=== PATIENT | female | born 1950 | race Caucasian/White ===

== ENCOUNTER 2016-05-24 00:06 | Inpatient (IN) | payer OTHER ==
[~2016-05-24] VITALS: Ht 157.5 cm; Wt 78.2 kg
[2016-05-24] VITALS (7 sets, daily range): BP systolic 99–104; BP diastolic 55–68; PULSE 100–107; TEMP 36.4–37.1; O2SAT 92–97; Ht 157.5 cm; Wt 78.2 kg
[~2016-05-24 00:06] MED LIST: ALUMSUS17 PO; ATV1 PO; ATV5 PO; CALCTAB27 PO; CARB25TA12 PO; DBT/25 PO; FLUO40CA8 PO; FURO-85 PO; HYDR1OIN TOP; IMD/2 PO; MENTOIN TOP; MOML PO; NRN/300 PO; NUTR-706 PO; PRLSR20 PO; TRIH5TAB2 PO; [UNRECOGNIZED DRUG - CODE] PO
[2016-05-24] MEDS ORDERED: ACETAMINOPHEN 500 MG TAB PO STA (00:29)
[2016-05-24] MEDS ORDERED: IBUPROFEN 600 MG TAB PO STA (00:29)
[2016-05-24] MEDS ORDERED: SODIUM CHLORIDE 0.9% 1000ML 1,000 ML IV ONE (00:30)
[2016-05-24 01:08] LABS: PARTIAL THROMBOPLASTIN RATIO 1.1; PROTHROMBIN TIME (PATIENT) 11.1 SECONDS (9.0-12.0)
[2016-05-24 01:13] LABS: BUN/CREATININE RATIO 11.3 (10-20); CALCIUM 9.4 mg/dl (8.5-10.1); CREATININE 1.2 mg/dl (0.60-1.20); POTASSIUM 4.1 mmol/L (3.5-5.1)
[2016-05-24 01:18] LABS: HEMATOCRIT 39.5 % (37-47); MEAN CELL VOLUME 92.7 fL (80-100); MEAN CORPUSCULAR HEMOGLOBIN 31.9 pg (25-34); MEAN CORPUSCULAR HGB CONC 34.4 g/dl (32-36); MEAN PLATELET VOLUME 9.7 fL (7.4-10.4); PLATELET COUNT 82 K/uL (130-400); RED BLOOD COUNT 4.26 M/uL (4.2-5.4); WHITE BLOOD COUNT 8.24 K/uL (4.8-10.8)
[2016-05-24 01:19] LABS: COMPLETE YES; EOS % 0.5 %; IG% 0.1 %; LYMPH % 8.5 %; MONO % 5.8 %; NEUT % 85.1 %; PLT ESTIMATE DECREASED
[2016-05-24] MEDS ORDERED: ATV/1 PO (01:28)
[2016-05-24] MEDS ORDERED: LORA-741 PO (01:28)
[2016-05-24] MEDS ORDERED: GUAI1TAB55 PO (01:29)
[2016-05-24] MEDS ORDERED: ASPI-435 PO (01:31)
[2016-05-24] MEDS ORDERED: [UNRECOGNIZED DRUG - CODE] PO (01:34)
[2016-05-24] MEDS ORDERED: GLIP-172 PO (01:34)
[2016-05-24] MEDS ORDERED: CGN5 PO (01:34)
[2016-05-24] MEDS ORDERED: LINICRE TOP ×2 (01:35→01:36)
[2016-05-24] MEDS ORDERED: ACET-1256 PO (01:37)
[2016-05-24] MEDS ORDERED: CALC-279 PO (01:38)
[2016-05-24] MEDS ORDERED: SELE1SHA3 TOP (01:38)
[2016-05-24 01:58] LABS: URINE APPEARANCE CLEAR (CLEAR); URINE BILIRUBIN NEG (NEG); URINE COLOR YELLOW; URINE NITRITE NEG (NEG); URINE PH 7.5 (4.5-7.5); URINE SPECIFIC GRAVITY 1.016 (1.000-1.030); UROBILINOGEN NEG (NEG); ZZURINE CULT IF INDIC CATH NO
[2016-05-24 02:01] LABS: MANUAL MICROSCOPIC REQUIRED? NO; REVIEW REQ? NO
[2016-05-24] MEDS ORDERED: POLYETHYLENE (MIRALAX) 17 GM PACK PO PRN (04:00)
[2016-05-24] MEDS ORDERED: ONDANSETRON INJ 2 MG/ML 2 ML VIAL IV PRN (04:00)
[2016-05-24] MEDS ORDERED: ALUMINUM/MAGNESIUM/SIMETH (MAALOX MAX) 30 ML UDC PO PRN (04:00)
[2016-05-24] MEDS ORDERED: NITROGLYCERIN 0.4 MG SL PER TAB CHARGE SL PRN (04:00)
[2016-05-24] MEDS ORDERED: MAGNESIUM HYDROXIDE SUSP 30 ML UDC PO PRN (04:00)
[2016-05-24] MEDS ORDERED: LEVOFLOXACIN 250 MG TAB PO STA (04:21)
[2016-05-24] MEDS ORDERED: PIPERACILLIN/TAZOBACTAM 4.5 GM/100ML D5W IV STA (04:22)
--- NOTE | 2016-05-24 05:35 | EMERGENCY ROOM VISIT NOTE ---
ED Visit Note First contact with patient: 00:22 I have personally evaluated and examined this patient. I agree with assessment and plan of Jasper Lockwood PA-C. 65 yr old female with fevers/hypoxia but otherwise labs/cxr look ok. No history of hypoxia thus would presume lung source. Does not appear septic. Will bring in to hospitalist service.
[2016-05-24] MEDS ORDERED: LOPERAMIDE HCL 2 MG CAP PO PRN (05:45)
[2016-05-24] MEDS ORDERED: LORAZEPAM 0.5 MG TAB PO PRN (05:45)
--- NOTE | 2016-05-24 05:49 | History and Physical ---
History & Physical Date & Time of Service: May 24, 2016 at 05:25 Chief Complaint: Fever, Pneumonia [facility] History of Present Illness Source: patient, caregiver, clinic records This is a 65 year old female resident of [facility] with PMH of anxiety, depression, mild intellectual disability, DM2, HLD [facility] to her spiking a fever and developing a cough late on 05/23/16 - as per the caregiver in the room with the patient, the coughing started suddenly; and due to a fever, she was brought over to the ER. I spoke to the patient, who tells me she has a cough, but otherwise feels fine and very insistent on wanting to go back to [facility]. Denies chest pain or any other symptoms. Upon presentation to the ER, work-up performed, flu is negative, CXR does not clearly show an infiltrate; UA is negative. Patient has been tachycardic and spiking fevers. Oxygen saturation is on the lower end, low 90s with oxygen, she does not use supplemental O2 at home. Past Medical/Surgical History Medical Problems: (1) Anxiety Status: Chronic (2) Depression Status: Chronic (3) GERD (gastroesophageal reflux disease) Status: Chronic (4) History of mental retardation Status: Chronic (5) Osteoporosis Status: Chronic (6) Parkinson disease Status: Chronic (7) Schizophrenia Status: Chronic Family History Patient reports no known family medical history. Social History Smoking Status: Never Smoker Drug Use: none Marital Status: single Occupational Status: disabled Immunizations History of Influenza Vaccine: No History of Tetanus Vaccine?: Unknown History of Pneumococcal: Yes History of Hepatitis B Vaccine: Yes Multi-Drug Resistant Organisms History of MDRO: No Allergies Coded Allergies: Flu Virus Vaccine (Unverified Allergy, Unknown, ., 05/24/16) Risperidone (Verified Allergy, Unknown, 05/24/16) Sulfa Drugs (Verified Allergy, Unknown, 08/22/13) Replaces SULFAMETHOXAZ Sulfamethoxazole (Verified Allergy, Unknown, 08/22/13) Replaces SULFAMETHOXAZ Sulfamethoxazole w/Trimethoprim (Verified Allergy, Unknown, unknown, ) Trimethoprim (Verified Allergy, Unknown, 08/22/13) Replaces SULFAMETHOXAZ Home Medications Scheduled Aspirin (Aspirin 81), 81 MG PO QAM Benztropine Mesylate (Benztropine Mesylate), 1 MG PO DAILY Calcium Citrate-Vitamin D (Calcium Citrate + D), 1 TAB PO DAILY Carbidopa/Levodopa (Sinemet 25MG/100MG), 1 TAB PO BID Clozapine (Clozapine), 3.5 TABS PO DAILY Fluoxetine (Prozac), 40 MG PO DAILY Furosemide (Lasix), 20 MG PO DAILY Gabapentin (Neurontin), 300 MG PO TID Glipizide (Glipizide Xl), 2.5 MG PO DAILY Lorazepam (Ativan), 1 MG PO DAILY @ 2PM Menthol-Methyl Salicylate (Dayana (Thera-Gesic), 1 APPLN TOP BID Omeprazole (Prilosec), 20 MG PO DAILY Scheduled PRN Acetaminophen (Tylenol), 500 MG PO Q6H PRN for Pain or Fever Alum & Mag Hydrox-Simethicone (Maalox Advanced), 30 ML PO Q1 HOUR PRN for INDIGESTION Enteral Nutrition Formula (Ensure), 1 CAN PO BID PRN for SUPPLEMENT Guaifenesin Ext Rel (Mucinex Ext Rel), 600 MG PO Q12 PRN for CONGESTION Loperamide Hcl (Imodium), 2 MG PO Q 3 HOURS PRN Lorazepam (Ativan), 0.5 MG PO BID PRN for Anxiety Magnesium Hydroxide (Milk Of Magnesia), 30 ML PO DAILY PRN for CONSTIPATION Menthol-Methyl Salicylate (Dayana (Thera-Gesic), 1 APPLN TOP UD PRN for Pain Selenium Sulfide (Selsun Blue), 1 APPLN TOP UD PRN for INFECTION Review of Systems Constitutional: + chills, + fever, No fatigue, No sweats, No weakness Respiratory: + cough, + shortness of breath, + sputum, + wheezing, No dyspnea at rest, No dyspnea on exertion, No hemoptysis Cardiovascular: No chest pain, No edema, No orthopnea, No palpitations Abdomen: No diarrhea, No nausea, No pain, No vomiting Genitourinary - Female: No dysuria, No hematuria, No urinary frequency, No urinary urgency Neurologic: No memory loss Psychiatric: No depression symptoms Hematologic / Lymphatic: No abnormal bleeding/bruising Physical Exam Vital Signs Date Time Temp Pulse Resp B/P Pulse Ox O2 Delivery O2 Flow Rate FiO2 05/24/16 04:28 113 05/24/16 03:27 91 Free Flow/[place] 5.0 05/24/16 03:00 119 28 123/87 88 Nasal Cannula 5.0 05/24/16 01:57 86 Room Air 05/24/16 01:55 38.0 118 25 150/78 92 Nasal Cannula 2.0 05/24/16 01:49 115 19 159/90 96 Nasal Cannula 2.0 05/24/16 00:53 92 Nasal Cannula 2.0 05/24/16 00:28 115 05/24/16 00:18 38.5 115 20 142/87 91 Room Air General Appearance: + mild distress, + pertinent finding (+mild MR) Head: normocephalic, atraumatic ENT: hearing grossly normal Respiratory/Chest: + respiratory distress (mild), + decreased breath sounds, + crackles (diffusely, bilateral) Cardiovascular: no edema, no murmur, + tachycardia Abdomen/GI: normal bowel sounds, non tender, soft Extremities/Musculoskelatal: no calf tenderness, normal capillary refill, no pedal edema Neurologic/Psych: no motor/sensory deficits, alert, normal mood/affect Skin: normal color Lymphatic: no adenopathy Diagnostics Laboratory Results Results Past 24 Hours Test 05/24/16 00:05 05/24/16 00:30 05/24/16 00:42 05/24/16 00:51 Range/Units Urine Color YELLOW Urine Appearance CLEAR CLEAR Urine pH 7.5 4.5-7.5 Urine Specific [place] 1.016 1.000-1.030 Urine Protein NEG NEG Urine Glucose (UA) NEG NEG Urine Ketones NEG NEG Urine Occult Blood NEG NEG Urine Nitrite NEG NEG Urine Bilirubin NEG NEG Urine Urobilinogen NEG NEG Urine Leukocyte Esterase NEG NEG White Blood Count 8.24 4.8-10.8 K/uL Red Blood Count 4.26 4.2-5.4 M/uL Hemoglobin 13.6 12.0-16.0 g/dL Hematocrit 39.5 37-47 % Mean Corpuscular Volume 92.7 80-100 fL Mean Corpuscular Hemoglobin 31.9 25-34 pg Mean Corpuscular Hemoglobin Concent 34.4 32-36 g/dl Platelet Count 82 130-400 K/uL Mean Platelet Volume 9.7 7.4-10.4 fL Neutrophils (%) (Auto) 85.1 % Lymphocytes (%) (Auto) 8.5 % Monocytes (%) (Auto) 5.8 % Eosinophils (%) (Auto) 0.5 % Basophils (%) (Auto) 0.0 % Neutrophils # (Auto) 7.01 1.4-6.5 K/uL Lymphocytes # (Auto) 0.70 1.2-3.4 K/uL Monocytes # (Auto) 0.48 0.11-0.59 K/uL Eosinophils # (Auto) 0.04 0-0.5 K/uL Basophils # (Auto) 0.00 0-0.2 K/uL RDW Standard Deviation 48.4 36.4-46.3 fL RDW Coefficient of Variation 14.4 11.5-14.5 % Immature Granulocyte % (Auto) 0.1 % Immature Granulocyte # (Auto) 0.01 0.00-0.02 K/uL Platelet Estimate DECREASED Red Blood Cell Morphology Unremarkable Prothrombin Time 11.1 9.0-12.0 SECONDS Prothromb Time International Ratio 1.0 0.9-1.1 Activated Partial Thromboplast Time 27.5 21.0-31.0 SECONDS Partial Thromboplastin Ratio 1.1 Sodium Level 141 136-145 mmol/L Potassium Level 4.1 3.5-5.1 mmol/L Chloride Level 103 98-107 mmol/L Carbon Dioxide Level 30 21-32 mmol/L Anion Gap 8.0 3-11 mmol/L Blood Urea Nitrogen 14 7-18 mg/dl Creatinine 1.20 0.60-1.20 mg/dl Est Creatinine Clear Calc Drug Dose 45.7 ml/min Estimated GFR () 54.5 Estimated GFR (Non- 47.1 BUN/Creatinine Ratio 11.3 10-20 Random Glucose 120 70-99 mg/dl Calcium Level 9.4 8.5-10.1 mg/dl Total Bilirubin 0.7 0.2-1 mg/dl Aspartate Amino Transf (AST/SGOT) 79 15-37 U/L Alanine Aminotransferase (ALT/SGPT) 95 12-78 U/L Alkaline Phosphatase 124 45-117 U/L Total Protein 8.2 6.4-8.2 gm/dl Albumin 4.0 3.4-5.0 gm/dl Globulin 4.2 2.5-4.0 gm/dl Albumin/Globulin Ratio 1.0 0.9-2 Bedside Lactic Acid Venous 1.49 0.90-1.70 mmol/L Influenza Type A Antigen Neg for Influ A NEG Influenza Type B Antigen Neg for Influ B NEG Test 05/24/16 00:56 05/24/16 04:30 Range/Units Bedside Troponin I 0.000 0-0.045 ng/ml Microbiology Results 05/24/16 Blood Culture, Received Pending 05/24/16 Blood Culture, Received Pending Impression Assessment and Plan This is a 65 year old female resident of [facility] with PMH of anxiety, depression, mild intellectual disability, DM2, HLD [facility] due to her spiking a fever and developing a cough SIRS criteria Possibly pneumonia -->patient presents with cough, fever, tachycardia -->onset of the cough was sudden as per caregiver -->unsure if patient aspirated, no known dietary restrictions, though she has dentures -->will obtain speech evaluation -->will likely need a repeat CXR or CT chest for further evaluation -->continue supplemental O2 to keep O2 saturation > 90% -->added Zosyn + Levaquin for possible aspiration pneumonia -->rapid flu negative, will obtain Influenza PCR -->cultures are pending Anxiety/Depression -->continue home medications DVT ppx -->subq heparin FULL CODE VTE Prophylaxis VTE Risk Assessment Done? Y/N: Yes Risk Level: Moderate
[2016-05-24] MEDS ORDERED: HEPARIN SOD 5000 UNIT/0.5 ML CARP SQ SCH (06:00)
--- NOTE | 2016-05-24 07:15 | DIAGNOSTIC IMAGING REPORT ---
CHEST ONE VIEW PORTABLE HISTORY: Short of breath. Pneumonia. COMPARISON: Chest 05/24/2016. FINDINGS: There are low lung volumes. The heart remains mildly enlarged. Mild diffuse interstitial thickening persists. Left basilar densities are again noted. No pleural effusions. No pneumothorax. IMPRESSION: Low lung volumes with left basilar densities. This may represent atelectasis or pneumonia. Electronically signed by: Parag Ha M.D. 05/24/2016 7:13 AM
--- NOTE | 2016-05-24 07:23 | DIAGNOSTIC IMAGING REPORT ---
CHEST ONE VIEW PORTABLE HISTORY: Sepsis COMPARISON: Chest 08/22/2013. FINDINGS: Low lung volumes. Left basilar linear densities. No pneumothorax. No pleural effusions. The heart remains enlarged. There is progression of the interstitial and vascular thickening. IMPRESSION: 1. Progression of the interstitial and vascular thickening suggestive of mild congestive change. 2. Linear density at the left lung base may represent atelectasis given the low lung volumes. 3. Stable cardiomegaly. Electronically signed by: Parag Ha M.D. 05/24/2016 7:21 AM
[2016-05-24 07:25] LABS: INFLUENZA B PCR Neg for Influ B (NEG)
[2016-05-24 07:28] LABS: INFLUENZA A PCR POS for Influ A (NEG)
[2016-05-24] MEDS: ALBUTEROL 0.083% NEBU SOLN 3 ML VIAL INH SCH ×3 (07:46→20:19)
[2016-05-24] MEDS ORDERED: PIPERACILL/TAZOBAC CONSULT ACTIVE PRN ×2 (08:45→09:00)
[2016-05-24] MEDS ORDERED: FUROSEMIDE 20 MG TAB PO SCH (09:00)
[2016-05-24] MEDS ORDERED: ASPIRIN 81 MG ECTAB PO SCH (09:00)
[2016-05-24] MEDS ORDERED: CLOZAPINE 25 MG TAB PO SCH (09:00)
[2016-05-24] MEDS ORDERED: GABAPENTIN 300 MG CAP PO SCH (09:00)
[2016-05-24] MEDS: FLUOXETINE HCL 20 MG CAP PO SCH (09:03)
[2016-05-24] MEDS: CARBIDOPA/LEVODOPA 25/100MG TAB PO SCH ×2 (09:03→20:58)
[2016-05-24] MEDS: BENZTROPINE MESYLATE 1 MG TAB PO SCH (09:04)
[2016-05-24] MEDS: PANTOprazole SOD 40 MG TAB PO SCH (09:04)
[2016-05-24] MEDS: PIPERACILL/TAZOBAC IV 3.375 GM in DEXTROSE 5% 100ML 100 ML IV SCH ×2 (09:13→17:52)
[2016-05-24] MEDS ORDERED: DOXYCYCLINE IV 100 MG in DEXTROSE 5% 100ML 100 ML IV ONE (10:12)
[2016-05-24] MEDS ORDERED: OSELTAMIVIR PHOSPHATE SUSP 30 MG/5 ML UDP PO ONE (10:35)
[2016-05-24] MEDS: D5W AND NSS 1,000 ML IV SCH (11:16)
[2016-05-24 11:46] LABS: ALLEN TEST POSITIVE (POS); ARTERIAL BLD GAS O2 SATURATION 93.7 % (90-95); ARTERIAL BLOOD GAS BASE EXCESS 2.1 mEq/L (-9-1.8); ARTERIAL BLOOD GAS HCO3 27 mmol/L (19-24); ARTERIAL BLOOD GAS PO2 67 mm/Hg (80-95); ARTERIAL BLOOD GAS pH 7.41 (7.35-7.45); O2 ADMINISTRATION 4 LITERS
--- NOTE | 2016-05-24 12:01 | DIAGNOSTIC IMAGING REPORT ---
HEAD CT NONCONTRAST CT DOSE: 1483.10 mGycm HISTORY: Mental status change r/o cava, bleed TECHNIQUE: Multiaxial CT images of the head were performed without the use of intravenous contrast. Comparison: 05/14/2013 Findings: The paranasal sinuses and mastoid air cells are clear. Stable hydrocephalus. Minimal chronic small vessel change unaltered. No evidence for acute intracranial hemorrhage. No midline shift. Impression: Chronic change. No acute process. No change from the prior exam. Electronically signed by: Malik Bullock M.D. 05/24/2016 11:59 AM
[2016-05-24] MEDS ORDERED: LORAZEPAM 1 MG TAB PO SCH (14:00)
[2016-05-24] MEDS: OSELTAMIVIR PHOSPHATE SUSP 30 MG/5 ML UDP PO SCH (20:58)
[2016-05-24] MEDS ORDERED: DOXYCYCLINE IV 100 MG in DEXTROSE 5% 100ML 100 ML IV SCH (21:00)
[2016-05-25] VITALS (11 sets, daily range): BP systolic 92–136; BP diastolic 63–76; PULSE 103–113; TEMP 37.3–38.6; O2SAT 91–99
[2016-05-25] MEDS: ALBUTEROL 0.083% NEBU SOLN 3 ML VIAL INH SCH ×4 (01:29→21:12)
[2016-05-25] MEDS: D5W AND NSS 1,000 ML IV SCH ×3 (01:34→20:51)
[2016-05-25] MEDS: PIPERACILL/TAZOBAC IV 3.375 GM in DEXTROSE 5% 100ML 100 ML IV SCH ×3 (01:34→17:27)
[2016-05-25] MEDS ORDERED: IBUPROFEN 600 MG TAB PO STA (05:00)
[2016-05-25 06:34] LABS: HEMATOCRIT 35.5 % (37-47); MEAN CELL VOLUME 94.2 fL (80-100); MEAN CORPUSCULAR HEMOGLOBIN 31.6 pg (25-34); MEAN CORPUSCULAR HGB CONC 33.5 g/dl (32-36); RED BLOOD COUNT 3.77 M/uL (4.2-5.4); WHITE BLOOD COUNT 6.75 K/uL (4.8-10.8)
[2016-05-25 06:37] LABS: PLATELET COUNT 75 K/uL (130-400)
[2016-05-25 07:02] LABS: BASO % 0.1 %; BASO ABS # 0.01 K/uL (0-0.2); COMPLETE YES; EOS % 0.9 %; IG% 0.3 %; LYMPH % 8.9 %; NEUT % 84.8 %
[2016-05-25 07:03] LABS: BUN/CREATININE RATIO 10.8 (10-20); CALCIUM 8.2 mg/dl (8.5-10.1); CREATININE 1.2 mg/dl (0.60-1.20); POTASSIUM 3.7 mmol/L (3.5-5.1)
[2016-05-25] MEDS: CARBIDOPA/LEVODOPA 25/100MG TAB PO SCH ×2 (08:23→20:44)
[2016-05-25] MEDS: FLUOXETINE HCL 20 MG CAP PO SCH (08:24)
[2016-05-25] MEDS: PANTOprazole SOD 40 MG TAB PO SCH (08:25)
[2016-05-25] MEDS: GUAIFENESIN 600 MG TABCR PO PRN (08:25)
[2016-05-25] MEDS: BENZTROPINE MESYLATE 1 MG TAB PO SCH (08:25)
[2016-05-25] MEDS: OSELTAMIVIR PHOSPHATE SUSP 30 MG/5 ML UDP PO SCH ×2 (08:26→20:47)
[2016-05-25] MEDS ORDERED: LEVOFLOXACIN 750 MG TAB PO SCH (09:00)
--- NOTE | 2016-05-25 11:48 | Progress Note ---
Medicine Progress Note Date & Time of Visit: May 25, 2016 at 11:39. Subjective patient seen sitting up in bed, awake, alert, pleasant, appears comfortable oriented x 2 denies shortness of breath, has occasional cough no chest pain denies fever/chills, muscle/joint pains no abdominal pain, nausea denies other symptoms Objective Last 8 Hrs Date Time Temp Pulse Resp B/P Pulse Ox O2 Delivery O2 Flow Rate FiO2 05/25/16 07:58 37.7 112 18 118/63 95 Nasal Cannula 2.0 05/25/16 07:09 109 20 98 Nasal Cannula 3.0 05/25/16 04:00 Nasal Cannula 2.0 Physical Exam: General- oriented x2, not in distress, speaks in sentences with no effort/acc muscles Eyes- anicteric ENT- dry oral mucosa Neck- supple, no JVD, no adenopathy Lungs- clear to auscultation b/l Heart-normal rate, regular rhythm; no murmurs Abdomen- normal bowel sounds, soft, nontender Extremities- no pretibial edema, no calf tenderness Neuro- alert, oriented x 2; no gross deficits (+) tardive dyskinesia movements Skin- warm & dry Laboratory Results: Last 24 Hours Test 05/24/16 16:12 05/24/16 20:17 05/25/16 06:12 05/25/16 06:13 Bedside Glucose 127 mg/dl 116 mg/dl Sodium Level 143 mmol/L Potassium Level 3.7 mmol/L Chloride Level 106 mmol/L Carbon Dioxide Level 28 mmol/L Anion Gap 9.0 mmol/L Blood Urea Nitrogen 13 mg/dl Creatinine 1.20 mg/dl Est Creatinine Clear Calc Drug Dose 45.8 ml/min Estimated GFR () 54.5 Estimated GFR (Non- 47.1 BUN/Creatinine Ratio 10.8 Random Glucose 119 mg/dl Calcium Level 8.2 mg/dl White Blood Count 6.75 K/uL Red Blood Count 3.77 M/uL Hemoglobin 11.9 g/dL Hematocrit 35.5 % Mean Corpuscular Volume 94.2 fL Mean Corpuscular Hemoglobin 31.6 pg Mean Corpuscular Hemoglobin Concent 33.5 g/dl Platelet Count 75 K/uL Mean Platelet Volume 10.0 fL Neutrophils (%) (Auto) 84.8 % Lymphocytes (%) (Auto) 8.9 % Monocytes (%) (Auto) 5.0 % Eosinophils (%) (Auto) 0.9 % Basophils (%) (Auto) 0.1 % Neutrophils # (Auto) 5.72 K/uL Lymphocytes # (Auto) 0.60 K/uL Monocytes # (Auto) 0.34 K/uL Eosinophils # (Auto) 0.06 K/uL Basophils # (Auto) 0.01 K/uL RDW Standard Deviation 50.4 fL RDW Coefficient of Variation 14.6 % Immature Granulocyte % (Auto) 0.3 % Immature Granulocyte # (Auto) 0.02 K/uL Red Blood Cell Morphology Unremarkable Test 05/25/16 06:50 05/25/16 10:52 Bedside Glucose 135 mg/dl 105 mg/dl Date/Time Source Procedure Growth Status 05/24/16 12:15 Nasal MRSA DNA Surveillance Screen - Final Specimen Negative for MRSA by DNA Probe Complete Assessment & Plan Assessment and Plan This is a 65 year old female resident of [facility] with PMH of anxiety, depression, mild intellectual disability, DM2, HLD was sent over by the [facility] due to her spiking a fever and developing a cough SEPSIS SECONDARY TO INFLUENZA, R/O PNEUMONIA- Aspiration vs. Comm Acquired -->patient presents with cough, fever, tachycardia -->onset of the cough was sudden as per caregiver -->unsure if patient aspirated, no known dietary restrictions, though she has dentures - still spiking fevers, tachycardic WBC normal - flu a positive blood cultures negative so far - repeat cxr today speech therapy eval today, advance diet per speech therapist - continue Oseltamivir Day 2 continue empiric Zosyn + Levaquin Day 2 IV fluids wean off oxygen Thrombocytopenia - from Sepsis? - Plt now 71 no signs of bleeding monitor - baseline around low 100s - hold aspirin DM hold glipizide ISS for now Anxiety/Depression/MR -->continue home medications DVT ppx hold heparin due to thrombocytopenia FULL CODE Disposition pending Current Inpatient Medications: Current Inpatient Medications Medications (Trade) Dose Ordered Sig/Yisel Route Start Time Stop Time Status Last Admin Dose Admin Levofloxacin 750 mg 750 mg DAILY PO 05/25/16 09:00 05/31/16 08:59 05/25/16 08:24 750 MG Piperacillin Sod/ Tazobactam Sod/ Dextrose (Zosyn Iv/D5 100ml) 115 ml @ 28.75 mls/ hr Q8H IV 05/24/16 09:00 05/31/16 03:59 05/25/16 08:28 28.75 MLS/HR Albuterol Sulfate (Ventolin 0.083% 2.5MG/3ML Neb) 2.5 mg Q6R INH 05/24/16 09:00 06/23/16 08:59 05/25/16 07:09 2.5 MG Acetaminophen (Tylenol Tab) 650 mg Q4H PRN PO 05/24/16 04:00 06/23/16 03:59 Al Hydrox/Mg Hydrox/Simethicone (Maalox Max Susp) 15 ml Q4H PRN PO 05/24/16 04:00 06/23/16 03:59 Magnesium Hydroxide (Milk Of Magnesia Susp) 30 ml Q12H PRN PO 05/24/16 04:00 06/23/16 03:59 Ondansetron HCl (Zofran Inj) 4 mg Q6H PRN IV 05/24/16 04:00 06/23/16 03:59 Nitroglycerin (Nitrostat Tab) 0.4 mg UD PRN SL 05/24/16 04:00 06/23/16 03:59 Polyethylene (Miralax Powder Packet) 17 gm DAILY PRN PO 05/24/16 04:00 06/23/16 03:59 Benztropine Mesylate (Cogentin Tab) 1 mg DAILY PO 05/24/16 09:00 06/23/16 08:59 05/25/16 08:25 1 MG Carbidopa/Levodopa (Sinemet 25/ 100MG Tab) 1 tab BID PO 05/24/16 09:00 06/23/16 08:59 05/25/16 08:23 1 TAB Fluoxetine HCl (Prozac Cap) 40 mg DAILY PO 05/24/16 09:00 06/23/16 08:59 05/25/16 08:24 40 MG Guaifenesin (Mucinex Contr Rel Tab) 600 mg Q12 PRN PO 05/24/16 05:45 06/23/16 05:44 05/25/16 08:25 600 MG Loperamide HCl (Imodium Cap) 2 mg DAILY PRN PO 05/24/16 05:45 06/23/16 05:44 Lorazepam (Ativan Tab) 0.5 mg BID PRN PO 05/24/16 05:45 06/23/16 05:44 Pantoprazole Sodium (Protonix Tab) 40 mg DAILY PO 05/24/16 09:00 06/23/16 08:59 05/25/16 08:25 40 MG Piperacillin Sod/ Tazobactam Sod (Consult) 1 ea UD PRN N/A 05/24/16 08:45 06/23/16 08:44 Oseltamivir Phosphate 30 mg 30 mg BID PO 05/24/16 21:00 05/29/16 08:59 05/25/16 08:26 30 MG Dextrose/Sodium Chloride (D5W And Nss) 1,000 ml @ 100 mls/hr Q10H IV 05/24/16 10:30 06/23/16 10:29 05/25/16 01:34 100 MLS/HR
[2016-05-25] MEDS ORDERED: GLUCAGON FOR INJ 1 MG VIAL SQ PRN (12:00)
[2016-05-25] MEDS ORDERED: LEVOFLOXACIN CONSULT ACTIVE PRN (12:00)
[2016-05-25] MEDS ORDERED: GLUCOSE 40% GEL 15 GM TUBE PO PRN (12:00)
[2016-05-25] MEDS: INSULIN ASPART 100 UNITS/ML 3 ML PEN SC SCH ×3 (12:00→20:47)
[2016-05-25] MEDS ORDERED: GLUCOSE 10 TABS/TUBE PO PRN (12:00)
[2016-05-25] MEDS ORDERED: DEXTROSE 50% 50 ML SYR IV PRN (12:00)
--- NOTE | 2016-05-25 12:13 | DIAGNOSTIC IMAGING REPORT ---
CHEST ONE VIEW PORTABLE HISTORY: Fever. Sepsis. r/o pneumonia COMPARISON: Chest 05/24/2016. FINDINGS: No pneumothorax. No pleural effusions. There are low lung volumes. The heart remains mildly enlarged. Diffuse interstitial and vascular thickening suggestive of mild congestive change. There are left basilar densities. IMPRESSION: 1. Left basilar linear densities. This may represent atelectasis or pneumonia. 2. Mild central pulmonary vascular congestion without overt edema. Electronically signed by: Parag Ha M.D. 05/25/2016 12:11 PM Dictated Date/Time: 05/25/2016 12:10 PM
[2016-05-25] MEDS: ACETAMINOPHEN 325 MG TAB PO PRN (17:27)
[2016-05-26] VITALS (9 sets, daily range): BP systolic 131–168; BP diastolic 76–91; PULSE 100–114; TEMP 36.6–37.1; O2SAT 90–97
[2016-05-26] MEDS: PIPERACILL/TAZOBAC IV 3.375 GM in DEXTROSE 5% 100ML 100 ML IV SCH ×3 (01:52→17:46)
[2016-05-26] MEDS: ALBUTEROL 0.083% NEBU SOLN 3 ML VIAL INH SCH ×3 (02:02→14:30)
[2016-05-26 06:30] LABS: HEMATOCRIT 35.1 % (37-47); MEAN CELL VOLUME 92.4 fL (80-100); MEAN CORPUSCULAR HEMOGLOBIN 30.8 pg (25-34); MEAN CORPUSCULAR HGB CONC 33.3 g/dl (32-36); WHITE BLOOD COUNT 4.87 K/uL (4.8-10.8)
[2016-05-26 06:42] LABS: COMPLETE YES; EOS % 0.6 %; IG% 0.6 %; LYMPH % 19.3 %; LYMPH ABS # 0.94 K/uL (1.2-3.4); MEAN PLATELET VOLUME 9.9 fL (7.4-10.4); NEUT % 72.5 %; PLATELET COUNT 76 K/uL (130-400)
[2016-05-26 07:05] LABS: BUN/CREATININE RATIO 9.8 (10-20); CALCIUM 8.5 mg/dl (8.5-10.1); CREATININE 0.87 mg/dl (0.60-1.20); POTASSIUM 3.5 mmol/L (3.5-5.1)
[2016-05-26 08:06] LABS: ESTIMATED AVERAGE GLUCOSE 114 mg/dl; HA1C FLAG Normal (Normal)
[2016-05-26] MEDS: OSELTAMIVIR PHOSPHATE SUSP 30 MG/5 ML UDP PO SCH ×2 (08:50→21:27)
[2016-05-26] MEDS: GUAIFENESIN 600 MG TABCR PO PRN (08:50)
[2016-05-26] MEDS: PANTOprazole SOD 40 MG TAB PO SCH (08:52)
[2016-05-26] MEDS: FLUOXETINE HCL 20 MG CAP PO SCH (08:52)
[2016-05-26] MEDS: CARBIDOPA/LEVODOPA 25/100MG TAB PO SCH ×2 (08:53→21:27)
[2016-05-26] MEDS: BENZTROPINE MESYLATE 1 MG TAB PO SCH (08:53)
[2016-05-26] MEDS: INSULIN ASPART 100 UNITS/ML 3 ML PEN SC SCH ×4 (09:00→21:00)
--- NOTE | 2016-05-26 12:04 | EMERGENCY ROOM VISIT NOTE ---
History First contact with patient: 00:22 Chief Complaint: FLU LIKE SX Stated Complaint: FEVER, PNEUMONIA History of Present Illness The patient is a 65 year old female who presents to the Emergency Room with complaints of cough and fever. The patient lives at a personal senior living, and was sent to the emergency department this evening for evaluation. The patient has some baseline mental retardation, and does not have any complaints herself. She states a desire that she wishes to go back to the personal senior living. The patient does say sometimes she has a cough, but no other symptoms. She has been eating and drinking as normal. She does not have known exposure to disease. History is somewhat limited secondary to the patient's chronic status. Review of Systems More than 10 systems were reviewed and otherwise negative with the exception of history of present illness. Past Medical/Surgical History Medical Problems: (1) Anxiety (2) Depression (3) GERD (gastroesophageal reflux disease) (4) History of mental retardation (5) Osteoporosis (6) Parkinson disease (7) Schizophrenia Family History Patient reports no known family medical history. Social History Smoking Status: Never Smoker Alcohol Use: none Drug Use: none Marital Status: single Housing Status: other Occupation Status: disabled Current/Historical Medications Scheduled Aspirin (Aspirin 81), 81 MG PO QAM Benztropine Mesylate (Benztropine Mesylate), 1 MG PO DAILY Calcium Citrate-Vitamin D (Calcium Citrate + D), 1 TAB PO DAILY Carbidopa/Levodopa (Sinemet 25MG/100MG), 1 TAB PO BID Clozapine (Clozapine), 3.5 TABS PO DAILY Fluoxetine (Prozac), 40 MG PO DAILY Furosemide (Lasix), 20 MG PO DAILY Gabapentin (Neurontin), 300 MG PO TID Glipizide (Glipizide Xl), 2.5 MG PO DAILY Lorazepam (Ativan), 1 MG PO DAILY @ 2PM Menthol-Methyl Salicylate (Dayana (Thera-Gesic), 1 APPLN TOP BID Omeprazole (Prilosec), 20 MG PO DAILY Scheduled PRN Acetaminophen (Tylenol), 500 MG PO Q6H PRN for Pain or Fever Alum & Mag Hydrox-Simethicone (Maalox Advanced), 30 ML PO Q1 HOUR PRN for INDIGESTION Enteral Nutrition Formula (Ensure), 1 CAN PO BID PRN for SUPPLEMENT Guaifenesin Ext Rel (Mucinex Ext Rel), 600 MG PO Q12 PRN for CONGESTION Loperamide Hcl (Imodium), 2 MG PO Q 3 HOURS PRN Lorazepam (Ativan), 0.5 MG PO BID PRN for Anxiety Magnesium Hydroxide (Milk Of Magnesia), 30 ML PO DAILY PRN for CONSTIPATION Menthol-Methyl Salicylate (Dayana (Thera-Gesic), 1 APPLN TOP UD PRN for Pain Selenium Sulfide (Selsun Blue), 1 APPLN TOP UD PRN for INFECTION Allergies Coded Allergies: Flu Virus Vaccine (Unverified Allergy, Unknown, ., 05/24/16) Risperidone (Verified Allergy, Unknown, 05/24/16) Sulfa Antibiotics (Verified Allergy, Unknown, ., 05/24/16) Sulfamethoxazole (Verified Allergy, Unknown, 08/22/13) Replaces SULFAMETHOXAZ Sulfamethoxazole w/Trimethoprim (Verified Allergy, Unknown, unknown, ) Trimethoprim (Verified Allergy, Unknown, 08/22/13) Replaces SULFAMETHOXAZ Physical Exam Vital Signs Date Time Temp Pulse Resp B/P Pulse Ox O2 Delivery O2 Flow Rate FiO2 05/24/16 04:00 37.6 113 24 112/63 93 Free Flow/Blowby 5.0 05/24/16 03:27 91 Free Flow/Blowby 5.0 05/24/16 03:00 119 28 123/87 88 Nasal Cannula 5.0 05/24/16 01:57 86 Room Air 05/24/16 01:55 38.0 118 25 150/78 92 Nasal Cannula 2.0 05/24/16 01:49 115 19 159/90 96 Nasal Cannula 2.0 05/24/16 00:53 92 Nasal Cannula 2.0 05/24/16 00:28 115 05/24/16 00:18 38.5 115 20 142/87 91 Room Air Pain Rating (0-10): 0 Physical Exam VITALS: Vitals are noted on the nurse's note and reviewed by myself. Vital signs stable. GENERAL: White female who appears in mild distress. She is tachycardic and ill- appearing. HEAD: Normocephalic atraumatic. HEART: Regular rate and rhythm without murmurs gallops or rubs. LUNGS: Diminished breath sounds throughout. No distinct crackles appreciated. No accessory muscle use. ABDOMEN: Positive normal bowel sounds x 4. Soft, nontender, without masses or organomegaly. MUSCULOSKELETAL: No muscle atrophy, erythema, or edema noted. SKIN: The skin was without rashes, erythema, edema, or bruising. Capillary reflex less than 2 seconds. Medical Decision & Procedures ER Provider Diagnostic Interpretation: CHEST ONE VIEW PORTABLE HISTORY: Sepsis COMPARISON: Chest 08/22/2013. FINDINGS: Low lung volumes. Left basilar linear densities. No pneumothorax. No pleural effusions. The heart remains enlarged. There is progression of the interstitial and vascular thickening. IMPRESSION: 1. Progression of the interstitial and vascular thickening suggestive of mild congestive change. 2. Linear density at the left lung base may represent atelectasis given the low lung volumes. 3. Stable cardiomegaly. Laboratory Results Test 05/24/16 00:05 05/24/16 00:30 05/24/16 00:42 05/24/16 00:51 Urine Color YELLOW Urine Appearance CLEAR (CLEAR) Urine pH 7.5 (4.5-7.5) Urine Specific [place] 1.016 (1.000-1.030) Urine Protein NEG (NEG) Urine Glucose (UA) NEG (NEG) Urine Ketones NEG (NEG) Urine Occult Blood NEG (NEG) Urine Nitrite NEG (NEG) Urine Bilirubin NEG (NEG) Urine Urobilinogen NEG (NEG) Urine Leukocyte Esterase NEG (NEG) Platelet Estimate DECREASED Prothrombin Time 11.1 SECONDS (9.0-12.0) Prothromb Time International Ratio 1.0 (0.9-1.1) Activated Partial Thromboplast Time 27.5 SECONDS (21.0-31.0) Partial Thromboplastin Ratio 1.1 Total Bilirubin 0.7 mg/dl (0.2-1) Aspartate Amino Transf (AST/SGOT) 79 U/L (15-37) Alanine Aminotransferase (ALT/SGPT) 95 U/L (12-78) Alkaline Phosphatase 124 U/L (45-117) Total Protein 8.2 gm/dl (6.4-8.2) Albumin 4.0 gm/dl (3.4-5.0) Globulin 4.2 gm/dl (2.5-4.0) Albumin/Globulin Ratio 1.0 (0.9-2) Hepatitis C Antibody Screen NEG (NEG) Bedside Lactic Acid Venous 1.49 mmol/L (0.90-1.70) Influenza Type A Antigen Neg for Influ A (NEG) Influenza Type B Antigen Neg for Influ B (NEG) Test 05/24/16 00:56 Bedside Troponin I 0.000 ng/ml (0-0.045) Medications Administered Medications (Trade) Dose Ordered Sig/Yisel Route Start Time Stop Time Status Last Admin Dose Admin Sodium Chloride (Nss 1000ml) 1,000 ml @ 999 mls/hr Q1H1M ONCE IV 05/24/16 00:30 05/24/16 01:30 DC 05/24/16 00:57 999 MLS/HR Acetaminophen (Tylenol Tab) 1,000 mg NOW STAT PO 05/24/16 00:29 05/24/16 00:32 DC 05/24/16 00:56 1,000 MG Ibuprofen (Motrin Tab) 600 mg NOW STAT PO 05/24/16 00:29 05/24/16 00:32 DC 05/24/16 00:57 600 MG Acetaminophen (Tylenol Tab) 650 mg Q4H PRN PO 05/24/16 04:00 06/23/16 03:59 05/25/16 17:27 650 MG ED Course Physical exam and history were performed. Nursing notes and EMR were reviewed. Patient appears to have fever and cough at home. She does have hypoxia here, and has been as low as 86% on room air. The patient was placed on a nasal cannula, and this did seem to improve her symptoms. She is ill appearing, but pleasant. IV access was established and labs were obtained. The patient was hydrated and medicated as above. Chest x-ray was performed portably. Blood work was performed and is as above. She does not have a significant elevated white blood cell count, anemia, bandemia, or gross electrolyte imbalance. Chest x-ray does not show an obvious pneumonia, however the portable study is challenging to read. The patient lactic acid is negative and blood cultures are pending. I have concern regarding the safety of the patient. She does painting flulike picture , however influenza swabs here in the department are negative. She was sent here from a personal senior living, and I discussed the case with the on-call hospitalist. The hospitalist agreed to evaluate the patient here in the department for further management. Please see the hospitalist dictation for further patient course, plan, and disposition. The chart was completed utilizing Dragon Speech Voice Recognition Software. Grammatical errors, random word insertions, pronoun errors, and incomplete sentences are an occasional consequence of this system due to software limitations, ambient noise, and hardware issues. Any formal questions or concerns about the content, text, or information contained within the body of this dictation should be directly addressed to the provider for clarification. . Medical Decision Differential diagnosis: Etiologies such as viral syndrome, otitis, pharyngitis, pneumonia, influenza, meningitis, urinary tract infection, sepsis, bacteremia, as well as others were entertained. Impression Primary Impression: Hypoxia Additional Impression: Fever Departure Information Dispostion Admitted as an inpatient Condition GOOD [facility] Forms HOME CARE DOCUMENTATION FORM, IMPORTANT VISIT INFORMATION Patient Instructions A Signature Page, [facility]
[2016-05-26] MEDS: D5W AND NSS 1,000 ML IV SCH (14:49)
[2016-05-26] MEDS ORDERED: LEVOFLOXACIN 750 MG TAB PO SCH (15:00)
[2016-05-26] MEDS: LEVOFLOXACIN 750 MG TAB PO SCH (15:59)
[2016-05-26] MEDS ORDERED: LEVALBUTEROL/IPRATROPIUM NEB INH PRN (19:30)
--- NOTE | 2016-05-26 19:43 | Progress Note ---
Medicine Progress Note Date & Time of Visit: May 26, 2016 at 19:35. Subjective patient seen awake, alert trying to converse, comfortable denies shortness of breath has occasional productive cough no other symptoms Objective Last 8 Hrs Date Time Temp Pulse Resp B/P Pulse Ox O2 Delivery O2 Flow Rate FiO2 05/26/16 16:00 Room Air 05/26/16 15:37 37.1 107 20 168/91 90 Room Air 05/26/16 14:30 113 20 95 Room Air 05/26/16 12:00 Room Air Physical Exam: General- oriented x2, not in distress, speaks in sentences with no effort/acc muscles Eyes- anicteric Neck- supple, no JVD Lungs- clear to auscultation b/l, no rales/wheeze Heart-mild tachycardia, regular rhythm; no murmurs Abdomen- normal bowel sounds, soft, nontender Extremities- no pretibial edema, no calf tenderness Neuro- alert, oriented x 2; no gross deficits (+) tardive dyskinesia movements Skin- warm & dry Laboratory Results: Last 24 Hours Test 05/26/16 06:05 05/26/16 06:23 05/26/16 12:15 05/26/16 16:23 White Blood Count 4.87 K/uL Red Blood Count 3.80 M/uL Hemoglobin 11.7 g/dL Hematocrit 35.1 % Mean Corpuscular Volume 92.4 fL Mean Corpuscular Hemoglobin 30.8 pg Mean Corpuscular Hemoglobin Concent 33.3 g/dl Platelet Count 76 K/uL Mean Platelet Volume 9.9 fL Neutrophils (%) (Auto) 72.5 % Lymphocytes (%) (Auto) 19.3 % Monocytes (%) (Auto) 7.0 % Eosinophils (%) (Auto) 0.6 % Basophils (%) (Auto) 0.0 % Neutrophils # (Auto) 3.53 K/uL Lymphocytes # (Auto) 0.94 K/uL Monocytes # (Auto) 0.34 K/uL Eosinophils # (Auto) 0.03 K/uL Basophils # (Auto) 0.00 K/uL RDW Standard Deviation 48.4 fL RDW Coefficient of Variation 14.3 % Immature Granulocyte % (Auto) 0.6 % Immature Granulocyte # (Auto) 0.03 K/uL Sodium Level 144 mmol/L Potassium Level 3.5 mmol/L Chloride Level 108 mmol/L Carbon Dioxide Level 27 mmol/L Anion Gap 9.0 mmol/L Blood Urea Nitrogen 9 mg/dl Creatinine 0.87 mg/dl Est Creatinine Clear Calc Drug Dose 63.2 ml/min Estimated GFR () 80.5 Estimated GFR (Non- 69.4 BUN/Creatinine Ratio 9.8 Random Glucose 120 mg/dl Estimated Average Glucose 114 mg/dl Hemoglobin A1c 5.6 % Calcium Level 8.5 mg/dl Bedside Glucose 144 mg/dl 102 mg/dl 133 mg/dl Assessment & Plan Assessment and Plan This is a 65 year old female resident of [facility] with PMH of anxiety, depression, mild intellectual disability, DM2, HLD was sent over by the [facility] facility due to her spiking a fever and developing a cough SEPSIS SECONDARY TO INFLUENZA, Left Lower Lobe PNEUMONIA- likely Comm Acquired -->patient presents with cough, fever, tachycardia -->onset of the cough was sudden as per caregiver -->unsure if patient aspirated, no known dietary restrictions, though she has dentures - now afebrile WBC normal - flu a positive blood cultures negative so far - repeat cxr: possible left lower lobe pneumonia speech therapy eval: no aspiration noted - improving overall - continue Oseltamivir Day 3 d/c Zosyn, continue Levaquin Day 3 d/c IV fluids wean off oxygen Thrombocytopenia - from Sepsis? - Plt now 70s no signs of bleeding monitor - baseline around low 100s - hold aspirin Sinus Tachycardia - d/c Nebs q6h check thyroid function test - monitor - echo if persistent Hypertension - Amlodipine PRN - monitor DM hold glipizide ISS for now Anxiety/Depression/MR -->continue home medications DVT ppx hold heparin due to thrombocytopenia SCDs FULL CODE Disposition pending Current Inpatient Medications: Current Inpatient Medications Medications (Trade) Dose Ordered Sig/Yisel Route Start Time Stop Time Status Last Admin Dose Admin Piperacillin Sod/ Tazobactam Sod/ Dextrose (Zosyn Iv/D5 100ml) 115 ml @ 28.75 mls/ hr Q8H IV 05/24/16 09:00 05/31/16 03:59 05/26/16 17:46 28.75 MLS/HR Acetaminophen (Tylenol Tab) 650 mg Q4H PRN PO 05/24/16 04:00 06/23/16 03:59 05/25/16 17:27 650 MG Al Hydrox/Mg Hydrox/Simethicone (Maalox Max Susp) 15 ml Q4H PRN PO 05/24/16 04:00 06/23/16 03:59 Magnesium Hydroxide (Milk Of Magnesia Susp) 30 ml Q12H PRN PO 05/24/16 04:00 06/23/16 03:59 Ondansetron HCl (Zofran Inj) 4 mg Q6H PRN IV 05/24/16 04:00 06/23/16 03:59 Nitroglycerin (Nitrostat Tab) 0.4 mg UD PRN SL 05/24/16 04:00 06/23/16 03:59 Polyethylene (Miralax Powder Packet) 17 gm DAILY PRN PO 05/24/16 04:00 06/23/16 03:59 Benztropine Mesylate (Cogentin Tab) 1 mg DAILY PO 05/24/16 09:00 06/23/16 08:59 05/26/16 08:53 1 MG Carbidopa/Levodopa (Sinemet 25/ 100MG Tab) 1 tab BID PO 05/24/16 09:00 06/23/16 08:59 05/26/16 08:53 1 TAB Fluoxetine HCl (Prozac Cap) 40 mg DAILY PO 05/24/16 09:00 06/23/16 08:59 05/26/16 08:52 40 MG Guaifenesin (Mucinex Contr Rel Tab) 600 mg Q12 PRN PO 05/24/16 05:45 06/23/16 05:44 05/26/16 08:50 600 MG Loperamide HCl (Imodium Cap) 2 mg DAILY PRN PO 05/24/16 05:45 06/23/16 05:44 Lorazepam (Ativan Tab) 0.5 mg BID PRN PO 05/24/16 05:45 06/23/16 05:44 Pantoprazole Sodium (Protonix Tab) 40 mg DAILY PO 05/24/16 09:00 06/23/16 08:59 05/26/16 08:52 40 MG Piperacillin Sod/ Tazobactam Sod (Consult) 1 ea UD PRN N/A 05/24/16 08:45 06/23/16 08:44 Oseltamivir Phosphate (Tamiflu Susp) 30 mg BID PO 05/24/16 21:00 05/29/16 08:59 05/26/16 08:50 30 MG Insulin Aspart (novoLOG ASPART) SLIDING SCALE If C... ACHS SC 05/25/16 12:00 06/24/16 16:14 05/26/16 17:30 2 UNITS Glucose (Glucose 40% Gel) 15-30 GRAMS 15 GRAMS... UD PRN PO 05/25/16 12:00 06/24/16 11:59 Glucose (Glucose Chew Tab) 4-8 Tablets 4 Tabl... UD PRN PO 05/25/16 12:00 06/24/16 11:59 Dextrose (Dextrose 50% 50ML Syringe) 25-50ML OF 50% DW IV FOR... UD PRN IV 05/25/16 12:00 06/24/16 11:59 Glucagon (Glucagon Inj) 1 mg UD PRN SQ 05/25/16 12:00 06/24/16 11:59 Levofloxacin (Consult) 1 ea UD PRN N/A 05/25/16 12:00 06/24/16 11:59 Levofloxacin (Levaquin Tab) 750 mg DAILY@1100 PO 05/26/16 15:00 05/30/16 23:59 05/26/16 15:59 750 MG Amlodipine Besylate (Norvasc Tab) 2.5 mg BID PRN PO 05/26/16 19:30 06/25/16 19:29 UNV Ipratropium [place] (Atrovent 0.02% 0.5MG/2.5ML Neb) 0.5 mg Q4H PRN INH 05/26/16 19:45 06/25/16 19:44 Levalbuterol (Xopenex 1.25MG/ 0.5ML Neb) 1.25 mg Q4H PRN INH 05/26/16 19:45 06/25/16 19:44
[2016-05-26] MEDS ORDERED: LEVALBUTEROL 1.25MG/0.5ML NEB INH PRN (19:45)
[2016-05-26] MEDS ORDERED: IPRATROPIUM BROMIDE NEB SOLN 0.02% 2.5 ML VIAL INH PRN (19:45)
[2016-05-26] MEDS: AMLODIPINE BESYLATE 5 MG TAB PO PRN (21:27)
[2016-05-26] MEDS: ACETAMINOPHEN 325 MG TAB PO PRN (21:28)
[2016-05-27] VITALS: BP 144/74; PULSE 112; TEMP 36.8; O2SAT 95
[2016-05-27 04:00] VITALS: BP 137/82; PULSE 98; TEMP 36.7; O2SAT 95
[2016-05-27 06:37] LABS: HEMATOCRIT 35.6 % (37-47); MEAN CELL VOLUME 92.2 fL (80-100); MEAN CORPUSCULAR HEMOGLOBIN 31.6 pg (25-34); MEAN CORPUSCULAR HGB CONC 34.3 g/dl (32-36); RED BLOOD COUNT 3.86 M/uL (4.2-5.4); WHITE BLOOD COUNT 6.21 K/uL (4.8-10.8)
[2016-05-27] MEDS: INSULIN ASPART 100 UNITS/ML 3 ML PEN SC SCH ×4 (07:00→20:42)
[2016-05-27 07:04] LABS: BUN/CREATININE RATIO 8.5 (10-20); CALCIUM 8.8 mg/dl (8.5-10.1); CREATININE 0.94 mg/dl (0.60-1.20); POTASSIUM 3.8 mmol/L (3.5-5.1)
[2016-05-27 07:15] LABS: THYROID STIMULATING HORMONE 1.92 uIu/ml (0.300-4.500)
[2016-05-27 07:23] LABS: BASO % 0.2 %; BASO ABS # 0.01 K/uL (0-0.2); COMPLETE YES; EOS % 0.6 %; IG% 0.6 %; LYMPH % 22.1 %; LYMPH ABS # 1.37 K/uL (1.2-3.4); MEAN PLATELET VOLUME 10.5 fL (7.4-10.4); MONO % 6.8 %; NEUT % 69.7 %; PLATELET COUNT 92 K/uL (130-400)
[2016-05-27 08:29] VITALS: BP 158/84; PULSE 103; TEMP 37.1; O2SAT 93
[2016-05-27] MEDS ORDERED: LEVOFLOXACIN 750 MG TAB PO SCH (09:00)
[2016-05-27] MEDS: ACETAMINOPHEN 325 MG TAB PO PRN (09:01)
[2016-05-27] MEDS: GUAIFENESIN 600 MG TABCR PO PRN (09:02)
[2016-05-27] MEDS: PANTOprazole SOD 40 MG TAB PO SCH (09:03)
[2016-05-27] MEDS: CARBIDOPA/LEVODOPA 25/100MG TAB PO SCH ×2 (09:03→21:17)
[2016-05-27] MEDS: AMLODIPINE BESYLATE 5 MG TAB PO PRN (09:03)
[2016-05-27] MEDS: BENZTROPINE MESYLATE 1 MG TAB PO SCH (09:04)
[2016-05-27] MEDS: FLUOXETINE HCL 20 MG CAP PO SCH (09:04)
[2016-05-27] MEDS: OSELTAMIVIR PHOSPHATE SUSP 30 MG/5 ML UDP PO SCH ×2 (09:15→21:16)
[2016-05-27] MEDS: LEVOFLOXACIN 750 MG TAB PO SCH (11:00)
--- NOTE | 2016-05-27 11:10 | Progress Note ---
Medicine Progress Note Date & Time of Visit: May 27, 2016 at 11:03. Subjective patient states she ok overall today no dyspnea, has occ cough no chest pain, palpitations,dizziness denies abdominal pain, nausea declines to eat diet order, would like ice cream no other symptoms Objective Last 8 Hrs Date Time Temp Pulse Resp B/P Pulse Ox O2 Delivery O2 Flow Rate FiO2 05/27/16 08:29 37.1 103 20 158/84 93 Room Air 05/27/16 04:00 Room Air 05/27/16 04:00 36.7 98 22 137/82 95 Room Air Physical Exam: General- oriented x2, not in distress, speaks in sentences with no effort/acc muscles Eyes- anicteric Neck- supple, no JVD Lungs- clear to auscultation b/l, no rales/wheeze Heart-mild tachycardia, regular rhythm; no murmurs Abdomen- normal bowel sounds, soft, nontender Extremities- no pretibial edema, no calf tenderness Neuro- alert, oriented x 2; no gross deficits (+) tardive dyskinesia movements Skin- warm & dry Laboratory Results: Last 24 Hours Test 05/26/16 12:15 05/26/16 16:23 05/26/16 20:21 05/27/16 05:42 Bedside Glucose 102 mg/dl 133 mg/dl 113 mg/dl White Blood Count 6.21 K/uL Red Blood Count 3.86 M/uL Hemoglobin 12.2 g/dL Hematocrit 35.6 % Mean Corpuscular Volume 92.2 fL Mean Corpuscular Hemoglobin 31.6 pg Mean Corpuscular Hemoglobin Concent 34.3 g/dl Platelet Count 92 K/uL Mean Platelet Volume 10.5 fL Neutrophils (%) (Auto) 69.7 % Lymphocytes (%) (Auto) 22.1 % Monocytes (%) (Auto) 6.8 % Eosinophils (%) (Auto) 0.6 % Basophils (%) (Auto) 0.2 % Neutrophils # (Auto) 4.33 K/uL Lymphocytes # (Auto) 1.37 K/uL Monocytes # (Auto) 0.42 K/uL Eosinophils # (Auto) 0.04 K/uL Basophils # (Auto) 0.01 K/uL RDW Standard Deviation 48.6 fL RDW Coefficient of Variation 14.3 % Immature Granulocyte % (Auto) 0.6 % Immature Granulocyte # (Auto) 0.04 K/uL Sodium Level 143 mmol/L Potassium Level 3.8 mmol/L Chloride Level 106 mmol/L Carbon Dioxide Level 29 mmol/L Anion Gap 8.0 mmol/L Blood Urea Nitrogen 8 mg/dl Creatinine 0.94 mg/dl Est Creatinine Clear Calc Drug Dose 58.6 ml/min Estimated GFR () 73.3 Estimated GFR (Non- 63.2 BUN/Creatinine Ratio 8.5 Random Glucose 102 mg/dl Calcium Level 8.8 mg/dl Thyroid Stimulating Hormone (TSH) 1.920 uIu/ml Free Thyroxine 1.25 ng/dl Test 05/27/16 07:11 Bedside Glucose 96 mg/dl Assessment & Plan Assessment and Plan This is a 65 year old female resident of [facility] with PMH of anxiety, depression, mild intellectual disability, DM2, HLD was sent over by the [facility] facility due to her spiking a fever and developing a cough SEPSIS SECONDARY TO INFLUENZA, Left Lower Lobe PNEUMONIA- likely Comm Acquired -->patient presents with cough, fever, tachycardia -->onset of the cough was sudden as per caregiver -->unsure if patient aspirated, no known dietary restrictions, though she has dentures - remains afebrile WBC normal - flu a positive blood cultures negative so far - repeat cxr: possible left lower lobe pneumonia speech therapy eval: no aspiration noted - continue to improve, tachycardia improving - continue Oseltamivir Day 4/5 d/c Zosyn, continue Levaquin Day 4 d/c IV fluids wean off oxygen Sinus Tachycardia - d/c Nebs q6h check thyroid function test: normal - improving - echo if persistent Hypertension - Amlodipine PRN - monitor may need low dose Amlodipine on discharge Thrombocytopenia - from Sepsis? - Plt improving from 70s to 90s no signs of bleeding monitor - baseline around low 100s - hold aspirin DM hold glipizide ISS for now Anxiety/Depression/MR -->continue home medications DVT ppx hold heparin due to thrombocytopenia SCDs FULL CODE Disposition pending possible d/c tomorrow Current Inpatient Medications: Current Inpatient Medications Medications (Trade) Dose Ordered Sig/Yisel Route Start Time Stop Time Status Last Admin Dose Admin Acetaminophen (Tylenol Tab) 650 mg Q4H PRN PO 05/24/16 04:00 06/23/16 03:59 05/27/16 09:01 650 MG Al Hydrox/Mg Hydrox/Simethicone (Maalox Max Susp) 15 ml Q4H PRN PO 05/24/16 04:00 06/23/16 03:59 Magnesium Hydroxide (Milk Of Magnesia Susp) 30 ml Q12H PRN PO 05/24/16 04:00 06/23/16 03:59 Ondansetron HCl (Zofran Inj) 4 mg Q6H PRN IV 05/24/16 04:00 06/23/16 03:59 Nitroglycerin (Nitrostat Tab) 0.4 mg UD PRN SL 05/24/16 04:00 06/23/16 03:59 Polyethylene (Miralax Powder Packet) 17 gm DAILY PRN PO 05/24/16 04:00 06/23/16 03:59 Benztropine Mesylate (Cogentin Tab) 1 mg DAILY PO 05/24/16 09:00 06/23/16 08:59 05/27/16 09:04 1 MG Carbidopa/Levodopa (Sinemet 25/ 100MG Tab) 1 tab BID PO 05/24/16 09:00 06/23/16 08:59 05/27/16 09:03 1 TAB Fluoxetine HCl (Prozac Cap) 40 mg DAILY PO 05/24/16 09:00 06/23/16 08:59 05/27/16 09:04 40 MG Guaifenesin (Mucinex Contr Rel Tab) 600 mg Q12 PRN PO 05/24/16 05:45 06/23/16 05:44 05/27/16 09:02 600 MG Loperamide HCl (Imodium Cap) 2 mg DAILY PRN PO 05/24/16 05:45 06/23/16 05:44 Lorazepam (Ativan Tab) 0.5 mg BID PRN PO 05/24/16 05:45 06/23/16 05:44 Pantoprazole Sodium (Protonix Tab) 40 mg DAILY PO 05/24/16 09:00 06/23/16 08:59 05/27/16 09:03 40 MG Oseltamivir Phosphate (Tamiflu Susp) 30 mg BID PO 05/24/16 21:00 05/29/16 08:59 05/27/16 09:15 30 MG Insulin Aspart (novoLOG ASPART) SLIDING SCALE If C... ACHS SC 05/25/16 12:00 06/24/16 16:14 05/26/16 17:30 2 UNITS Glucose (Glucose 40% Gel) 15-30 GRAMS 15 GRAMS... UD PRN PO 05/25/16 12:00 06/24/16 11:59 Glucose (Glucose Chew Tab) 4-8 Tablets 4 Tabl... UD PRN PO 05/25/16 12:00 06/24/16 11:59 Dextrose (Dextrose 50% 50ML Syringe) 25-50ML OF 50% DW IV FOR... UD PRN IV 05/25/16 12:00 06/24/16 11:59 Glucagon (Glucagon Inj) 1 mg UD PRN SQ 05/25/16 12:00 06/24/16 11:59 Levofloxacin (Consult) 1 ea UD PRN N/A 05/25/16 12:00 06/24/16 11:59 Levofloxacin (Levaquin Tab) 750 mg DAILY@1100 PO 05/26/16 15:00 05/30/16 23:59 05/26/16 15:59 750 MG Amlodipine Besylate (Norvasc Tab) 2.5 mg BID PRN PO 05/26/16 19:30 06/25/16 19:29 05/27/16 09:03 2.5 MG Ipratropium [place] (Atrovent 0.02% 0.5MG/2.5ML Neb) 0.5 mg Q4H PRN INH 05/26/16 19:45 06/25/16 19:44 Levalbuterol (Xopenex 1.25MG/ 0.5ML Neb) 1.25 mg Q4H PRN INH 05/26/16 19:45 06/25/16 19:44
[2016-05-27 11:52] VITALS: BP 136/80; PULSE 111; TEMP 37; O2SAT 95
[2016-05-27 15:26] VITALS: BP 113/73; PULSE 114; TEMP 37.2; O2SAT 93
[2016-05-27 19:54] VITALS: BP 152/78; PULSE 103; TEMP 37.9; O2SAT 90
[2016-05-28] VITALS: BP 123/68; PULSE 102; TEMP 37.4; O2SAT 94
[2016-05-28 04:00] VITALS: BP 128/80; PULSE 112; TEMP 37.2; O2SAT 95
[2016-05-28] MEDS: INSULIN ASPART 100 UNITS/ML 3 ML PEN SC SCH ×4 (07:00→20:38)
[2016-05-28 07:03] LABS: HEMATOCRIT 37.3 % (37-47); MEAN CELL VOLUME 92.1 fL (80-100); MEAN CORPUSCULAR HEMOGLOBIN 30.9 pg (25-34); MEAN CORPUSCULAR HGB CONC 33.5 g/dl (32-36); RED BLOOD COUNT 4.05 M/uL (4.2-5.4); WHITE BLOOD COUNT 7.18 K/uL (4.8-10.8)
[2016-05-28 07:04] LABS: BASO % 0.3 %; BASO ABS # 0.02 K/uL (0-0.2); COMPLETE YES; IG% 1.1 %; LYMPH % 21.7 %; LYMPH ABS # 1.56 K/uL (1.2-3.4); MEAN PLATELET VOLUME 9.5 fL (7.4-10.4); MONO % 7.4 %; NEUT % 68.5 %; PLATELET COUNT 87 K/uL (130-400)
[2016-05-28 07:29] LABS: BUN/CREATININE RATIO 12.2 (10-20); CALCIUM 8.8 mg/dl (8.5-10.1); CREATININE 0.96 mg/dl (0.60-1.20); POTASSIUM 3.8 mmol/L (3.5-5.1)
[2016-05-28 08:13] VITALS: BP 158/83; PULSE 104; TEMP 37; O2SAT 93
[2016-05-28] MEDS: OSELTAMIVIR PHOSPHATE SUSP 30 MG/5 ML UDP PO SCH ×2 (08:53→20:54)
[2016-05-28] MEDS: GUAIFENESIN 600 MG TABCR PO PRN (08:54)
[2016-05-28] MEDS: PANTOprazole SOD 40 MG TAB PO SCH (08:55)
[2016-05-28] MEDS: CARBIDOPA/LEVODOPA 25/100MG TAB PO SCH ×2 (08:55→20:52)
[2016-05-28] MEDS: FLUOXETINE HCL 20 MG CAP PO SCH (08:55)
[2016-05-28] MEDS: BENZTROPINE MESYLATE 1 MG TAB PO SCH (08:55)
[2016-05-28] MEDS: AMLODIPINE BESYLATE 5 MG TAB PO PRN (08:56)
[2016-05-28] MEDS: LEVOFLOXACIN 750 MG TAB PO SCH (11:00)
[2016-05-28 12:34] VITALS: BP 122/77; PULSE 107; TEMP 37; O2SAT 95
[2016-05-28] MEDS ORDERED: PERFLUTREN LIPID MICROSPHERE (DEFINITY) IV ONE (14:28)
[2016-05-28 15:26] VITALS: BP 101/68; PULSE 98; TEMP 37.2; O2SAT 94
--- NOTE | 2016-05-28 17:15 | Progress Note ---
Medicine Progress Note Date & Time of Visit: May 28, 2016 at 17:00. Subjective patient seen sitting up in bed, in good spirits states she feels better overall denies cough, dyspnea, chest pain, dizziness no other symptoms states she would like to go home today Objective Last 8 Hrs Date Time Temp Pulse Resp B/P Pulse Ox O2 Delivery O2 Flow Rate FiO2 05/28/16 16:00 Room Air 05/28/16 15:26 37.2 98 18 101/68 94 Room Air 05/28/16 12:34 37.0 107 20 122/77 95 Room Air 05/28/16 12:00 Room Air Physical Exam: General- oriented x2, not in distress, speaks in sentences with no effort/acc muscles Eyes- anicteric Neck- no JVD Lungs- clear breath sounds b/l Heart-mild tachycardia, regular rhythm; no murmurs Abdomen- normal bowel sounds, soft, nontender Extremities- no pretibial edema, no calf tenderness Neuro- alert, oriented x 2; no gross deficits (+) tardive dyskinesia movements Skin- warm & dry Laboratory Results: Last 24 Hours Test 05/27/16 20:19 05/28/16 06:10 05/28/16 07:10 05/28/16 11:18 Bedside Glucose 95 mg/dl 96 mg/dl 130 mg/dl White Blood Count 7.18 K/uL Red Blood Count 4.05 M/uL Hemoglobin 12.5 g/dL Hematocrit 37.3 % Mean Corpuscular Volume 92.1 fL Mean Corpuscular Hemoglobin 30.9 pg Mean Corpuscular Hemoglobin Concent 33.5 g/dl Platelet Count 87 K/uL Mean Platelet Volume 9.5 fL Neutrophils (%) (Auto) 68.5 % Lymphocytes (%) (Auto) 21.7 % Monocytes (%) (Auto) 7.4 % Eosinophils (%) (Auto) 1.0 % Basophils (%) (Auto) 0.3 % Neutrophils # (Auto) 4.92 K/uL Lymphocytes # (Auto) 1.56 K/uL Monocytes # (Auto) 0.53 K/uL Eosinophils # (Auto) 0.07 K/uL Basophils # (Auto) 0.02 K/uL RDW Standard Deviation 48.0 fL RDW Coefficient of Variation 14.2 % Immature Granulocyte % (Auto) 1.1 % Immature Granulocyte # (Auto) 0.08 K/uL Sodium Level 144 mmol/L Potassium Level 3.8 mmol/L Chloride Level 107 mmol/L Carbon Dioxide Level 27 mmol/L Anion Gap 10.0 mmol/L Blood Urea Nitrogen 12 mg/dl Creatinine 0.96 mg/dl Est Creatinine Clear Calc Drug Dose 55.7 ml/min Estimated GFR () 71.4 Estimated GFR (Non- 61.6 BUN/Creatinine Ratio 12.2 Random Glucose 92 mg/dl Calcium Level 8.8 mg/dl Test 05/28/16 16:05 Bedside Glucose 120 mg/dl Assessment & Plan Assessment and Plan This is a 65 year old female resident of [facility] with PMH of anxiety, depression, mild intellectual disability, DM2, HLD was sent over by the [facility] facility due to her spiking a fever and developing a cough. SEPSIS SECONDARY TO INFLUENZA, Left Lower Lobe PNEUMONIA- likely Comm Acquired -->patient presents with cough, fever, tachycardia -->onset of the cough was sudden as per caregiver -->unsure if patient aspirated, no known dietary restrictions, though she has dentures - remains afebrile, WBC normal - flu a positive blood cultures: negative so far repeat cxr: possible left lower lobe pneumonia speech therapy eval: no aspiration noted - clinically improved - received Oseltamivir, needs two more doses to complete 5 days of treatment transitioned from Zosyn to levaquin 750mg po daily which patient received x 5 days Sinus Tachycardia - HR in the low 100s thyroid function test: normal echo: ordered, pending check d dimer Hypertension - BP noted to be syst 150s-160s - started on Amlodipine 2.5mg daily - monitor BP daily Thrombocytopenia - from Sepsis? - baseline around low 100s - Plt improving from 70s to 90s no signs of bleeding monitor plt - hold aspirin DM resume Glipizide on discharge Anxiety/Depression/MR -->continue home medications FULL CODE Disposition possible d/c to [facility] today if D dimer negative Current Inpatient Medications: Current Inpatient Medications Medications (Trade) Dose Ordered Sig/Yisel Route Start Time Stop Time Status Last Admin Dose Admin Acetaminophen (Tylenol Tab) 650 mg Q4H PRN PO 05/24/16 04:00 06/23/16 03:59 05/27/16 09:01 650 MG Al Hydrox/Mg Hydrox/Simethicone (Maalox Max Susp) 15 ml Q4H PRN PO 05/24/16 04:00 06/23/16 03:59 Magnesium Hydroxide (Milk Of Magnesia Susp) 30 ml Q12H PRN PO 05/24/16 04:00 06/23/16 03:59 Ondansetron HCl (Zofran Inj) 4 mg Q6H PRN IV 05/24/16 04:00 06/23/16 03:59 Nitroglycerin (Nitrostat Tab) 0.4 mg UD PRN SL 05/24/16 04:00 06/23/16 03:59 Polyethylene (Miralax Powder Packet) 17 gm DAILY PRN PO 05/24/16 04:00 06/23/16 03:59 Benztropine Mesylate (Cogentin Tab) 1 mg DAILY PO 05/24/16 09:00 06/23/16 08:59 05/28/16 08:55 1 MG Carbidopa/Levodopa (Sinemet 25/ 100MG Tab) 1 tab BID PO 05/24/16 09:00 06/23/16 08:59 05/28/16 08:55 1 TAB Fluoxetine HCl (Prozac Cap) 40 mg DAILY PO 05/24/16 09:00 06/23/16 08:59 05/28/16 08:55 40 MG Guaifenesin (Mucinex Contr Rel Tab) 600 mg Q12 PRN PO 05/24/16 05:45 06/23/16 05:44 05/28/16 08:54 600 MG Loperamide HCl (Imodium Cap) 2 mg DAILY PRN PO 05/24/16 05:45 06/23/16 05:44 Lorazepam (Ativan Tab) 0.5 mg BID PRN PO 05/24/16 05:45 06/23/16 05:44 Pantoprazole Sodium (Protonix Tab) 40 mg DAILY PO 05/24/16 09:00 06/23/16 08:59 05/28/16 08:55 40 MG Oseltamivir Phosphate (Tamiflu Susp) 30 mg BID PO 05/24/16 21:00 05/29/16 08:59 05/28/16 08:53 30 MG Insulin Aspart (novoLOG ASPART) SLIDING SCALE If C... ACHS SC 05/25/16 12:00 06/24/16 16:14 05/26/16 17:30 2 UNITS Glucose (Glucose 40% Gel) 15-30 GRAMS 15 GRAMS... UD PRN PO 05/25/16 12:00 06/24/16 11:59 Glucose (Glucose Chew Tab) 4-8 Tablets 4 Tabl... UD PRN PO 05/25/16 12:00 06/24/16 11:59 Dextrose (Dextrose 50% 50ML Syringe) 25-50ML OF 50% DW IV FOR... UD PRN IV 05/25/16 12:00 06/24/16 11:59 Glucagon (Glucagon Inj) 1 mg UD PRN SQ 05/25/16 12:00 06/24/16 11:59 Levofloxacin (Consult) 1 ea UD PRN N/A 05/25/16 12:00 06/24/16 11:59 Levofloxacin (Levaquin Tab) 750 mg DAILY@1100 PO 05/26/16 15:00 05/30/16 23:59 05/28/16 11:00 750 MG Amlodipine Besylate (Norvasc Tab) 2.5 mg BID PRN PO 05/26/16 19:30 06/25/16 19:29 05/28/16 08:56 2.5 MG Ipratropium [place] (Atrovent 0.02% 0.5MG/2.5ML Neb) 0.5 mg Q4H PRN INH 05/26/16 19:45 06/25/16 19:44 Levalbuterol (Xopenex 1.25MG/ 0.5ML Neb) 1.25 mg Q4H PRN INH 05/26/16 19:45 06/25/16 19:44
[2016-05-28] MEDS ORDERED: TMFUDL30 PO (17:21)
[2016-05-28] MEDS ORDERED: NRV5 PO (17:21)
--- NOTE | 2016-05-28 17:34 | Discharge Instructions ---
Discharge Instructions Admission Reason for Admission: Fever, Pneumonia Discharge Discharge Diagnosis / Problem: Sepsis, secondary to Influenza A and Pneumonia Discharge Goals Goal(s): Diagnostic testing, Therapeutic intervention Activity Recommendations Activity Level: Assistance Required . Additional Information Patient informed of condition: Yes Advance Directives: No (Unknown) DNR: No (Patient is Full Code) Level of Care: Other (Personal Group Home) Communicable Disease: Yes (INFLUENZA) Prognosis: Stable Instructions / Follow-Up Instructions / Follow-Up PLEASE MONITOR BP DAILY. REPEAT CBC IN 3-5 DAYS, MONITOR PLATELETS (RE: THROMBOCYTOPENIA). REPEAT POTASSIUM IN 3-5 DAYS. (RE: MILD HYPOKALEMIA). SPEECH THERAPY RECOMMENDATIONS: Recommendations * 1. Moist mechanical soft diet 2. Aspiration precautions, straws OK 3. Fully upright, set up assistance required. REFER FOR EGD TO R/O ESOPHAGEAL LESION. PLEASE REFER TO ACCOMPANYING DISCHARGE SUMMARY FOR FURTHER DETAILS. FOLLOW UP WITH PRIMARY CARE PHYSICIAN IN 3-5 DAYS. Current Hospital Diet Patient's current hospital diet: AHA Diet (Heart Healthy), Diabetes Type 2 Diet Discharge Diet Recommended Diet: AHA Diet (Heart Healthy), Diabetes Type 2 Diet Diet Texture: Mechanical Soft (ground) (Moist) Pending Studies Studies pending at discharge: yes List of pending studies: Repeat CBC and Potassium in 3-5 days. EGD to r/o Esophageal Lesion. Physician Orders On Transfer Special Precautions: PLEASE MONITOR BP DAILY. REPEAT CBC IN 3-5 DAYS, MONITOR PLATELETS (RE: THROMBOCYTOPENIA). REPEAT POTASSIUM IN 3-5 DAYS. (RE: MILD HYPOKALEMIA). SPEECH THERAPY RECOMMENDATIONS: Recommendations * 1. Moist mechanical soft diet 2. Aspiration precautions, straws OK 3. Fully upright, set up assistance required. REFER FOR EGD TO R/O ESOPHAGEAL LESION. PLEASE REFER TO ACCOMPANYING DISCHARGE SUMMARY FOR FURTHER DETAILS. FOLLOW UP WITH PRIMARY CARE PHYSICIAN IN 3-5 DAYS. Vital Signs: BP daily Laboratory Results Hemoglobin A1c Test 05/26/16 06:05 Range/Units Estimated Average Glucose 114 mg/dl Hemoglobin A1c 5.6 4.5-5.6 % Lipid Panel Test 04/04/16 05:18 Range/Units Triglycerides Level 256 H 0-150 mg/dl Cholesterol Level 193 0-200 mg/dl HDL Cholesterol 47 mg/dl Cholesterol/HDL Ratio 4.1 LDL Cholesterol, Calculated 95 mg/dl Medical Emergencies . Who to Call and When: Medical Emergencies: If at any time you feel your situation is an emergency, please call 911 immediately. . Non-Emergent Contact Non-Emergency issues call your: Primary Care Provider Call Non-Emergent contact if: you have a fever, your pain is not controlled . Past History Medical & Surgical History: (1) Pneumonia (2) Schizophrenia (3) Anxiety (4) Osteoporosis (5) GERD (gastroesophageal reflux disease) (6) Parkinson disease (7) Depression (8) History of mental retardation . "Provider Documentation" section prepared by Cody Hagan. Core Measure Problem Core Measures: None
[2016-05-28] MEDS ORDERED: LORAZEPAM 1 MG TAB PO ONE (18:13)
[2016-05-28] MEDS ORDERED: OPTIRAY 320 IV PRN (18:15)
--- NOTE | 2016-05-28 19:02 | DIAGNOSTIC IMAGING REPORT ---
BILATERAL LOWER EXTREMITY VENOUS DOPPLER HISTORY: Elevated d dimer. Assess for DVT. COMPARISON STUDY: None. FINDINGS: There is normal compressibility, flow, and augmentation within the bilateral lower extremity deep venous systems. IMPRESSION: No DVT within the right or left lower extremity. Electronically signed by: Parag Ha M.D. 05/28/2016 7:00 PM Dictated Date/Time: 05/28/2016 7:00 PM
--- NOTE | 2016-05-28 19:22 | DIAGNOSTIC IMAGING REPORT ---
CHEST CTA for PULMONARY ARTERIES CT DOSE: 456.32 mGy.cm HISTORY: Atypical chest pain. TECHNIQUE: Multiaxial CT images of the chest were performed following the intravenous administration of contrast to evaluate the pulmonary arteries. Maximal intensity projection images were also obtained. COMPARISON STUDY: Chest 05/25/2016. FINDINGS: Old compression deformities seen from T8 through T12. This results in kyphosis at the lower thoracic spine. 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 Normal caliber thoracic aorta with no evidence for dissection. The heart is normal in size. The majority of the segmental and subsegmental pulmonary arteries are nondiagnostic due to the respiratory motion. The main and lobar pulmonary arteries are patent. The segmental right lower lobe pulmonary arteries are patent. The visualized liver, spleen, and adrenal glands are unremarkable. Partially visualized 2.1 cm hypodense lesion within the left kidney. This likely represents a cyst. Subcentimeter thyroid nodules with the largest on the right measuring 5 mm. No mediastinal or hilar lymphadenopathy. Mildly distended gas-filled esophagus. There appears be mild thickening and narrowing at the distal esophagus near the gastroesophageal junction. No pneumothorax. The central airways are patent. No pleural effusions. Linear densities at the left lung base likely represent subsegmental atelectasis. There are scattered patchy groundglass airspace opacity seen throughout the lungs. This is most pronounced at the lung apices. IMPRESSION: 1. No evidence for pulmonary embolus with limitations as described above. 2. Scattered patchy groundglass airspace opacities seen throughout the lungs. This is most pronounced at the lung apices. This may represent a pneumonitis. Developing pulmonary edema could also a similar appearance but is considered less likely. 3. Mildly distended gas-filled esophagus. There appears to be mild thickening and narrowing of the distal esophagus near the gastroesophageal junction. Follow-up nonemergent endoscopy is recommended to exclude the possibility of an esophageal lesion. 4. 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 Electronically signed by: Parag Ha M.D. 05/28/2016 7:20 PM Dictated Date/Time: 05/28/2016 7:11 PM
[2016-05-28 19:42] VITALS: BP 120/59; PULSE 106; TEMP 37.1; O2SAT 93
[2016-05-28] MEDS ORDERED: NURSING VERBAL MED ORDER ONE (20:45)
[2016-05-28] MEDS: SODIUM CHLORIDE 0.9% 1000ML 1,000 ML IV SCH (20:51)
[2016-05-28] MEDS ORDERED: LORAZEPAM 0.5 MG TAB PO ONE (21:00)
[2016-05-29] VITALS: BP 129/60; PULSE 88; TEMP 37.2; O2SAT 94
[2016-05-29 04:55] VITALS: BP 104/67; PULSE 98; TEMP 37.1; O2SAT 93
[2016-05-29] MEDS: INSULIN ASPART 100 UNITS/ML 3 ML PEN SC SCH ×2 (07:00→11:00)
[2016-05-29 07:16] LABS: HEMATOCRIT 34.7 % (37-47); MEAN CORPUSCULAR HEMOGLOBIN 31.6 pg (25-34); MEAN CORPUSCULAR HGB CONC 34.3 g/dl (32-36); RED BLOOD COUNT 3.77 M/uL (4.2-5.4); WHITE BLOOD COUNT 7.05 K/uL (4.8-10.8)
[2016-05-29 07:22] LABS: BASO % 0.3 %; BASO ABS # 0.02 K/uL (0-0.2); COMPLETE YES; EOS % 1.1 %; LYMPH % 25.7 %; LYMPH ABS # 1.81 K/uL (1.2-3.4); MEAN PLATELET VOLUME 10.2 fL (7.4-10.4); MONO % 7.8 %; NEUT % 64.1 %; PLATELET COUNT 93 K/uL (130-400)
[2016-05-29 07:42] VITALS: BP 121/83; PULSE 100; TEMP 37.1; O2SAT 92
[2016-05-29 07:47] LABS: BUN/CREATININE RATIO 18.3 (10-20); CALCIUM 8.6 mg/dl (8.5-10.1); CREATININE 0.94 mg/dl (0.60-1.20); POTASSIUM 3.3 mmol/L (3.5-5.1)
--- NOTE | 2016-05-29 08:43 | ECHOCARDIOGRAM REPORT ---
*NOTICE TO RECEIVING LIBERTARIAN AGENCY This information is strictly Confidential and protected under [place] law. [place] law prohibits you from making any further disclosure of this information unless further disclosure is expressly permitted by the written consent of the person to whom it pertains or is authorized by law. A general authorization for the release of medical or other information is not sufficient for this purpose. Hospital accepts no responsibility if the information is made available to any other person, INCLUDING THE PATIENT. Interpretation Summary * Name: ALEIDA MONROE Study Date: 05/28/2016 02:06 PM BP: 122/77 mmHg * Patient Location: C.2T\S\S235\S\1 HR: 107 * : 1950 (M/d/yyyy) Gender: Female Height: 62 in * Age: 65 yrs Ethnicity: [place] Weight: 171 lb * Ordering Physician: Cody Hagan * Referring Physician: Self, Referred * Performed By: Tristian Navarro RCS * * Reason For Study: Persistent Tachycardia * BSA: 1.8 m2 * Grossly normal valvular structure and function. * -- Conclusions -- * The left ventricular cavity is small. * The left ventricle is hyperdynamic. * Ejection Fraction = >70 %. * The right ventricular cavity is small. * The right ventricular systolic function is normal. * Grossly normal valvular structure and function. Procedure Details * A complete two-dimensional transthoracic echocardiogram was performed (2D, M-mode, Doppler and color flow Doppler). * There were technical limitations due to patient's supine positioning for imagining and body habitus * A contrast injection of Definity was performed to improve assessment of LV function. * Contrast was injected into an intravenous site in the right arm. * One vial of Definity ultrasound contrast was diluted in normal saline to a total volume of 10 ml. A total of '2' ml of solution was administered during imaging. * Lot # [id number] of Definity utilized for procedure. * Expiration date . * The attending nurse who injected the contrast agent was Blas Mccloud RN. Left Ventricle * The left ventricular cavity is small. * There is normal left ventricular wall thickness. * Ejection Fraction = >70 %. * The left ventricle is hyperdynamic. Right Ventricle * The right ventricular cavity is small. * There is normal right ventricular wall thickness. * The right ventricular systolic function is normal. Atria * The left atrial size is normal. * Right atrial size is normal. * The interatrial septum is intact with no evidence for an atrial septal defect. Mitral Valve * The mitral valve is grossly normal. * There is no mitral valve stenosis. * There is no mitral regurgitation noted. Tricuspid Valve * The tricuspid valve is not well visualized, but is grossly normal. * There is trace tricuspid regurgitation. Aortic Valve * The aortic valve is normal in structure and function. * No aortic regurgitation is present. Pulmonic Valve * The pulmonic valve is normal in structure and function. * There is no pulmonic valvular regurgitation. Great Vessels * The aortic root is normal size. * No obvious dissection could be visualized. * The pulmonary artery is normal size. Pericardium/Pleural * There is no pericardial effusion. MMode 2D Measurements and Calculations IVSd 0.97 cm IVSs 1.2 cm LVIDd 3.2 cm LVIDs 1.6 cm LVPWd 0.97 cm LVPWs 1.2 cm IVS/LVPW 1.0 FS 49.1 % EDV(Teich) 40.0 ml ESV(Teich) 7.3 ml EF(Teich) 81.7 % EDV(cubed) 31.8 ml ESV(cubed) 4.2 ml EF(cubed) 86.8 % % IVS thick 28.7 % % LVPW thick 28.3 % LV mass(C)d 85.0 grams LV mass(C)dI 47.6 grams/m\S\2 LV mass(C)s 54.7 grams LV mass(C)sI 30.6 grams/m\S\2 CO(Teich) 3.4 l/min CI(Teich) 1.9 l/min/m\S\2 SV(Teich) 32.7 ml SI(Teich) 18.3 ml/m\S\2 CO(cubed) 2.8 l/min CI(cubed) 1.6 l/min/m\S\2 SV(cubed) 27.6 ml SI(cubed) 15.4 ml/m\S\2 Ao root diam 3.1 cm Ao root area 7.6 cm\S\2 ACS 1.6 cm LA dimension 3.4 cm LA/Ao 1.1 LVAd ap4 25.0 cm\S\2 LVLd ap4 8.1 cm EDV(MOD-sp4) 63.0 ml LVAs ap4 11.8 cm\S\2 LVLs ap4 6.1 cm ESV(MOD-sp4) 20.0 ml EF(MOD-sp4) 68.3 % LVAd ap2 18.0 cm\S\2 LVLd ap2 6.7 cm EDV(MOD-sp2) 41.0 ml LVAs ap2 6.5 cm\S\2 LVLs ap2 5.5 cm ESV(MOD-sp2) 7.0 ml EF(MOD-sp2) 82.9 % CO(MOD-sp4) 4.4 l/min CI(MOD-sp4) 2.5 l/min/m\S\2 SV(MOD-sp4) 43.0 ml SI(MOD-sp4) 24.0 ml/m\S\2 CO(MOD-sp2) 3.5 l/min CI(MOD-sp2) 2.0 l/min/m\S\2 SV(MOD-sp2) 34.0 ml SI(MOD-sp2) 19.0 ml/m\S\2 Doppler Measurements and Calculations MV E max jordan 57.6 cm/sec MV A max jordan 72.3 cm/sec MV E/A 0.80 MV P1/2t max jordan 65.6 cm/sec MV P1/2t 113.4 msec MVA(P1/2t) 1.9 cm\S\2 MV dec slope 169.5 cm/sec\S\2 MV dec time 0.21 sec Ao V2 max 137.7 cm/sec Ao max PG 7.6 mmHg Ao max PG (full) 1.4 mmHg LV V1 max PG 6.2 mmHg LV V1 max 124.0 cm/sec PA V2 max 91.6 cm/sec PA max PG 3.4 mmHg
[2016-05-29] MEDS ORDERED: CLOZAPINE 25 MG TAB PO SCH (09:00)
[2016-05-29] MEDS ORDERED: LORAZEPAM 1 MG TAB PO SCH (09:00)
[2016-05-29] MEDS: GUAIFENESIN 600 MG TABCR PO PRN (09:01)
[2016-05-29] MEDS: PANTOprazole SOD 40 MG TAB PO SCH (09:02)
[2016-05-29] MEDS: FLUOXETINE HCL 20 MG CAP PO SCH (09:03)
[2016-05-29] MEDS: CARBIDOPA/LEVODOPA 25/100MG TAB PO SCH (09:03)
[2016-05-29] MEDS: SODIUM CHLORIDE 0.9% 1000ML 1,000 ML IV SCH (09:03)
[2016-05-29] MEDS: BENZTROPINE MESYLATE 1 MG TAB PO SCH (09:03)
[2016-05-29] MEDS: LEVOFLOXACIN 750 MG TAB PO SCH (11:00)
[2016-05-29 11:47] VITALS: BP 112/69; PULSE 97; TEMP 37.1; O2SAT 92
[2016-05-29] MEDS ORDERED: POTASSIUM CHLORIDE 20 MEQ TABCR PO ONE (12:30)
--- NOTE | 2016-05-29 13:28 | Progress Note ---
Medicine Progress Note Date & Time of Visit: May 29, 2016 at 13:20. Subjective seen resting in bed, comfortable states she wants to go home today denies cough, dyspnea, chest pain no other symptoms Objective Last 8 Hrs Date Time Temp Pulse Resp B/P Pulse Ox O2 Delivery O2 Flow Rate FiO2 05/29/16 12:00 Room Air 05/29/16 11:47 37.1 97 20 112/69 92 Room Air 05/29/16 08:00 Room Air 05/29/16 07:42 37.1 100 20 121/83 92 Room Air Physical Exam: General- oriented x2, not in distress, speaks in sentences with no effort/acc muscles Eyes- anicteric Neck- no JVD Lungs- clear breath sounds b/l, no rales/wheezes Heart-normal rate, regular rhythm; no murmurs Abdomen- normal bowel sounds, soft, nontender Extremities- no pretibial edema, no calf tenderness Neuro- alert, oriented x 2; no gross deficits (+) tardive dyskinesia movements Skin- warm & dry Laboratory Results: Last 24 Hours Test 05/28/16 16:05 05/28/16 17:12 05/28/16 20:22 05/29/16 06:03 Bedside Glucose 120 mg/dl 96 mg/dl D-Dimer 640 ug/L FEU White Blood Count 7.05 K/uL Red Blood Count 3.77 M/uL Hemoglobin 11.9 g/dL Hematocrit 34.7 % Mean Corpuscular Volume 92.0 fL Mean Corpuscular Hemoglobin 31.6 pg Mean Corpuscular Hemoglobin Concent 34.3 g/dl Platelet Count 93 K/uL Mean Platelet Volume 10.2 fL Neutrophils (%) (Auto) 64.1 % Lymphocytes (%) (Auto) 25.7 % Monocytes (%) (Auto) 7.8 % Eosinophils (%) (Auto) 1.1 % Basophils (%) (Auto) 0.3 % Neutrophils # (Auto) 4.52 K/uL Lymphocytes # (Auto) 1.81 K/uL Monocytes # (Auto) 0.55 K/uL Eosinophils # (Auto) 0.08 K/uL Basophils # (Auto) 0.02 K/uL RDW Standard Deviation 47.5 fL RDW Coefficient of Variation 14.1 % Immature Granulocyte % (Auto) 1.0 % Immature Granulocyte # (Auto) 0.07 K/uL Sodium Level 145 mmol/L Potassium Level 3.3 mmol/L Chloride Level 107 mmol/L Carbon Dioxide Level 25 mmol/L Anion Gap 13.0 mmol/L Blood Urea Nitrogen 17 mg/dl Creatinine 0.94 mg/dl Est Creatinine Clear Calc Drug Dose 57.0 ml/min Estimated GFR () 73.3 Estimated GFR (Non- 63.2 BUN/Creatinine Ratio 18.3 Random Glucose 88 mg/dl Calcium Level 8.6 mg/dl Test 05/29/16 07:09 Bedside Glucose 100 mg/dl Assessment & Plan Assessment and Plan This is a 65 year old female resident of [facility] with PMH of anxiety, depression, mild intellectual disability, DM2, HLD was sent over by the formerly [facility] facility due to her spiking a fever and developing a cough. SEPSIS SECONDARY TO INFLUENZA, Left Lower Lobe PNEUMONIA- likely Comm Acquired -->patient presents with cough, fever, tachycardia -->onset of the cough was sudden as per caregiver -->unsure if patient aspirated, no known dietary restrictions, though she has dentures - remains afebrile, WBC normal - flu a positive blood cultures: negative so far repeat cxr: possible left lower lobe pneumonia speech therapy eval: no aspiration noted - clinically improved - completed Oseltamivir x 5 days transitioned from Zosyn to levaquin 750mg po daily which patient completed x 5 days Sinus Tachycardia - HR improved\ - likely from Dehydration given IV fluids Benzos resumed thyroid function test: normal echo: * -- Conclusions -- * The left ventricular cavity is small. * The left ventricle is hyperdynamic. * Ejection Fraction = >70 %. * The right ventricular cavity is small. * The right ventricular systolic function is normal. * Grossly normal valvular structure and function. check d dimer: elevated (CT angio negative for PE, Doppler of the legs No DVT) Hypertension - BP noted to be syst 150s-160s - started on Amlodipine 2.5mg daily while inpatient - improved - likely from being off Benzodiazepes x few days - monitor BP daily Thrombocytopenia - from Sepsis? - baseline around low 100s - Plt improving from 70s to 90s no signs of bleeding monitor plt - hold aspirin Mild Hypokalemia - K 3.3 given Klor Con 40meq x 1 - monitor K Abnormal Findings on CT Angio (Full report at the end of report) 1. No evidence for pulmonary embolus with limitations as described above. 2. Scattered patchy groundglass airspace opacities seen throughout the lungs. This is most pronounced at the lung apices. This may represent a pneumonitis. Developing pulmonary edema could also a similar appearance but is considered less likely. 3. Mildly distended gas-filled esophagus. There appears to be mild thickening and narrowing of the distal esophagus near the gastroesophageal junction. Follow-up nonemergent endoscopy is recommended to exclude the possibility of an esophageal lesion. 4. 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 - need non emergent EGD to r/o Esophageal lesion - T4, TSH normal; monitor thyroid nodules DM resume Glipizide Anxiety/Depression/MR -->continue home medications FULL CODE Disposition d/c to [facility] follow up with Primary Care Physician in 3-5 days CHEST CTA for PULMONARY ARTERIES CT DOSE: 456.32 mGy.cm HISTORY: Atypical chest pain. TECHNIQUE: Multiaxial CT images of the chest were performed following the intravenous administration of contrast to evaluate the pulmonary arteries. Maximal intensity projection images were also obtained. COMPARISON STUDY: Chest 05/25/2016. FINDINGS: Old compression deformities seen from T8 through T12. This results in kyphosis at the lower thoracic spine. 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 Normal caliber thoracic aorta with no evidence for dissection. The heart is normal in size. The majority of the segmental and subsegmental pulmonary arteries are nondiagnostic due to the respiratory motion. The main and lobar pulmonary arteries are patent. The segmental right lower lobe pulmonary arteries are patent. The visualized liver, spleen, and adrenal glands are unremarkable. Partially visualized 2.1 cm hypodense lesion within the left kidney. This likely represents a cyst. Subcentimeter thyroid nodules with the largest on the right measuring 5 mm. No mediastinal or hilar lymphadenopathy. Mildly distended gas-filled esophagus. There appears be mild thickening and narrowing at the distal esophagus near the gastroesophageal junction. No pneumothorax. The central airways are patent. No pleural effusions. Linear densities at the left lung base likely represent subsegmental atelectasis. There are scattered patchy groundglass airspace opacity seen throughout the lungs. This is most pronounced at the lung apices. IMPRESSION: 1. No evidence for pulmonary embolus with limitations as described above. 2. Scattered patchy groundglass airspace opacities seen throughout the lungs. This is most pronounced at the lung apices. This may represent a pneumonitis. Developing pulmonary edema could also a similar appearance but is considered less likely. 3. Mildly distended gas-filled esophagus. There appears to be mild thickening and narrowing of the distal esophagus near the gastroesophageal junction. Follow-up nonemergent endoscopy is recommended to exclude the possibility of an esophageal lesion. 4. 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 Current Inpatient Medications: Current Inpatient Medications Medications (Trade) Dose Ordered Sig/Yisel Route Start Time Stop Time Status Last Admin Dose Admin Acetaminophen (Tylenol Tab) 650 mg Q4H PRN PO 05/24/16 04:00 06/23/16 03:59 05/27/16 09:01 650 MG Al Hydrox/Mg Hydrox/Simethicone (Maalox Max Susp) 15 ml Q4H PRN PO 05/24/16 04:00 06/23/16 03:59 Magnesium Hydroxide (Milk Of Magnesia Susp) 30 ml Q12H PRN PO 05/24/16 04:00 06/23/16 03:59 Ondansetron HCl (Zofran Inj) 4 mg Q6H PRN IV 05/24/16 04:00 06/23/16 03:59 Nitroglycerin (Nitrostat Tab) 0.4 mg UD PRN SL 05/24/16 04:00 06/23/16 03:59 Polyethylene (Miralax Powder Packet) 17 gm DAILY PRN PO 05/24/16 04:00 06/23/16 03:59 Benztropine Mesylate (Cogentin Tab) 1 mg DAILY PO 05/24/16 09:00 06/23/16 08:59 05/29/16 09:03 1 MG Carbidopa/Levodopa (Sinemet 25/ 100MG Tab) 1 tab BID PO 05/24/16 09:00 06/23/16 08:59 05/29/16 09:03 1 TAB Fluoxetine HCl (Prozac Cap) 40 mg DAILY PO 05/24/16 09:00 06/23/16 08:59 05/29/16 09:03 40 MG Guaifenesin (Mucinex Contr Rel Tab) 600 mg Q12 PRN PO 05/24/16 05:45 06/23/16 05:44 05/29/16 09:01 600 MG Loperamide HCl (Imodium Cap) 2 mg DAILY PRN PO 05/24/16 05:45 06/23/16 05:44 Lorazepam (Ativan Tab) 0.5 mg BID PRN PO 05/24/16 05:45 06/23/16 05:44 05/29/16 07:07 0.5 MG Pantoprazole Sodium (Protonix Tab) 40 mg DAILY PO 05/24/16 09:00 06/23/16 08:59 05/29/16 09:02 40 MG Insulin Aspart (novoLOG ASPART) SLIDING SCALE If C... ACHS SC 05/25/16 12:00 06/24/16 16:14 05/26/16 17:30 2 UNITS Glucose (Glucose 40% Gel) 15-30 GRAMS 15 GRAMS... UD PRN PO 05/25/16 12:00 06/24/16 11:59 Glucose (Glucose Chew Tab) 4-8 Tablets 4 Tabl... UD PRN PO 05/25/16 12:00 06/24/16 11:59 Dextrose (Dextrose 50% 50ML Syringe) 25-50ML OF 50% DW IV FOR... UD PRN IV 05/25/16 12:00 06/24/16 11:59 Glucagon (Glucagon Inj) 1 mg UD PRN SQ 05/25/16 12:00 06/24/16 11:59 Levofloxacin (Consult) 1 ea UD PRN N/A 05/25/16 12:00 06/24/16 11:59 Levofloxacin (Levaquin Tab) 750 mg DAILY@1100 PO 05/26/16 15:00 05/30/16 23:59 05/28/16 11:00 750 MG Amlodipine Besylate (Norvasc Tab) 2.5 mg BID PRN PO 05/26/16 19:30 06/25/16 19:29 05/28/16 08:56 2.5 MG Ipratropium [place] (Atrovent 0.02% 0.5MG/2.5ML Neb) 0.5 mg Q4H PRN INH 05/26/16 19:45 06/25/16 19:44 Levalbuterol 1.25 mg 1.25 mg Q4H PRN INH 05/26/16 19:45 06/25/16 19:44 Sodium Chloride (Nss 1000ml) 1,000 ml @ 125 mls/hr Q8H IV 05/28/16 18:00 06/27/16 17:59 05/29/16 09:03 75 MLS/HR Clozapine (Clozaril Tab) 87.5 mg DAILY PO 05/29/16 09:00 06/28/16 08:59 05/29/16 09:01 87.5 MG Lorazepam (Ativan Tab) 1 mg DAILY PO 05/29/16 09:00 06/28/16 08:59 05/29/16 09:09 1 MG Ioversol (Optiray 320) 111 ml UD PRN IV 05/28/16 18:15 06/01/16 18:14
--- NOTE | 2016-05-29 13:36 | Discharge Summary ---
Discharge Summary Admission Date: May 24, 2016 at 04:07 Discharge Date: May 29, 2016 Discharge Disposition: Home Principal Diagnosis: SEPSIS SECONDARY TO INFLUENZA, Left Lower Lobe PNEUMONIA- likely Comm Acquired Secondary Diagnoses/Problems: Please refer to hospital course below. Pending Studies/Follow-Up: PLEASE MONITOR BP DAILY. REPEAT CBC IN 3-5 DAYS, MONITOR PLATELETS (RE: THROMBOCYTOPENIA). REPEAT POTASSIUM IN 3-5 DAYS. (RE: MILD HYPOKALEMIA). SPEECH THERAPY RECOMMENDATIONS: Recommendations * 1. Moist mechanical soft diet 2. Aspiration precautions, straws OK 3. Fully upright, set up assistance required. REFER FOR EGD TO R/O ESOPHAGEAL LESION. PLEASE REFER TO HOSPITAL COURSE BELOW FOR FURTHER DETAILS. FOLLOW UP WITH PRIMARY CARE PHYSICIAN IN 3-5 DAYS. Medication Reconciliation Continued Medications: Acetaminophen (Tylenol) 500 Mg Tab 500 MG PO Q6H PRN for Pain or Fever MAX 3GM APAP/24HR Alum & Mag Hydrox-Simethicone (Maalox Advanced) 1 Birgit Birgit 30 ML PO Q1 HOUR PRN for INDIGESTION Benztropine Mesylate (Benztropine Mesylate) 0.5 Mg Tab 1 MG PO DAILY 2 TABLET DOSE Calcium Citrate-Vitamin D (Calcium Citrate + D) 1 Tab Tab 1 TAB PO DAILY Carbidopa/Levodopa (Sinemet 25MG/100MG) Tab 1 TAB PO BID, TAB Clozapine (Clozapine) 25 Mg Tab 3.5 TABS PO DAILY Enteral Nutrition Formula (Ensure) Liq 1 CAN PO BID PRN for SUPPLEMENT Fluoxetine (Prozac) 40 Mg Cap 40 MG PO DAILY, CAP Furosemide (Lasix) 20 Mg Tab 20 MG PO DAILY, TAB Gabapentin (Neurontin) 300 Mg Cap 300 MG PO TID, CAP Glipizide (Glipizide Xl) 2.5 Mg Tab 2.5 MG PO DAILY Guaifenesin Ext Rel (Mucinex Ext Rel) 600 Mg Tab 600 MG PO Q12 PRN for CONGESTION Loperamide Hcl (Imodium) 2 Mg Cap 2 MG PO Q 3 HOURS PRN, 0 Refills max 6 capsules in 24hr Lorazepam (Ativan) 0.5 Mg Tab 0.5 MG PO BID PRN for Anxiety Lorazepam (Ativan) 1 Mg Tab 1 MG PO DAILY @ 2PM Magnesium Hydroxide (Milk Of Magnesia) 30 Ml Susp 30 ML PO DAILY PRN for CONSTIPATION, ML Menthol-Methyl Salicylate (Dayana (Thera-Gesic) 1 Cre Cre 1 APPLN TOP BID APPLY TO LEGS AND FEET Menthol-Methyl Salicylate (Dayana (Thera-Gesic) 1 Cre Cre 1 APPLN TOP UD PRN for Pain APPLY NEEDED TO LEGS AND FEET FOR PAIN Omeprazole (Prilosec) 20 Mg Capcr 20 MG PO DAILY, 0 Refills Selenium Sulfide (Selsun Blue) 1 % Sha 1 APPLN TOP UD PRN for INFECTION Discontinued Medications: Aspirin (Aspirin 81) 81 Mg Tab 81 MG PO QAM TAKE WITH BREAKFAST Admission Information HPI (per Admitting provider): This is a 65 year old female resident of [facility] with PMH of anxiety, depression, mild intellectual disability, DM2, HLD was sent over by the [facility] facility due to her spiking a fever and developing a cough late on 05/23/16 - as per the caregiver in the room with the patient, the coughing started suddenly; and due to a fever, she was brought over to the ER. I spoke to the patient, who tells me she has a cough, but otherwise feels fine and very insistent on wanting to go back to [facility]. Denies chest pain or any other symptoms. Upon presentation to the ER, work-up performed, flu is negative, CXR does not clearly show an infiltrate; UA is negative. Patient has been tachycardic and spiking fevers. Oxygen saturation is on the lower end, low 90s with oxygen, she does not use supplemental O2 at home. Physical Exam (per Admitting): General Appearance: + mild distress, + pertinent finding (+mild MR) Head: normocephalic, atraumatic ENT: hearing grossly normal Respiratory/Chest: + respiratory distress (mild), + decreased breath sounds , + crackles (diffusely, bilateral) Cardiovascular: no edema, no murmur, + tachycardia Abdomen/GI: normal bowel sounds, non tender, soft Extremities/Musculoskelatal: no calf tenderness, normal capillary refill, no pedal edema Neurologic/Psych: no motor/sensory deficits, alert, normal mood/affect Skin: normal color Lymphatic: no adenopathy Hospital Course Assessment and Plan This is a 65 year old female resident of [facility] with PMH of anxiety, depression, mild intellectual disability, DM2, HLD was sent over by the personal care facility due to her spiking a fever and developing a cough. SEPSIS SECONDARY TO INFLUENZA, Left Lower Lobe PNEUMONIA- likely Comm Acquired -->patient presents with cough, fever, tachycardia -->onset of the cough was sudden as per caregiver -->unsure if patient aspirated, no known dietary restrictions, though she has dentures - remains afebrile, WBC normal - flu a positive blood cultures: negative so far repeat cxr: possible left lower lobe pneumonia speech therapy eval: no aspiration noted - clinically improved - completed Oseltamivir x 5 days transitioned from Zosyn to levaquin 750mg po daily which patient completed x 5 days Sinus Tachycardia, Resolving - HR improved - likely from Dehydration given IV fluids Benzos resumed thyroid function test: normal echo: * -- Conclusions -- * The left ventricular cavity is small. * The left ventricle is hyperdynamic. * Ejection Fraction = >70 %. * The right ventricular cavity is small. * The right ventricular systolic function is normal. * Grossly normal valvular structure and function. check d dimer: elevated (CT angio negative for PE, Doppler of the legs No DVT) Hypertension - BP noted to be syst 150s-160s - started on Amlodipine 2.5mg daily while inpatient - improved - likely from being off Benzodiazepes x few days - monitor BP daily Thrombocytopenia - from Sepsis? - baseline around low 100s - Plt improving from 70s to 90s no signs of bleeding monitor plt - hold aspirin Mild Hypokalemia - K 3.3 given Klor Con 40meq x 1 - monitor K Abnormal Findings on CT Angio (Full report at the end of report) 1. No evidence for pulmonary embolus with limitations as described above. 2. Scattered patchy groundglass airspace opacities seen throughout the lungs. This is most pronounced at the lung apices. This may represent a pneumonitis. Developing pulmonary edema could also a similar appearance but is considered less likely. 3. Mildly distended gas-filled esophagus. There appears to be mild thickening and narrowing of the distal esophagus near the gastroesophageal junction. Follow-up nonemergent endoscopy is recommended to exclude the possibility of an esophageal lesion. 4. 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 - need non emergent EGD to r/o Esophageal lesion - T4, TSH normal; monitor thyroid nodules DM resume Glipizide Anxiety/Depression/MR -->continue home medications FULL CODE Disposition d/c to [facility] follow up with Primary Care Physician in 3-5 days CHEST CTA for PULMONARY ARTERIES CT DOSE: 456.32 mGy.cm HISTORY: Atypical chest pain. TECHNIQUE: Multiaxial CT images of the chest were performed following the intravenous administration of contrast to evaluate the pulmonary arteries. Maximal intensity projection images were also obtained. COMPARISON STUDY: Chest 05/25/2016. FINDINGS: Old compression deformities seen from T8 through T12. This results in kyphosis at the lower thoracic spine. 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 Normal caliber thoracic aorta with no evidence for dissection. The heart is normal in size. The majority of the segmental and subsegmental pulmonary arteries are nondiagnostic due to the respiratory motion. The main and lobar pulmonary arteries are patent. The segmental right lower lobe pulmonary arteries are patent. The visualized liver, spleen, and adrenal glands are unremarkable. Partially visualized 2.1 cm hypodense lesion within the left kidney. This likely represents a cyst. Subcentimeter thyroid nodules with the largest on the right measuring 5 mm. No mediastinal or hilar lymphadenopathy. Mildly distended gas-filled esophagus. There appears be mild thickening and narrowing at the distal esophagus near the gastroesophageal junction. No pneumothorax. The central airways are patent. No pleural effusions. Linear densities at the left lung base likely represent subsegmental atelectasis. There are scattered patchy groundglass airspace opacity seen throughout the lungs. This is most pronounced at the lung apices. IMPRESSION: 1. No evidence for pulmonary embolus with limitations as described above. 2. Scattered patchy groundglass airspace opacities seen throughout the lungs. This is most pronounced at the lung apices. This may represent a pneumonitis. Developing pulmonary edema could also a similar appearance but is considered less likely. 3. Mildly distended gas-filled esophagus. There appears to be mild thickening and narrowing of the distal esophagus near the gastroesophageal junction. Follow-up nonemergent endoscopy is recommended to exclude the possibility of an esophageal lesion. 4. 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 Total time spent on discharge = 40 minutes This includes examination of the patient, discharge planning, medication reconciliation, and communication with other providers. Discharge Instructions Discharge Instructions Admission Reason for Admission: Fever, Pneumonia Discharge Discharge Diagnosis / Problem: Sepsis, secondary to Influenza A and Pneumonia Discharge Goals Goal(s): Diagnostic testing, Therapeutic intervention Activity Recommendations Activity Level: Assistance Required . Additional Information Patient informed of condition: Yes Advance Directives: No (Unknown) DNR: No (Patient is Full Code) Level of Care: Other (Personal [facility]) Communicable Disease: Yes (INFLUENZA) Prognosis: Stable Instructions / Follow-Up Instructions / Follow-Up PLEASE MONITOR BP DAILY. REPEAT CBC IN 3-5 DAYS, MONITOR PLATELETS (RE: THROMBOCYTOPENIA). REPEAT POTASSIUM IN 3-5 DAYS. (RE: MILD HYPOKALEMIA). SPEECH THERAPY RECOMMENDATIONS: Recommendations * 1. Moist mechanical soft diet 2. Aspiration precautions, straws OK 3. Fully upright, set up assistance required. REFER FOR EGD TO R/O ESOPHAGEAL LESION. PLEASE REFER TO ACCOMPANYING DISCHARGE SUMMARY FOR FURTHER DETAILS. FOLLOW UP WITH PRIMARY CARE PHYSICIAN IN 3-5 DAYS. Current Hospital Diet Patient's current hospital diet: AHA Diet (Heart Healthy), Diabetes Type 2 Diet Discharge Diet Recommended Diet: AHA Diet (Heart Healthy), Diabetes Type 2 Diet Diet Texture: Mechanical Soft (ground) (Moist) Pending Studies Studies pending at discharge: yes List of pending studies: Repeat CBC and Potassium in 3-5 days. EGD to r/o Esophageal Lesion. Physician Orders On Transfer Special Precautions: PLEASE MONITOR BP DAILY. REPEAT CBC IN 3-5 DAYS, MONITOR PLATELETS (RE: THROMBOCYTOPENIA). REPEAT POTASSIUM IN 3-5 DAYS. (RE: MILD HYPOKALEMIA). SPEECH THERAPY RECOMMENDATIONS: Recommendations * 1. Moist mechanical soft diet 2. Aspiration precautions, straws OK 3. Fully upright, set up assistance required. REFER FOR EGD TO R/O ESOPHAGEAL LESION. PLEASE REFER TO ACCOMPANYING DISCHARGE SUMMARY FOR FURTHER DETAILS. FOLLOW UP WITH PRIMARY CARE PHYSICIAN IN 3-5 DAYS. Vital Signs: BP daily Laboratory Results Hemoglobin A1c Test 05/26/16 06:05 Range/Units Estimated Average Glucose 114 mg/dl Hemoglobin A1c 5.6 4.5-5.6 % Lipid Panel Test 04/04/16 05:18 Range/Units Triglycerides Level 256 H 0-150 mg/dl Cholesterol Level 193 0-200 mg/dl HDL Cholesterol 47 mg/dl Cholesterol/HDL Ratio 4.1 LDL Cholesterol, Calculated 95 mg/dl Medical Emergencies . Who to Call and When: Medical Emergencies: If at any time you feel your situation is an emergency, please call 911 immediately. . Non-Emergent Contact Non-Emergency issues call your: Primary Care Provider Call Non-Emergent contact if: you have a fever, your pain is not controlled . Past History Medical & Surgical History: (1) Pneumonia (2) Schizophrenia (3) Anxiety (4) Osteoporosis (5) GERD (gastroesophageal reflux disease) (6) Parkinson disease (7) Depression (8) History of mental retardation . "Provider Documentation" section prepared by Cody Hagan. Core Measure Problem Core Measures: None
[2016-05-29 13:43] VITALS: BP 112/69; PULSE 97; TEMP 37.1; O2SAT 92
[2016-07-04] MEDS ORDERED: ONDA4TAB46 PO (07:38)
[2016-07-04] MEDS ORDERED: ASPCH81X PO (07:38)
== END 2016-05-29 14:27 | disposition home or self-care (01) | DRG 871 ==
LOC: ENRESERVDT → ENRESERVTM → EDBD 00:06 → C.EDB 00:11 → C.EDINP 04:07 → EDBEDREQ 07:26 → C.2T 15:10
PROVIDERS: ADMIT Family Medicine; ATTEND Internal Medicine
DX: A41.89 Other specified sepsis (principal); J18.9 Pneumonia, unspecified organism; J11.00 Influenza due to unidentified influenza virus with unspecified type of pneumonia; R50.9 Fever, unspecified; R09.02 Hypoxemia; F41.9 Anxiety disorder, unspecified; F32.9 Major depressive disorder, single episode, unspecified; K21.9 Gastro-esophageal reflux disease without esophagitis; F70 Mild intellectual disabilities; M81.0 Age-related osteoporosis without current pathological fracture; G20 Parkinson's disease; F20.9 Schizophrenia, unspecified; Z88.2 Allergy status to sulfonamides; E87.6 Hypokalemia; E11.9 Type 2 diabetes mellitus without complications; E78.5 Hyperlipidemia, unspecified; E86.0 Dehydration; R00.0 Tachycardia, unspecified; D69.59 Other secondary thrombocytopenia; E04.1 Nontoxic single thyroid nodule; M40.209 Unspecified kyphosis, site unspecified

== ENCOUNTER → 2016-07-11 | Day surgery (SDC) | payer OTHER ==
[2016-07-04 07:38] VITALS: Ht 157.5 cm; Wt 72.3 kg
[~2016-07-11] VITALS: Ht 157.5 cm; Wt 72.3 kg
[~2016-07-11] MED LIST changes: +ACET-1256 PO; +ASPCH81X PO; +ATV/1 PO; -ATV1 PO; -ATV5 PO; +CALC-279 PO; -CALCTAB27 PO; +CGN5 PO; -DBT/25 PO; +GLIP-172 PO; +GUAI1TAB55 PO; -HYDR1OIN TOP; +LIDOCAINE HCL 2% 2 ML VIAL (20MG/ML) ONE; +LINICRE TOP; +LORA-741 PO; -MENTOIN TOP; -NUTR-706 PO; +ONDA4TAB46 PO; +PROPOFOL IV EMULSION 10 MG/ML 20 ML VIAL IV ONE; +SELE1SHA3 TOP; +SODIUM CHLORIDE 0.9% 500ML 500 ML IV ONE; -TRIH5TAB2 PO
--- NOTE | 2016-07-11 13:33 | Endo History and Physical ---
History & Physical Date of Service: Jul 11, 2016. Chief Complaint: Abn CT Scan, R/O Esophageal Lesion Referring Physician: Raven Hui History of Present Illness epigastric pain for EGD Past Surgical History Hx Cardiac Surgery: No Hx Internal Defibrillator: No Hx Pacemaker: No Hx Abdominal Surgery: No Hx of Implantable Prosthesis: No Hx Post-Op Nausea and Vomiting: No Hx Cancer Surgery: Yes (UPPER LIP LESION EXCISED 2 YRS AGO) Hx Thoracic Surgery: No Hx Orthopedic: No Hx Urinary Tract Surgery: No Social History Smoking Status: Never Smoker Hx Substance Use: No Hx Alcohol Use: No Allergies Coded Allergies: Flu Virus Vaccine (Unverified Allergy, Unknown, ., 07/04/16) Risperidone (Verified Allergy, Unknown, 07/04/16) Sulfamethoxazole w/Trimethoprim (Verified Allergy, Unknown, unknown, ) Current Medications Reported Home Medications Medications Dose Route/Sig Max Daily Dose Days Date Category Dose Instructions Zofran (Ondansetron HCl) 4 Mg Tab 4 Mg PO Q4H PRN 07/04/16 Reported Aspirin Chewable (Aspirin) 81 Mg Chew 81 Mg PO DAILY 07/04/16 Reported Selsun Blue (Selenium Sulfide) 1 % Sha 1 Appln TOP UD PRN 05/24/16 Reported Calcium Citrate + D (Calcium Citrate-Vitamin D) 1 Tab Tab 1 Tab PO DAILY 05/24/16 Reported Tylenol (Acetaminophen) 500 Mg Tab 500 Mg PO Q6H PRN 05/24/16 Reported MAX 3GM APAP/24HR Thera-Gesic (Menthol-Methyl Salicylate (Dayana) 1 Cre Cre 1 Appln TOP UD PRN 05/24/16 Reported APPLY NEEDED TO LEGS AND FEET FOR PAIN Thera-Gesic (Menthol-Methyl Salicylate (Dayana) 1 Cre Cre 1 Appln TOP BID 05/24/16 Reported APPLY TO LEGS AND FEET Benztropine Mesylate 0.5 Mg Tab 1 Mg PO DAILY 05/24/16 Reported 2 TABLET DOSE Clozapine 25 Mg Tab 3.5 Tabs PO DAILY 05/24/16 Reported Glipizide Xl (Glipizide) 2.5 Mg Tab 2.5 Mg PO DAILY 05/24/16 Reported Mucinex Ext Rel (Guaifenesin) 600 Mg Tab 600 Mg PO Q12 PRN 05/24/16 Reported Ativan (Lorazepam) 1 Mg Tab 1 Mg PO DAILY @ 2PM 05/24/16 Reported Ativan (Lorazepam) 0.5 Mg Tab 0.5 Mg PO BID PRN 05/24/16 Reported Neurontin (Gabapentin) 300 Mg Cap 300 Mg PO TID 08/22/13 Reported Sinemet 25MG/100MG (Carbidopa/Levodopa) Tab 1 Tab PO BID 05/14/13 Reported Prozac (Fluoxetine HCl) 40 Mg Cap 40 Mg PO DAILY 05/14/13 Reported Maalox Advanced (Alum & Mag Hydrox-Simethicone) 1 Birgit Birgit 30 Ml PO Q1 HOUR PRN 05/14/13 Reported Milk Of Magnesia (Magnesium Hydroxide) 30 Ml Susp 30 Ml PO DAILY PRN 05/14/13 Reported Lasix (Furosemide) 20 Mg Tab 20 Mg PO DAILY 05/14/13 Reported Prilosec (Omeprazole) 20 Mg Capcr 20 Mg PO DAILY 03/27/10 Reported Imodium (Loperamide HCl) 2 Mg Cap 2 Mg PO Q 3 HOURS PRN 03/27/10 Reported max 6 capsules in 24hr Vital Signs Weight (Kilograms): 72.27 Height (Feet): 5 Height (Inches): 2 Date Time Temp Pulse Resp B/P Pulse Ox O2 Delivery O2 Flow Rate FiO2 07/11/16 13:09 36.5 88 18 122/86 96 Room Air Physical Exam AAO oriented to person/place Nl s1s2 Lungs CTA Abd soft NT/ND + BS - CCE Assessment and Plan for EGD today
--- NOTE | 2016-07-11 13:47 | Discharge Instructions ---
Endoscopy Patient Instructions Date / Procedure(s) Performed Jul 11, 2016. EGD Allergy Information Coded Allergies: Flu Virus Vaccine (Unverified Allergy, Unknown, ., 07/04/16) Risperidone (Verified Allergy, Unknown, 07/04/16) Sulfamethoxazole w/Trimethoprim (Verified Allergy, Unknown, unknown, ) Discharge Date / Findings Jul 11, 2016. gastritis Hiatal hernia mildly irregular Z line no mucosal masses identified Medication Instructions Restart Stopped Medication(s): Reported Home Medications Medications Dose Route/Sig Max Daily Dose Days Date Category Dose Instructions Zofran (Ondansetron HCl) 4 Mg Tab 4 Mg PO Q4H PRN 07/04/16 Reported Selsun Blue (Selenium Sulfide) 1 % Sha 1 Appln TOP UD PRN 05/24/16 Reported Calcium Citrate + D (Calcium Citrate-Vitamin D) 1 Tab Tab 1 Tab PO DAILY 05/24/16 Reported Tylenol (Acetaminophen) 500 Mg Tab 500 Mg PO Q6H PRN 05/24/16 Reported MAX 3GM APAP/24HR Thera-Gesic (Menthol-Methyl Salicylate (Dayana) 1 Cre Cre 1 Appln TOP UD PRN 05/24/16 Reported APPLY NEEDED TO LEGS AND FEET FOR PAIN Thera-Gesic (Menthol-Methyl Salicylate (Dayana) 1 Cre Cre 1 Appln TOP BID 05/24/16 Reported APPLY TO LEGS AND FEET Benztropine Mesylate 0.5 Mg Tab 1 Mg PO DAILY 05/24/16 Reported 2 TABLET DOSE Clozapine 25 Mg Tab 3.5 Tabs PO DAILY 05/24/16 Reported Glipizide Xl (Glipizide) 2.5 Mg Tab 2.5 Mg PO DAILY 05/24/16 Reported Mucinex Ext Rel (Guaifenesin) 600 Mg Tab 600 Mg PO Q12 PRN 05/24/16 Reported Ativan (Lorazepam) 1 Mg Tab 1 Mg PO DAILY @ 2PM 05/24/16 Reported Ativan (Lorazepam) 0.5 Mg Tab 0.5 Mg PO BID PRN 05/24/16 Reported Neurontin (Gabapentin) 300 Mg Cap 300 Mg PO TID 08/22/13 Reported Sinemet 25MG/100MG (Carbidopa/Levodopa) Tab 1 Tab PO BID 05/14/13 Reported Prozac (Fluoxetine HCl) 40 Mg Cap 40 Mg PO DAILY 05/14/13 Reported Maalox Advanced (Alum & Mag Hydrox-Simethicone) 1 Birgit Birgit 30 Ml PO Q1 HOUR PRN 05/14/13 Reported Milk Of Magnesia (Magnesium Hydroxide) 30 Ml Susp 30 Ml PO DAILY PRN 05/14/13 Reported Lasix (Furosemide) 20 Mg Tab 20 Mg PO DAILY 05/14/13 Reported Prilosec (Omeprazole) 20 Mg Capcr 20 Mg PO DAILY 03/27/10 Reported Imodium (Loperamide HCl) 2 Mg Cap 2 Mg PO Q 3 HOURS PRN 03/27/10 Reported max 6 capsules in 24hr Reported Home Medications Medications Dose Route/Sig Max Daily Dose Days Date Category Dose Instructions Zofran (Ondansetron HCl) 4 Mg Tab 4 Mg PO Q4H PRN 07/04/16 Reported Selsun Blue (Selenium Sulfide) 1 % Sha 1 Appln TOP UD PRN 05/24/16 Reported Calcium Citrate + D (Calcium Citrate-Vitamin D) 1 Tab Tab 1 Tab PO DAILY 05/24/16 Reported Tylenol (Acetaminophen) 500 Mg Tab 500 Mg PO Q6H PRN 05/24/16 Reported MAX 3GM APAP/24HR Thera-Gesic (Menthol-Methyl Salicylate (Dayana) 1 Cre Cre 1 Appln TOP UD PRN 05/24/16 Reported APPLY NEEDED TO LEGS AND FEET FOR PAIN Thera-Gesic (Menthol-Methyl Salicylate (Dayana) 1 Cre Cre 1 Appln TOP BID 05/24/16 Reported APPLY TO LEGS AND FEET Benztropine Mesylate 0.5 Mg Tab 1 Mg PO DAILY 05/24/16 Reported 2 TABLET DOSE Clozapine 25 Mg Tab 3.5 Tabs PO DAILY 05/24/16 Reported Glipizide Xl (Glipizide) 2.5 Mg Tab 2.5 Mg PO DAILY 05/24/16 Reported Mucinex Ext Rel (Guaifenesin) 600 Mg Tab 600 Mg PO Q12 PRN 05/24/16 Reported Ativan (Lorazepam) 1 Mg Tab 1 Mg PO DAILY @ 2PM 05/24/16 Reported Ativan (Lorazepam) 0.5 Mg Tab 0.5 Mg PO BID PRN 05/24/16 Reported Neurontin (Gabapentin) 300 Mg Cap 300 Mg PO TID 08/22/13 Reported Sinemet 25MG/100MG (Carbidopa/Levodopa) Tab 1 Tab PO BID 05/14/13 Reported Prozac (Fluoxetine HCl) 40 Mg Cap 40 Mg PO DAILY 05/14/13 Reported Maalox Advanced (Alum & Mag Hydrox-Simethicone) 1 Birgit Birgit 30 Ml PO Q1 HOUR PRN 05/14/13 Reported Milk Of Magnesia (Magnesium Hydroxide) 30 Ml Susp 30 Ml PO DAILY PRN 05/14/13 Reported Lasix (Furosemide) 20 Mg Tab 20 Mg PO DAILY 05/14/13 Reported Prilosec (Omeprazole) 20 Mg Capcr 20 Mg PO DAILY 03/27/10 Reported Imodium (Loperamide HCl) 2 Mg Cap 2 Mg PO Q 3 HOURS PRN 03/27/10 Reported max 6 capsules in 24hr Provider Instructions Activity Restrictions - No exercising or heavy lifting for 24 hours. - Do not drink alcohol the day of the procedure. - Do not drive a car or operate machinery until the day after the procedure. - Do not make any important decisions or sign important papers in 24 hours after the procedure. Following Day: - Return to full activity which may include returning to work/school. Diet Start your diet with liquids and light foods (jello, soup, juice, toast). Then eat your usual diet if not nauseated. Treatment For Common After Affects For mild abdominal pain, bloating, or excessive gas: - Rest - Eat lightly - Lie on right side Follow-Up Information Follow-up with Raven Hui as scheduled Anesthesia Information What You Should Know You have had a procedure that required some medicine to reduce anxiety and discomfort. This treatment is called moderate sedation. After receiving the treatment, you may be sleepy, but you will be able to breathe on your own. The effects of the treatment may last for several hours. Follow these instructions along with Activity/Diet recommendations noted above: * Do NOT do anything where dizziness or clumsiness would be dangerous. * Rest quietly at home today, then you can be up and about tomorrow. * Have a responsible person stay with you the rest of today. * You may have had an I.V. today. If so, you may take the dressing off later today. Recommendations Call your doctor if: * Trouble breathing * Continuous vomiting for more than 24 hours * Temperature above 101 degrees * Severe abdominal pain or bloating * Pain not relieved by pain medicine ordered * There is increased drainage or redness from any incision * A large amount of rectal bleeding greater than 2-3 tablespoons. (If you had a polyp/s removed or have hemorrhoids, a small amount of blood - from the rectum is to be expected.) * You have any unanswered questions or concerns. IN THE EVENT OF A SERIOUS EMERGENCY, GO TO THE NEAREST EMERGENCY ROOM Your discharge instructions were prepared by provider Jl Chavira. Patient Instructions Signature Page Kate Jacobson Patient (or Guardian) Signature/Date: I have read and understand the instructions given to me by my caregivers. Caregiver/RN/Doctor Signature/Date: The above-named patient and/or guardian has received patient instructions on this date. + Original Patient Signature Page (only) stays with chart. Please make copy for patient.
--- NOTE | 2016-07-11 13:53 | GI REPORT ---
Procedure Date: 07/11/2016 1:32 PM Procedure: Upper GI endoscopy Indications: Epigastric abdominal pain, Suspected esophageal reflux, Abnormal CT of the GI tract Medicines: Propofol per Anesthesia Complications: No immediate complications. Estimated blood loss: Minimal. Estimated Blood Loss: Estimated blood loss was minimal. Procedure: Pre-Anesthesia Assessment: - Prior to the procedure, a History and Physical was performed, and patient medications and allergies were reviewed. The patient's tolerance of previous anesthesia was also reviewed. The risks and benefits of the procedure and the sedation options and risks were discussed with the patient. All questions were answered, and informed consent was obtained. Prior Anticoagulants: The patient has taken no previous anticoagulant or antiplatelet agents. ASA Grade Assessment: III - A patient with severe systemic disease. After reviewing the risks and benefits, the patient was deemed in satisfactory condition to undergo the procedure. After obtaining informed consent, the endoscope was passed under direct vision. Throughout the procedure, the patient's blood pressure, pulse, and oxygen saturations were monitored continuously. The Scope was introduced through the mouth, and advanced to the second part of duodenum. The upper GI endoscopy was accomplished without difficulty. The patient tolerated the procedure well. Findings: The upper third of the esophagus and middle third of the esophagus were normal. The Z-line was irregular and was found 30 cm from the incisors. LA Grade A (one or more mucosal breaks less than 5 mm, not extending between tops of 2 mucosal folds) esophagitis with no bleeding was found at the gastroesophageal junction. Biopsies were taken with a cold forceps for histology. Estimated blood loss was minimal. Verification of patient identification for the specimen was done by the physician and cadd technician using the patient's name and medical record number. Diffuse mildly erythematous mucosa without bleeding was found in the entire examined stomach. Biopsies were taken with a cold forceps for histology. Estimated blood loss was minimal. Verification of patient identification for the specimen was done by the physician and cadd technician using the patient's name and medical record number. The examined duodenum was normal. The cardia and gastric fundus were normal on retroflexion. Retained gastric contents are not identified on this exam. A medium-sized hiatus hernia was found. The proximal extent of the gastric folds (end of tubular esophagus) was 30 cm from the incisors. The hiatal narrowing was 35 cm from the incisors. The Z-line was 30 cm from the incisors. Impression: - Normal upper third of esophagus and middle third of esophagus. - Z-line irregular, 30 cm from the incisors. - LA Grade A reflux esophagitis. Biopsied. - Erythematous mucosa in the stomach. Biopsied. - Normal examined duodenum. Recommendation: - Discharge patient to home (ambulatory). - Patient has a contact number available for emergencies. The signs and symptoms of potential delayed complications were discussed with the patient. Return to normal activities tomorrow. Written discharge instructions were provided to the patient. - Resume regular diet. - Continue present medications. - Await pathology results. - Return to referring physician as previously scheduled. MD Jl Wallace MD 07/11/2016 1:53:11 PM This report has been signed electronically. Note Initiated On: 07/11/2016 1:32 PM I attest to the content of the Intraoperative Record and orders documented therein, exceptions below
[2016-07-11 14:24] VITALS: BP 132/94; PULSE 90; O2SAT 97
--- NOTE | 2016-07-11 14:52 | Anesthesiology Progress Note ---
Anesthesia Post Op Note Date & Time Jul 11, 2016 at 14:53 Vital Signs Vital Signs Past 12 Hours Date Time Temp Pulse Resp B/P Pulse Ox O2 Delivery O2 Flow Rate FiO2 07/11/16 14:24 90 18 132/94 97 Room Air 07/11/16 14:06 90 18 125/82 95 Room Air 07/11/16 13:51 85 18 117/72 94 Room Air 07/11/16 13:09 36.5 88 18 122/86 96 Room Air Notes Mental Status: alert / awake / arousable, participated in evaluation Pt Amnestic to Procedure: Yes Nausea / Vomiting: adequately controlled Pain: adequately controlled Airway Patency, RR, SpO2: stable & adequate BP & HR: stable & adequate Hydration State: stable & adequate Anesthetic Complications: no major complications apparent
== END | disposition home or self-care (01) ==
LOC: C.GI 12:22
PROVIDERS: ATTEND Internal Medicine Gastroenterology
DX: K21.0 Gastro-esophageal reflux disease with esophagitis (principal); K29.50 Unspecified chronic gastritis without bleeding; K44.9 Diaphragmatic hernia without obstruction or gangrene; E11.9 Type 2 diabetes mellitus without complications; G20 Parkinson's disease; H91.90 Unspecified hearing loss, unspecified ear; Z68.29 Body mass index [BMI] 29.0-29.9, adult; Z98.890 Other specified postprocedural states; Z88.7 Allergy status to serum and vaccine; Z79.82 Long term (current) use of aspirin

== ENCOUNTER → 2016-09-26 | Outpatient (CLI) | payer OTHER ==
[~2016-09-26] MED LIST changes: -ASPCH81X PO; +BENZ0.5T28 PO; -CGN5 PO; +CLOZ25TA3 PO; -LIDOCAINE HCL 2% 2 ML VIAL (20MG/ML) ONE; -PROPOFOL IV EMULSION 10 MG/ML 20 ML VIAL IV ONE; -SODIUM CHLORIDE 0.9% 500ML 500 ML IV ONE; -[UNRECOGNIZED DRUG - CODE] PO
--- NOTE | 2016-09-26 10:14 | DIAGNOSTIC IMAGING REPORT ---
(BARIUM SWALLOW) ESOPHAGUS CLINICAL HISTORY: DYSPHAGIA. Checking episode. COMPARISON STUDY: None. FLUOROSCOPY TIME: 0.8 minutes. 13 images submitted.. FINDINGS: Limited examination from a technical standpoint due to the patient's condition and aspiration precautions. The patient swallowed barium. The contours of the hypopharynx appear to be within normal limits. Slight tortuosity of the esophagus which demonstrates moderate dysmotility. There are low lung volumes. No hiatus hernia. No gastroesophageal reflux. No evidence for extraluminal contrast to suggest a tear. The barium tablet was not administered. IMPRESSION: Limited examination from technical standpoint. There are low lung volumes resulting in tortuosity of the esophagus. There is moderate esophageal dysmotility. Electronically signed by: Parag Ha M.D. 09/26/2016 10:13 AM Dictated Date/Time: 09/26/2016 10:09 AM
== END | disposition home or self-care (01) ==
LOC: C.RAD 09:44
PROVIDERS: ATTEND Internal Medicine
DX: R13.10 Dysphagia, unspecified (principal); K22.4 Dyskinesia of esophagus

== ENCOUNTER → 2017-01-16 | Outpatient (CLI) | payer OTHER ==
[~2017-01-16] MED LIST changes: -BENZ0.5T28 PO; +CGN5 PO; -CLOZ25TA3 PO; +[UNRECOGNIZED DRUG - CODE] PO
--- NOTE | 2017-01-16 14:14 | MAMMOGRAPHY REPORT ---
BILATERAL DIGITAL SCREENING MAMMOGRAM WITH CAD: 01/16/2017 CLINICAL HISTORY: Routine screening. Patient has no complaints. TECHNIQUE: Current study was also evaluated with a Computer Aided Detection (CAD) system. Bilateral CC and MLO views were obtained. Note that the MLO views are somewhat suboptimal due to difficulties with the patient tolerating proper positioning; the pectoralis muscles are not visualized on the MLO views. COMPARISON: Comparison is made to exams dated: 01/13/2016 mammogram, 01/11/2015 mammogram - [facility], and 09/01/2008. BREAST COMPOSITION: There are scattered areas of fibroglandular density in both breasts. FINDINGS: No suspicious masses, calcifications, or areas of architectural distortion are noted in ei ther breast. There has been no significant interval change compared to prior exams. IMPRESSION: ACR BI-RADS CATEGORY 1: NEGATIVE There is no mammographic evidence of malignancy. A 1 year screening mammogram is recommended. The pa tient will receive written notification of the results. Approximately 10% of breast cancers are not detected with mammography. A negative mammographic report should not delay biopsy if a clinically suggestive mass is present. Jenni Sosa M.D. /:01/16/2017 12:37:23 Deburring Machine Operator: Meghan SANTANA)(Belinda), [facility] letter sent: Normal 1/2 BI-RADS Code: ACR BI-RADS Category 1: Negative
== END | disposition home or self-care (01) ==
LOC: C.MAMM 11:00
PROVIDERS: ATTEND Obstetrics & Gynecology
DX: Z12.31 Encounter for screening mammogram for malignant neoplasm of breast (principal)

== ENCOUNTER → 2017-02-15 | Outpatient (CLI) | payer OTHER | END | disposition home or self-care (01) | LOC: C.PAPS 17:46 | PROVIDERS: ATTEND Obstetrics & Gynecology | DX: Z01.419 Encounter for gynecological examination (general) (routine) without abnormal findings (principal) ==

== ENCOUNTER 2019-04-21 07:59 | Inpatient (IN) ==
[2019-04-21] MEDS ORDERED: SODIUM CHLORIDE 0.9% 1000ML 500 ML IV ONE (09:04)
[2019-04-21] MEDS ORDERED: cloZAPine 25 MG TAB PO STA (09:05)
[2019-04-21] MEDS ORDERED: BENZTROPINE MESYLATE 0.5 MG TAB PO STA (09:05)
[2019-04-21] MEDS ORDERED: CHLORPROMAZINE HCL 10 MG TABLET PO STA (09:05)
[2019-04-21] MEDS ORDERED: FLUOXETINE HCL 20 MG/5 ML UDP PO STA (09:05)
[2019-04-21] MEDS ORDERED: GABAPENTIN 300 MG CAP PO STA (09:10)
[2019-04-21] MEDS ORDERED: FUROSEMIDE 20 MG TAB PO STA (09:10)
[2019-04-21] MEDS ORDERED: CARBIDOPA/LEVODOPA 25/100MG TAB PO STA (09:10)
[2019-04-21] MEDS ORDERED: SODIUM CHLORIDE 0.9% 1000ML 1,000 ML IV SCH (09:15)
[2019-04-21 09:37] LABS: Appearance Urine Cloudy (Clear); Bacteria Urine Automated 4+ (Negative); Bilirubin Urine Negative (Negative); Blood Urine Negative (Negative); Cast Urine Automated 0 /lpf (0-5); Color Urine Yellow; Epithelial Cell Urine Auto 0-5 /lpf (0-5); Glucose Urine UA Negative (Negative); Ketones Urine Negative (Negative); Leukocyte Esterase Urine Negative (Negative); Nitrite Urine Negative (Negative); Protein Urine Negative (Negative); Specific Gravity Urine 1.017 (1.000-1.030); Urobilinogen Urine Negative (Negative); WBC Urine Automated 0 /hpf (0-5); pH Urine 8.5 (4.5-7.5)
[2019-04-21 09:41] LABS: Alanine Aminotransferase 47 U/L (12-78); Albumin Level 4.1 gm/dl (3.4-5.0); Aspartate Aminotransferase 40 U/L (15-37); BUN Creatinine Ratio 20.2 (10-20); Blood Urea Nitrogen 19 mg/dl (7-18); Calcium 9.9 mg/dl (8.5-10.1); Carbon Dioxide 26 mmol/L (21-32); Chloride 104 mmol/L (98-107); Creatinine Clr Calc Pharmacy 51.6 ml/min; Est GFR (African American) 70.8; Est GFR (Non-African American) 61.1; Glucose 123 mg/dl (70-99); Potassium 3.9 mmol/L (3.5-5.1); Sodium 136 mmol/L (136-145)
[2019-04-21 09:45] LABS: Hematocrit (blood only) 39.7 % (37-47); Hemoglobin 13.7 g/dL (12.0-16.0); Mean Corpuscular Hemoglobin 30.9 pg (25-34); Mean Corpuscular Hgb Conc 34.5 g/dL (32-36); Mean Corpuscular Volume 89.6 fL (80-100); Mean Platelet Volume 9.8 fL (7.4-10.4); Platelet Count 83 K/uL (130-400); RDW Coefficient of Variation 13.8 % (11.5-14.5); RDW Standard Deviation 45.3 fL (36.4-46.3); Red Blood Count 4.43 M/uL (4.2-5.4); White Blood Count 6.19 K/uL (4.8-10.8)
[2019-04-21 09:46] LABS: Alkaline Phosphatase 117 U/L (45-117); Bilirubin,Total 0.6 mg/dl (0.2-1); Eosinophils # (auto) 0.09 K/uL (0-0.5); Eosinophils % (auto) 1.5 %; Globulin 4.2 gm/dl (2.5-4.0); Immature Granulocytes # (auto) 0.02 K/uL (0.00-0.02); Immature Granulocytes % (auto) 0.3 %; Lymphocytes # (auto) 0.96 K/uL (1.2-3.4); Lymphocytes % (auto) 15.5 %; Monocytes # (auto) 0.31 K/uL (0.11-0.59); Neutrophils # (auto) 4.81 K/uL (1.4-6.5); Neutrophils % (auto) 77.7 %; Platelet Estimate Decreased (Normal); Total Protein 8.3 gm/dl (6.4-8.2); Troponin I < 0.015 ng/ml (0-0.045)
--- NOTE | 2019-04-21 09:50 | CT Scan Report ---
CT SCAN OF THE BRAIN WITHOUT IV CONTRAST CLINICAL HISTORY: Change in mental status. COMPARISON STUDY: CT of the brain dated 05/24/2016. TECHNIQUE: Unenhanced axial CT scan of the brain is performed from the vertex to the skull base. A do se lowering technique was utilized adhering to the principles of ALARA. CT DOSE: 614.27 mGy.cm FINDINGS: Brain parenchyma: There are age-related involutional changes noting mild subcortical and periventric ular microangiopathic change. There is no hemorrhage, mass effect, or evidence of acute territorial i schemia by CT criteria. Villegas-white matter differentiation is preserved. No extra-axial fluid collecti on is seen. Ventricles, sulci, cisterns: Ventriculomegaly is similar to previous. Intracranial vasculature: There is atherosclerotic calcification of the cavernous carotid arteries. Calvarium: Unremarkable. Sinuses and mastoids: The visualized paranasal sinuses are clear. The mastoid air cells are well pneu matized. Orbits: The bony orbits are grossly intact. IMPRESSION: 1. There is no hemorrhage, mass effect, or evidence of acute territorial ischemia by CT criteria. 2. Ventriculomegaly is unchanged from prior examinations. Electronically signed by: Ron Gonzalez M.D. 04/21/2019 9:49 AM
[2019-04-21 09:53] LABS: RBC Urine Automated 0-4 /hpf (0-4)
--- NOTE | 2019-04-21 10:52 | XRay Report ---
XR chest 1V portable HISTORY: coarse breath sounds COMPARISON: Chest 05/25/2016. FINDINGS: There are low lung volumes with left basilar linear densities. This is similar to the prior study and therefore favors subsegmental atelectasis. No pneumothorax. No pleural effusions. The hear t remains borderline enlarged. This could be eccentric by the low lung volumes. Mild central pulmonar y vascular congestion without overt edema. Rotated study. No new focal lung consolidations to suggest pneumonia. IMPRESSION: 1. No significant change compared to the prior studies. 2. Mild central pulmonary vascular congestion without overt edema. 3. Left basilar linear densities favor subsegmental atelectasis. Electronically signed by: Parag Ha M.D. 04/21/2019 10:50 AM
--- NOTE | 2019-04-21 13:12 | Emergency Department Note ---
ED Visit Note Seen with Dr. Sharma, see his note for details. Resident Activity Tracking Resident Involvement: Resident Care Provided Care Provided: [facility]
--- NOTE | 2019-04-21 14:20 | History & Physical Report ---
Date of Service April 21, 2019 Assessment & Plan (1) Metabolic encephalopathy: This is a 68-year-old female with a PMH of atypical psychosis, moderate intellectual disability, paranoid schizophrenia, Parkinson's disease, DM II, thrombocytopenia and other medical problems listed below who resides at [facility] and presents with altered mental status starting yesterday. -In the setting of chronic paranoid schizophrenia, missed medication yesterday afternoon and possible UTI -Was given missed morning dose of psych medications today -Urinalysis negative for nitrite or leukoesterase 4+ bacteria. Will give 1 dose of Rocephin and await results of urine culture -Continue to monitor with one-to-one sitter (2) Abnormal urinalysis: Urinalysis negative for nitrite or leukoesterase 4+ bacteria. Will give 1 dose of Rocephin and await results of urine culture (3) Elevated BP without diagnosis of hypertension: Labile BP since arrival, currently 137/103 -No diagnosis of HTN and normally has normal BP, per aide at bedside -Will continue to monitor and add additional agent if needed (4) Chest pain: Describes constant atypical left-sided chest pain since yesterday that is reproducible on exam -Difficult to assess due to patient's cognitive state -EKG with normal sinus rhythm and nonspecific T wave changes -Initial troponin negative. Continue to trend, monitor on telemetry, repeat EKG in the morning (5) Diabetes mellitus, type II: -Hold home agents -SSI while in-patient -[facility] AC HS (6) Schizophrenia: Has some behavior difficulties at baseline, per aide -Was given missed morning doses of psychiatric medication. Plan to continue -Is having auditory hallucinations, which is patient's baseline -One-to-one sitter. Reevaluate tomorrow, possible need for psych input (7) Parkinson disease: Continue carbidopa-levodopa (8) GERD (gastroesophageal reflux disease): Continue PPI (9) Moderate intellectual disability: DVT Ppx: SCDs in setting of thrombocytopenia Code status: FULL per discussion with AFSHIN Márquez ([phone]) PCP: José Antonio Dispo: Admit to [facility]. Plan to return home once medically stable. Patient seen in collaboration with Dr. Cárednas. Please see addendum. History of Present Illness Chief Complaint: Altered mental status, elevated blood pressure Primary Care Provider: Ashlyn Chou, This is a 68-year-old female with a PMH of atypical psychosis, moderate intellectual disability, paranoid schizophrenia, Parkinson's disease, DM II, thrombocytopenia and other medical problems listed below who resides at [facility] and presents with altered mental status starting yesterday. History is primarily obtained by lobo Lala at bedside. Kate was in her normal state of health until yesterday afternoon when there was a change to her usual schedule. For the rest of the afternoon in the evening, Kate was irritable and refusing medication. Had multiple episodes of urinary incontinence, which is unusual for her during the day. This morning, patient was noted to have elevated blood pressure in addition to continued agitation and was brought to the ED for further evaluation. Patient was given her morning medication by ED providers. Blood pressure remains elevated at 176/93 with tachycardia of 104. ROS is limited due to patient's cognitive status, but she does endorse chest pain, abdominal pain and bilateral lower extremity pain. When asked if she is upset, she states she is bothered by the change of plans yesterday. Patient also endorses hearing voices singing a song called "Take the Interviewn". Denies SI/HI or visual hallucinations. Denies any fever, chills, shortness of breath, dysuria or diarrhea. Has chronic constipation with last bowel movement 2 days ago. At baseline, patient is wheelchair-bound and transfers with assistance. Requires a mechanical soft diet due to aspiration in the past. Allergies Allergy/AdvReac Type Severity Reaction Status Date / Time Bactrim Allergy Unknown unknown Verified 07/04/16 07:35 risperidone Allergy Unknown Verified 04/21/19 08:56 sulfamethoxazole Allergy Unknown unknown Verified 04/21/19 08:56 trimethoprim Allergy Unknown unknown Verified 04/21/19 08:56 Flu Virus Vaccine Allergy Unknown . Uncoded 04/21/19 08:56 Home Medications Home Medications Medication Instructions Recorded Confirmed Type acetaminophen 500 mg PO Q6H PRN 04/21/19 04/21/19 History atorvastatin 20 mg PO QAM 04/21/19 04/21/19 History benztropine 0.5 mg PO BID 04/21/19 04/21/19 History calcium citrate-vitamin D3 1 tab PO QAM 04/21/19 04/21/19 History [Calcium Citrate + D] carbamide peroxide [Ear Wax Drops] 5 drp OTB [id number]/21/19 04/21/19 History carbidopa-levodopa 1 tab PO BID 04/21/19 04/21/19 History chlorpromazine 10 mg PO QAM 04/21/19 04/21/19 History chlorpromazine 50 mg PO BID 04/21/19 04/21/19 History clozapine 25 mg PO QAM 04/21/19 04/21/19 History clozapine 87.5 mg PO HS 04/21/19 04/21/19 History docusate sodium [Colace] 100 mg PO BID 04/21/19 04/21/19 History fluoxetine 10 mg PO QAM 04/21/19 04/21/19 History fluoxetine 40 mg PO QAM 04/21/19 04/21/19 History furosemide 20 mg PO QAM 04/21/19 04/21/19 History gabapentin 300 mg PO TID 04/21/19 04/21/19 History glipizide 2.5 mg PO QAM 04/21/19 04/21/19 History lorazepam 0.5 mg PO BID 04/21/19 04/21/19 History multivitamin [Daily-Pradip] 1 tab PO QAM 04/21/19 04/21/19 History naproxen sodium 220 mg PO Q12H PRN 04/21/19 04/21/19 History omega 4-[id number]-fish oil [Condon-3] 1 cap PO BID 04/21/19 04/21/19 History omeprazole 20 mg PO QAM 04/21/19 04/21/19 History Past Med/Surg History Medical History Anxiety (Chronic) Diabetes mellitus, type II (Chronic) GERD (gastroesophageal reflux disease) (Chronic) Moderate intellectual disability Obstructive hydrocephalus Osteoporosis (Chronic) Parkinson disease (Chronic) Schizophrenia (Chronic) Surgical History Hx of tonsillectomy Family History (Updated 04/21/19 @ 14:51 by Cristina Jimenez PA-C) Other Family history unknown Social History Preferred Language: Brazilian Communication Ability: Impaired 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 Physical Exam Physical Exam: General Appearance: WD/WN, vitals as above, NAD, sitting up in bed, pleasant, involuntary movements of tongue Head: normocephalic, atraumatic Eyes: normal inspection, PERRL, conjunctivae normal, anicteric sclerae ENT: external ear and nose normal, oropharynx normal Neck: trachea midline, no thyromegaly normal visual inspection Respiratory: normal respiratory effort, lungs clear to auscultation, no wheeze, rales, rhonchi. Normal insp/exp effort, no accessory muscle use Cardiovascular: tachycardic rate, rhythm, no murmur appreciated, normal peripheral pulses. Vessels: no JVD or carotid bruit Chest: normal inspection of chest, pain reproducible on palpation Abdomen/GI: normal bowel sounds, soft, diffuse TTP but no guarding, no hepatosplenomegaly Extremities/Musculoskelatal: no cyanosis or clubbing, chronic equal BLE weakness Neurologic: PERRL, lip smacking and tongue rolling present, CN's II-XI intact bilaterally and moves all extremities Psychiatric: A+Ox to self. Anxious. Hearing voices but denies visual hallucinations. Skin: no rashes, normal color, warm/dry Results & Data Vital Signs (Past 12 Hours) Vital Signs Temp Pulse Pulse Resp BP BP Pulse Ox 04/21/19 12:30 104 H 16 176/93 H 04/21/19 11:26 101 H 16 181/128 H 04/21/19 09:27 96 H 16 159/106 H 97 04/21/19 08:11 36.8 C 98 H 18 155/123 H 95 Laboratory Results Short CBC 04/21/19 Range/Units 08:54 WBC 6.19 (4.8-10.8) K/uL Hgb 13.7 (12.0-16.0) g/dL Hct 39.7 (37-47) % Plt Count 83 L (130-400) K/uL BMP 04/21/19 08:54 Sodium 136 Potassium 3.9 Chloride 104 Carbon Dioxide 26 BUN 19 H Creatinine 0.95 Glucose 123 H Calcium 9.9 Cardiac Enzymes 04/21/19 Range/Units 08:54 Troponin I < 0.015 (0-0.045) ng/ml Liver Function 04/21/19 Range/Units 08:54 Total Bilirubin 0.6 (0.2-1) mg/dl AST 40 H (15-37) U/L ALT 47 (12-78) U/L Alkaline Phosphatase 117 (45-117) U/L Albumin 4.1 (3.4-5.0) gm/dl Urine 04/21/19 Range/Units 09:20 Urine Color Yellow Urine Appearance Cloudy A (Clear) Urine pH 8.5 H (4.5-7.5) Ur Specific [place] 1.017 (1.000-1.030) Urine Protein Negative (Negative) Urine Glucose (UA) Negative (Negative) Diagnostic Findings CT head: IMPRESSION: 1. There is no hemorrhage, mass effect, or evidence of acute territorial ischemia by CT criteria. 2. Ventriculomegaly is unchanged from prior examinations. CXR: IMPRESSION: 1. No significant change compared to the prior studies. 2. Mild central pulmonary vascular congestion without overt edema. 3. Left basilar linear densities favor subsegmental atelectasis. ECG Rhythm: normal sinus Code Status & VTE Plan VTE Prophylaxis Plan VTE Prophylaxis will be ordered: Yes Supervising Physician Co-Signing Physician Notes Patient seen and examined. I discussed the case with MANOHAR and examined the patient myself. Aide no longer available Patient unable to provide much history. Stated she had chest pain Refer to H/P by Cristina VILLELA for detailed history. On physical exam BP 137/103, SC 103, RR 25 General: Not dehydrated. No acute distress. Tongue rolling Eyes: PERRL, conjunctivae normal, EOM intact bilaterally ENMT: External ear and nose normal, Tongue twisting and rolling Respiratory: Normal respiratory effort, no respiratory distress, lungs clear to auscultation, no crackles and no wheezes Cardiovascular: Pulse is regular. S1 S2. No pedal edema Chest (Breasts): Chest: normal inspection of chest. No tenderness Gastrointestinal (Abdomen): Abdomen is not distended, soft, non-tender to palpation, no guarding, no palpable hepatosplenomegaly, normal bowel sounds Musculoskeletal: Moves all extremities Genitourinary: No CVA tenderness Skin: No rash noted on gross inspection, No ulcers noted Neurologic: Alert and awake. Limited exam due to mental status. Moves all extremities Psychiatric: Awake and alert. Reports auditory hallucinations but could not tell me what she hears Patient reported to have behavioral changes. 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 Not on any antihypertensives at home WIll monitor for now Reported chest pain. EKG was NSR, no ischemic changes. First trop was negative. Will check another
--- NOTE | 2019-04-21 15:22 | Emergency Department Note ---
Entered by Raymundo Carrillo acting as a scribe for ED Provider Note CHIEF COMPLAINT: Abnormal behavior HISTORY OF PRESENT ILLNESS: The patient is a 68 year old female with a past medical history of mental retardation who presents to the Emergency Room after being brought by her caregiver of 5 years for abnormal behavior that she noticed yesterday. Per the caregiver, the patient has not slept since 15:00 yesterday and has been refusing her medications. The caregiver states the patient has not taken her evening medications from yesterday and her morning medications this morning. The caregiver reports that the behavior started shortly after not stopping at [employer] yesterday, which is something they normally do every day. The caregiver also mentioned that the patient stated yesterday that she will be in [facility] today. The patient also has a history of Parkinson's and chronic lower extremity pain so she uses a walker at baseline. The patient recently had her Fluoxetine increased from 40mg to 50mg. The patient's POA is Lindsey Márquez, the facilities maintenance supervisor of [employer] (formerly [employer]). HPI is limited secondary to patient's intellectual disability. Pt denies LOC, headache, fevers, chills, diaphoresis, visual changes, neck pain, chest pain, breathing difficulties, nausea, vomiting, abdominal pain, back pain, melena, hematochezia, urinary symptoms, numbness, weakness, lymphadenopathy, rash, or other complaints. REVIEW OF SYSTEMS: See HPI for pertinent positives and negatives. ROS limited secondary to patient's intellectual disability. PMHx/PSHx: Mental retardation, Schizophrenia, Depression, Anxiety, Parkinson's Disease, Osteoporosis, PNA SOCIAL HISTORY: Patient lives at assisted living facility. PHYSICAL EXAM: GENERAL: Awake, lethargic but following commands and interacting, no acute distress. HENT: Normocephalic, atraumatic. Oropharynx unremarkable. Dry mucous membranes. EYES: Normal conjunctiva. Sclera non-icteric. NECK: Inspection normal. Non-tender. Supple. No nuchal rigidity. FROM. No masses. RESPIRATORY: Clear to auscultation. No wheezes. No rales. Normal respiratory effort. CARDIAC: Normal rate. Normal rhythm. No murmurs. No rubs. Extremities warm and well perfused. Pulses equal. No JVD. GI: Soft, non-distended. No tenderness to palpation. No rebound or guarding. No masses. RECTAL: Deferred. MUSCULOSKELETAL: Atraumatic. Chest examination reveals no tenderness. The back is symmetrical on inspection without obvious abnormality. There is no CVA tenderness to palpation. No joint edema. LOWER EXTREMITIES: Calves are equal size bilaterally and non-tender. No edema. No discoloration. NEURO: Altered sensorium, lip smacking and tongue rolling present. Weakness in bilateral lower extremities which is chronic for her. SKIN: No rash or jaundice noted. EMERGENCY DEPARTMENT COURSE: 08: Past medical records reviewed. The patient was evaluated in room B09 by the resident Dr. Kelley, and a complete history and physical examination were performed. I then performed my own assessment of the patient. 1052: I reevaluated the patient and she is resting comfortably. 1243: I discussed the patient's case with Cristina PIZARRO who is working under Dr. Melia Morrisseyist. They agreed to accept the patient for further evaluation. MEDICAL DECISION MAKING: Nursing notes reviewed and agree them. Additional history obtained from the patient's caregiver.. The patient's history was concerning for altered mental status. Differential diagnosis: Etiologies such as infection, hypoglycemia, electrolyte abnormalities, cardiac sources, intracerebral event, toxicologic, neurologic, as well as others were entertained. Physical examination: As above. Dry mucous membranes. Concerning for dehydration. ER treatment provided: IV Lock Normal saline hydration Patient was given her morning medications. On reassessment the patient was doing slightly better. Diagnostics interpretation by me: ECG: No ischemia or dysrhythmia. The labs revealed an unremarkable CBC and chemistry panel except for mild thrombocytopenia. Mild dehydration noted. Urinalysis negative. Imaging studies: CT scan of the head was unremarkable. Chronic findings noted. The patient is doing better after hydration. She is still not at her baseline per the caregiver. She is mildly dehydrated. She will need to be hydrated and watched in the hospital. Consultation: A consultation was placed with the hospitalist. The case was discussed and diagnostics were reviewed. The patient was evaluated in the ER for further treatment. The patient was seen and examined with Dr. Kelley, resident physician. We discussed the case and treatments ordered, reviewed the results, and determine the disposition. I have been directly involved with the management and disposition as well as independently evaluated the patient as documented in this note. IMPRESSION: Altered mental status Dehydration PLAN: Being evaluated by the hospitalist The scribe's documentation has been prepared under my direction and personally reviewed by me in its entirety. I confirm that the note above accurately reflects all work, treatment, procedures, and medical decision making performed by me. Impression & Plan Altered mental status, Dehydration Past Med/Surg History Medical History Anxiety (Chronic) Diabetes mellitus, type II (Chronic) GERD (gastroesophageal reflux disease) (Chronic) Moderate intellectual disability Obstructive hydrocephalus Osteoporosis (Chronic) Parkinson disease (Chronic) Schizophrenia (Chronic) Surgical History Hx of tonsillectomy Family History (Updated 04/21/19 @ 14:51 by Cristina Jimenez PA-C) Other Family history unknown Social History Current Living Situation: Personal Care Facility Feels Safe at Home: Yes Smoking Status: Never smoker Results & Data Vital Signs Vital Signs - 24 hr 04/21/19 08:11 04/21/19 09:27 04/21/19 11:26 Temperature 36.8 C Temperature Source Oral Pulse Rate 98 H Pulse Rate [Apical] 96 H 101 H Respiratory Rate 18 16 16 Blood Pressure 155/123 H Blood Pressure [Right Arm] 159/106 H 181/128 H Blood Pressure Mean 133 Blood Pressure Mean [Right Arm] 123 145 Pulse Oximetry 95 97 Oxygen Delivery Method Room Air Room Air Sepsis Recent Fever Within 48 Hours No Sepsis New/Unexplained Change in Mental Status No Sepsis Action Taken by Nursing No Action Required 04/21/19 12:30 04/21/19 14:25 Temperature Temperature Source Pulse Rate Pulse Rate [Apical] 104 H 104 H Respiratory Rate 16 18 Blood Pressure Blood Pressure [Right Arm] 176/93 H 172/103 H Blood Pressure Mean Blood Pressure Mean [Right Arm] 120 126 Pulse Oximetry 96 Oxygen Delivery Method Room Air Sepsis Recent Fever Within 48 Hours Sepsis New/Unexplained Change in Mental Status Sepsis Action Taken by Shelter Medications Current Medication List: was personally reviewed by me Laboratory Data Attestation: I reviewed the patient's lab results. Result diagrams: 04/21/19 08:54 04/21/19 08:54 Lab Results 04/21/19 04/21/19 04/21/19 Range/Units 08:54 08:54 09:20 WBC 6.19 (4.8-10.8) K/uL RBC 4.43 (4.2-5.4) M/uL Hgb 13.7 (12.0-16.0) g/dL Hct 39.7 (37-47) % MCV 89.6 (80-100) fL MCH 30.9 (25-34) pg MCHC 34.5 (32-36) g/dL RDW Std Deviation 45.3 (36.4-46.3) fL RDW Coeff of Ricardo 13.8 (11.5-14.5) % Plt Count 83 L (130-400) K/uL MPV 9.8 (7.4-10.4) fL Immature Gran % (Auto) 0.3 % Neut % (Auto) 77.7 % Lymph % (Auto) 15.5 % [place] % (Auto) 5.0 % Eos % (Auto) 1.5 % Baso % (Auto) 0.0 % Immature Gran # (Auto) 0.02 (0.00-0.02) K/uL Neut # (Auto) 4.81 (1.4-6.5) K/uL Lymph # (Auto) 0.96 L (1.2-3.4) K/uL [place] # (Auto) 0.31 (0.11-0.59) K/uL Eos # (Auto) 0.09 (0-0.5) K/uL Baso # (Auto) 0.00 (0-0.2) K/uL Platelet Estimate Decreased L (Normal) Sodium 136 (136-145) mmol/L Potassium 3.9 (3.5-5.1) mmol/L Chloride 104 (98-107) mmol/L Carbon Dioxide 26 (21-32) mmol/L Anion Gap 7.0 (3-11) BUN 19 H (7-18) mg/dl Creatinine 0.95 (0.6-1.2) mg/dl Est Cr Clr Drug Dosing 51.6 ml/min Est GFR ( Amer) 70.8 Est GFR (Non-Af Amer) 61.1 BUN/Creatinine Ratio 20.2 H (10-20) Glucose 123 H (70-99) mg/dl Calcium 9.9 (8.5-10.1) mg/dl Total Bilirubin 0.6 (0.2-1) mg/dl AST 40 H (15-37) U/L ALT 47 (12-78) U/L Alkaline Phosphatase 117 (45-117) U/L Troponin I < 0.015 (0-0.045) ng/ml Total Protein 8.3 H (6.4-8.2) gm/dl Albumin 4.1 (3.4-5.0) gm/dl Globulin 4.2 H (2.5-4.0) gm/dl Albumin/Globulin Ratio 1.0 (0.9-2) Urine Color Yellow Urine Appearance Cloudy A (Clear) Urine pH 8.5 H (4.5-7.5) Ur Specific [place] 1.017 (1.000-1.030) Urine Protein Negative (Negative) Urine Glucose (UA) Negative (Negative) Urine Ketones Negative (Negative) Urine Blood Negative (Negative) Urine Nitrite Negative (Negative) Urine Bilirubin Negative (Negative) Urine Urobilinogen Negative (Negative) Ur Leukocyte Esterase Negative (Negative) Urine WBC (Auto) 0 (0-5) /hpf Urine RBC (Auto) 0-4 (0-4) /hpf U Hyaline Cast (Auto) 0 (0-5) /lpf U Epithel Cells (Auto) 0-5 (0-5) /lpf Urine Bacteria (Auto) 4+ H (Negative) Administered Medications Sodium Chloride (Nss 1000ml) 1,000 mls @ 125 mls/hr IV .Q8H BRITTANY Stop: 05/21/19 09:14 Last Admin: 04/21/19 09:29 Dose: 125 mls/hr Documented by: [id number] Discontinued Medications Benztropine Mesylate (Cogentin) 0.5 mg PO NOW STA Stop: 04/21/19 09:06 Last Admin: 04/21/19 10:12 Dose: 0.5 mg Documented by: [id number] Carbidopa/Levodopa (Sinemet 25/100 Mg) 1 tab PO NOW STA Stop: 04/21/19 09:11 Last Admin: 04/21/19 10:13 Dose: 1 tab Documented by: [id number] Chlorpromazine HCl (Thorazine) 10 mg PO NOW STA Stop: 04/21/19 09:06 Last Admin: 04/21/19 10:13 Dose: 10 mg Documented by: [id number] Clozapine (Clozaril) 25 mg PO NOW STA Stop: 04/21/19 09:06 Last Admin: 04/21/19 10:13 Dose: 25 mg Documented by: [id number] Fluoxetine HCl (Prozac) 40 mg PO NOW STA Stop: 04/21/19 09:06 Last Admin: 04/21/19 10:11 Dose: 40 mg Documented by: [id number] Furosemide (Lasix) 20 mg PO NOW STA Stop: 04/21/19 09:11 Last Admin: 04/21/19 10:12 Dose: 20 mg Documented by: [id number] Gabapentin (Neurontin) 300 mg PO NOW STA Stop: 04/21/19 09:11 Last Admin: 04/21/19 10:13 Dose: 300 mg Documented by: [id number] Sodium Chloride (Nss 1000ml) 500 mls @ 999 mls/hr IV .Q31M ONE Stop: 04/21/19 09:34 Last Infusion: 04/21/19 10:05 Dose: 0 mls/hr Documented by: [id number] Admin: 04/21/19 09:29 Dose: 999 mls/hr Documented by: [id number] Imaging Data Radiologist's Impression: Radiology results as stated below per my review and the radiologist's interpretation: CT SCAN OF THE BRAIN WITHOUT IV CONTRAST CLINICAL HISTORY: Change in mental status. COMPARISON STUDY: CT of the brain dated 05/24/2016. TECHNIQUE: Unenhanced axial CT scan of the brain is performed from the vertex to the skull base. A dose lowering technique was utilized adhering to the principles of ALARA. CT DOSE: 614.27 mGy.cm FINDINGS: Brain parenchyma: There are age-related involutional changes noting mild subcortical and periventricular microangiopathic change. There is no hemorrhage, mass effect, or evidence of acute territorial ischemia by CT criteria. Villegas- white matter differentiation is preserved. No extra-axial fluid collection is seen. Ventricles, sulci, cisterns: Ventriculomegaly is similar to previous. Intracranial vasculature: There is atherosclerotic calcification of the cavernous carotid arteries. Calvarium: Unremarkable. Sinuses and mastoids: The visualized paranasal sinuses are clear. The mastoid air cells are well pneumatized. Orbits: The bony orbits are grossly intact. IMPRESSION: 1. There is no hemorrhage, mass effect, or evidence of acute territorial ischemia by CT criteria. 2. Ventriculomegaly is unchanged from prior examinations. Electronically signed by: Ron Gonzalez M.D. 04/21/2019 9:49 AM XR chest 1V portable HISTORY: coarse breath sounds COMPARISON: Chest 05/25/2016. FINDINGS: There are low lung volumes with left basilar linear densities. This is similar to the prior study and therefore favors subsegmental atelectasis. No pneumothorax. No pleural effusions. The heart remains borderline enlarged. This could be eccentric by the low lung volumes. Mild central pulmonary vascular congestion without overt edema. Rotated study. No new focal lung consolidations to suggest pneumonia. IMPRESSION: 1. No significant change compared to the prior studies. 2. Mild central pulmonary vascular congestion without overt edema. 3. Left basilar linear densities favor subsegmental atelectasis. Electronically signed by: Parag Ha M.D. 04/21/2019 10:50 AM ECG Data Attestation: I personally reviewed and interpreted this ECG as follows: Indication: + altered mental status Rate (beats per minute): 98 Rhythm: normal sinus ECG Intervals/blocks: + Normal QRS ECG ST segments: no ST depression and no ST elevation ECG Findings: + Other (Non-specific ST changes) Blood Pressure Blood Pressure Findings: Elevated blood pressure Blood Pressure Disposition: Referred to patients primary care provider Discharge Plan Visit Data Chief Complaint: Illness Stated Complaint: ams ED Provider: Roddy Sharma ED Midlevel Provider: Dany Kelley Discharge Problem: Altered mental status, Dehydration Patient Disposition: Home - Self-Care Forms Stand Alone Forms: [facility], Important Visit Information Prescriptions Prescriptions: No Action multivitamin [Daily-Pradip] Tablet 1 tab PO QAM RF: 0 fluoxetine 40 mg Capsule 40 mg PO QAM RF: 0 atorvastatin 20 mg Tablet 20 mg PO QAM RF: 0 benztropine 0.5 mg Tablet 0.5 mg PO BID RF: 0 chlorpromazine 10 mg Tablet 10 mg PO QAM RF: 0 lorazepam 0.5 mg Tablet 0.5 mg PO BID RF: 0 glipizide 2.5 mg Tablet Extended Release 24hr 2.5 mg PO QAM RF: 0 fluoxetine 10 mg Capsule 10 mg PO QAM RF: 0 carbamide peroxide [Ear Wax Drops] 6.5 % Drops 5 drp [id number] [id number] RF: 0 docusate sodium [Colace] 100 mg Capsule 100 mg PO BID RF: 0 gabapentin 300 mg Capsule 300 mg PO TID RF: 0 omeprazole 20 mg Capsule,Delayed Release(Dr/Ec) 20 mg PO QAM RF: 0 furosemide 20 mg Tablet 20 mg PO QAM RF: 0 clozapine 25 mg Tablet 87.5 mg PO HS RF: 0 clozapine 25 mg Tablet 25 mg PO QAM RF: 0 carbidopa-levodopa 25-100 mg Tablet 1 tab PO BID RF: 0 chlorpromazine 50 mg Tablet 50 mg PO BID RF: 0 calcium citrate-vitamin D3 [Calcium Citrate + D] 315-200 mg-unit Tablet 1 tab PO QAM RF: 0 [place]-3 350 mg-235 mg- 90 mg-597 mg Capsule,Delayed Release(Dr/Ec) 1 cap PO BID RF: 0 acetaminophen 500 mg Tablet 500 mg PO Q6H PRN (Reason: Pain) RF: 0 naproxen sodium 220 mg Capsule 220 mg PO Q12H PRN (Reason: Pain) RF: 0 Referrals Referrals: Ashlyn Chou DO [Primary Care Provider] - The scribe's documentation has been prepared under my direction and personally reviewed by me in its entirety. I confirm that the note above accurately reflects all work, treatment, procedures, and medical decision making performed by me.
[2019-04-21] MEDS ORDERED: POLYETHYLENE (MIRALAX) 17 GM PACK PO PRN (16:23)
[2019-04-21] MEDS ORDERED: cefTRIAXone SODIUM 1,000 MG in DEXTROSE 5% 50 ML IV ONE (17:00)
--- NOTE | 2019-04-21 17:03 | Communication Note ---
Date of Service: April 21, 2019 Patient seen and examined. I discussed the case with MANOHAR and examined the patient myself. Aide no longer available Patient unable to provide much history. Stated she had chest pain Refer to H/P by Cristina VILLELA for detailed history. On physical exam BP 137/103, VA 103, RR 25 General: Not dehydrated. No acute distress. Tongue rolling Eyes: PERRL, conjunctivae normal, EOM intact bilaterally ENMT: External ear and nose normal, Tongue twisting and rolling Respiratory: Normal respiratory effort, no respiratory distress, lungs clear to auscultation, no crackles and no wheezes Cardiovascular: Pulse is regular. S1 S2. No pedal edema Chest (Breasts): Chest: normal inspection of chest. No tenderness Gastrointestinal (Abdomen): Abdomen is not distended, soft, non-tender to palpation, no guarding, no palpable hepatosplenomegaly, normal bowel sounds Musculoskeletal: Moves all extremities Genitourinary: No CVA tenderness Skin: No rash noted on gross inspection, No ulcers noted Neurologic: Alert and awake. Limited exam due to mental status. Moves all extremities Psychiatric: Awake and alert. Reports auditory hallucinations but could not tell me what she hears Patient reported to have behavioral changes. 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 Not on any antihypertensives at home WIll monitor for now Reported chest pain. EKG was NSR, no ischemic changes. First trop was negative. Will check another
[2019-04-21] MEDS ORDERED: GLUCOSE 40% GEL 15 GM TUBE PO PRN (17:28)
[2019-04-21] MEDS ORDERED: DEXTROSE 50% 50 ML SYRINGE IV PRN (17:28)
[2019-04-21] MEDS ORDERED: GLUCAGON FOR INJ 1 MG VIAL SQ PRN (17:28)
[2019-04-21] MEDS ORDERED: GLUCOSE 10 TABS/TUBE PO PRN (17:28)
[2019-04-21] MEDS ORDERED: CARBOHYDRATES FOR HYPOGLYCEMIA PO PRN (17:28)
[2019-04-21] MEDS: INSULIN ASPART 100 UNITS/ML 3 ML PEN SC SCH ×2 (18:03→20:58)
[2019-04-21] MEDS ORDERED: ALUMINUM/MAGNESIUM/SIMETH (MAALOX MAX) 30 ML UDC PO STA (21:49)
[2019-04-22] MEDS ORDERED: ACETAMINOPHEN 325 MG TAB PO PRN (07:40)
[2019-04-22] MEDS: ENOXAPARIN INJ 40 MG/0.4 ML SYR SQ SCH (08:25)
[2019-04-22] MEDS: INSULIN ASPART 100 UNITS/ML 3 ML PEN SC SCH ×4 (08:26→21:10)
[2019-04-22 10:46] LABS: Hematocrit (blood only) 41.6 % (37-47); Hemoglobin 14.6 g/dL (12.0-16.0); Mean Corpuscular Hemoglobin 31.3 pg (25-34); Mean Corpuscular Hgb Conc 35.1 g/dL (32-36); Mean Corpuscular Volume 89.1 fL (80-100); Mean Platelet Volume 9.7 fL (7.4-10.4); Platelet Count 116 K/uL (130-400); RDW Coefficient of Variation 13.9 % (11.5-14.5); RDW Standard Deviation 45.1 fL (36.4-46.3); Red Blood Count 4.67 M/uL (4.2-5.4); White Blood Count 9.32 K/uL (4.8-10.8)
[2019-04-22 11:07] LABS: BUN Creatinine Ratio 12.7 (10-20); Creatinine Clr Calc Pharmacy 45.3 ml/min; Est GFR (African American) 61.3; Est GFR (Non-African American) 52.9; Potassium 3.8 mmol/L (3.5-5.1)
--- NOTE | 2019-04-22 13:11 | Psychiatric Consultation ---
Date of Consultation April 22, 2019 Impression / Recommendations Impression 68-year-old female admitted medically on 04/21/19 with AMS beginning the day prior to admission. Pt has a reported history of moderate ID, schizophrenia, and Parkinson's disease. Psychiatric consultation is requested for "tardive dyskinesia management", as there is concern for tongue rolling. Medication list from [facility] was reviewed, and collateral information was obtained from facility staff. They report changes in patient's mental status were rather acute, and have yet to return to baseline. They deny recent changes to patient's psychiatric medications, stating she has been on many of them for several years. Tardive dyskinesia is a chronic condition, and is not generally amenable to tapering of antipsychotic medications - especially after the duration of use that has been reported. Decision to taper antipsychotic medications would need to be based on a risk/benefit analysis best completed by her outpatient psychiatrist, who is more familiar with patient's history and better able to determine if it is appropriate to risk destabilization of mood and psychiatric symptoms by adjusting tapering these medications. At this time, we would recommend continuation of all home psychotropic medications, and routine outpatient psychiatric follow-up. Based on available evidence, it is more likely patient's condition is related to an underlying medical concern than to a unique psychiatric process. Would not suggest medication adjustments until or unless UTI or other source of infection can be ruled out. We will attempt to gather collateral information as available. Dr. Marii Echols was directly involved in review and discussion of the patient's case and participated in medical decision making regarding treatment recommendations. Psych History Identifying Data 68-year-old female admitted medically on 05/18/2019 after presenting to the ED from [facility] with reports of altered mental status and urinary incontinence. Patient has a reported history of moderate intellectual disability, schizophrenia, and Parkinson's disease. Psychiatric consultation is requested to evaluate patient for "tardive dyskinesia management" after observation of tongue rolling and other repetitive oral movements. Patient is a limited historian. Chief Complaint "I want to go home." History of Present Illness Kate Jacobson is a 68-year-old female admitted medically on 04/21/2019 after presenting to the ED with altered mental status and urinary incontinence. Patient is a resident at [facility] where she has resided for several years. It was reported that patient had been demonstrating some unusual behavioral changes, including increased irritability and confusion. She had refused to take some of her medication doses, which is also unusual for her. Staff at [facility] reported concern for her change in behavior, and presented with her to the ED for further workup. Psychiatric consultation is requested to evaluate patient for "tardive dyskinesia management" after observation of repetitive oral movements. Current medication list was reportedly confirmed with [facility] records, and it was recommended medications be continued until psychiatric evaluation. Patient is observed to be laying in bed, with an [facility] staff member at bedside. Initially, patient is not able to tell this provider the staff members name, but is able to recall name later in assessment. Patient does request that the staff member leave the room during our conversation, and these wishes were respected. Patient tells this provider "I want to go home." When asked to explain events prior to admission, patient shared with this provider "I went grocery shopping. I saw [employer] on TV." Some of the patient's speech is muffled, and therefore it is difficult to gather a full understanding of statements being made. When asked if patient feels her symptoms are getting worse, better or staying the same, the patient states she feels "worse." When asked to describe her mood, the patient states she is feeling "happy." The patient denies suicidal and homicidal ideation. She does not verbalize any acute physical concerns at this time." Patient was asked if the oral movements she demonstrates are bothersome to her, which she denies. [facility] staff state the patient has not appeared to be in any discomfort, though they admit her behavior is unusual for her. They state the patient has been more irritable recently, and appearing more anxious. She has been pulling at her hair, and has been observed to be hitting herself on occasion. Staff report that generally, the patient's behaviors and reported A/V hallucinations are under decent control with her current medication regimen. They admit the patient generally response in this way when she experiences infections, and they are aware of possible UTI. They also state that several years ago patient had a similar presentation and required "a large dose of Ativan" to calm her behaviors. They deny recent changes to her medication regimen, and states that her oral movements have been ongoing for several years. Past Psychiatric History Previous Psych History: Reported diagnoses of schizophrenia - also diagnosed with Parkinson's disease and moderate intellectual disability. Records suggest patient sees Dr. Biswas at [facility] for medication management. Allergies Allergy/AdvReac Type Severity Reaction Status Date / Time Bactrim Allergy Unknown unknown Verified 07/04/16 07:35 risperidone Allergy Unknown Verified 04/21/19 08:56 sulfamethoxazole Allergy Unknown unknown Verified 04/21/19 08:56 trimethoprim Allergy Unknown unknown Verified 04/21/19 08:56 Flu Virus Vaccine Allergy Unknown . Uncoded 04/21/19 08:56 Home Medications Home Medications Medication Instructions Recorded Confirmed Type acetaminophen 500 mg PO Q6H PRN 04/21/19 04/21/19 History atorvastatin 20 mg PO QAM 04/21/19 04/21/19 History benztropine 0.5 mg PO BID 04/21/19 04/21/19 History calcium citrate-vitamin D3 1 tab PO QAM 04/21/19 04/21/19 History [Calcium Citrate + D] carbamide peroxide [Ear Wax Drops] 5 drp OTB [id number]/21/19 04/21/19 History carbidopa-levodopa 1 tab PO BID 04/21/19 04/21/19 History chlorpromazine 10 mg PO QAM 04/21/19 04/21/19 History chlorpromazine 50 mg PO BID 04/21/19 04/21/19 History clozapine 25 mg PO QAM 04/21/19 04/21/19 History clozapine 87.5 mg PO HS 04/21/19 04/21/19 History docusate sodium [Colace] 100 mg PO BID 04/21/19 04/21/19 History fluoxetine 10 mg PO QAM 04/21/19 04/21/19 History fluoxetine 40 mg PO QAM 04/21/19 04/21/19 History furosemide 20 mg PO QAM 04/21/19 04/21/19 History gabapentin 300 mg PO TID 04/21/19 04/21/19 History glipizide 2.5 mg PO QAM 04/21/19 04/21/19 History lorazepam 0.5 mg PO BID 04/21/19 04/21/19 History multivitamin [Daily-Pradip] 1 tab PO QAM 04/21/19 04/21/19 History naproxen sodium 220 mg PO Q12H PRN 04/21/19 04/21/19 History omega 5-rcf-wne-fish oil [Merlin-3] 1 cap PO BID 04/21/19 04/21/19 History omeprazole 20 mg PO QAM 04/21/19 04/21/19 History Personal History Living Arrangements: Personal Care Facility ([facility]) Patient History Medical History Anxiety (Chronic) Diabetes mellitus, type II (Chronic) GERD (gastroesophageal reflux disease) (Chronic) Moderate intellectual disability Obstructive hydrocephalus Osteoporosis (Chronic) Parkinson disease (Chronic) Schizophrenia (Chronic) Surgical History Hx of tonsillectomy Family History Other Family history unknown Social History Preferred Language: Guamanian Communication Ability: Impaired Experimental Mechanic Required: No Beliefs That Will Affect Care: None Current Living Situation: Personal Care Facility Other Information That Helps Us Care for You: No Feels Safe at Home: Yes Safety Concerns: Feels Safe At This Time Smoking Status: Former smoker Do You Dip or Chew Tobacco: No ; Second Hand Exposure: No ; Tobacco Cessation Education Requested by Patient: No Hx Alcohol Use: No Hx Substance Use: No Physical Exam Psychiatric: Orientation: alert, oriented to person, oriented to place and cooperative; + not oriented to time Apperance: appropriately dressed (in hospital gown, covered with personal blanket from home), + disheveled and appeared stated age Eye Contact: + fair eye contact Motor Behavior: + tremor (calms at times, observed in arms and legs bilaterally - though not constant); + abnormal motor movements Demonstrates repetitive oral movements of tongue rolling and lip smacking. Speech: + abnormal rate/rhythm/volume of speech (speech is muffled, difficult to understand at times) Generally nonspontaneous, with exception of request to go home Affect: + flat affect; + mood not congruent with affect Mood: no depressed mood (patient states mood is "happy") Thought Process: + concrete thought process Thought Content: + preoccupation (with being discharged home); no hopelessness Suicidal Thoughts: denies suicidal thoughts, denies suicidal daniel n and denies suicidal intent Homicidal Thoughts: denies homicidal thoughts Hallucinations: no auditory hallucinations and no visual hallucinations Denies presence of A/V hallucinations at time of encounter, does have a reported history of both Cognition: language grossly intact Estimated Intelligence: + below average estimated intelligence Insight: + impaired insight Judgement: + impaired judgement Vital Signs (Past 24 Hours): Last Vital Signs Temp 37.3 C 04/22/19 11:24 Pulse 135 H 04/22/19 11:24 Resp 20 04/22/19 11:24 BP 166/88 H 04/22/19 11:24 Pulse Ox 93 04/22/19 11:24 Review of Systems Constitutional: denied Cardiovascular: denied Respiratory: denied Gastrointestinal: denied Neurological: denied Psychiatric: denies symptoms other than stated above Total of at least 10 systems reviewed, pertinent positives as above and in HPI. Results & Data Medications Administered Acetaminophen (Tylenol) 650 mg PO Q4H PRN PRN Reason: Pain or Fever Stop: 05/22/19 07:39 Last Admin: 04/22/19 07:52 Dose: 650 mg Documented by: [id number] Enoxaparin Sodium (Lovenox) 40 mg SQ QAM [facility] Stop: 05/22/19 08:59 Last Admin: 04/22/19 08:25 Dose: 40 mg Documented by: [id number] Insulin Aspart (Novolog Flexpen) 0 units SC ACHS [facility] Stop: 05/21/19 17:44 Last Admin: 04/22/19 08:26 Dose: 1 units Documented by: [id number] Cosigned by: [id number] Admin: 04/21/19 20:58 Dose: Not Given Documented by: [id number] Cosigned by: [id number] Admin: 04/21/19 18:03 Dose: 1 units Documented by: [id number] Cosigned by: [id number] Coding Level of Care Code 56781 U Intl Hosp Care Lvl 3
[2019-04-22] MEDS: CARBIDOPA/LEVODOPA 25/100MG TAB PO SCH ×2 (13:31→21:02)
[2019-04-22] MEDS: BENZTROPINE MESYLATE 0.5 MG TAB PO SCH ×2 (13:31→21:05)
[2019-04-22] MEDS: CHLORPROMAZINE HCL 10 MG TABLET PO SCH (13:31)
[2019-04-22] MEDS: LORazepam 0.5 MG TAB PO SCH ×2 (13:36→20:59)
[2019-04-22] MEDS: PANTOprazole 40 MG TAB PO SCH (14:16)
[2019-04-22] MEDS: GABAPENTIN 300 MG CAP PO SCH ×2 (14:17→21:01)
[2019-04-22] MEDS: FLUOXETINE HCL 10 MG CAP PO SCH (14:17)
[2019-04-22] MEDS: FLUOXETINE HCL 20 MG CAP PO SCH (14:17)
[2019-04-22] MEDS: cloZAPine 25 MG TAB PO SCH ×2 (14:17→20:59)
[2019-04-22] MEDS: cefTRIAXone SODIUM 1,000 MG in DEXTROSE 5% 50 ML IV SCH (17:26)
--- NOTE | 2019-04-22 17:50 | Hospitalist Progress Note ---
Date of Service April 22, 2019 Assessment & Plan (1) Metabolic encephalopathy: Patient is a 68 yr female with H/O atypical psychosis, moderate intellectual disability, paranoid schizophrenia, Parkinson's disease, DM II, thrombocytopenia and other medical problems listed below who resides at [facility] and presents with altered mental status. Metabolic encephalopathy H/O atypical psychosis, moderate intellectual disability, paranoid schizophrenia CT head: There is no hemorrhage, mass effect, or evidence of acute territorial ischemia by CT criteria. Ventriculomegaly is unchanged from prior examinations. --r/o infection No recent change of home antipsychotics Reorient frequently to prevent delirium Monitor (2) Abnormal urinalysis: R/O UTI Blood/Urine Cx: pending Continue IV Ceftriaxone Day #2 (3) Elevated BP without diagnosis of hypertension: Labile BP--likely secondary to anxiety Sinus tachycardia Resume home medications Monitor (4) Chest pain: Reports atypical left-sided chest pain, reproducible EKG: Sinus tachycardia,nonspecific T wave changes Troponin x3; Negative monitor (5) Diabetes mellitus, type II: Hold home agents SSI while in-patient BSG AC HS (6) Schizophrenia: Has some behavior difficulties and auditory hallucinations at baseline Continue home medications Appreciate psychiatry input (7) Parkinson disease: Continue carbidopa-levodopa (8) GERD (gastroesophageal reflux disease): Continue PPI (9) Moderate intellectual disability: DVT Px: SCDs in setting of thrombocytopenia Code status: FULL per discussion with AFSHIN Márquez ([phone]) Subjective Patient is seen and examined at bedside History is limited secondary to patient's mental condition Discussed with patient's caregiver and psychiatry in detail Patient admits to have hallucinations and chronic feet pain Mental status noted baseline as per patient's caregiver Review of Systems Review of Systems: All systems reviewed & are unremarkable except as noted in HPI & below Physical Exam Physical Exam: Physical Exam: Vitals signs as noted above General Appearance:Moderately built and nourished, no apparent distress Head: normocephalic, Atraumatic Eyes: normal inspection, EOMI Neck: supple, Trachea midline Respiratory/Chest: Normal breath sounds, CTA Cardiovascular: S1, S2, No murmur, Tachycardia Abdomen/GI:Soft, Non tender, Bowel sounds present Extremities/Musculoskelatal:normal inspection, no edema Neurologic/Psych:Alert, awake, grossly no focal neurological deficits, Complete neuro exam could not be performed + Tardive dyskinesia Skin: normal color, warm Results & Data Vital Signs (Past 12 Hours) Vital Signs Temp Pulse Pulse Resp BP Pulse Ox 04/22/19 16:50 113 H 04/22/19 15:35 37.1 C 116 H 31 H 123/76 93 04/22/19 11:24 37.3 C 135 H 20 166/88 H 93 04/22/19 08:50 37.1 C 04/22/19 07:28 104 H 04/22/19 07:13 38.1 C H 108 H 20 150/93 H 95 Laboratory Results Short CBC 04/22/19 Range/Units 10:17 WBC 9.32 (4.8-10.8) K/uL Hgb 14.6 (12.0-16.0) g/dL Hct 41.6 (37-47) % Plt Count 116 L (130-400) K/uL BMP 04/22/19 10:17 Sodium 136 Potassium 3.8 Chloride 102 Carbon Dioxide 25 BUN 14 Creatinine 1.07 Glucose 132 H Calcium 10.0 Cardiac Enzymes 04/21/19 04/21/19 Range/Units 16:40 22:09 Troponin I < 0.015 < 0.015 (0-0.045) ng/ml
[2019-04-22] MEDS: CHLORPROMAZINE HCL 25 MG TABLET PO SCH (20:59)
[2019-04-22] MEDS: DOCUSATE SODIUM 100 MG CAP PO SCH (20:59)
[2019-04-23 07:34] LABS: Hematocrit (blood only) 39.1 % (37-47); Hemoglobin 13.6 g/dL (12.0-16.0); Mean Corpuscular Hemoglobin 31.3 pg (25-34); Mean Corpuscular Hgb Conc 34.8 g/dL (32-36); Mean Corpuscular Volume 90.1 fL (80-100); Mean Platelet Volume 10.3 fL (7.4-10.4); Platelet Count 119 K/uL (130-400); RDW Coefficient of Variation 14.1 % (11.5-14.5); RDW Standard Deviation 46.2 fL (36.4-46.3); Red Blood Count 4.34 M/uL (4.2-5.4); White Blood Count 12.54 K/uL (4.8-10.8)
[2019-04-23 07:50] LABS: Estimated Average Glucose 111 mg/dl; Hemoglobin A1C 5.5 % (4.5-5.6)
[2019-04-23 08:12] LABS: BUN Creatinine Ratio 28.9 (10-20); Calcium 9.8 mg/dl (8.5-10.1); Creatinine Clr Calc Pharmacy 41.8 ml/min; Est GFR (African American) 55.6; Magnesium 2.3 mg/dl (1.8-2.4); Potassium 3.8 mmol/L (3.5-5.1)
[2019-04-23] MEDS: INSULIN ASPART 100 UNITS/ML 3 ML PEN SC SCH ×4 (09:11→20:56)
[2019-04-23] MEDS: ENOXAPARIN INJ 40 MG/0.4 ML SYR SQ SCH (09:13)
[2019-04-23] MEDS: DOCUSATE SODIUM 100 MG CAP PO SCH ×2 (13:25→20:58)
[2019-04-23] MEDS: BENZTROPINE MESYLATE 0.5 MG TAB PO SCH ×2 (13:25→20:58)
[2019-04-23] MEDS: GABAPENTIN 300 MG CAP PO SCH ×3 (13:25→20:58)
[2019-04-23] MEDS: cloZAPine 25 MG TAB PO SCH ×2 (13:25→20:58)
[2019-04-23] MEDS: FUROSEMIDE 20 MG TAB PO SCH (13:25)
[2019-04-23] MEDS: FLUOXETINE HCL 10 MG CAP PO SCH (13:26)
[2019-04-23] MEDS: CARBIDOPA/LEVODOPA 25/100MG TAB PO SCH ×2 (13:26→20:59)
[2019-04-23] MEDS: CHLORPROMAZINE HCL 10 MG TABLET PO SCH (13:26)
[2019-04-23] MEDS: FLUOXETINE HCL 20 MG CAP PO SCH (13:26)
[2019-04-23] MEDS: PANTOprazole 40 MG TAB PO SCH (13:26)
[2019-04-23] MEDS: LORazepam 0.5 MG TAB PO SCH ×2 (13:27→20:58)
[2019-04-23] MEDS: CHLORPROMAZINE HCL 25 MG TABLET PO SCH ×2 (13:27→20:59)
[2019-04-23] MEDS: cefTRIAXone SODIUM 1,000 MG in DEXTROSE 5% 50 ML IV SCH (17:02)
--- NOTE | 2019-04-23 17:22 | Hospitalist Progress Note ---
Date of Service April 23, 2019 Assessment & Plan (1) Metabolic encephalopathy: Patient is a 68 yr female with H/O atypical psychosis, moderate intellectual disability, paranoid schizophrenia, Parkinson's disease, DM II, thrombocytopenia and other medical problems listed below who resides at [facility] and presents with altered mental status. Metabolic encephalopathy H/O atypical psychosis, moderate intellectual disability, paranoid schizophrenia CT head: There is no hemorrhage, mass effect, or evidence of acute territorial ischemia by CT criteria. Ventriculomegaly is unchanged from prior examinations. --r/o infection No recent change of home antipsychotics Reorient frequently to prevent delirium Drowsy/sleepy today-- Usual at times as per caregiver Monitor (2) Abnormal urinalysis: R/O UTI Blood/Urine Cx:No growth to date Received IV Ceftriaxone--for 3 days Mild Leukocytosis Fever Unclear source of infection Check procalcitonin in AM Consider repeat CXR if needed (3) Elevated BP without diagnosis of hypertension: Labile BP--likely secondary to anxiety Sinus tachycardia-- Chronic as per caregiver Monitor (4) Chest pain: Reports atypical left-sided chest pain, reproducible ? due to anxiety EKG: Sinus tachycardia,nonspecific T wave changes Troponin x3; Negative monitor (5) Diabetes mellitus, type II: Hold home agents SSI while in-patient BSG AC HS (6) Schizophrenia: Has some behavior difficulties and auditory hallucinations at baseline Continue home medications Appreciate psychiatry input (7) Parkinson disease: Continue carbidopa-levodopa (8) GERD (gastroesophageal reflux disease): Continue PPI (9) Moderate intellectual disability: DVT Px: SCDs in setting of thrombocytopenia Code status: FULL per discussion with AFSHIN Márquez ([phone]) Subjective Patient is seen and examined at bedside Drowsy this morning Had transient low grade fever History is limited secondary to patient's mental condition Discussed with patient's caregiver at bedside Urine and blood culture negative to date Review of Systems Review of Systems: All systems reviewed & are unremarkable except as noted in HPI & below Physical Exam Physical Exam: Physical Exam: Vitals signs as noted above General Appearance:Moderately built and nourished, no apparent distress Head: normocephalic, Atraumatic Eyes: normal inspection, EOMI Neck: supple, Trachea midline Respiratory/Chest: Normal breath sounds, CTA Cardiovascular: S1, S2, No murmur, Tachycardia Abdomen/GI:Soft, Non tender, Bowel sounds present Extremities/Musculoskelatal:normal inspection, no edema Neurologic/Psych:Alert, awake, grossly no focal neurological deficits, Complete neuro exam could not be performed + Tardive dyskinesia Skin: normal color, warm Results & Data Vital Signs (Past 12 Hours) Vital Signs Temp Pulse Pulse Resp BP Pulse Ox 04/23/19 16:18 37.2 C 111 H 20 109/63 92 04/23/19 11:24 37.8 C H 112 H 18 101/65 95 04/23/19 08:47 106 H 04/23/19 07:04 37 C 110 H 20 109/77 91 Laboratory Results Short CBC 04/23/19 Range/Units 06:59 WBC 12.54 H (4.8-10.8) K/uL Hgb 13.6 (12.0-16.0) g/dL Hct 39.1 (37-47) % Plt Count 119 L (130-400) K/uL BMP 04/23/19 06:59 Sodium 134 L Potassium 3.8 Chloride 99 Carbon Dioxide 28 BUN 34 H D Creatinine 1.16 Glucose 178 H Calcium 9.8
--- NOTE | 2019-04-24 09:15 | XRay Report ---
XR chest 1V portable HISTORY: 68 years-old Female Fever acute fever COMPARISON: Chest radiograph 04/21/2019 TECHNIQUE: Portable AP view of the chest FINDINGS: Lungs are hypoinflated with bronchovascular crowding. Cardiac silhouette is again enlarged. Unchanged widening of the mediastinum. Calcified plaque of the thoracic aortic arch. Mild central vascular con gestion persists. No pneumothorax, pleural effusion, focal airspace consolidation or overt pulmonary edema. Mildly improved aeration of the left lung base. Degenerative changes of the shoulders and spin e. Healed remote left clavicular fracture. Thoracolumbar sigmoidal scoliosis. Mild gaseous distention of the splenic flexure. IMPRESSION: 1. Cardiomegaly with pulmonary vascular congestion. 2. Mild hypoinflation without evidence of pneumonia. The above report was generated using voice recognition software. It may contain grammatical, syntax o r spelling errors. Electronically signed by: Alberto Decker M.D. 04/24/2019 9:14 AM
[2019-04-24] MEDS: INSULIN ASPART 100 UNITS/ML 3 ML PEN SC SCH ×2 (09:23→12:28)
[2019-04-24] MEDS: cloZAPine 25 MG TAB PO SCH (09:24)
[2019-04-24] MEDS: BENZTROPINE MESYLATE 0.5 MG TAB PO SCH (09:24)
[2019-04-24] MEDS: DOCUSATE SODIUM 100 MG CAP PO SCH (09:24)
[2019-04-24] MEDS: FLUOXETINE HCL 20 MG CAP PO SCH (09:24)
[2019-04-24] MEDS: CHLORPROMAZINE HCL 10 MG TABLET PO SCH (09:25)
[2019-04-24] MEDS: CARBIDOPA/LEVODOPA 25/100MG TAB PO SCH (09:25)
[2019-04-24] MEDS: GABAPENTIN 300 MG CAP PO SCH ×2 (09:25→13:58)
[2019-04-24] MEDS: PANTOprazole 40 MG TAB PO SCH (09:25)
[2019-04-24] MEDS: FLUOXETINE HCL 10 MG CAP PO SCH (09:26)
[2019-04-24] MEDS: ENOXAPARIN INJ 40 MG/0.4 ML SYR SQ SCH (09:26)
[2019-04-24] MEDS: FUROSEMIDE 20 MG TAB PO SCH (09:26)
[2019-04-24] MEDS: LORazepam 0.5 MG TAB PO SCH (11:59)
[2019-04-24] MEDS: CHLORPROMAZINE HCL 25 MG TABLET PO SCH (11:59)
[2019-04-24 12:11] LABS: Hemoglobin 11.8 g/dL (12.0-16.0); Mean Corpuscular Hemoglobin 31.1 pg (25-34); Mean Corpuscular Hgb Conc 33.7 g/dL (32-36); Mean Corpuscular Volume 92.3 fL (80-100); RDW Coefficient of Variation 14.3 % (11.5-14.5); Red Blood Count 3.79 M/uL (4.2-5.4); White Blood Count 10.28 K/uL (4.8-10.8)
[2019-04-24 12:37] LABS: BUN Creatinine Ratio 29.2 (10-20); Calcium 9.3 mg/dl (8.5-10.1); Creatinine Clr Calc Pharmacy 39.7 ml/min; Est GFR (African American) 53.4; Est GFR (Non-African American) 46.1; Potassium 3.8 mmol/L (3.5-5.1)
[2019-04-24 12:43] LABS: Influenza A virus by PCR Neg for Influ A (Neg); Influenza B virus by PCR Neg for Influ B (Neg)
[2019-04-24 12:47] LABS: Basophils # (auto) 0.01 K/uL (0-0.2); Basophils % (auto) 0.1 %; Eosinophils # (auto) 0.13 K/uL (0-0.5); Eosinophils % (auto) 1.3 %; Immature Granulocytes # (auto) 0.05 K/uL (0.00-0.02); Immature Granulocytes % (auto) 0.5 %; Lymphocytes # (auto) 2.17 K/uL (1.2-3.4); Lymphocytes % (auto) 21.1 %; Mean Platelet Volume 9.8 fL (7.4-10.4); Monocytes # (auto) 0.75 K/uL (0.11-0.59); Monocytes % (auto) 7.3 %; Neutrophils # (auto) 7.17 K/uL (1.4-6.5); Neutrophils % (auto) 69.7 %; Platelet Count 92 K/uL (130-400); Platelet Estimate Decreased (Normal)
--- NOTE | 2019-04-24 13:41 | Hospitalist Progress Note ---
Date of Service April 24, 2019 Assessment & Plan (1) Metabolic encephalopathy: Patient is a 68 yr female with H/O atypical psychosis, moderate intellectual disability, paranoid schizophrenia, Parkinson's disease, DM II, thrombocytopenia and other medical problems listed below who resides at [facility] and presents with altered mental status. Metabolic encephalopathy--Resolved H/O atypical psychosis, moderate intellectual disability, paranoid schizophrenia CT head: There is no hemorrhage, mass effect, or evidence of acute territorial ischemia by CT criteria. Ventriculomegaly is unchanged from prior examinations. --No obvious source of infection No recent change of home antipsychotics Reorient frequently to prevent delirium Mental status is back to baseline (2) Abnormal urinalysis: Urinary tract infection ruled out Blood/Urine Cx:No growth to date Received IV Ceftriaxone--for 3 days Mild Leukocytosis--Resolved No obvious source of infection Normal Procalcitonin levels Chest x-ray negative for pneumonia Blood, urine cultures negative to date (3) Elevated BP without diagnosis of hypertension: Labile BP initially--likely secondary to anxiety Sinus tachycardia-- Chronic as per caregiver BP stable currently Monitor (4) Chest pain: Reports atypical left-sided chest pain, reproducible ? due to anxiety EKG: Sinus tachycardia,nonspecific T wave changes Troponin x3; Negative monitor Resolved (5) Diabetes mellitus, type II: Hold home agents SSI while in-patient BSG AC HS (6) Schizophrenia: Has some behavior difficulties and auditory hallucinations at baseline Continue home medications Appreciate psychiatry input (7) Parkinson disease: Continue carbidopa-levodopa (8) GERD (gastroesophageal reflux disease): Continue PPI (9) Moderate intellectual disability: DVT Px: SCDs in setting of thrombocytopenia Code status: FULL per discussion with AFSHIN Márquez ([phone]) Disposition Plan to discharge back to [facility] today Subjective Patient is seen and examined at bedside Doing much better today Mental status back to baseline Answers to questions appropriately Denies any chest pain, shortness of breath, dizziness, nausea, abdominal pain Requests to be discharged home Offers no complaints Review of Systems Review of Systems: All systems reviewed & are unremarkable except as noted in HPI & below Physical Exam Physical Exam: Physical Exam: Vitals signs as noted above General Appearance:Moderately built and nourished, no apparent distress Head: normocephalic, Atraumatic Eyes: normal inspection, EOMI Neck: supple, Trachea midline Respiratory/Chest: Normal breath sounds, CTA Cardiovascular: S1, S2, No murmur, Tachycardia Abdomen/GI:Soft, Non tender, Bowel sounds present Extremities/Musculoskelatal:normal inspection, no edema Neurologic/Psych:Alert, awake, grossly no focal neurological deficits + Tardive dyskinesia Skin: normal color, warm Results & Data Vital Signs (Past 12 Hours) Vital Signs Temp Pulse Resp BP BP Pulse Ox 04/24/19 11:15 37.3 C 103 H 20 110/72 94 04/24/19 07:28 37.7 C H 106 H 18 115/72 94 04/24/19 04:28 36.7 C 110 H 18 117/74 92 Laboratory Results Short CBC 04/24/19 Range/Units 11:53 WBC 10.28 (4.8-10.8) K/uL Hgb 11.8 L (12.0-16.0) g/dL Hct 35.0 L (37-47) % Plt Count 92 L (130-400) K/uL BMP 04/24/19 11:53 Sodium 137 Potassium 3.8 Chloride 106 Carbon Dioxide 26 BUN 35 H Creatinine 1.20 Glucose 124 H Calcium 9.3
--- NOTE | 2019-04-24 13:51 | Discharge Summary ---
Date of Service April 24, 2019 Admission HPI Per Admitting Provider Kate Jacobson is a 68-year-old female admitted medically on 04/21/2019 after presenting to the ED with altered mental status and urinary incontinence. Patient is a resident at [facility] where she has resided for several years. It was reported that patient had been demonstrating some unusual behavioral changes, including increased irritability and confusion. She had refused to take some of her medication doses, which is also unusual for her. Staff at [facility] reported concern for her change in behavior, and presented with her to the ED for further workup. Psychiatric consultation is r equested to evaluate patient for "tardive dyskinesia management" after observation of repetitive oral movements. Current medication list was reportedly confirmed with [facility] records, and it was recommended medications be continued until psychiatric evaluation. Patient is observed to be laying in bed, with an [facility] staff member at bedside. Initially, patient is not able to tell this provider the staff members name, but is able to recall name later in assessment. Patient does request that the staff member leave the room during our conversation, and these wishes were respected. Patient tells this provider "I want to go home." When asked to explain events prior to admission, patient shared with this provider "I went grocery shopping. I saw [employer] on TV." Some of the patient's speech is muffled, and therefore it is difficult to gather a full understanding of statements being made. When asked if patient feels her symptoms are getting worse, better or staying the same, the patient states she feels "worse." When asked to describe her mood, the patient states she is feeling "happy." The patient denies suicidal and homicidal ideation. She does not verbalize any acute physical concerns at this time." Patient was asked if the oral movements she demonstrates are bothersome to her, which she denies. [facility] staff state the patient has not appeared to be in any discomfort, though they admit her behavior is unusual for her. They state the patient has been more irritable recently, and appearing more anxious. She has been pulling at her hair, and has been observed to be hitting herself on occasion. Staff report that generally, the patient's behaviors and reported A/V hallucinations are under decent control with her current medication regimen. They admit the patient generally response in this way when she experiences infections, and they are aware of possible UTI. They also state that several years ago patient had a similar presentation and required "a large dose of Ativan" to calm her behaviors. They deny recent changes to her medication regimen, and states that her oral movements have been ongoing for several years. Admission Exam Per Admitting Provider General Appearance: WD/WN, vitals as above, NAD, sitting up in bed, pleasant, involuntary movements of tongue Head: normocephalic, atraumatic Eyes: normal inspection, PERRL, conjunctivae normal, anicteric sclerae ENT: external ear and nose normal, oropharynx normal Neck: trachea midline, no thyromegaly normal visual inspection Respiratory: normal respiratory effort, lungs clear to auscultation, no wheeze, rales, rhonchi. Normal insp/exp effort, no accessory muscle use Cardiovascular: tachycardic rate, rhythm, no murmur appreciated, normal peripheral pulses. Vessels: no JVD or carotid bruit Chest: normal inspection of chest, pain reproducible on palpation Abdomen/GI: normal bowel sounds, soft, diffuse TTP but no guarding, no hepatosplenomegaly Extremities/Musculoskelatal: no cyanosis or clubbing, chronic equal BLE weakness Neurologic: PERRL, lip smacking and tongue rolling present, CN's II-XI intact bilaterally and moves all extremities Psychiatric: A+Ox to self. Anxious. Hearing voices but denies visual hallucinations. Skin: no rashes, normal color, warm/dry Principal Diagnosis Metabolic encephalopathy Discharge Data Allergies Allergy/AdvReac Type Severity Reaction Status Date / Time Bactrim Allergy Unknown unknown Verified 07/04/16 07:35 risperidone Allergy Unknown Verified 04/21/19 08:56 sulfamethoxazole Allergy Unknown unknown Verified 04/21/19 08:56 trimethoprim Allergy Unknown unknown Verified 04/21/19 08:56 Flu Virus Vaccine Allergy Unknown . Uncoded 04/21/19 08:56 Consultations 04/21/19 14:01 ED Decision to Admit Stat 04/21/19 16:23 Consult Case Management - Discharge Planning Routine 04/21/19 17:36 Consult Psychiatry Routine Procedures Performed CT head: There is no hemorrhage, mass effect, or evidence of acute territorial ischemia by CT criteria. Ventriculomegaly is unchanged from prior examinations. Ordered Studies 04/21/19 08:49 CT head/brain wo con Stat Hospital Course (1) Metabolic encephalopathy: Patient is a 68 yr female with H/O atypical psychosis, moderate intellectual disability, paranoid schizophrenia, Parkinson's disease, DM II, thrombocytopenia and other medical problems listed below who resides at [facility] and presents with altered mental status. Metabolic encephalopathy--Resolved H/O atypical psychosis, moderate intellectual disability, paranoid schizophrenia CT head: There is no hemorrhage, mass effect, or evidence of acute territorial ischemia by CT criteria. Ventriculomegaly is unchanged from prior examinations. --No obvious source of infection No recent change of home antipsychotics Reorient frequently to prevent delirium Mental status is back to baseline (2) Abnormal urinalysis: Urinary tract infection ruled out Blood/Urine Cx:No growth to date Received IV Ceftriaxone--for 3 days Mild Leukocytosis--Resolved No obvious source of infection Normal Procalcitonin levels Chest x-ray negative for pneumonia Blood, urine cultures negative to date (3) Elevated BP without diagnosis of hypertension: Labile BP initially--likely secondary to anxiety Sinus tachycardia-- Chronic as per caregiver BP stable currently Monitor (4) Chest pain: Reports atypical left-sided chest pain, reproducible ? due to anxiety EKG: Sinus tachycardia,nonspecific T wave changes Troponin x3; Negative monitor Resolved (5) Diabetes mellitus, type II: Hold home agents SSI while in-patient BSG AC HS (6) Schizophrenia: Has some behavior difficulties and auditory hallucinations at baseline Continue home medications Appreciate psychiatry input (7) Parkinson disease: Continue carbidopa-levodopa (8) GERD (gastroesophageal reflux disease): Continue PPI (9) Moderate intellectual disability: DVT Px: SCDs in setting of thrombocytopenia Code status: FULL per discussion with AFSHIN Márquez ([phone]) Disposition Plan to discharge back to [facility] today Total Time Total Time Spent Total Time Spent (In Minutes): 37 minutes Total Time Includes: Examination of the Patient, Discharge Planning, Medication Reconciliation, Communication With Other Providers and Other Discharge Plan Discharge Items Patient Disposition: Transfer Senior Living Fac Reason For Visit: AMS Discharge Diagnosis: Metabolic encephalopathy Activity: Resume your previous activity Exercise/Sports: Gradually increase as tolerated Non-emergency contact: Primary Care Provider and Psychiatrist Call non-emergency contact if: you have any medication questions, your symptoms worsen, your pain is not controlled, your pain is worsening, your pain is unusual for you, your pain is concerning for you and you have a fever Follow-up/Referrals: Ashlyn Chou DO [Primary Care Provider] - Diet: Carb Consistent or DM2 Diet Texture: Mechanical soft (ground) Addtl Attending Provider Instructions: Follow-up with your primary care physician on April 29, 2019 at 10:45 AM Follow-up with your psychiatrist in 2 weeks as advised Seek immediate medical attention if your symptoms reoccur or worsen Pending Studies at Discharge: No Stand-Alone Forms: [facility] Skilled Items Patient informed of condition?: Yes DNR: No Discharge Level of Care: Skilled Communicable Disease: No Discharge Prognosis: Stable Lines: None Urinary Catheter: No Medications and DC Order Prescriptions: Continued multivitamin [Daily-Pradip] Tablet 1 tab PO QAM RF: 0 fluoxetine 40 mg Capsule 40 mg PO QAM RF: 0 atorvastatin 20 mg Tablet 20 mg PO QAM RF: 0 benztropine 0.5 mg Tablet 0.5 mg PO BID RF: 0 chlorpromazine 10 mg Tablet 10 mg PO QAM RF: 0 lorazepam 0.5 mg Tablet 0.5 mg PO BID RF: 0 glipizide 2.5 mg Tablet Extended Release 24hr 2.5 mg PO QAM RF: 0 fluoxetine 10 mg Capsule 10 mg PO QAM RF: 0 carbamide peroxide [Ear Wax Drops] 6.5 % Drops 5 drp OTB [id number] RF: 0 docusate sodium [Colace] 100 mg Capsule 100 mg PO BID RF: 0 gabapentin 300 mg Capsule 300 mg PO TID RF: 0 omeprazole 20 mg Capsule,Delayed Release(Dr/Ec) 20 mg PO QAM RF: 0 furosemide 20 mg Tablet 20 mg PO QAM RF: 0 clozapine 25 mg Tablet 87.5 mg PO HS RF: 0 clozapine 25 mg Tablet 25 mg PO QAM RF: 0 carbidopa-levodopa 25-100 mg Tablet 1 tab PO BID RF: 0 chlorpromazine 50 mg Tablet 50 mg PO BID RF: 0 calcium citrate-vitamin D3 [Calcium Citrate + D] 315-200 mg-unit Tablet 1 tab PO QAM RF: 0 [place]-3 350 mg-235 mg- 90 mg-597 mg Capsule,Delayed Release(Dr/Ec) 1 cap PO BID RF: 0 acetaminophen 500 mg Tablet 500 mg PO Q6H PRN (Reason: Pain) RF: 0 naproxen sodium 220 mg Capsule 220 mg PO Q12H PRN (Reason: Pain) RF: 0 Discharge Orders: Discharge Order (Routine); Ordered 04/24/19 Ordered By: Brent Villagomez Admission Data Admit Date/Time: 04/22/19 18:52 Attending Provider: Brent Villagomez Admit Provider: Zunilda Cárdenas I. Primary Care Provider: Ashlyn Chou Other Providers: Zunilda Cárdenas I. ; Cony Morales Other Interventions: Discharge Summary Assessment (RN) Last Done: 04/24/19 13:42 DC Date/Time DO NOT enter until pt leaves facility: 04/24/19 15:37
== END 2019-04-24 15:37 | DRG 71 ==
LOC: ED 07:59 → 2N 07:59 → SUATTDRO 14:08 → 2N 15:30

== ENCOUNTER 2020-06-02 10:48 | Inpatient (IN) ==
[~2020-06-02 10:48] MED LIST changes: -ACET-1256 PO; -ALUMSUS17 PO; +ATROPINE SULFATE 0.1 MG/ML 10ML SYR IV ONE; -ATV/1 PO; -CALC-279 PO; -CARB25TA12 PO; -CGN5 PO; -FLUO40CA8 PO; -FURO-85 PO; -GLIP-172 PO; -GUAI1TAB55 PO; -IMD/2 PO; -LINICRE TOP; -LORA-741 PO; -MOML PO; -NRN/300 PO; -ONDA4TAB46 PO; -PRLSR20 PO; -SELE1SHA3 TOP; -[UNRECOGNIZED DRUG - CODE] PO
--- NOTE | 2020-06-02 11:34 | Emergency Department Note ---
History of Present Illness General Chief complaint: Respiratory Problems Time Seen by Provider: 06/02/20 11:18 Source: patient and RN notes reviewed Mode of arrival: EMS Limitations: patient cooperation and other (Intellectual disability) History of Present Illness Provider complaint: Low oxygen saturation Onset (ago): hour(s) Pain Consistency: + constant Quality: + other (88% room air saturation) Relieved By: + other (Oxygen) Associated symptoms: + cough and + fever/chills; no chest pain This is a 69-year-old female with a history of moderate intellectual disability and schizophrenia recently diagnosed with COVID-19 presenting low oxygen satura tion prior to arrival. The patient was recently diagnosed with COVID-19. She has had fevers and is cared for by a home health nurse. They noted that her pulse ox today was 88% and so they sent her in for evaluation. The patient does not have any complaints at this time. She denies any chest pain. History is somewhat limited due to lack of cooperation. The home health nurse stated that she is at her baseline mental status at this time. Home Medications Medication Instructions Recorded Confirmed Type [place]-3 1 cap PO BID 04/21/19 06/02/20 History atorvastatin 20 mg PO QAM 04/21/19 06/02/20 History benztropine 0.5 mg PO BID 04/21/19 06/02/20 History calcium citrate-vitamin D3 1 tab PO QAM 04/21/19 06/02/20 History [Calcium Citrate + D] carbamide peroxide [Ear Wax Drops] 5 drp OTB [id number]/21/19 06/02/20 History chlorpromazine 10 mg PO QAM 04/21/19 06/02/20 History chlorpromazine 50 mg PO BID 04/21/19 06/02/20 History clozapine 25 mg PO QAM 04/21/19 06/02/20 History clozapine 87.5 mg PO HS 04/21/19 06/02/20 History docusate sodium [Colace] 100 mg PO BID 04/21/19 06/02/20 History fluoxetine 10 mg PO QAM 04/21/19 06/02/20 History fluoxetine 40 mg PO QAM 04/21/19 06/02/20 History furosemide 20 mg PO QAM 04/21/19 06/02/20 History gabapentin 300 mg PO TID 04/21/19 06/02/20 History glipizide 2.5 mg PO QAM 04/21/19 06/02/20 History lorazepam 0.5 mg PO BID 04/21/19 06/02/20 History multivitamin [Daily-Pradip] 1 tab PO QAM 04/21/19 06/02/20 History naproxen sodium 220 mg PO Q12H PRN 04/21/19 06/02/20 History omeprazole 20 mg PO QAM 04/21/19 06/02/20 History guaifenesin [Mucinex] 600 mg PO Q12H PRN 06/02/20 06/02/20 History Allergies Allergy/AdvReac Type Severity Reaction Status Date / Time Bactrim Allergy Unknown unknown Verified 07/04/16 07:35 risperidone Allergy Unknown Verified 06/02/20 11:57 sulfamethoxazole Allergy Unknown unknown Verified 06/02/20 11:57 trimethoprim Allergy Unknown unknown Verified 06/02/20 11:57 Flu Virus Vaccine Allergy Unknown . Uncoded 06/02/20 11:57 Past Med/Surg History Medical History (Updated 06/02/20 @ 13:34 by Leoncio Cornejo MD) Anxiety Diabetes mellitus, type II GERD (gastroesophageal reflux disease) Moderate intellectual disability Obstructive hydrocephalus Osteoporosis Parkinson disease Schizophrenia Surgical History Hx of tonsillectomy Family History Other Family history unknown Social History Smoking Status: Never smoker Second Hand Exposure: No; Hx Alcohol Use: No Hx Substance Use: No Preferred Language: Azerbaijani Communication Ability: Impaired Oven Equipment Repairer Required: No Current Living Situation: Personal Care Facility Feels Safe at Home: Yes Assistive Devices: Wheelchair Review of Systems See HPI for pertinent positives & negatives. Unobtainable due to cognitive status Physical Exam Vital Signs Vital Signs - 24 hr 06/02/20 10:45 06/02/20 11:09 06/02/20 11:31 Temperature 37.1 C Temperature Source Oral Pulse Rate 104 H 99 H 99 H Pulse Rate from SpO2 Sensor 99 H Pulse Rhythm Regular Pulse Strength Normal Respiratory Rate 24 22 22 Respiratory Effort / Characteristics Non-Labored Spontaneous Respiratory Depth Normal Respiratory Pattern Regular Blood Pressure 104/73 104/73 128/80 Blood Pressure Mean 83 81 100 Blood Pressure Position Lying Pulse Oximetry 93 91 Oxygen Delivery Method Room Air Room Air Room Air Oxygen Flow Rate Sepsis Recent Fever Within 48 Hours No Sepsis New/Unexplained Change in Mental Status No Sepsis Action Taken by Nursing Physician Notified Oxygen Flow Rate - Titration Pulse Oximetry Post Tiitration 06/02/20 12:00 06/02/20 12:30 06/02/20 13:00 Temperature Temperature Source Pulse Rate 99 H 98 H 98 H Pulse Rate from SpO2 Sensor 99 H 98 H 98 H Pulse Rhythm Pulse Strength Respiratory Rate 17 19 22 Respiratory Effort / Characteristics Respiratory Depth Respiratory Pattern Blood Pressure 121/71 115/73 126/69 Blood Pressure Mean 90 82 83 Blood Pressure Position Pulse Oximetry 92 90 90 Oxygen Delivery Method Room Air Room Air Room Air Oxygen Flow Rate 8 Sepsis Recent Fever Within 48 Hours Sepsis New/Unexplained Change in Mental Status Sepsis Action Taken by Nursing Oxygen Flow Rate - Titration 2 Pulse Oximetry Post Tiitration 90 06/02/20 13:01 Temperature Temperature Source Pulse Rate 97 H Pulse Rate from SpO2 Sensor 97 H Pulse Rhythm Pulse Strength Respiratory Rate 21 Respiratory Effort / Characteristics Respiratory Depth Respiratory Pattern Blood Pressure Blood Pressure Mean Blood Pressure Position Pulse Oximetry 89 L Oxygen Delivery Method Room Air Oxygen Flow Rate Sepsis Recent Fever Within 48 Hours Sepsis New/Unexplained Change in Mental Status Sepsis Action Taken by Nursing Oxygen Flow Rate - Titration Pulse Oximetry Post Tiitration Constitutional: Vital signs reviewed. Eyes: Pupils are equal round reactive to light. Conjunctiva are noninjected. ENT: Pharynx is clear without erythema or exudate. Mucous membranes are moist. Neck supple without meningeal signs. Respiratory: Clear to auscultation bilaterally. Breath sounds are equal bilaterally. Cardiovascular: Tachycardic. Regular rhythm. GI: Soft, nondistended and nontender. Bowel sounds are present. Musculoskeletal: No peripheral edema. No lower extremity tenderness. Integumentary: Warm to touch. No cyanosis. Neurological: The patient is awake and alert. No focal deficits. Psychiatric: Normal affect. Not anxious appearing. Course Administered Medications Discontinued Medications Atropine Sulfate (Atropine Sulfate 0.1 Mg/Ml 10ml Syr) Confirm Administered Dose 1 [facility]: 06/02/20 10:48 Last Admin: 06/02/20 11:42 Dose: Not Given Documented by: [id number] Dexamethasone (Dexamethasone Sod Inj 10 Mg/Ml Vial) 6 mg IV NOW ONE Stop: 06/02/20 13:07 Last Admin: 06/02/20 13:33 Dose: 6 mg Documented by: [id number] Medical Decision Making Differential Diagnosis COVID-19, multifocal pneumonia, pleural effusion, CHF, anemia Medical Records Attestation: I reviewed the patient's medical records. I did perform a limited focused review of portions of the patient's old chart on the electronic medical record. The patient Was admitted last month forMetabolic encephalopathy. Home Medications Current Medication List: was personally reviewed by nd Laboratory Data Attestation: I reviewed the patient's lab results. Result diagrams: 06/02/20 11:33 06/02/20 11:33 Lab Results 06/02/20 06/02/20 06/02/20 Range/Units 11:33 11:33 11:33 WBC 2.96 L (4.8-10.8) K/uL RBC 3.76 L (4.2-5.4) M/uL Hgb 11.4 L (12.0-16.0) g/dL Hct 34.3 L (37-47) % MCV 91.2 (80-100) fL MCH 30.3 (25-34) pg MCHC 33.2 (32-36) g/dL RDW Std Deviation 48.2 H (36.4-46.3) fL RDW Coeff of Ricardo 14.5 (11.5-14.5) % Plt Count 67 L (130-400) K/uL MPV 10.2 (7.4-10.4) fL Immature Gran % (Auto) 0.0 % Neut % (Auto) 68.9 % Lymph % (Auto) 21.3 % [place] % (Auto) 7.4 % Eos % (Auto) 2.4 % Baso % (Auto) 0.0 % Neut # (Auto) 2.04 (1.4-6.5) K/uL Lymph # (Auto) 0.63 L (1.2-3.4) K/uL [place] # (Auto) 0.22 (0.11-0.59) K/uL Eos # (Auto) 0.07 (0-0.5) K/uL Baso # (Auto) 0.00 (0-0.2) K/uL Immature Gran # (Auto) 0.00 (0.00-0.02) K/uL Platelet Estimate Decreased L (Normal) PT 10.6 (9.0-12.0) Seconds INR 1.0 (0.9-1.1) APTT 27.9 (21.0-31.0) Seconds PTT Ratio 1.0 Sodium 140 (136-145) mmol/L Potassium 4.1 (3.5-5.1) mmol/L Chloride 107 (98-107) mmol/L Carbon Dioxide 28 (21-32) mmol/L Anion Gap 5.0 (3-11) BUN 14 (7-18) mg/dl Creatinine 0.95 (0.6-1.2) mg/dl Est Cr Clr Drug Dosing 53.9 ml/min Est GFR ( Amer) 70.3 Est GFR (Non-Af Amer) 60.7 BUN/Creatinine Ratio 15.0 (10-20) Glucose 118 H (70-99) mg/dl Calcium 8.6 (8.5-10.1) mg/dl Total Bilirubin 0.5 (0.2-1) mg/dl AST 54 H (15-37) U/L ALT 34 (12-78) U/L Alkaline Phosphatase 93 (45-117) U/L Troponin I < 0.015 (0-0.045) ng/ml C-Reactive Protein 3.47 H (0-0.29) mg/dl Total Protein 7.3 (6.4-8.2) gm/dl Albumin 3.3 L (3.4-5.0) gm/dl Globulin 4.0 (2.5-4.0) gm/dl Albumin/Globulin Ratio 0.8 L (0.9-2) 06/02/20 Range/Units 11:33 WBC (4.8-10.8) K/uL RBC (4.2-5.4) M/uL Hgb (12.0-16.0) g/dL Hct (37-47) % MCV (80-100) fL MCH (25-34) pg MCHC (32-36) g/dL RDW Std Deviation (36.4-46.3) fL RDW Coeff of Ricardo (11.5-14.5) % Plt Count (130-400) K/uL MPV (7.4-10.4) fL Immature Gran % (Auto) % Neut % (Auto) % Lymph % (Auto) % [place] % (Auto) % Eos % (Auto) % Baso % (Auto) % Neut # (Auto) (1.4-6.5) K/uL Lymph # (Auto) (1.2-3.4) K/uL [place] # (Auto) (0.11-0.59) K/uL Eos # (Auto) (0-0.5) K/uL Baso # (Auto) (0-0.2) K/uL Immature Gran # (Auto) (0.00-0.02) K/uL Platelet Estimate (Normal) PT (9.0-12.0) Seconds INR (0.9-1.1) APTT (21.0-31.0) Seconds PTT Ratio Sodium (136-145) mmol/L Potassium (3.5-5.1) mmol/L Chloride (98-107) mmol/L Carbon Dioxide (21-32) mmol/L Anion Gap (3-11) BUN (7-18) mg/dl Creatinine (0.6-1.2) mg/dl Est Cr Clr Drug Dosing ml/min Est GFR ( Amer) Est GFR (Non-Af Amer) BUN/Creatinine Ratio (10-20) Glucose (70-99) mg/dl Calcium (8.5-10.1) mg/dl Total Bilirubin (0.2-1) mg/dl AST (15-37) U/L ALT (12-78) U/L Alkaline Phosphatase (45-117) U/L Troponin I (0-0.045) ng/ml C-Reactive Protein Cancelled (0-0.29) mg/dl Total Protein (6.4-8.2) gm/dl Albumin (3.4-5.0) gm/dl Globulin (2.5-4.0) gm/dl Albumin/Globulin Ratio (0.9-2) Imaging Data Radiologist's Impression: XR chest 1V portable HISTORY: Dyspnea COMPARISON: Chest 04/24/2019. FINDINGS: There are low lung volumes. No pneumothorax. No pleural effusions. The heart is normal in size. There is perihilar interstitial/vascular thickening with a right lung perihilar hazy airspace opacity. There are few linear densities at the left lung base suggesting subsegmental atelectasis/scarring. IMPRESSION: Low lung volumes with mild congestive change. There is a hazy right perihilar airspace opacity which could be due to the pulmonary vascular congestion or a developing pneumonia. ACT 112: Negative or not required by law. Electronically signed by: Parag Ha M.D. 06/02/2020 12:19 PM Dictated: 06/02/201217 Transcribed: 06/02/201217 ECG Data Attestation: I personally reviewed and interpreted this ECG as follows: Indication: + SOB/dyspnea Rate (beats per minute): 99 Rhythm: + normal sinus ECG [place]: + Normal ECG ST segments: no ST elevation ECG Findings: no PVCs MDM Narrative I did evaluate the patient as noted above. The patient was sent here for an O2 saturation of 88% at home. Her O2 saturation here was initially 93% on room air but went down to 88%. She was therefore placed on 2 L of oxygen nasal cannula. She was placed in respiratory isolation. IV access was established. I did place an order for continuous cardiac monitoring. The monitor showed she has sinus tachycardia at a rate of 104 bpm. She has a history of tachycardia and has always been tachycardic when she has been here in the past. I did order and personally review the patient's 12-lead EKG as described above. There is no evidence of acute ischemia. I did order and personally reviewed the images of the patient's chest x-ray as described above. She appears to have a developing right perihilar pneumonia. I did order and review the patient's blood work as noted in the electronic medical record. She has pancytopenia. Electrolytes are unremarkable. Troponin is negative. C-reactive protein is elevated. Blood cultures are pending. I did discuss the case with the hospitalist and case management social worker for further care and evaluation. I did treat the patient with Decadron 6 mg IV. Impression & Plan Hypoxia, Pneumonia due to 2019 novel coronavirus, Pancytopenia Discharge Plan Visit Data Chief Complaint: Respiratory Problems ED Provider: Leonico Cornejo Discharge Problem: Hypoxia, Pneumonia due to 2019 novel coronavirus, Pancytopenia Patient Disposition: Being Evaluated by Hospitalist Discharge Instructions Interventions: ED Discharge Assessment Last Done: 06/02/20 13:43
[2020-06-02 12:02] LABS: Partial Thromboplastin Time 27.9 Seconds (21.0-31.0); Prothrombin Time 10.6 Seconds (9.0-12.0)
[2020-06-02 12:11] LABS: Alanine Aminotransferase 34 U/L (12-78); Albumin Level 3.3 gm/dl (3.4-5.0); Aspartate Aminotransferase 54 U/L (15-37); Blood Urea Nitrogen 14 mg/dl (7-18); C Reactive Protein 3.47 mg/dl (0-0.29); Calcium 8.6 mg/dl (8.5-10.1); Carbon Dioxide 28 mmol/L (21-32); Chloride 107 mmol/L (98-107); Creatinine Clr Calc Pharmacy 53.9 ml/min; Est GFR (African American) 70.3; Est GFR (Non-African American) 60.7; Glucose 118 mg/dl (70-99); Potassium 4.1 mmol/L (3.5-5.1); Sodium 140 mmol/L (136-145)
[2020-06-02 12:16] LABS: Albumin Globulin Ratio 0.8 (0.9-2); Alkaline Phosphatase 93 U/L (45-117); Bilirubin,Total 0.5 mg/dl (0.2-1); Total Protein 7.3 gm/dl (6.4-8.2); Troponin I < 0.015 ng/ml (0-0.045)
--- NOTE | 2020-06-02 12:20 | XRay Report ---
XR chest 1V portable HISTORY: Dyspnea COMPARISON: Chest 04/24/2019. FINDINGS: There are low lung volumes. No pneumothorax. No pleural effusions. The heart is normal in s ize. There is perihilar interstitial/vascular thickening with a right lung perihilar hazy airspace op acity. There are few linear densities at the left lung base suggesting subsegmental atelectasis/scarr ing. IMPRESSION: Low lung volumes with mild congestive change. There is a hazy right perihilar airspace opacity which could be due to the pulmonary vascular congestion or a developing pneumonia. ACT 112: Negative or not required by law. Electronically signed by: Parag Ha M.D. 06/02/2020 12:19 PM
[2020-06-02 12:27] LABS: Eosinophils # (auto) 0.07 K/uL (0-0.5); Eosinophils % (auto) 2.4 %; Hematocrit (blood only) 34.3 % (37-47); Hemoglobin 11.4 g/dL (12.0-16.0); Lymphocytes # (auto) 0.63 K/uL (1.2-3.4); Lymphocytes % (auto) 21.3 %; Mean Corpuscular Hemoglobin 30.3 pg (25-34); Mean Corpuscular Hgb Conc 33.2 g/dL (32-36); Mean Corpuscular Volume 91.2 fL (80-100); Mean Platelet Volume 10.2 fL (7.4-10.4); Monocytes # (auto) 0.22 K/uL (0.11-0.59); Monocytes % (auto) 7.4 %; Neutrophils # (auto) 2.04 K/uL (1.4-6.5); Neutrophils % (auto) 68.9 %; Platelet Count 67 K/uL (130-400); Platelet Estimate Decreased (Normal); RDW Coefficient of Variation 14.5 % (11.5-14.5); RDW Standard Deviation 48.2 fL (36.4-46.3); Red Blood Count 3.76 M/uL (4.2-5.4); White Blood Count 2.96 K/uL (4.8-10.8)
[2020-06-02] MEDS ORDERED: DEXAMETHASONE SOD INJ 10 MG/ML VIAL IV ONE (13:06)
--- NOTE | 2020-06-02 13:20 | History & Physical Report ---
Date of Service June 02, 2020 Assessment & Plan (1) Hypoxia: (2) Pneumonia due to 2019 novel coronavirus: (3) Pancytopenia: (4) Obstructive hydrocephalus: (5) Moderate intellectual disability: (6) Diabetes mellitus, type II: (7) Parkinson disease: (8) GERD (gastroesophageal reflux disease): (9) Osteoporosis: (10) Anxiety: (11) Schizophrenia: Dex, Remdesivir, Albuterol, O2, supportive care, SSI, monitor daily labs, DVT prophylaxis ROS-Offers no history Physical Exam Gen-Awake, NAD, Afebrile, Obese Head-NCAT, EOMI, PERRLA, Anicteric Sclera, No Posterior Pharyngeal Erythema Neck-Supple, No JVD, No Thyromegaly, No Masses, No LAD, No Bruits Lungs-Clear to Auscultation Bilaterally, No Rales, No Rhonchi, No Wheezing, No Crepitus Chest-Tachy, No S4, +S1, +S2, No S3, No Murmurs, No Rubs, No Gallops, No Ectopy Abdomen-Soft, Bowel Sounds Present, Non Tender, Non Distended, No Hepatomegaly, No Splenomegaly, No Palpable Masses, No Rebound, No Rigidity, No Guarding Musculoskeletal-Full Range of Motion Bilaterally, No CVAT Extremities-No Cyanosis, No Clubbing, No Edema Nuero-Cranial Nerves II-XII grossly intact, Motor WNL, DTRs WNL, Strength WNL, Non Focal Psych-Normal Mood History of Present Illness 68-year-old female with a PMH of atypical psychosis, moderate intellectual disability, paranoid schizophrenia, Parkinson's disease, DM II, thrombocytopenia and other medical problems listed below who resides at [facility] and presents with a recently diagnosed with COVID-19 presenting low oxygen saturation prior to arrival. She has had fevers and is cared for by a home health nurse. They noted that her pulse ox today was 88% and so they sent her in for evaluation. When I saw her she had garbled speech and not understandable to me, just that she wanted to go home. Primary Care Provider: [facility], [facility] Allergies Allergy/AdvReac Type Severity Reaction Status Date / Time Bactrim Allergy Unknown unknown Verified 07/04/16 07:35 risperidone Allergy Unknown Verified 06/02/20 11:57 sulfamethoxazole Allergy Unknown unknown Verified 06/02/20 11:57 trimethoprim Allergy Unknown unknown Verified 06/02/20 11:57 Flu Virus Vaccine Allergy Unknown . Uncoded 06/02/20 11:57 Home Medications Medication Instructions Recorded Confirmed Type Engelhard-3 1 cap PO BID 04/21/19 06/02/20 History atorvastatin 20 mg PO QAM 04/21/19 06/02/20 History benztropine 0.5 mg PO BID 04/21/19 06/02/20 History calcium citrate-vitamin D3 1 tab PO QAM 04/21/19 06/02/20 History [Calcium Citrate + D] carbamide peroxide [Ear Wax Drops] 5 drp OTB [id number]/21/19 06/02/20 History chlorpromazine 10 mg PO QAM 04/21/19 06/02/20 History chlorpromazine 50 mg PO BID 04/21/19 06/02/20 History clozapine 25 mg PO QAM 04/21/19 06/02/20 History clozapine 87.5 mg PO HS 04/21/19 06/02/20 History docusate sodium [Colace] 100 mg PO BID 04/21/19 06/02/20 History fluoxetine 10 mg PO QAM 04/21/19 06/02/20 History fluoxetine 40 mg PO QAM 04/21/19 06/02/20 History furosemide 20 mg PO QAM 04/21/19 06/02/20 History gabapentin 300 mg PO TID 04/21/19 06/02/20 History glipizide 2.5 mg PO QAM 04/21/19 06/02/20 History lorazepam 0.5 mg PO BID 04/21/19 06/02/20 History multivitamin [Daily-Pradip] 1 tab PO QAM 04/21/19 06/02/20 History naproxen sodium 220 mg PO Q12H PRN 04/21/19 06/02/20 History omeprazole 20 mg PO QAM 04/21/19 06/02/20 History guaifenesin [Mucinex] 600 mg PO Q12H PRN 06/02/20 06/02/20 History Past Med/Surg History Medical History Anxiety Diabetes mellitus, type II GERD (gastroesophageal reflux disease) Moderate intellectual disability Obstructive hydrocephalus Osteoporosis Parkinson disease Schizophrenia Surgical History Hx of tonsillectomy Family History Other Family history unknown Social History Smoking Status: Never smoker Second Hand Exposure: No; Do You Dip or Chew Tobacco: No; Tobacco Cessation Education Requested by Patient: No Hx Alcohol Use: No Hx Substance Use: No Preferred Language: Nicaraguan Communication Ability: Impaired Quality Intern Required: No Beliefs That Will Affect Care: None Current Living Situation: Personal Care Facility Other Information That Helps Us Care for You: No Feels Safe at Home: Yes Safety Concerns: Feels Safe At This Time Assistive Devices: Glasses and Wheelchair Results & Data Results & Data ([facility]) Vital Signs (Past 12 Hours) Vital Signs Temp Pulse Resp BP Pulse Ox 06/02/20 13:01 97 H 21 89 L 06/02/20 13:00 98 H 22 126/69 90 06/02/20 12:30 98 H 19 115/73 90 06/02/20 12:00 99 H 17 121/71 92 06/02/20 11:31 99 H 22 128/80 91 06/02/20 11:09 99 H 22 104/73 06/02/20 10:45 37.1 C 104 H 24 104/73 93 Allergies Bactrim Allergy (Unknown, Verified 07/04/16 07:35) unknown risperidone Allergy (Unknown, Verified 06/02/20 11:57) sulfamethoxazole Allergy (Unknown, Verified 06/02/20 11:57) unknown trimethoprim Allergy (Unknown, Verified 06/02/20 11:57) unknown Flu Virus Vaccine Allergy (Unknown, Uncoded 06/02/20 11:57) . Height/Weight/Isolation Height 5 ft Weight 86.8 kg Isolation Type COVID Precautions Chemistry 06/02/20 11:33 Sodium 140 Potassium 4.1 Chloride 107 Carbon Dioxide 28 Anion Gap 5.0 BUN 14 Creatinine 0.95 Glucose 118 H Microbiology 06/02/20 11:33 Blood Aerobic Blood Culture - Pending 06/02/20 11:33 Blood Anaerobic Blood Culture - Pending 06/02/20 11:33 Blood Aerobic Blood Culture - Pending 06/02/20 11:33 Blood Anaerobic Blood Culture - Pending
[2020-06-02] MEDS ORDERED: ACETAMINOPHEN 325 MG TAB PO PRN (14:12)
[2020-06-02] MEDS ORDERED: POLYETHYLENE (MIRALAX) 17 GM PACK PO PRN (14:12)
[2020-06-02] MEDS ORDERED: ONDANSETRON INJ 2 MG/ML 2 ML VIAL IV PRN (14:12)
[2020-06-02] MEDS ORDERED: SODIUM CHLORIDE 0.9% 10ML FLUSH IV ONE (14:30)
[2020-06-02] MEDS ORDERED: REMDESIVIR 200 MG in SODIUM CHLORIDE 0.9% 210 ML IV ONE (14:30)
[2020-06-02] MEDS: cloZAPine 25 MG TAB PO SCH (19:36)
[2020-06-02] MEDS: LORazepam 0.5 MG TAB PO SCH (19:36)
[2020-06-02] MEDS: BENZTROPINE MESYLATE 0.5 MG TAB PO SCH (19:39)
[2020-06-02] MEDS: GABAPENTIN 300 MG CAP PO SCH (19:39)
[2020-06-02] MEDS: chlorproMAZINE HCL 25 MG TAB PO SCH (19:39)
[2020-06-02] MEDS: DOCUSATE SODIUM 100 MG CAP PO SCH (19:39)
[2020-06-03 07:04] LABS: Hematocrit (blood only) 34.6 % (37-47); Hemoglobin 11.8 g/dL (12.0-16.0); Mean Corpuscular Hemoglobin 30.3 pg (25-34); Mean Corpuscular Hgb Conc 34.1 g/dL (32-36); Mean Corpuscular Volume 88.9 fL (80-100); RDW Coefficient of Variation 13.8 % (11.5-14.5); RDW Standard Deviation 44.8 fL (36.4-46.3); Red Blood Count 3.89 M/uL (4.2-5.4); White Blood Count 3.06 K/uL (4.8-10.8)
[2020-06-03 07:18] LABS: Mean Platelet Volume 10.9 fL (7.4-10.4); Platelet Count 74 K/uL (130-400)
[2020-06-03 07:42] LABS: Albumin Level 3.3 gm/dl (3.4-5.0); BUN Creatinine Ratio 18.1 (10-20); Calcium 9.3 mg/dl (8.5-10.1); Est GFR (African American) 85.3; Est GFR (Non-African American) 73.6
[2020-06-03 07:45] LABS: Albumin Globulin Ratio 0.8 (0.9-2); Bilirubin,Total 0.6 mg/dl (0.2-1); Total Protein 7.3 gm/dl (6.4-8.2)
[2020-06-03] MEDS: GABAPENTIN 300 MG CAP PO SCH ×3 (08:21→20:08)
[2020-06-03] MEDS: MULTIVITAMIN TAB PO SCH (08:22)
[2020-06-03] MEDS: FLUoxetine HCL 20 MG CAP PO SCH (08:22)
[2020-06-03] MEDS: PANTOprazole 40 MG TAB PO SCH (08:22)
[2020-06-03] MEDS: chlorproMAZINE HCL 10 MG TAB PO SCH (08:22)
[2020-06-03] MEDS: DOCUSATE SODIUM 100 MG CAP PO SCH ×2 (08:22→20:08)
[2020-06-03] MEDS: ATORVASTATIN 20 MG TAB PO SCH (08:22)
[2020-06-03] MEDS: FUROSEMIDE 20 MG TAB PO SCH (08:22)
[2020-06-03] MEDS: FLUoxetine HCL 10 MG CAP PO SCH (08:22)
[2020-06-03] MEDS: CALCIUM 600MG + VIT D 400 IU TAB PO SCH (08:22)
[2020-06-03] MEDS: BENZTROPINE MESYLATE 0.5 MG TAB PO SCH ×2 (08:23→20:08)
[2020-06-03] MEDS: dexAMETHasone 6 MG in SYRINGE 0 ML IV SCH (08:32)
[2020-06-03] MEDS: cloZAPine 25 MG TAB PO SCH ×2 (09:01→20:06)
[2020-06-03] MEDS ORDERED: VANCOMYCIN CONSULT ACTIVE PRN (09:40)
[2020-06-03] MEDS ORDERED: ENOXAPARIN INJ 40 MG/0.4 ML SYR SQ SCH (09:50)
--- NOTE | 2020-06-03 09:52 | Pharmacy Report ---
Pharmacy Abx Dose Short Note - Date of Service June 03, 2020 - Assessment & Plan Assessment 69 year old F receiving vancomycin for treatment of bacteremia Day # 1 of antimicrobial therapy. Plan Vancomycin Patient meets criteria for vancomycin AUC dosing nomogram AUC/LORRI is the preferred PK/PD target for vancomycin * Target AUC/LORRI = 400-600 * AUC guided dosing is effective and associated with decreased risk of nephrotoxicity Pharmacy will continue to follow and will adjust dose/frequency as necessary. Thank you.
[2020-06-03] MEDS ORDERED: VANCOMYCIN HCL 2,000 MG in SODIUM CHLORIDE 0.9% 500 ML IV ONE (11:00)
[2020-06-03] MEDS: REMDESIVIR 100 MG in SODIUM CHLORIDE 0.9% 230 ML IV SCH (12:13)
[2020-06-03] MEDS: chlorproMAZINE HCL 25 MG TAB PO SCH ×2 (12:16→20:09)
[2020-06-03] MEDS: LORazepam 0.5 MG TAB PO SCH ×2 (12:19→20:11)
[2020-06-03] MEDS: SODIUM CHLORIDE 0.9% 10ML FLUSH IV SCH (13:16)
--- NOTE | 2020-06-03 17:40 | Hospitalist Progress Note ---
Date of Service June 03, 2020 Assessment & Plan (1) Hypoxia: (2) Pneumonia due to 2019 novel coronavirus: Present on admission with hypoxia and fever Symptoms has been going on for about 9 days and was tested COVID positive on 05/30/20 Oxygen was noted to be in the 88% CXR on admission Low lung volumes with mild congestive change. There is a hazy right perihilar airspace opacity which could be due to the pulmonary vascular congestion or a developing pneumonia. Pt was started on Decadron 6mg and Remdesivir IV Plasma convalescent did not administer because her symptoms have been going for about 9 days Will also avoid the plasma convalescent since CXR showed mild congestive change to avoid volume overload If decided to administer plasma convalescent, her POA is ok with that Spoke to Marina to provide with updates and answered all her questions Will monitor LFT while on remdesivir Will chech ESR, CRP, LDH, Ferritin in am Continue oxygen supplement Bacteremia Blood cx positive for gram positive cocci in clusters Starting on IV Vanco ID consult Will consider to get an echo if positive cx is not due to contamination Will follow sensitivity Will repeat blood cx Diabetes mellitus, type II: Will hold home DM agents Will start on Insulin sliding scale Continue monitor BS Schizophrenia Has some behavior difficulties and auditory hallucinations at baseline Continue home medications stable Parkinson disease: Continue carbidopa-levodopa GERD (gastroesophageal reflux disease) Continue PPI Thrombocytopenia Platelet increased to 74 today No sign of bleeding Pt was stared on Lovenox BID, change to daily due to low platelet Will monitor closely while on lovenox Moderate intellectual disability Stable DVT Px Will change Lovenox from BID to daily Code Status FULL code Admission and Anticipated Discharge Date Admission Date: June 02, 2020 Subjective Pt was seen and examined for follow up respiratory failure due to COVID 19 Sitting in chair with no distress. Pt said that she feels ok She is asking to go home. She continues to require oxygen supplement Spoke to Marina (Second Contact) over the phone. She said that pt started to have symptoms maybe last Saturday and she was tested positive on 05/30 Pt denies any chest pain, palpitation, dizziness and fever Physical Exam Physical Exam: General- No acute distress Head- atraumatic Eyes- PERRL, EOMI, ENT- oropharynx clear Neck- supple, no JVD Lungs- clear to auscultation Heart- regular rhythm; no murmur Abdomen- normal bowel sounds, soft, nontender Extremities- no calf tenderness Neuro- alert, oriented x 3; PERRL, EOMI; no facial palsy; no dysarthria Skin- warm & dry Results & Data Results & Data ([facility]) Vital Signs (Past 12 Hours) Vital Signs Temp Pulse Pulse Resp BP Pulse Ox 06/03/20 16:14 36.4 C L 95 H 22 142/97 H 97 06/03/20 15:31 97 06/03/20 11:40 36.4 C L 105 H 20 146/86 H 97 06/03/20 07:43 37.0 C 96 H 15 140/87 92
[2020-06-03] MEDS ORDERED: GLUCOSE 10 TABS/TUBE PO PRN (18:17)
[2020-06-03] MEDS ORDERED: CARBOHYDRATES FOR HYPOGLYCEMIA PO PRN (18:17)
[2020-06-03] MEDS ORDERED: GLUCOSE 40% GEL 15 GM TUBE PO PRN (18:17)
[2020-06-03] MEDS ORDERED: DEXTROSE 50% 50 ML SYRINGE IV PRN (18:17)
[2020-06-03] MEDS ORDERED: GLUCAGON FOR INJ 1 MG VIAL SQ PRN (18:17)
[2020-06-03] MEDS: INSULIN ASPART 100 UNITS/ML 3 ML PEN SC SCH (20:23)
--- NOTE | 2020-06-03 22:07 | Electrocardiogram Report ---
Test Reason : Blood Pressure : / mmHG Vent. Rate : 099 BPM Atrial Rate : 099 BPM P-R Int : 114 ms QRS Dur : 078 ms QT Int : 392 ms P-R-T Axes : 024 011 040 degrees QTc Int : 503 ms Normal sinus rhythm Nonspecific T wave abnormality Abnormal ECG When compared with ECG of 22-APR-2019 07:31, No significant change Confirmed by Tino Christopher ([id number]) on 06/03/2020 10:06:41 PM Referred By: REFERRED SELF Confirmed By:Tino Christopher
[2020-06-03] MEDS: VANCOMYCIN HCL 1,000 MG in SODIUM CHLORIDE 0.9% 250 ML IV SCH (22:56)
[2020-06-04] MEDS: DOCUSATE SODIUM 100 MG CAP PO SCH ×2 (07:24→20:50)
[2020-06-04] MEDS: MULTIVITAMIN TAB PO SCH (07:24)
[2020-06-04] MEDS: GABAPENTIN 300 MG CAP PO SCH ×3 (07:24→20:51)
[2020-06-04] MEDS: dexAMETHasone 6 MG in SYRINGE 0 ML IV SCH (07:24)
[2020-06-04] MEDS: FLUoxetine HCL 10 MG CAP PO SCH (07:25)
[2020-06-04] MEDS: ENOXAPARIN INJ 40 MG/0.4 ML SYR SQ SCH (07:25)
[2020-06-04] MEDS: FUROSEMIDE 20 MG TAB PO SCH (07:25)
[2020-06-04] MEDS: chlorproMAZINE HCL 10 MG TAB PO SCH (07:26)
[2020-06-04] MEDS: ATORVASTATIN 20 MG TAB PO SCH (07:26)
[2020-06-04] MEDS: cloZAPine 25 MG TAB PO SCH ×2 (07:26→20:48)
[2020-06-04] MEDS: CALCIUM 600MG + VIT D 400 IU TAB PO SCH (07:26)
[2020-06-04] MEDS: BENZTROPINE MESYLATE 0.5 MG TAB PO SCH ×2 (07:26→20:49)
[2020-06-04] MEDS: PANTOprazole 40 MG TAB PO SCH (07:27)
[2020-06-04] MEDS: FLUoxetine HCL 20 MG CAP PO SCH (07:27)
[2020-06-04 07:58] LABS: Hematocrit (blood only) 35.1 % (37-47); Hemoglobin 11.9 g/dL (12.0-16.0); Mean Corpuscular Hemoglobin 30.1 pg (25-34); Mean Corpuscular Hgb Conc 33.9 g/dL (32-36); Mean Corpuscular Volume 88.9 fL (80-100); RDW Standard Deviation 45.7 fL (36.4-46.3); Red Blood Count 3.95 M/uL (4.2-5.4); White Blood Count 5.54 K/uL (4.8-10.8)
[2020-06-04 08:07] LABS: Mean Platelet Volume 10.2 fL (7.4-10.4); Platelet Count 67 K/uL (130-400)
[2020-06-04 08:38] LABS: Albumin Level 3.3 gm/dl (3.4-5.0); BUN Creatinine Ratio 17.2 (10-20); Calcium 8.7 mg/dl (8.5-10.1); Creatinine Clr Calc Pharmacy 54.6 ml/min; Est GFR (African American) 75.1; Est GFR (Non-African American) 64.8; Potassium 3.5 mmol/L (3.5-5.1)
[2020-06-04 08:42] LABS: Albumin Globulin Ratio 0.8 (0.9-2); Bilirubin,Total 0.5 mg/dl (0.2-1); Ferritin 186.4 ng/ml (8-388); Globulin 4.2 gm/dl (2.5-4.0); Total Protein 7.5 gm/dl (6.4-8.2)
[2020-06-04] MEDS: INSULIN ASPART 100 UNITS/ML 3 ML PEN SC SCH ×4 (08:51→20:51)
[2020-06-04] MEDS: VANCOMYCIN HCL 1,000 MG in SODIUM CHLORIDE 0.9% 250 ML IV SCH ×2 (10:48→23:20)
[2020-06-04] MEDS: LORazepam 0.5 MG TAB PO SCH ×2 (11:46→20:47)
[2020-06-04] MEDS: chlorproMAZINE HCL 25 MG TAB PO SCH ×2 (11:46→20:47)
[2020-06-04] MEDS: REMDESIVIR 100 MG in SODIUM CHLORIDE 0.9% 230 ML IV SCH (13:07)
[2020-06-04] MEDS: SODIUM CHLORIDE 0.9% 10ML FLUSH IV SCH (13:07)
--- NOTE | 2020-06-04 18:24 | Hospitalist Progress Note ---
Date of Service June 04, 2020 Assessment & Plan (1) Hypoxia: (2) Pneumonia due to 2019 novel coronavirus: Present on admission with hypoxia and fever Symptoms has been going on for about 9 days and was tested COVID positive on 05/30/20 Oxygen was noted to be in the 88% CXR on admission Low lung volumes with mild congestive change. There is a hazy right perihilar airspace opacity which could be due to the pulmonary vascular congestion or a developing pneumonia. Pt was started on Decadron 6mg and Remdesivir IV Plasma convalescent did not administer because her symptoms have been going for about 9 days Will also avoid the plasma convalescent since CXR showed mild congestive change to avoid volume overload If decided to administer plasma convalescent, her POA is ok with that Spoke to Marina to provide with updates and answered all her questions ESR 59, Ferritin normal, CRP increased to 5 and procalcitonin normal Will monitor LFT while on remdesivir Continue oxygen supplement Bacteremia Blood cx positive for gram positive cocci in clusters (Coag neg staph not lugdunensis)- Mostly contamination Repeat blood cx on 06/04 pending Continue IV Vanco for now ID consult Will consider to get an echo if positive cx is not due to contamination Follow up repeat blood cx Diabetes mellitus, type II: Continue to hold home DM agents on Insulin sliding scale Continue monitor BS Schizophrenia Has some behavior difficulties and auditory hallucinations at baseline Continue home medications stable Parkinson disease: Continue carbidopa-levodopa GERD (gastroesophageal reflux disease) Continue PPI Thrombocytopenia Platelet decreased to 67 today No sign of bleeding Pt was stared on Lovenox BID, change to daily due to low platelet Continue monitor platelet closely while on lovenox Moderate intellectual disability Stable DVT Px On Lovenox daily Code Status FULL code Admission and Anticipated Discharge Date Admission Date: June 02, 2020 Subjective Pt was seen and examined for follow up respiratory failure due to COVID 19 Lying in bed with no distress Pt denies any chest pain, palpitation, dizziness and fever Physical Exam Physical Exam: General- No acute distress Head- atraumatic Eyes- PERRL, EOMI, ENT- oropharynx clear Neck- supple, no JVD Lungs- clear to auscultation Heart- regular rhythm; no murmur Abdomen- normal bowel sounds, soft, nontender Extremities- no calf tenderness Neuro- alert, oriented x 3; PERRL, EOMI; no facial palsy; no dysarthria Skin- warm & dry Results & Data Results & Data ([facility]) Vital Signs (Past 12 Hours) Vital Signs Temp Pulse Resp BP Pulse Ox 06/04/20 15:31 36.7 C 103 H 20 147/85 H 95 06/04/20 11:08 37.1 C 101 H 20 98/69 L 93 06/04/20 06:49 37.1 C 101 H 19 126/69 95
[2020-06-05 07:52] LABS: Hematocrit (blood only) 36.4 % (37-47); Mean Corpuscular Hemoglobin 29.9 pg (25-34); Mean Corpuscular Volume 90.5 fL (80-100); RDW Coefficient of Variation 14.3 % (11.5-14.5); Red Blood Count 4.02 M/uL (4.2-5.4)
[2020-06-05 08:09] LABS: Mean Platelet Volume 10.2 fL (7.4-10.4); Platelet Count 74 K/uL (130-400)
[2020-06-05 08:19] LABS: Albumin Level 3.1 gm/dl (3.4-5.0); BUN Creatinine Ratio 23.7 (10-20); C Reactive Protein 5.94 mg/dl (0-0.29); Calcium 8.8 mg/dl (8.5-10.1); Creatinine Clr Calc Pharmacy 48.7 ml/min; Est GFR (African American) 69.4; Est GFR (Non-African American) 59.9; Potassium 3.4 mmol/L (3.5-5.1)
[2020-06-05 08:22] LABS: Albumin Globulin Ratio 0.7 (0.9-2); Bilirubin,Total 0.5 mg/dl (0.2-1); Globulin 4.3 gm/dl (2.5-4.0); Total Protein 7.4 gm/dl (6.4-8.2)
[2020-06-05] MEDS: INSULIN ASPART 100 UNITS/ML 3 ML PEN SC SCH ×4 (08:25→21:08)
[2020-06-05] MEDS: CALCIUM 600MG + VIT D 400 IU TAB PO SCH (08:26)
[2020-06-05] MEDS: ATORVASTATIN 20 MG TAB PO SCH (08:27)
[2020-06-05] MEDS: dexAMETHasone 6 MG in SYRINGE 0 ML IV SCH (08:27)
[2020-06-05] MEDS: BENZTROPINE MESYLATE 0.5 MG TAB PO SCH ×2 (08:27→21:05)
[2020-06-05] MEDS: DOCUSATE SODIUM 100 MG CAP PO SCH ×2 (08:27→21:06)
[2020-06-05] MEDS: FUROSEMIDE 20 MG TAB PO SCH (08:27)
[2020-06-05] MEDS: cloZAPine 25 MG TAB PO SCH ×2 (08:27→21:04)
[2020-06-05] MEDS: GABAPENTIN 300 MG CAP PO SCH ×3 (08:28→21:07)
[2020-06-05] MEDS: MULTIVITAMIN TAB PO SCH (08:28)
[2020-06-05] MEDS: ENOXAPARIN INJ 40 MG/0.4 ML SYR SQ SCH (08:28)
[2020-06-05] MEDS: PANTOprazole 40 MG TAB PO SCH (08:28)
[2020-06-05] MEDS: chlorproMAZINE HCL 10 MG TAB PO SCH (08:29)
[2020-06-05] MEDS: FLUoxetine HCL 10 MG CAP PO SCH (08:29)
[2020-06-05] MEDS: FLUoxetine HCL 20 MG CAP PO SCH (08:29)
[2020-06-05] MEDS ORDERED: POTASSIUM CHLORIDE CRTAB 20 MEQ TABCR PO STA (09:53)
[2020-06-05] MEDS ORDERED: VANCOMYCIN TROUGH ONE (10:30)
[2020-06-05] MEDS: VANCOMYCIN HCL 1,000 MG in SODIUM CHLORIDE 0.9% 250 ML IV SCH (10:48)
[2020-06-05] MEDS: chlorproMAZINE HCL 25 MG TAB PO SCH ×2 (11:35→21:07)
[2020-06-05] MEDS: REMDESIVIR 100 MG in SODIUM CHLORIDE 0.9% 230 ML IV SCH (11:35)
[2020-06-05] MEDS: LORazepam 0.5 MG TAB PO SCH ×2 (11:35→21:03)
[2020-06-05] MEDS: SODIUM CHLORIDE 0.9% 10ML FLUSH IV SCH (12:55)
--- NOTE | 2020-06-05 14:32 | Hospitalist Progress Note ---
Date of Service June 05, 2020 Assessment & Plan (1) Hypoxia: (2) Pneumonia due to 2019 novel coronavirus: Present on admission with hypoxia and fever Symptoms has been going on for about 9 days and was tested COVID positive on 05/30/20 Oxygen was noted to be in the 88% CXR on admission Low lung volumes with mild congestive change. There is a hazy right perihilar airspace opacity which could be due to the pulmonary vascular congestion or a developing pneumonia. Pt was started on Decadron 6mg and Remdesivir IV Plasma convalescent did not administer because her symptoms have been going for about 9 days Will also avoid the plasma convalescent since CXR showed mild congestive change to avoid volume overload - Will Lasix 20mg x1 today. If decided to administer plasma convalescent, her POA is ok with that Spoke to Marina to provide with updates and answered all her questions Procalcitonin and Ferritin normal ESR increased to 67, CRP increased to 5.9 Will monitor LFT while on Remdesivir Continue oxygen supplement Bacteremia Blood cx positive for gram positive cocci in clusters (Coag neg staph not lugdunensis)- Mostly contamination Repeat blood cx on 06/04 no growth IV Vanco discontinued on 06/05 since pt is asymptomatic and WBC and procalcitonin are normal ID consulted -pending Will consider to get an echo if positive cx is not due to contamination Continue follow up repeat blood cx Diabetes mellitus, type II: Continue to hold home DM agents on Insulin sliding scale Continue monitor BS Hypokalemia Potassium 3.4 today K replaced Continue monitor BMP Schizophrenia Has some behavior difficulties and auditory hallucinations at baseline Continue home medications stable Parkinson disease: Continue carbidopa-levodopa Polypharmacy Nurse said that pt usually fall a sleep during the day Will change the Ativan from BID to HS Will need outpatient follow up with psych to adjust meds GERD (gastroesophageal reflux disease) Continue PPI Thrombocytopenia Platelet decreased to 67 today No sign of bleeding Pt was stared on Lovenox BID, change to daily due to low platelet Continue monitor platelet closely while on lovenox Moderate intellectual disability Stable DVT Px On Lovenox daily Code Status FULL code Admission and Anticipated Discharge Date Admission Date: June 02, 2020 Subjective Pt was seen and examined for follow up respiratory failure due to COVID 19 Lying in bed with no distress sleeping comfotable Pt denies any chest pain, palpitation, dizziness and fever Physical Exam Physical Exam: General- No acute distress Head- atraumatic Eyes- PERRL, EOMI, ENT- oropharynx clear Neck- supple, no JVD Lungs- clear to auscultation Heart- regular rhythm; no murmur Abdomen- normal bowel sounds, soft, nontender Extremities- no calf tenderness Neuro- alert, oriented, PERRL, EOMI; no facial palsy Skin- warm & dry Results & Data Results & Data ([facility]) Vital Signs (Past 12 Hours) Vital Signs Temp Pulse Pulse Resp BP Pulse Ox 06/05/20 11:16 37.1 C 102 H 20 134/74 90 06/05/20 07:23 37.5 C 101 H 18 127/74 92 06/05/20 05:17 37.2 C 107 H 18 117/86 93
[2020-06-05] MEDS ORDERED: FUROSEMIDE 40 MG in SYRINGE 0 ML IV ONE (14:43)
[2020-06-05] MEDS ORDERED: FUROSEMIDE 40 MG/4 ML VIAL IV ONE (15:00)
[2020-06-06 06:37] LABS: Hematocrit (blood only) 36.3 % (37-47); Hemoglobin 12.2 g/dL (12.0-16.0); Mean Corpuscular Hemoglobin 30.3 pg (25-34); Mean Corpuscular Hgb Conc 33.6 g/dL (32-36); Mean Corpuscular Volume 90.1 fL (80-100); RDW Coefficient of Variation 14.2 % (11.5-14.5); RDW Standard Deviation 46.9 fL (36.4-46.3); Red Blood Count 4.03 M/uL (4.2-5.4); White Blood Count 5.77 K/uL (4.8-10.8)
[2020-06-06 06:48] LABS: Mean Platelet Volume 9.8 fL (7.4-10.4); Platelet Count 83 K/uL (130-400)
[2020-06-06 07:05] LABS: BUN Creatinine Ratio 22.1 (10-20); Calcium 9.2 mg/dl (8.5-10.1); Creatinine Clr Calc Pharmacy 44.7 ml/min; Est GFR (Non-African American) 54.4; Potassium 3.7 mmol/L (3.5-5.1)
[2020-06-06] MEDS: dexAMETHasone 6 MG in SYRINGE 0 ML IV SCH (07:44)
[2020-06-06] MEDS: GABAPENTIN 300 MG CAP PO SCH ×3 (07:44→21:09)
[2020-06-06] MEDS: cloZAPine 25 MG TAB PO SCH ×2 (07:45→21:10)
[2020-06-06] MEDS: ATORVASTATIN 20 MG TAB PO SCH (07:45)
[2020-06-06] MEDS: chlorproMAZINE HCL 10 MG TAB PO SCH (07:45)
[2020-06-06] MEDS: CALCIUM 600MG + VIT D 400 IU TAB PO SCH (07:45)
[2020-06-06] MEDS: DOCUSATE SODIUM 100 MG CAP PO SCH ×2 (07:45→21:08)
[2020-06-06] MEDS: PANTOprazole 40 MG TAB PO SCH (07:45)
[2020-06-06] MEDS: FLUoxetine HCL 10 MG CAP PO SCH (07:46)
[2020-06-06] MEDS: MULTIVITAMIN TAB PO SCH (07:46)
[2020-06-06] MEDS: FUROSEMIDE 20 MG TAB PO SCH (07:46)
[2020-06-06] MEDS: ENOXAPARIN INJ 40 MG/0.4 ML SYR SQ SCH (07:47)
[2020-06-06] MEDS: BENZTROPINE MESYLATE 0.5 MG TAB PO SCH ×2 (07:47→21:09)
[2020-06-06] MEDS: FLUoxetine HCL 20 MG CAP PO SCH (07:48)
[2020-06-06] MEDS: INSULIN ASPART 100 UNITS/ML 3 ML PEN SC SCH ×4 (08:00→21:13)
[2020-06-06] MEDS: REMDESIVIR 100 MG in SODIUM CHLORIDE 0.9% 230 ML IV SCH (11:56)
[2020-06-06] MEDS: SODIUM CHLORIDE 0.9% 10ML FLUSH IV SCH (11:57)
[2020-06-06] MEDS: chlorproMAZINE HCL 25 MG TAB PO SCH ×2 (11:58→21:12)
--- NOTE | 2020-06-06 15:19 | Hospitalist Progress Note ---
Date of Service June 06, 2020 Assessment & Plan (1) Hypoxia: (2) Pneumonia due to 2019 novel coronavirus: Present on admission with hypoxia and fever Symptoms has been going on for about 9 days and was tested COVID positive on 05/30/20 Oxygen was noted to be in the 88% CXR on admission Low lung volumes with mild congestive change. There is a hazy right perihilar airspace opacity which could be due to the pulmonary vascular congestion or a developing pneumonia. Pt was started on Decadron 6mg and Remdesivir IV Plasma convalescent did not administer because her symptoms have been going for about 9 days Will also avoid the plasma convalescent since CXR showed mild congestive change to avoid volume overload - Will Lasix 20mg x1 today. If decided to administer plasma convalescent, her POA is ok with that Spoke to Marina to provide with updates and answered all her questions few days ago Procalcitonin and Ferritin normal ESR increased to 67, CRP increased to 5.9 Completed the course of Remdesivir on 06/06 Oxygen seems to drop while sleeping Continue oxygen supplement while sleepy Will get a nocturnal pulse oximetry Bacteremia Blood cx positive for gram positive cocci in clusters (Coag neg staph not lugdunensis)- Mostly contamination Repeat blood cx on 06/04 no growth IV Vanco discontinued on 06/05 since pt is asymptomatic and WBC and procalcitonin are normal ID consulted Will consider to get an echo if positive cx is not due to contamination Continue follow up repeat blood cx Diabetes mellitus, type II: Continue to hold home DM agents on Insulin sliding scale Continue monitor BS Hypokalemia Potassium 3.7 today Continue monitor BMP Stable Schizophrenia Has some behavior difficulties and auditory hallucinations at baseline Continue home medications stable Parkinson disease: Continue carbidopa-levodopa Polypharmacy Nurse said that pt usually fall a sleep during the day Ativan changed from BID to HS Psych consult Will need outpatient follow up with psych to adjust meds GERD (gastroesophageal reflux disease) Continue PPI Thrombocytopenia Platelet decreased to 83 today No sign of bleeding Pt was started on Lovenox BID, change to daily due to low platelet Continue monitor platelet closely while on lovenox Moderate intellectual disability Stable DVT Px On Lovenox daily Code Status FULL code Disposition Discharge home tomorrow Admission and Anticipated Discharge Date Admission Date: June 02, 2020 Subjective Pt was seen and examined for Covid 19. Lying in bed with no distress Nurse said that pt slept after taking her meds then woke up to eat her food She sleeps as well at the facility then eat yesterday and today i did not give her the noon dose of Ativan Seems like her oxygen drops when she is sleeping She continues asks to go go home Denies any chest pain, palpitation, dizziness and SOB Physical Exam Physical Exam: General- No acute distress Head- atraumatic Eyes- PERRL, EOMI, ENT- oropharynx clear Neck- supple, no JVD Lungs- clear to auscultation Heart- regular rhythm; no murmur Abdomen- normal bowel sounds, soft, nontender Extremities- no calf tenderness Neuro- alert, oriented, PERRL, EOMI; no facial palsy Skin- warm & dry Results & Data Results & Data ([facility]) Vital Signs (Past 12 Hours) Vital Signs Temp Pulse Pulse Resp BP BP Pulse Ox 06/06/20 07:11 36.9 C 100 H 100 H 20 129/74 94 06/06/20 03:38 36.9 C 98 H 20 103/75 96
--- NOTE | 2020-06-06 16:02 | Communication Note ---
Date of Service: June 06, 2020 liaison is still collecting collateral from [facility] as well as confirming outpatient provider as last seen on consult service Apr 2019 and now rx through [employer]. Involvement from our service limited to phone contact given COVID status but patient has significant communication difficulties at baseline due to moderate intellectual disability. In addition to hypoxia related to Covid pneumonia, patient carries dx on chart of ?obstructive hydrocephalus which if progressing could contribute to AMS. Given the patients age and medication regimen, clearly risk for sedation, falls, and respiratory depression with benzos. Currently primary service changed from BID to hs and ideally hx dose would be discontinued in another day or two if remains hospitalized or as outpatient. Neurontin, thorazine, clozaril are of course sedating as well. Thorazine can have cyt p450 interactions with prozac and patient's dose is 60 mg so could be significant. I would hold any doses of thorazine for sedation. It's unknown if COVID antivirals can heighten this, is a 3A4 substrate. It's difficult for a personal usp to implement hold orders so outpatient provider may want to decrease dose. Will attempt to clarify. Dr. Echols will be resuming coverage of the consult service with Sri Dowling on 06/07.
[2020-06-06] MEDS ORDERED: LORazepam 0.5 MG TAB PO SCH (21:00)
[2020-06-07] MEDS: dexAMETHasone 6 MG in SYRINGE 0 ML IV SCH (08:42)
[2020-06-07] MEDS: ENOXAPARIN INJ 40 MG/0.4 ML SYR SQ SCH (08:43)
[2020-06-07] MEDS: CALCIUM 600MG + VIT D 400 IU TAB PO SCH (08:57)
[2020-06-07] MEDS: DOCUSATE SODIUM 100 MG CAP PO SCH (08:57)
[2020-06-07] MEDS: cloZAPine 25 MG TAB PO SCH (08:57)
[2020-06-07] MEDS: BENZTROPINE MESYLATE 0.5 MG TAB PO SCH (08:57)
[2020-06-07] MEDS: FUROSEMIDE 20 MG TAB PO SCH (08:58)
[2020-06-07] MEDS: FLUoxetine HCL 20 MG CAP PO SCH (08:58)
[2020-06-07] MEDS: GABAPENTIN 300 MG CAP PO SCH ×2 (08:58→14:40)
[2020-06-07] MEDS: MULTIVITAMIN TAB PO SCH (08:58)
[2020-06-07] MEDS: ATORVASTATIN 20 MG TAB PO SCH (08:58)
[2020-06-07] MEDS: FLUoxetine HCL 10 MG CAP PO SCH (08:58)
[2020-06-07] MEDS: PANTOprazole 40 MG TAB PO SCH (08:58)
[2020-06-07] MEDS: chlorproMAZINE HCL 10 MG TAB PO SCH (08:58)
[2020-06-07] MEDS: INSULIN ASPART 100 UNITS/ML 3 ML PEN SC SCH ×2 (09:04→12:44)
[2020-06-07 09:53] LABS: Base Excess ABG 4.5 mEq/L (-9-1.8); HCO3 ABG 30 mmol/L (19-24); Oxygen Saturation ABG 93.7 % (90-95); PCO2 ABG 47 mmHg (35-46); PO2 ABG 71 mmHg (80-95); pH ABG 7.42 (7.35-7.45)
[2020-06-07 09:54] LABS: Allen Test Pos (Pos)
[2020-06-07] MEDS: chlorproMAZINE HCL 25 MG TAB PO SCH (12:46)
--- NOTE | 2020-06-07 13:03 | Communication Note ---
Date of Service: June 07, 2020 Reviewed patient's case with Dr. Gasca - nursing notes suggest the patient has been more lethargic, to the point of being unable to take her AM medications today. Her increased fatigue and somewhat altered state is likely multifactorial, related to her positive COVID-19 status. We did discuss recommendation to hold chlorpromazine doses as needed for sedation. Repeat EKG was obtained upon recommendation from Dr. Alberts's initial assessment. Hospitalist service is already holding afternoon dosing of lorazepam due to sedation. We discussed attempting to continue patient's current psychotropic regimen as closely as possible, given reported stability of symptoms prior to patient's medical illness. Collateral was obtained from [facility] by our psychiatric nurse liaison. It was reported that the only mood changes observed prior to the patient's admission were in the context of COVID-19 infection. It was reported by [facility] staff that the patient is generally more lethargic in the mornings, often on alert and active "until as late as 1300." It is also reported that patient is generally fearful of hospital settings and tends to be less engaged during admissions. Outpatient psychiatric records from [facility] were reviewed and summarized below: - Diagnoses: - Schizophrenia vs. Schizoaffective disorder, depressed type - Trichotillomania - Intellectual disability - GERD - Neuroleptic-induced parkinsonism - Type 2 diabetes mellitus - Most recent medication list: - fluoxetine 50mg daily - lorazepam 0.5mg BID at 1200 and HS - chlorpromazine 10mg qAM, 50mg at noon and 50mg at HS - benztropine 0.5mg BID - clozapine 25mg qAM and 87.5mg qHS (with scheduled monthly blood work) 07/16/2019 - Psychiatric Evaluation - Pt previously seen at [facility] seen to transfer services after the office closure. No reported concerns since patient was last seen. Pt was on a rather similar psychotropic medication regimen at that time as she is currently taking. 10/07/2019 - [facility] - Pt reported she is doing well. Working on increasing daytime activities. No acute concerns reported. Pt reported to be stable with medications and continued on her previous regimen. 12/30/2019 - [facility] - Pt reported to be less active and reported some struggles adjusting to the COVID-19 guideline of mas-wearing. No reported changes with sleep or appetite. Pt continues to be stable with medication regimen. Reported to get monthly blood work given continued clozapine use. 03/31/2020 - [facility] - Pt reportedly continues to do well, though still struggles with wearing masks and is more anxious to go out in public. No changes to sleep or appetite. Some increased paranoia is reported related to "people talking to her through the TV" slightly increased n the setting of "peers at her usp that use telehealth services for appointments."
[2020-06-07] MEDS ORDERED: FUROSEMIDE 40 MG in SYRINGE 0 ML IV ONE (13:30)
[2020-06-07] MEDS ORDERED: FUROSEMIDE 40 MG/4 ML VIAL IV ONE (15:00)
--- NOTE | 2020-06-07 15:47 | Hospitalist Progress Note ---
Date of Service June 07, 2020 Assessment & Plan (1) Hypoxia: (2) Pneumonia due to 2019 novel coronavirus: Present on admission with hypoxia and fever Symptoms has been going on for about 9 days and was tested COVID positive on 05/30/20 Oxygen was noted to be in the 88% CXR on admission Low lung volumes with mild congestive change. There is a hazy right perihilar airspace opacity which could be due to the pulmonary vascular congestion or a developing pneumonia. Pt was started on Decadron 6mg and Remdesivir IV Plasma convalescent did not administer because her symptoms have been going for about 9 days Will also avoid the plasma convalescent since CXR showed mild congestive change to avoid volume overload - Will Lasix 20mg x1 today. If decided to administer plasma convalescent, her POA is ok with that Spoke to Marina to provide with updates and answered all her questions few days ago Procalcitonin and Ferritin normal Elevated ESR 67 and CRP at 5.9 Completed the course of Remdesivir on 06/06 Will discontinue Decadron on discharge Oxygen seems to drop while sleeping Nocturnal pulse oximetry done and pt requires oxygen at night Saturated well on RA Script given to case management for the nocturnal oxygen supplement and when sleeping during the day Bacteremia Blood cx positive for gram positive cocci in clusters (Coag neg staph not lugdunensis)- Mostly contamination Repeat blood cx on 06/04 no growth IV Vanco discontinued on 06/05 since pt is asymptomatic and WBC and procalcitonin are normal ID consulted Will consider to get an echo if positive cx is not due to contamination Stable Diabetes mellitus, type II: Continue to hold home DM agents on Insulin sliding scale Continue monitor BS Hypokalemia Potassium 3.7 today Continue monitor BMP Stable Schizophrenia Has some behavior difficulties and auditory hallucinations at baseline Continue home medications stable Parkinson disease: Continue carbidopa-levodopa Polypharmacy Nurse said that pt usually fall a sleep during the day Ativan changed from BID to HS Psych consult case discussed with psych that recommended to hold chlorpromazine doses as needed for sedation. Will need outpatient follow up with psych to adjust meds GERD (gastroesophageal reflux disease) Continue PPI Thrombocytopenia Platelet decreased to 83 today No sign of bleeding Pt was started on Lovenox BID, change to daily due to low platelet Continue monitor platelet closely while on lovenox Moderate intellectual disability Stable DVT Px On Lovenox daily during the hospital course Code Status FULL code Disposition Discharge home today Admission and Anticipated Discharge Date Admission Date: June 02, 2020 Subjective Pt was seen and examined for Covid 19. Lying in bed with no distress Nurse said that pt slept for the morning and was unble to wake up to take her morning meds During Lunch time pt was awake to eat her food and saturated well on RA She wants to go home Denies any chest pain, palpitation, dizziness and SOB Physical Exam Physical Exam: General- No acute distress Head- atraumatic Eyes- PERRL, EOMI, ENT- oropharynx clear Neck- supple, no JVD Lungs- clear to auscultation Heart- regular rhythm; no murmur Abdomen- normal bowel sounds, soft, nontender Extremities- no calf tenderness Neuro- alert, oriented, PERRL, EOMI; no facial palsy Skin- warm & dry Results & Data Results & Data ([facility]) Vital Signs (Past 12 Hours) Vital Signs Temp Pulse Pulse Pulse Pulse Resp BP 06/07/20 15:35 106 H 06/07/20 15:33 36.5 C 109 H 17 124/73 06/07/20 12:58 06/07/20 11:06 36.8 C 95 H 18 130/81 06/07/20 10:25 101 H 06/07/20 07:37 36.8 C 103 H 20 99/72 L 06/07/20 05:36 100 H 06/07/20 04:07 37.0 C 98 H 15 98/58 L Pulse Ox Pulse Ox 06/07/20 15:35 06/07/20 15:33 92 06/07/20 12:58 94 06/07/20 11:06 92 06/07/20 10:25 06/07/20 07:37 94 06/07/20 05:36 96 06/07/20 04:07 94
--- NOTE | 2020-06-08 06:28 | Electrocardiogram Report ---
Test Reason : Blood Pressure : / mmHG Vent. Rate : 102 BPM Atrial Rate : 102 BPM P-R Int : 112 ms QRS Dur : 080 ms QT Int : 308 ms P-R-T Axes : 023 001 078 degrees QTc Int : 401 ms Sinus tachycardia with short UT Nonspecific T wave abnormality Abnormal ECG When compared with ECG of 02-JUN-2020 11:13, QT has shortened Confirmed by Terry Hughes ([id number]) on 06/08/2020 6:27:48 AM Also confirmed by Terry Hughes ([id number]) on 06/08/2020 6:28:19 AM Referred By: REFERRED SELF Confirmed By:Terry Hughes
--- NOTE | 2020-06-09 13:29 | Discharge Summary ---
Date of Service June 07, 2020 Admission HPI Per Admitting Provider 68-year-old female with a PMH of atypical psychosis, moderate intellectual disability, paranoid schizophrenia, Parkinson's disease, DM II, thrombocytopenia and other medical problems listed below who resides at [facility] and presents with a recently diagnosed with COVID-19 presenting low oxygen saturation prior to arrival. She has had fevers and is cared for by a home health nurse. They noted that her pulse ox today was 88% and so they sent her in for evaluation. When I saw her she had garbled speech and not understandable to me, just that she wanted to go home. Primary Care Provider: [facility] Admission Exam Per Admitting Provider Gen-Awake, NAD, Afebrile, Obese Head-NCAT, EOMI, PERRLA, Anicteric Sclera, No Posterior Pharyngeal Erythema Neck-Supple, No JVD, No Thyromegaly, No Masses, No LAD, No Bruits Lungs-Clear to Auscultation Bilaterally, No Rales, No Rhonchi, No Wheezing, No Crepitus Chest-Tachy, No S4, +S1, +S2, No S3, No Murmurs, No Rubs, No Gallops, No Ectopy Abdomen-Soft, Bowel Sounds Present, Non Tender, Non Distended, No Hepatomegaly, No Splenomegaly, No Palpable Masses, No Rebound, No Rigidity, No Guarding Musculoskeletal-Full Range of Motion Bilaterally, No CVAT Extremities-No Cyanosis, No Clubbing, No Edema Nuero-Cranial Nerves II-XII grossly intact, Motor WNL, DTRs WNL, Strength WNL, Non Focal Psych-Normal Mood Principal Diagnosis Hypoxia Pneumonia due to 2019 novel coronavirus Diabetes mellitus, type II Hypokalemia Schizophrenia Parkinson disease: Polypharmacy GERD (gastroesophageal reflux disease) Thrombocytopenia Discharge Exam General- No acute distress Head- atraumatic Eyes- PERRL, EOMI, ENT- oropharynx clear Neck- supple, no JVD Lungs- clear to auscultation Heart- regular rhythm; no murmur Abdomen- normal bowel sounds, soft, nontender Extremities- no calf tenderness Neuro- alert, oriented, PERRL, EOMI; no facial palsy Skin- warm & dry Discharge Data Allergies Allergy/AdvReac Type Severity Reaction Status Date / Time Bactrim Allergy Unknown unknown Verified 07/04/16 07:35 risperidone Allergy Unknown Verified 06/02/20 11:57 sulfamethoxazole Allergy Unknown unknown Verified 06/02/20 11:57 trimethoprim Allergy Unknown unknown Verified 06/02/20 11:57 Flu Virus Vaccine Allergy Unknown . Uncoded 06/02/20 11:57 Consultations 06/02/20 13:06 ED Decision to Admit Stat 06/02/20 14:12 Consult Case Management - Discharge Planning Routine 06/03/20 09:40 Consult Infectious Diseases Routine 06/06/20 13:28 Consult Psychiatry Routine Ordered Studies XR chest 1V portable HISTORY: Dyspnea COMPARISON: Chest 04/24/2019. FINDINGS: There are low lung volumes. No pneumothorax. No pleural effusions. The heart is normal in size. There is perihilar interstitial/vascular thickening with a right lung perihilar hazy airspace opacity. There are few linear densities at the left lung base suggesting subsegmental atelectasis/scarring. IMPRESSION: Low lung volumes with mild congestive change. There is a hazy right perihilar airspace opacity which could be due to the pulmonary vascular congestion or a developing pneumonia. ACT 112: Negative or not required by law. Electronically signed by: Parag Ha M.D. 06/02/2020 12:19 PM Dictated: 06/02/20 1218Transcribed: 06/02/20 1218 Hospital Course (1) Hypoxia: (2) Pneumonia due to 2019 novel coronavirus: Present on admission with hypoxia and fever Symptoms has been going on for about 9 days and was tested COVID positive on 05/30/20 Oxygen was noted to be in the 88% CXR on admission Low lung volumes with mild congestive change. There is a hazy right perihilar airspace opacity which could be due to the pulmonary vascular congestion or a developing pneumonia. Pt was started on Decadron 6mg and Remdesivir IV Plasma convalescent did not administer because her symptoms have been going for about 9 days Will also avoid the plasma convalescent since CXR showed mild congestive change to avoid volume overload - Will Lasix 20mg x1 today. If decided to administer plasma convalescent, her POA is ok with that Spoke to Marina to provide with updates and answered all her questions few days ago Procalcitonin and Ferritin normal Elevated ESR 67 and CRP at 5.9 Completed the course of Remdesivir on 06/06 Will discontinue Decadron on discharge Oxygen seems to drop while sleeping Nocturnal pulse oximetry done and pt requires oxygen at night Saturated well on RA Script given to case management for the nocturnal oxygen supplement and when sleeping during the day Bacteremia Blood cx positive for gram positive cocci in clusters (Coag neg staph not lugdunensis)- Mostly contamination Repeat blood cx on 06/04 no growth IV Vanco discontinued on 06/05 since pt is asymptomatic and WBC and procalcitonin are normal ID consulted Will consider to get an echo if positive cx is not due to contamination Stable Diabetes mellitus, type II: Continue to hold home DM agents on Insulin sliding scale Continue monitor BS Hypokalemia Potassium 3.7 today Continue monitor BMP Stable Schizophrenia Has some behavior difficulties and auditory hallucinations at baseline Continue home medications stable Parkinson disease: Continue carbidopa-levodopa Polypharmacy Nurse said that pt usually fall a sleep during the day Ativan changed from BID to HS Psych consult case discussed with psych that recommended to hold chlorpromazine doses as needed for sedation. Will need outpatient follow up with psych to adjust meds GERD (gastroesophageal reflux disease) Continue PPI Thrombocytopenia Platelet decreased to 83 today No sign of bleeding Pt was started on Lovenox BID, change to daily due to low platelet Continue monitor platelet closely while on lovenox Moderate intellectual disability Stable DVT Px On Lovenox daily during the hospital course Code Status FULL code Disposition Discharge home today Total Time Total Time Spent Total Time Spent (In Minutes): 35 minutes Total Time Includes: Examination of the Patient, Discharge Planning, Medication Reconciliation, Communication With Other Providers and Other Discharge Plan Discharge Items Patient Disposition: Personal Senior Living Reason For Visit: COVID PNA Discharge Diagnosis: Hypoxia Pneumonia due to 2019 novel coronavirus Diabetes mellitus, type II Hypokalemia Schizophrenia Parkinson disease: Polypharmacy GERD (gastroesophageal reflux disease) Thrombocytopenia Activity: Resume your previous activity Non-emergency contact: Primary Care Provider Call non-emergency contact if: you have any medication questions and your temperature is above 101 Follow-up/Referrals: Ashlyn Chou DO [Family Provider] - 06/10/20 10:00 am (Date & Time 06/10/2020 10:00 AM Provider Ashlyn Chou DO Department [facility] PLEASE NOTE THAT THIS IS A TELEPHONE APPOINTMENT. YOUR PHYSICIAN WILL CALL YOU AT THE APPOINTMENT TIME. IF YOU HAVE ANY QUESTIONS, PLEASE CALL ) [employer] [facility] [employer] [Primary Care Provider] - Diet: Carb Consistent or DM2 Addtl Attending Provider Instructions: Follow up with your primary care provider Dr. Chou on 06/10/2020 at 10:00 AM (Televideo) Follow up with your psychiatry to adjust your psych medication Please hold chlorpromazine doses as needed for sedation Continue to wear a mask Continue oxygen supplement with 2L NC at night or during sleep Continue monitor your blood sugar and bring your blood sugar log at your next appointment with your provider Increase potassium intake in your diet Check BMP in 1 week to monitor your electrolytes Fall precaution Home Isolation COVID-19 Instructions The following information about Home Isolation is from the CDC Website: https://www.cdc.gov/coronavirus/2019-ncov/hcp/shonwomc-okgpbnp-tdgfwu.html Stay home except to get medical care People who are mildly ill with COVID-19 are able to isolate at home during their illness. You should restrict activities outside your home, except for getting medical care. Do not go to work, school, or public areas. Avoid using public transportation, ride-sharing, or taxis. Separate yourself from other people and animals in your home People: As much as possible, you should stay in a specific room and away from other people in your home. Also, you should use a separate bathroom, if available. Animals: You should restrict contact with pets and other animals while you are sick with COVID-19, just like you would around other people. Although there have not been reports of pets or other animals becoming sick with COVID-19, it is still recommended that people sick with COVID-19 limit contact with animals until more information is known about the virus. When possible, have another member of your household care for your animals while you are sick. If you are sick with COVID-19, avoid contact with your pet, including petting, snuggling, being kissed or licked, and sharing food. If you must care for your pet or be around animals while you are sick, wash your hands before and after you interact with pets and wear a face mask. Call ahead before visiting your doctor If you have a medical appointment, call the healthcare provider and tell them that you have or may have COVID-19. This will help the healthcare providers office take steps to keep other people from getting infected or exposed. Wear a face mask You should wear a face mask when you are around other people (e.g., sharing a room or vehicle) or pets and before you enter a healthcare providers office. If you are not able to wear a face mask (for example, because it causes trouble breathing), then people who live with you should not stay in the same room with you, or they should wear a face mask if they enter your room. Cover your coughs and sneezes Cover your mouth and nose with a tissue when you cough or sneeze. Throw used tissues in a lined trash can. Immediately wash your hands with soap and water for at least 20 seconds or, if soap and water are not available, clean your hands with an alcohol-based hand public health administrator that contains at least 60% alcohol. Clean your hands often Wash your hands often with soap and water for at least 20 seconds, especially after blowing your nose, coughing, or sneezing; going to the bathroom; and before eating or preparing food. If soap and water are not readily available, use an alcohol-based hand public health administrator with at least 60% alcohol, covering all surfaces of your hands and rubbing them together until they feel dry. Soap and water are the best option if hands are visibly dirty. Avoid touching your eyes, nose, and mouth with unwashed hands. Avoid sharing personal household items You should not share dishes, drinking glasses, cups, eating utensils, towels, or bedding with other people or pets in your home. After using these items, they should be washed thoroughly with soap and water. Clean all high-touch surfaces everyday High touch surfaces include counters, tabletops, doorknobs, bathroom fixtures, toilets, phones, keyboards, tablets, and bedside tables. Also, clean any surfaces that may have blood, stool, or body fluids on them. Use a household cleaning spray or wipe, according to the label instructions. Labels contain instructions for safe and effective use of the cleaning product including precautions you should take when applying the product, such as wearing gloves and making sure you have good ventilation during use of the product. Monitor your symptoms Seek prompt medical attention if your illness is worsening (e.g., difficulty breathing).Beforeseeking care, call your healthcare provider and tell them that you have, or are being evaluated for, COVID-19. Put on a face mask before you enter the facility. These steps will help the healthcare providers office to keep other people in the office or waiting room from getting infected or exposed. Ask your healthcare provider to call the local or state health department. Persons who are placed under active monitoring or facilitated self- monitoring should follow instructions provided by their local health department or occupational health professionals, as appropriate. When working with your local health department check their available hours. If you have a medical emergency and need to call 911, notify the dispatch personnel that you have, or are being evaluated for COVID-19. If possible, put on a face mask before emergency medical services arrive. Discontinuing home isolation Patients with confirmed COVID-19 should remain under home isolation precautions until the risk of secondary transmission to others is thought to be low. The decision to discontinue home isolation precautions should be made on a [id number] basis, in consultation with healthcare providers and state and [facility] health departments. Coronavirus disease 2019 (COVID-19) is a virus that causes a respiratory illness. It is caused by a coronavirus called 2019 novel coronavirus (2019- nCoV). There are many types of coronavirus. Coronaviruses are a very common cause of bronchitis. They may sometimes cause lung infection(pneumonia). Symptoms can range from mild to severe respiratory illness. These viruses are also foundin some animals. COVID-19 was first found in people in [facility], in late 2019. In 2020, several cases of COVID-19 have been confirmed in the [place] Public health officials are working to find the source. How the virus spreads is not yet fully known. It may be spread through droplets of fluid that a person coughs or sneezes into the air. It may be spread if you touch a surface with virus on it, such as a handle or object, and then touch your mouth. What are the symptoms of COVID-19? Some people have no symptoms or mild symptoms. Symptoms may appear 2 to 14 days after contact with the virus. Symptoms can include: Fever Coughing Trouble breathing What are possible complications from COVID-19? In many cases, this virus can cause infection (pneumonia) in both lungs. In some cases, this can cause . How is COVID-19 diagnosed? Your healthcare provider will ask about your symptoms. He or she will also ask about your recent travel and contact with sick people. Testing for the virus is only done through the CDC. If yourhealthcare provider thinks you may have COVID- 19, he or she will work with your local health department and the CDC on testing. Follow all instructions from your healthcare provider. COVID-19 is diagnosed by: Nasal and throat swab. A cotton-tipped swab is wiped inside your nose or throat. This is done to check for viruses in your nasal mucus. Sputum culture. A small sample of mucus coughed from your lungs (sputum) is collected if you have a cough. It is checked for the virus. How is COVID-19 treated? There is currently no medicine to treat the virus. Treatment is done to help your body while it fights the virus. This is known as supportive care. Supportive care may include: Pain medicine. These include acetaminophen and ibuprofen. They are used to help ease pain and reduce fever. Bed rest. This helps your body fight the illness. For severe illness, you may need to stay in the hospital. Care during severe illness may include: IV (intravenous) fluids.These are given through a vein to help keep your body hydrated. Oxygen. Supplemental oxygen or ventilation with a breathing machine (ventilator) may be given. This is done to keep enough oxygen in your body. Are you at risk for COVID-19? If youve been to a place where people have been sick with this virus, you are at risk for infection. You are at risk if you: Recently traveled to an affected area Had contact with a sick person who recently traveled to this area Had contact with a person who was diagnosed with COVID-19 How can COVID-19 be prevented? There is no vaccine yet. The best prevention is to not have contact with the virus. The CDC advises that people should not travel to areas where there are COVID-19 outbreaks right now for any reason that is not urgent. To help prevent spreading the infection, wash your hands often, or use an alcohol-basedhand public health administrator. If you are in an area with COVID-19: Wash your hands often. Or use an alcohol-based hand public health administrator often. Only touch your eyes, nose, or mouth with clean hands. Dont have contact with people who are sick. Follow local instructions about being in public. For example, you may be told to not use public transport for a period of time. Stay away from markets that have live or animals. Wash your hands after touching any animals. Don't touch animals that may be sick. Dont share eating or drinking tools with sick people. Dont kiss someone who is sick. Clean surfaces often with disinfectant. If you were in an area with COVID-19 in the last 14 days: Call your healthcare provider. He or she can talk with local health staff to see what action may be needed. Follow all instructions from your provider. Take your temperature every morning and evening for at least 14 days. This is to check for fever. Keep a record of the readings. Keep watch for symptoms of the virus. Tell your provider right away if you have symptoms. If you were in an area with COVID-19 and have a fever or other symptoms: Dont panic. Keep in mind that other illnesses can cause similar symptoms. Stay away from work, school, and public places. Limit physical contact with family members. Don't kiss anyone or share eating or drinking utensils. Clean surfaces you touch with disinfectant. This is to help prevent the virus from spreading. Call your healthcare provider. Explain that you have been exposed to COVID-19 and have symptoms. Do this before going to any hospital. Wait for instructions. Keep in mind that healthcare staff may wear protective equipment such as masks, gowns, gloves, and eye protection. You may be put in a separate room. This is to prevent the possible virus from spreading. Tell the healthcare staff about recent travel. This includes local travel on public transport. Staff may need to find other people you have been in contact with. Follow all instructions the healthcare staff give you. If you have been diagnosed with COVID-19 Follow all instructions from your healthcare provider. Dont leave your home, except to get medical care. Call your healthcare providers office before going. They can prepare and give you instructions. This will help prevent the virus from spreading. Dont go to work, school, or public areas. Dont use public transport or taxis. Stay away from other people in your home. Have them wear face masks around you. Dont share household items or food. Wear a face mask if you can. This includes at home or in a medical facility. Cover your face with a tissue when you cough or sneeze. Throw the tissue away. Wash your hands. Wash your hands often. Caregivers should: Follow all instructions from healthcare staff. Wear a face mask and protective clothing as advised. Wash hands often. Keep track of the sick persons symptoms. Clean surfaces, fabrics, and laundry thoroughly. Keep other people away from the sick person. When to call your healthcare provider Call your healthcare provider: If youve recently traveled and have symptoms If you have been diagnosed with COVID-19 and your symptoms are worse To learn more To find out more about COVID-19, visit the CDC website at www.cdc.gov/dusty navirus/2019-ncov/index.html. [employer]. [address] [place] [address], [place] [id number]. All rights reserved. This information is not intended as a substitute for professional medical care. Always follow your healthcare professional's instructions. This information has been adapted from [employer] Pending Studies at Discharge: No Stand-Alone Forms: My [employer], Smoking Cessation Skilled Items Patient informed of condition?: Yes DNR: No Discharge Level of Care: Other Communicable Disease: Yes Discharge Prognosis: Stable Lines: None Urinary Catheter: No Medications and DC Order Prescriptions: Continued multivitamin [Daily-Pradip] Tablet 1 tab PO QAM RF: 0 fluoxetine 40 mg Capsule 40 mg PO QAM RF: 0 atorvastatin 20 mg Tablet 20 mg PO QAM RF: 0 benztropine 0.5 mg Tablet 0.5 mg PO BID RF: 0 chlorpromazine 10 mg Tablet 10 mg PO QAM RF: 0 glipizide 2.5 mg Tablet Extended Release 24hr 2.5 mg PO QAM RF: 0 fluoxetine 10 mg Capsule 10 mg PO QAM RF: 0 carbamide peroxide [Ear Wax Drops] 6.5 % Drops 5 drp [id number] RF: 0 docusate sodium [Colace] 100 mg Capsule 100 mg PO BID RF: 0 gabapentin 300 mg Capsule 300 mg PO TID RF: 0 omeprazole 20 mg Capsule,Delayed Release(Dr/Ec) 20 mg PO QAM RF: 0 furosemide 20 mg Tablet 20 mg PO QAM RF: 0 clozapine 25 mg Tablet 87.5 mg PO HS RF: 0 clozapine 25 mg Tablet 25 mg PO QAM RF: 0 chlorpromazine 50 mg Tablet 50 mg PO BID RF: 0 calcium citrate-vitamin D3 [Calcium Citrate + D] 315-200 mg-unit Tablet 1 tab PO QAM RF: 0 [place]-3 350 mg-235 mg- 90 mg-597 mg Capsule,Delayed Release(Dr/Ec) 1 cap PO BID RF: 0 naproxen sodium 220 mg Capsule 220 mg PO Q12H PRN (Reason: Pain) RF: 0 guaifenesin [Mucinex] 600 mg Tablet Extended Release 12hr 600 mg PO Q12H PRN (Reason: Congestion) RF: 0 Changed lorazepam 0.5 mg Tablet 0.5 mg PO HS Qty: 0 RF: 0 Discharge Orders: Discharge Order (Routine); Ordered 06/07/20 Ordered By: Magi Gasca Admission Data Admit Date/Time: 06/02/20 13:21 Attending Provider: Magi Gasca Admit Provider: Jose Monreal Primary Care Provider: Luis Carlos Dunham,[facility], [facility] Other Providers: Joes Monreal ; Iban Ponce ; Aurora Rivas ; Leon Jimenez I. ; Lemuel Bowman II ; Caitlyn Johnson ; Malik Crooks ; Xochitl Alberts Other Interventions: Discharge Summary Assessment (RN) Last Done: 06/07/20 16:26
== END 2020-06-07 17:05 | disposition home or self-care (01) | DRG 177 ==
LOC: ED 10:48 → 2E 13:21 → SUATTDRO 13:21 → 2E 13:43
DX: K21.9 Gastro-esophageal reflux disease without esophagitis; F71 Moderate intellectual disabilities; E87.6 Hypokalemia; R78.81 Bacteremia; F41.9 Anxiety disorder, unspecified; J12.82 Pneumonia due to coronavirus disease 2019; F20.9 Schizophrenia, unspecified; E11.9 Type 2 diabetes mellitus without complications; M81.0 Age-related osteoporosis without current pathological fracture; D61.818 Other pancytopenia; G20 Parkinson's disease; U07.1 COVID-19

== ENCOUNTER 2020-06-09 12:03 | Inpatient (IN) ==
--- NOTE | 2020-06-09 12:07 | Emergency Department Note ---
Impression & Plan Mental status, decreased, Hypokalemia, Acute dehydration, COVID-19 ED Provider Note NAME: ALEIDA MONROE AGE: 69 SEX: F : 1950 ARRIVES VIA: Ambulance INFORMANT: Patient, ED PROVIDER(S): Andreas Patricia MD Chief Complaint: Lethargy HPI: Patient does present from [facility] for increasing lethargy. The patient did have a recent admission and discharge due to Covid associated pneumonia. Patient BSG prior to arrival was in the 130s. Patient was hypoxic on room air in the mid 80s. The patient was to be discharged on nocturnal oxygen. Patient has had some decreasing responsiveness to verbal stimuli. She did have a recent admission for Covid pneumonia. Patient did have a recent admission for pneumonia secondary to coronavirus where the patient was hypoxic. The patient was started on Decadron and remdesivir. No convalescent plasma. Patient did have some mild on volume overload as well and did receive some Lasix. Patient does have a history of Parkinson's for which she is on Sinemet. Patient is on Ativan which was changed from twice daily to just nightly. Known history of thrombocytopenia. History may be somewhat limited given the patient's mental status. ROS: Limited secondary to patient's mental status. Past medical history: See below Surgical history: See below Social history: See below Physical Exam: GENERAL: Mildly ill in appearance, opens eyes to voice and to sternal rub, wearing a mask nasal cannula in place. EYE EXAM: Normal conjunctiva. PERRL, no anisocoria and EOM's grossly intact w/o pain. NECK: Supple, no nuchal rigidity, no adenopathy, non-tender. No signs of meningismus. LUNGS: Basilar crackles. Normal chest wall mechanics. HEART: NSR, no MRG. ABDOMEN: Abdomen soft, non-tender, normo-active bowel sounds, no masses, no rebound or guarding. BACK: No CVA TTP. SKIN: No rashes and no bruising. UPPER EXTREMITIES: Upper extremities are grossly normal. LOWER EXTREMITIES: Grossly normal, no edema. NEURO EXAM: GCS 12 opens eyes to pain, follows commands, mild confusion, moves all 4 extremities. Differential diagnoses: Infection, dehydration, metabolic abnormality, hypo/hyperglycemia, electrolyte disturbance, anemia, hypoxia, cardiac sources, intracerebral event, toxicologic, neurologic, as well as other pathologies. Course: Patient was seen and evaluated the bedside. Full history physical exam was performed. EKG: Indication: Weakness Normal sinus rhythm, rate of 99, normal SC and QRS, prolonged QTC, normal axis. Imaging Studies: Radiology results as stated below per my review in the radiologist's interpretation: CT head/brain wo con CLINICAL HISTORY: decreased responsiveness NONVERBAL PATIENT. LETHARGY. COMPARISON STUDY: 04/21/2019 TECHNIQUE: Axial CT of the brain is performed from the vertex to the skull b ase. IV contrast was not administered for this examination. A dose lowering technique was utilized adhering to the principles of ALARA. CT DOSE: 537.48 mGy.cm FINDINGS: No intra or extra-axial mass lesions are visualized. There is no CT evidence of acute cortical infarction. There is no evidence of midline shift. There is no acute hemorrhage. No calvarial fractures are visualized. There are minor white matter hypodensities likely on a small vessel basis. There is persistent ventriculomegaly, unchanged from the prior study. There is opacification of a left anterior ethmoid air cell. The frontal sinuses are hypoplastic. IMPRESSION: 1. Stable ventriculomegaly 2. No acute intracranial findings ACT 112: Negative or not required by law. Electronically signed by: Daryl Cormier M.D. 06/09/2020 1:46 PM Dictated: 06/09/20 1344 Transcribed: 06/09/20 1344 SINGLE VIEW CHEST CLINICAL HISTORY: Generalized weakness. FINDINGS: An AP, portable, upright chest radiograph is compared to study dated 06/02/2020 and correlated with chest CT dated 05/28/2016. The examination is degrad ed by portable technique and patient rotation. The cardiomediastinal silhouette is unremarkable. There are low lung volumes with bibasilar airspace opacities. No large pleural effusion or pneumothorax is seen. The skeletal structures are osteopenic. The bony thorax is grossly intact. Degenerative change and scoliosis is noted in the thoracic spine. IMPRESSION: Low lung volumes with bibasilar airspace opacities. This likely represents scarring/atelectasis. Correlate clinically for evidence of a superimposed infectious/inflammatory pneumonitis. ACT 112: Negative or not required by law. Electronically signed by: Ron Gonzalez M.D. 06/09/2020 12:54 PM Dictated: 06/09/20 1253 Transcribed: 06/09/20 1253 Cardiac monitoring: An order was placed for continuous cardiac monitoring. The monitor shows a rate of 93 with sinus rhythm. MDM: Patient was seen due to concern for increasing lethargy and decreased responsiveness. GCS of 12. Patient did have blood work completed along with CT of the head and chest x-ray. The patient was not hypoxic on 1 L nasal cannula. Patient's blood work shows a normal white count with mild anemia with hemoglobin 11.7 with thrombocytopenia at 94. No spontaneous bleeding noted. Patient's kidney function does show increasing bicarb mild prerenal azotemia and hypokalemia. Troponin not detectable. TSH unremarkable. Chest x-ray does show possibility of pneumonitis versus atelectasis. CT of the head stable ventriculomegaly with no acute findings. I did speak the on-call hospitalist who did speak with the [facility] home there may be an issue of some polypharmacy. Patient did receive multiple sedative medications earlier this morning. Patient was ordered replacement of her potassium. Patient was [facility]. His VBG did show hypercarbia but the patient does have likely compensation given the patient's elevated bicarb pH of 1.35. Past Med/Surg History Medical History (Updated 06/09/20 @ 17:33 by Andreas Patricia MD) Anxiety Diabetes mellitus, type II GERD (gastroesophageal reflux disease) Osteoporosis Pancytopenia Parkinson disease Pneumonia due to 2019 novel coronavirus Schizophrenia Surgical History Hx of tonsillectomy Family History Other Family history unknown Social History Smoking Status: Unknown if ever smoked Second Hand Exposure: No; Hx Alcohol Use: No Hx Substance Use: No Preferred Language: Macedonian Communication Ability: Effective Community Development Manager Required: No Beliefs That Will Affect Care: None marital status: Single Current Living Situation: Personal Care Facility How many Children do You have: 0 Feels Safe at Home: Yes Assistive Devices: Oxygen - Continuous Allergies Allergies Allergy/AdvReac Type Severity Reaction Status Date / Time Bactrim Allergy Unknown unknown Verified 07/04/16 07:35 risperidone Allergy Unknown Verified 06/02/20 11:57 sulfamethoxazole Allergy Unknown unknown Verified 06/02/20 11:57 trimethoprim Allergy Unknown unknown Verified 06/02/20 11:57 Flu Virus Vaccine Allergy Unknown . Uncoded 06/02/20 11:57 Home Meds Home Medications Medication Instructions Recorded Confirmed [place]-3 1 cap PO BID 04/21/19 06/09/20 atorvastatin 20 mg PO QAM 04/21/19 06/09/20 benztropine 0.5 mg PO BID 04/21/19 06/09/20 calcium citrate-vitamin D3 1 tab PO QAM 04/21/19 06/09/20 [Calcium Citrate + D] carbamide peroxide [Ear Wax Drops] 5 drp OTB [id number]/21/19 06/09/20 chlorpromazine 10 mg PO QAM 04/21/19 06/09/20 chlorpromazine 50 mg PO BID 04/21/19 06/09/20 clozapine 25 mg PO QAM 04/21/19 06/09/20 clozapine 87.5 mg PO HS 04/21/19 06/09/20 docusate sodium [Colace] 100 mg PO BID 04/21/19 06/09/20 fluoxetine 10 mg PO QAM 04/21/19 06/09/20 fluoxetine 40 mg PO QAM 04/21/19 06/09/20 furosemide 20 mg PO QAM 04/21/19 06/09/20 gabapentin 300 mg PO TID 04/21/19 06/09/20 glipizide 2.5 mg PO QAM 04/21/19 06/09/20 multivitamin [Daily-Pradip] 1 tab PO QAM 04/21/19 06/09/20 naproxen sodium 220 mg PO Q12H PRN 04/21/19 06/09/20 omeprazole 20 mg PO QAM 04/21/19 06/09/20 guaifenesin [Mucinex] 600 mg PO Q12H PRN 06/02/20 06/09/20 Previous Rx's Medication Instructions Recorded lorazepam 0.5 mg PO HS #0 tab 06/07/20 Results & Data (ED) Vital Signs Vital Signs - 24 hr 06/09/20 12:12 06/09/20 12:18 06/09/20 12:30 Temperature 36.8 C Temperature Source Oral Pulse Rate 96 H 96 H 96 H Pulse Rate [Apical] Pulse Rate from SpO2 Sensor 96 H 97 H 96 H Pulse Rhythm Regular Pulse Rhythm [Apical] Pulse Strength Normal Pulse Strength [Apical] Respiratory Rate 14 14 18 Respiratory Effort / Characteristics Non-Labored Spontaneous Respiratory Depth Normal Respiratory Pattern Regular Blood Pressure 125/74 115/68 Blood Pressure [Left Arm] Blood Pressure Mean 91 83 Blood Pressure Mean [Left Arm] Blood Pressure Position Lying Blood Pressure Position [Left Arm] Pulse Oximetry 100 99 94 Oxygen Delivery Method Nasal Cannula Oxygen Flow Rate 1 Sepsis Recent Fever Within 48 Hours No Sepsis New/Unexplained Change in Mental Status No Sepsis Action Taken by Nursing No Action Required Oxygen Flow Rate - Titration 1 Pulse Oximetry Post Tiitration 100 06/09/20 12:31 06/09/20 13:00 06/09/20 13:01 Temperature Temperature Source Pulse Rate 96 H 97 H 95 H Pulse Rate [Apical] Pulse Rate from SpO2 Sensor 96 H 97 H 96 H Pulse Rhythm Pulse Rhythm [Apical] Pulse Strength Pulse Strength [Apical] Respiratory Rate 12 18 12 Respiratory Effort / Characteristics Respiratory Depth Respiratory Pattern Blood Pressure 101/61 Blood Pressure [Left Arm] Blood Pressure Mean 74 Blood Pressure Mean [Left Arm] Blood Pressure Position Blood Pressure Position [Left Arm] Pulse Oximetry 94 92 94 Oxygen Delivery Method Oxygen Flow Rate Sepsis Recent Fever Within 48 Hours Sepsis New/Unexplained Change in Mental Status Sepsis Action Taken by Nursing Oxygen Flow Rate - Titration Pulse Oximetry Post Tiitration 06/09/20 13:30 06/09/20 13:31 06/09/20 14:00 Temperature Temperature Source Pulse Rate 95 H 94 H 94 H Pulse Rate [Apical] Pulse Rate from SpO2 Sensor 95 H 94 H 94 H Pulse Rhythm Pulse Rhythm [Apical] Pulse Strength Pulse Strength [Apical] Respiratory Rate 13 13 13 Respiratory Effort / Characteristics Respiratory Depth Respiratory Pattern Blood Pressure 110/66 Blood Pressure [Left Arm] Blood Pressure Mean 80 Blood Pressure Mean [Left Arm] Blood Pressure Position Blood Pressure Position [Left Arm] Pulse Oximetry 94 94 96 Oxygen Delivery Method Oxygen Flow Rate Sepsis Recent Fever Within 48 Hours Sepsis New/Unexplained Change in Mental Status Sepsis Action Taken by Nursing Oxygen Flow Rate - Titration Pulse Oximetry Post Tiitration 06/09/20 14:30 06/09/20 15:30 06/09/20 16:30 Temperature Temperature Source Pulse Rate Pulse Rate [Apical] 90 92 H 93 H Pulse Rate from SpO2 Sensor Pulse Rhythm Pulse Rhythm [Apical] Regular Regular Regular Pulse Strength Pulse Strength [Apical] Normal Normal Normal Respiratory Rate 16 20 16 Respiratory Effort / Characteristics Non-Labored Spontaneous Non-Labored Spontaneous Non-Labored Spontaneous Respiratory Depth Normal Normal Normal Respiratory Pattern Regular Regular Regular Blood Pressure Blood Pressure [Left Arm] 127/68 116/71 116/79 Blood Pressure Mean Blood Pressure Mean [Left Arm] 87 86 91 Blood Pressure Position Blood Pressure Position [Left Arm] Lying Lying Lying Pulse Oximetry 98 97 99 Oxygen Delivery Method Nasal Cannula Nasal Cannula Nasal Cannula Oxygen Flow Rate 1 1 2 Sepsis Recent Fever Within 48 Hours Sepsis New/Unexplained Change in Mental Status Sepsis Action Taken by Nursing Oxygen Flow Rate - Titration Pulse Oximetry Post Tiitration Home Medications Current Medication List: was personally reviewed by me Laboratory Data Attestation: I reviewed the patient's lab results. Result diagrams: 06/09/20 12:27 06/09/20 12:27 Lab Results 06/09/20 06/09/20 06/09/20 Range/Units 12:27 12:27 12:27 WBC 5.77 (4.8-10.8) K/uL RBC 3.85 L (4.2-5.4) M/uL Hgb 11.7 L (12.0-16.0) g/dL Hct 34.5 L (37-47) % MCV 89.6 (80-100) fL MCH 30.4 (25-34) pg MCHC 33.9 (32-36) g/dL RDW Std Deviation 46.3 (36.4-46.3) fL RDW Coeff of Ricardo 14.2 (11.5-14.5) % Plt Count 94 L (130-400) K/uL MPV 10.2 (7.4-10.4) fL Immature Gran % (Auto) 0.7 % Neut % (Auto) 74.4 % Lymph % (Auto) 17.9 % [place] % (Auto) 5.9 % Eos % (Auto) 0.9 % Baso % (Auto) 0.2 % Neut # (Auto) 4.30 (1.4-6.5) K/uL Lymph # (Auto) 1.03 L (1.2-3.4) K/uL [place] # (Auto) 0.34 (0.11-0.59) K/uL Eos # (Auto) 0.05 (0-0.5) K/uL Baso # (Auto) 0.01 (0-0.2) K/uL Immature Gran # (Auto) 0.04 H (0.00-0.02) K/uL PT 11.7 (9.0-12.0) Seconds INR 1.1 (0.9-1.1) VBG pH (7.36-7.41) VBG pCO2 (38-50) mmHg VBG pO2 mmHg VBG HCO3 mmol/L VBG O2 Saturation % VBG Base Excess mEq/L Barometric Pressure mm/Hg Sodium (136-145) mmol/L Potassium (3.5-5.1) mmol/L Chloride (98-107) mmol/L Carbon Dioxide (21-32) mmol/L Anion Gap (3-11) BUN (7-18) mg/dl Creatinine (0.6-1.2) mg/dl Est Cr Clr Drug Dosing Est GFR ( Amer) Est GFR (Non-Af Amer) BUN/Creatinine Ratio (10-20) Glucose (70-99) mg/dl Lactate 1.2 (0.4-2.0) mmol/L Calcium (8.5-10.1) mg/dl Magnesium (1.8-2.4) mg/dl Total Bilirubin (0.2-1) mg/dl AST (15-37) U/L ALT (12-78) U/L Alkaline Phosphatase (45-117) U/L Troponin I (0-0.045) ng/ml Total Protein (6.4-8.2) gm/dl Albumin (3.4-5.0) gm/dl Globulin (2.5-4.0) gm/dl Albumin/Globulin Ratio (0.9-2) TSH (0.300-4.500) uIu/ml 06/09/20 06/09/20 Range/Units 12:27 15:28 WBC (4.8-10.8) K/uL RBC (4.2-5.4) M/uL Hgb (12.0-16.0) g/dL Hct (37-47) % MCV (80-100) fL MCH (25-34) pg MCHC (32-36) g/dL RDW Std Deviation (36.4-46.3) fL RDW Coeff of Ricardo (11.5-14.5) % Plt Count (130-400) K/uL MPV (7.4-10.4) fL Immature Gran % (Auto) % Neut % (Auto) % Lymph % (Auto) % [place] % (Auto) % Eos % (Auto) % Baso % (Auto) % Neut # (Auto) (1.4-6.5) K/uL Lymph # (Auto) (1.2-3.4) K/uL [place] # (Auto) (0.11-0.59) K/uL Eos # (Auto) (0-0.5) K/uL Baso # (Auto) (0-0.2) K/uL Immature Gran # (Auto) (0.00-0.02) K/uL PT (9.0-12.0) Seconds INR (0.9-1.1) VBG pH 7.35 L (7.36-7.41) VBG pCO2 60 H (38-50) mmHg VBG pO2 28 mmHg VBG HCO3 33 mmol/L VBG O2 Saturation < 60.0 % VBG Base Excess 5.6 mEq/L Barometric Pressure 721.3 mm/Hg Sodium 140 (136-145) mmol/L Potassium 3.0 L (3.5-5.1) mmol/L Chloride 105 (98-107) mmol/L Carbon Dioxide 33 H (21-32) mmol/L Anion Gap 2.0 L (3-11) BUN 23 H (7-18) mg/dl Creatinine 1.03 (0.6-1.2) mg/dl Est Cr Clr Drug Dosing Not Reportable Est GFR ( Amer) 63.8 Est GFR (Non-Af Amer) 55.0 BUN/Creatinine Ratio 22.4 H (10-20) Glucose 131 H (70-99) mg/dl Lactate (0.4-2.0) mmol/L Calcium 8.8 (8.5-10.1) mg/dl Magnesium 2.2 (1.8-2.4) mg/dl Total Bilirubin 0.6 (0.2-1) mg/dl AST 51 H (15-37) U/L ALT 14 (12-78) U/L Alkaline Phosphatase 86 (45-117) U/L Troponin I < 0.015 (0-0.045) ng/ml Total Protein 7.2 (6.4-8.2) gm/dl Albumin 3.0 L (3.4-5.0) gm/dl Globulin 4.2 H (2.5-4.0) gm/dl Albumin/Globulin Ratio 0.7 L (0.9-2) TSH 1.660 (0.300-4.500) uIu/ml Administered Medications Discontinued Medications Sodium Chloride (Nss 1000ml) 1,000 mls @ 999 mls/hr IV .[id number] BRITTANY Stop: 06/09/20 13:30 Last Infusion: 06/09/20 15:03 Dose: 0 mls/hr Documented by: [id number] Admin: 06/09/20 14:03 Dose: 999 mls/hr Documented by: [id number] Potassium Chloride (K Zeferino / Wtr) 10 meq in 100 mls @ 100 mls/hr IV ONE ONE Stop: 06/09/20 15:45 Last Admin: 06/09/20 16:25 Dose: 100 mls/hr Documented by: [id number] Discharge Plan Visit Data Chief Complaint: Lethargic ED Provider: Andreas Patricia Discharge Problem: Mental status, decreased, Hypokalemia, Acute dehydration, COVID-19 Forms Stand Alone Forms: [facility] Prescriptions Prescriptions: No Action multivitamin [Daily-Pradip] Tablet 1 tab PO QAM RF: 0 fluoxetine 40 mg Capsule 40 mg PO QAM RF: 0 atorvastatin 20 mg Tablet 20 mg PO QAM RF: 0 benztropine 0.5 mg Tablet 0.5 mg PO BID RF: 0 chlorpromazine 10 mg Tablet 10 mg PO QAM RF: 0 glipizide 2.5 mg Tablet Extended Release 24hr 2.5 mg PO QAM RF: 0 fluoxetine 10 mg Capsule 10 mg PO QAM RF: 0 carbamide peroxide [Ear Wax Drops] 6.5 % Drops 5 drp OTB [id number] RF: 0 docusate sodium [Colace] 100 mg Capsule 100 mg PO BID RF: 0 gabapentin 300 mg Capsule 300 mg PO TID RF: 0 omeprazole 20 mg Capsule,Delayed Release(Dr/Ec) 20 mg PO QAM RF: 0 furosemide 20 mg Tablet 20 mg PO QAM RF: 0 clozapine 25 mg Tablet 87.5 mg PO HS RF: 0 clozapine 25 mg Tablet 25 mg PO QAM RF: 0 chlorpromazine 50 mg Tablet 50 mg PO BID RF: 0 calcium citrate-vitamin D3 [Calcium Citrate + D] 315-200 mg-unit Tablet 1 tab PO QAM RF: 0 [place]-3 350 mg-235 mg- 90 mg-597 mg Capsule,Delayed Release(Dr/Ec) 1 cap PO BID RF: 0 naproxen sodium 220 mg Capsule 220 mg PO Q12H PRN (Reason: Pain) RF: 0 guaifenesin [Mucinex] 600 mg Tablet Extended Release 12hr 600 mg PO Q12H PRN (Reason: Congestion) RF: 0 lorazepam 0.5 mg Tablet 0.5 mg PO HS Qty: 0 RF: 0
[2020-06-09] MEDS ORDERED: SODIUM CHLORIDE 0.9% 1000ML 1,000 ML IV SCH (12:30)
[2020-06-09 12:41] LABS: Hematocrit (blood only) 34.5 % (37-47); Hemoglobin 11.7 g/dL (12.0-16.0); Mean Corpuscular Hemoglobin 30.4 pg (25-34); Mean Corpuscular Hgb Conc 33.9 g/dL (32-36); Mean Corpuscular Volume 89.6 fL (80-100); RDW Coefficient of Variation 14.2 % (11.5-14.5); RDW Standard Deviation 46.3 fL (36.4-46.3); Red Blood Count 3.85 M/uL (4.2-5.4); White Blood Count 5.77 K/uL (4.8-10.8)
[2020-06-09 12:42] LABS: Basophils # (auto) 0.01 K/uL (0-0.2); Basophils % (auto) 0.2 %; Eosinophils # (auto) 0.05 K/uL (0-0.5); Eosinophils % (auto) 0.9 %; Immature Granulocytes # (auto) 0.04 K/uL (0.00-0.02); Immature Granulocytes % (auto) 0.7 %; Lymphocytes # (auto) 1.03 K/uL (1.2-3.4); Lymphocytes % (auto) 17.9 %; Mean Platelet Volume 10.2 fL (7.4-10.4); Monocytes # (auto) 0.34 K/uL (0.11-0.59); Monocytes % (auto) 5.9 %; Neutrophils % (auto) 74.4 %; Platelet Count 94 K/uL (130-400)
[2020-06-09 12:50] LABS: INR 1.1 (0.9-1.1); Prothrombin Time 11.7 Seconds (9.0-12.0)
--- NOTE | 2020-06-09 12:56 | XRay Report ---
SINGLE VIEW CHEST CLINICAL HISTORY: Generalized weakness. FINDINGS: An AP, portable, upright chest radiograph is compared to study dated 06/02/2020 and correlat ed with chest CT dated 05/28/2016. The examination is degraded by portable technique and patient rotati on. The cardiomediastinal silhouette is unremarkable. There are low lung volumes with bibasilar airs pace opacities. No large pleural effusion or pneumothorax is seen. The skeletal structures are osteop enic. The bony thorax is grossly intact. Degenerative change and scoliosis is noted in the thoracic s pine. IMPRESSION: Low lung volumes with bibasilar airspace opacities. This likely represents scarring/atele ctasis. Correlate clinically for evidence of a superimposed infectious/inflammatory pneumonitis. ACT 112: Negative or not required by law. Electronically signed by: Ron Gonzalez M.D. 06/09/2020 12:54 PM
[2020-06-09 13:04] LABS: Alanine Aminotransferase 14 U/L (12-78); Albumin Globulin Ratio 0.7 (0.9-2); Aspartate Aminotransferase 51 U/L (15-37); BUN Creatinine Ratio 22.4 (10-20); Bilirubin,Total 0.6 mg/dl (0.2-1); Blood Urea Nitrogen 23 mg/dl (7-18); Calcium 8.8 mg/dl (8.5-10.1); Carbon Dioxide 33 mmol/L (21-32); Chloride 105 mmol/L (98-107); Est GFR (African American) 63.8; Globulin 4.2 gm/dl (2.5-4.0); Glucose 131 mg/dl (70-99); Magnesium 2.2 mg/dl (1.8-2.4); Sodium 140 mmol/L (136-145); Total Protein 7.2 gm/dl (6.4-8.2)
[2020-06-09 13:13] LABS: Alkaline Phosphatase 86 U/L (45-117); Troponin I < 0.015 ng/ml (0-0.045)
--- NOTE | 2020-06-09 13:47 | CT Scan Report ---
CT head/brain wo con CLINICAL HISTORY: decreased responsiveness NONVERBAL PATIENT. LETHARGY. COMPARISON STUDY: 04/21/2019 TECHNIQUE: Axial CT of the brain is performed from the vertex to the skull base. IV contrast was not administered for this examination. A dose lowering technique was utilized adhering to the principles of ALARA. CT DOSE: 537.48 mGy.cm FINDINGS: No intra or extra-axial mass lesions are visualized. There is no CT evidence of acute cortical infarc tion. There is no evidence of midline shift. There is no acute hemorrhage. No calvarial fractures ar e visualized. There are minor white matter hypodensities likely on a small vessel basis. There is persistent ventriculomegaly, unchanged from the prior study. There is opacification of a left anterior ethmoid air cell. The frontal sinuses are hypoplastic. IMPRESSION: 1. Stable ventriculomegaly 2. No acute intracranial findings ACT 112: Negative or not required by law. Electronically signed by: Daryl Cormier M.D. 06/09/2020 1:46 PM
[2020-06-09] MEDS ORDERED: POTASSIUM CHLORIDE / WTR 10 MEQ/100 ML PLCT IV ONE ×2 (14:46→17:25)
[2020-06-09 15:56] LABS: Base Excess VBG 5.6 mEq/L; HCO3 VBG 33 mmol/L; PCO2 VBG 60 mmHg (38-50); PO2 VBG 28 mmHg; pH VBG 7.35 (7.36-7.41)
[2020-06-09 16:00] LABS: Oxygen Saturation VBG < 60.0 %
--- NOTE | 2020-06-09 16:04 | History & Physical Report ---
Date of Service June 09, 2020 Assessment & Plan (1) Hypoxia: (2) Altered mental status: Altered mental status, likely due to medication effect based on history. Work-up so far does not suggest infection and CT head does not show any acute abnormalities Patient does have polypharmacy Will hold Ativan for now. Based on psych recommendation from recent admission, will hold chlorpromazine for now as well Follow-up psychiatry recommendations. May need medication adjustments prior to discharge We will follow-up outstanding work-up No antibiotics for now Monitor mental status for now Telemetry monitoring Was hypoxic on presentation. Currently 97% on 1 L/min nasal cannula. We will monitor oxygen levels and assess need for continued oxygen prior to discharge when more awake. Continue oxygen supplementation at bedtime. May need sleep study evaluation on discharge (3) Hypokalemia: Replete potassium and monitor electrolytes -Diabetes mellitus type 2 Hold home glipizide. Monitor blood glucose and manage with insulin sliding scale Aspiration precautions Chopped diet -Schizophrenia -Parkinson's disease Continue carbidopa levodopa Continue home medication except those held as above -Thrombocytopenia Platelet is 94 today DVT ppx - lovenox sq History of Present Illness 69-year-old woman, resident of [facility], with past medical history of atypical psychosis, moderate intellectual disability, paranoid schizophrenia, Parkinson's disease, DM type II, thrombocytopenia and others as listed below who [facility] for altered mental status. [facility] Patient is a very poor historian, likely from intellectual disability +/- altered mental status. Staff reported that patient was her usual self yesterday evening and early this morning, used her oxygen overnight as prescribed after recent admission. Received nuclear medicine tech medication between 8 and 9 AM which included chlorpromazine, clozapine, benztropine, fluoxetine and others. She also received ativan 0.5mg chlorpromazine 50 mg around 11:40 AM. Staff reported that patient usually sleeps for some time after receiving usual medications. However, patient was found to be more lethargic, not responding, blood pressure was reported to be 98/56, with inconsistent pulse ox reading some in the 70s. She was put on oxygen via nasal cannula and by the time EMS arrived oxygen was in the 90s. During my evaluation, patient was drowsy but arousable, had garbled speech [not new per staff especially when she is ill] but was able to tell me her name and that she was in the hospital. She was asking for food but otherwise limited review of system Primary Care Provider: [facility], Deysi Aldridge Mcintosh Allergies Allergy/AdvReac Type Severity Reaction Status Date / Time Bactrim Allergy Unknown unknown Verified 07/04/16 07:35 risperidone Allergy Unknown Verified 06/02/20 11:57 sulfamethoxazole Allergy Unknown unknown Verified 06/02/20 11:57 trimethoprim Allergy Unknown unknown Verified 06/02/20 11:57 Flu Virus Vaccine Allergy Unknown . Uncoded 06/02/20 11:57 Home Medications Medication Instructions Recorded Confirmed Type [place]-3 1 cap PO BID 04/21/19 06/09/20 History atorvastatin 20 mg PO QAM 04/21/19 06/09/20 History benztropine 0.5 mg PO BID 04/21/19 06/09/20 History calcium citrate-vitamin D3 1 tab PO QAM 04/21/19 06/09/20 History [Calcium Citrate + D] carbamide peroxide [Ear Wax Drops] 5 drp OTB [id number]/21/19 06/09/20 History chlorpromazine 10 mg PO QAM 04/21/19 06/09/20 History chlorpromazine 50 mg PO BID 04/21/19 06/09/20 History clozapine 25 mg PO QAM 04/21/19 06/09/20 History clozapine 87.5 mg PO HS 04/21/19 06/09/20 History docusate sodium [Colace] 100 mg PO BID 04/21/19 06/09/20 History fluoxetine 10 mg PO QAM 04/21/19 06/09/20 History fluoxetine 40 mg PO QAM 04/21/19 06/09/20 History furosemide 20 mg PO QAM 04/21/19 06/09/20 History gabapentin 300 mg PO TID 04/21/19 06/09/20 History glipizide 2.5 mg PO QAM 04/21/19 06/09/20 History multivitamin [Daily-Pradip] 1 tab PO QAM 04/21/19 06/09/20 History naproxen sodium 220 mg PO Q12H PRN 04/21/19 06/09/20 History omeprazole 20 mg PO QAM 04/21/19 06/09/20 History guaifenesin [Mucinex] 600 mg PO Q12H PRN 06/02/20 06/09/20 History lorazepam 0.5 mg PO HS #0 tab 06/07/20 06/09/20 Rx Past Med/Surg History Medical History (Updated 06/09/20 @ 17:20 by Zunilda Cárdenas MD) Anxiety Diabetes mellitus, type II GERD (gastroesophageal reflux disease) Osteoporosis Pancytopenia Parkinson disease Pneumonia due to 2019 novel coronavirus Schizophrenia Surgical History Hx of tonsillectomy Family History Other Family history unknown Social History Smoking Status: Unknown if ever smoked Second Hand Exposure: No; Hx Alcohol Use: No Hx Substance Use: No Preferred Language: Turkish Communication Ability: Effective Educational Diagnostician Required: No Beliefs That Will Affect Care: None marital status: Single Current Living Situation: Personal Care Facility How many Children do You have: 0 Feels Safe at Home: Yes Assistive Devices: Oxygen - Continuous Review of Systems Review of Systems: Limited review of systems due to mental status Physical Exam Constitutional: no acute distress Drowsy but arousable Eyes: PERRL, conjunctivae normal, anicteric sclerae ENMT: external ear and nose normal, oropharynx normal Nasal cannula in situ Respiratory: normal respiratory effort, lungs clear to auscultation Cardiovascular: Rate/Rhythm: regular rate and regular rhythm S1-S2 Gastrointestinal (Abdomen): normal bowel sounds, soft, nontender, no hepatosplenomegaly Musculoskeletal: No pedal edema, no rash or lesion observed Neurologic: Drowsy but arousable, garbled speech [reported to be chronic], oriented to person and place Psychiatric: Drowsy, oriented to person and place Results & Data Results & [facility] ([facility]) Vital Signs (Past 12 Hours) Vital Signs Temp Pulse Resp BP Pulse Ox 06/09/20 14:00 94 H 13 96 06/09/20 13:31 94 H 13 94 06/09/20 13:30 95 H 13 110/66 94 06/09/20 13:01 95 H 12 94 06/09/20 13:00 97 H 18 101/61 92 06/09/20 12:31 96 H 12 94 06/09/20 12:30 96 H 18 115/68 94 06/09/20 12:18 96 H 14 99 06/09/20 12:12 36.8 C 96 H 14 125/74 100 Laboratory Results Laboratory Results - last 24 hr 06/09/20 06/09/20 06/09/20 12:27 12:27 12:27 WBC 5.77 RBC 3.85 L Hgb 11.7 L Hct 34.5 L MCV 89.6 MCH 30.4 MCHC 33.9 RDW Std Deviation 46.3 RDW Coeff of Ricardo 14.2 Plt Count 94 L MPV 10.2 Immature Gran % (Auto) 0.7 Neut % (Auto) 74.4 Lymph % (Auto) 17.9 [place] % (Auto) 5.9 Eos % (Auto) 0.9 Baso % (Auto) 0.2 Neut # (Auto) 4.30 Lymph # (Auto) 1.03 L [place] # (Auto) 0.34 Eos # (Auto) 0.05 Baso # (Auto) 0.01 Immature Gran # (Auto) 0.04 H PT 11.7 INR 1.1 VBG pH VBG pCO2 VBG pO2 VBG HCO3 VBG O2 Saturation VBG Base Excess Barometric Pressure Sodium Potassium Chloride Carbon Dioxide Anion Gap BUN Creatinine Est Cr Clr Drug Dosing Est GFR ( Amer) Est GFR (Non-Af Amer) BUN/Creatinine Ratio Glucose Lactate 1.2 Calcium Magnesium Total Bilirubin AST ALT Alkaline Phosphatase Troponin I Total Protein Albumin Globulin Albumin/Globulin Ratio TSH 06/09/20 06/09/20 12:27 15:28 WBC RBC Hgb Hct MCV MCH MCHC RDW Std Deviation RDW Coeff of Ricardo Plt Count MPV Immature Gran % (Auto) Neut % (Auto) Lymph % (Auto) [place] % (Auto) Eos % (Auto) Baso % (Auto) Neut # (Auto) Lymph # (Auto) [place] # (Auto) Eos # (Auto) Baso # (Auto) Immature Gran # (Auto) PT INR VBG pH 7.35 L VBG pCO2 60 H VBG pO2 28 VBG HCO3 33 VBG O2 Saturation < 60.0 VBG Base Excess 5.6 Barometric Pressure 721.3 Sodium 140 Potassium 3.0 L Chloride 105 Carbon Dioxide 33 H Anion Gap 2.0 L BUN 23 H Creatinine 1.03 Est Cr Clr Drug Dosing Not Reportable Est GFR ( Amer) 63.8 Est GFR (Non-Af Amer) 55.0 BUN/Creatinine Ratio 22.4 H Glucose 131 H Lactate Calcium 8.8 Magnesium 2.2 Total Bilirubin 0.6 AST 51 H ALT 14 Alkaline Phosphatase 86 Troponin I < 0.015 Total Protein 7.2 Albumin 3.0 L Globulin 4.2 H Albumin/Globulin Ratio 0.7 L TSH 1.660
[2020-06-09] MEDS ORDERED: ACETAMINOPHEN 325 MG TAB PO PRN (18:44)
[2020-06-09] MEDS ORDERED: GLUCOSE 40% GEL 15 GM TUBE PO PRN (18:44)
[2020-06-09] MEDS ORDERED: CARBOHYDRATES FOR HYPOGLYCEMIA PO PRN (18:44)
[2020-06-09] MEDS ORDERED: POLYETHYLENE (MIRALAX) 17 GM PACK PO PRN (18:44)
[2020-06-09] MEDS ORDERED: DEXTROSE 50% 50 ML SYRINGE IV PRN (18:44)
[2020-06-09] MEDS ORDERED: GLUCAGON FOR INJ 1 MG VIAL SQ PRN (18:44)
[2020-06-09] MEDS ORDERED: GLUCOSE 10 TABS/TUBE PO PRN (18:44)
[2020-06-09] MEDS ORDERED: NAPROXEN 250 MG TAB PO PRN (19:45)
[2020-06-09] MEDS: DOCUSATE SODIUM 100 MG CAP PO SCH (20:34)
[2020-06-09] MEDS: GABAPENTIN 300 MG CAP PO SCH (20:35)
[2020-06-09] MEDS: BENZTROPINE MESYLATE 0.5 MG TAB PO SCH (20:36)
[2020-06-09] MEDS: OMEGA-3 (PURIFIED FISH OIL) 1 GM CAP PO SCH (20:37)
[2020-06-09] MEDS: ENOXAPARIN INJ 40 MG/0.4 ML SYR SQ SCH (21:24)
[2020-06-09] MEDS: cloZAPine 25 MG TAB PO SCH (21:24)
[2020-06-09] MEDS: INSULIN ASPART 100 UNITS/ML 3 ML PEN SC SCH (21:25)
[2020-06-10 04:50] LABS: Appearance Urine Clear (Clear); Bilirubin Urine Negative (Negative); Blood Urine Negative (Negative); Color Urine Yellow; Glucose Urine UA Negative (Negative); Ketones Urine Negative (Negative); Leukocyte Esterase Urine Negative (Negative); Nitrite Urine Negative (Negative); Protein Urine Negative (Negative); Specific Gravity Urine 1.013 (1.000-1.030); Urobilinogen Urine Positive (Negative)
--- NOTE | 2020-06-10 06:13 | Electrocardiogram Report ---
Test Reason : Blood Pressure : / mmHG Vent. Rate : 099 BPM Atrial Rate : 099 BPM P-R Int : 076 ms QRS Dur : 078 ms QT Int : 348 ms P-R-T Axes : 014 004 071 degrees QTc Int : 447 ms Sinus rhythm with short GA Nonspecific T wave abnormality Abnormal ECG When compared with ECG of 07-JUN-2020 05:50, No significant change Confirmed by Terry Hughes ([id number]) on 06/10/2020 6:12:33 AM Referred By: Confirmed By:Terry Hughes
[2020-06-10 06:38] LABS: Hematocrit (blood only) 33.5 % (37-47); Hemoglobin 11.2 g/dL (12.0-16.0); Mean Corpuscular Hemoglobin 29.9 pg (25-34); Mean Corpuscular Hgb Conc 33.4 g/dL (32-36); Mean Corpuscular Volume 89.6 fL (80-100); RDW Coefficient of Variation 14.3 % (11.5-14.5); RDW Standard Deviation 46.7 fL (36.4-46.3); Red Blood Count 3.74 M/uL (4.2-5.4)
[2020-06-10 06:50] LABS: Mean Platelet Volume 10.9 fL (7.4-10.4); Platelet Count 86 K/uL (130-400)
[2020-06-10 07:00] LABS: BUN Creatinine Ratio 14.4 (10-20); Blood Urea Nitrogen 11 mg/dl (7-18); Calcium 8.9 mg/dl (8.5-10.1); Carbon Dioxide 32 mmol/L (21-32); Chloride 108 mmol/L (98-107); Est GFR (African American) 89.3; Glucose 109 mg/dl (70-99); Potassium 3.2 mmol/L (3.5-5.1); Sodium 142 mmol/L (136-145)
[2020-06-10] MEDS: PANTOprazole 40 MG TAB PO SCH (08:49)
[2020-06-10] MEDS: FLUoxetine HCL 10 MG CAP PO SCH (08:49)
[2020-06-10] MEDS: MULTIVITAMIN TAB PO SCH (08:49)
[2020-06-10] MEDS: FLUoxetine HCL 20 MG CAP PO SCH (08:49)
[2020-06-10] MEDS: CALCIUM 600MG + VIT D 400 IU TAB PO SCH (08:50)
[2020-06-10] MEDS: cloZAPine 25 MG TAB PO SCH (08:51)
[2020-06-10] MEDS: BENZTROPINE MESYLATE 0.5 MG TAB PO SCH ×2 (08:51→20:48)
[2020-06-10] MEDS: ATORVASTATIN 20 MG TAB PO SCH (08:52)
[2020-06-10] MEDS: FUROSEMIDE 20 MG TAB PO SCH (08:52)
[2020-06-10] MEDS: DOCUSATE SODIUM 100 MG CAP PO SCH ×2 (08:52→20:48)
[2020-06-10] MEDS: GABAPENTIN 300 MG CAP PO SCH ×3 (08:53→20:48)
[2020-06-10] MEDS: INSULIN ASPART 100 UNITS/ML 3 ML PEN SC SCH ×4 (09:33→20:47)
[2020-06-10] MEDS: OMEGA-3 (PURIFIED FISH OIL) 1 GM CAP PO SCH ×2 (09:35→20:50)
--- NOTE | 2020-06-10 10:59 | Communication Note ---
Date of Service: June 10, 2020 Psychiatric Consultation: Due to patient's COVID+ status, we would ideally be able to interview the patient over the phone. Unfortunately, between patient's lethargy and intellectual disability, these phone conversation are not currently possible. The following history and recommendations are [facility] [place] as well as knowledge of the patient from her medical admission 2 days prior. 69-year-old female with PMH of T2DM, GERD, and psychiatric history of schizophrenia/schizoaffective disorder, intellectual disability and neuroleptic- induced parkinsonism. Pt was admitted medically on 06/09/2020 after presenting to the ED from her home at [facility] with increased lethargy. Pt was found to be hypokalemic and dehydrated. Psychiatric consultation was requested to review medications and offer recommendations related to lethargy. Had a very recent medical admission from 06/02/2020 - 06/07/2020 for hypoxia related to COVID-19 pneumonia as well as bacteremia. Psychiatric service was consulted during this previous admission for assistance with medication recommendations related to polypharmacy and mental status changes. Pt was ultimately continued on her home psychiatric medication regimen with doses of lorazepam and chlorpromazine occasionally being held for sedation. Records from the patient's outpatient psychiatric prescriber were reviewed. History obtained from [facility] staff suggests that the patient had been behaving normally the day prior to and the morning of her admission. It was stated that she generally sleeps until early afternoon at baseline, but was found on 06/09 to be more lethargic, not responding to stimuli, hypotensive, and with O2 sats in the 70's. It seems most likely that patient's confusion/lethargy is a result of her current infections/medical status along with likely elements of delirium. It is not likely that patient's behavior is directly related to her psychotropic medication regimen (which she had previously been stable with for several months), but medication adjustments may be helpful in the short-term to reduce risk of lethargy or further worsening possible delirium. Recommendations: - It seems most likely that patient's presentation of acute confusion/lethargy is resulting for physiological causes as opposed to directly related to her mental health diagnoses. - Pt has numerous significant risk factors for delirium (age, cognitive impairment at baseline, functional limitations at baseline, polypharmacy, electrolyte abnormalities, and significant infection.) Would encourage implementation and diligent practice of delirium recommendations to help reduce further insult. Ideally, medication adjustments suggested below will be helpful. Additional suggestions are outlined below with helpful article for reference. - Given the complexities of the patient's mental health history - would suggest continuing clozapine at current dosage of 25mg qAM and 87.5mg qHS. It also seems appropriate to continue fluoxetine as less likely to be contributing to sedation. - Can certainly consider holding doses of chlorpromazine if patient continues to be sedated. - Lorazepam dosage could be reduced if sedation continues, but would not recommend complete discontinuation due to risk of withdrawal symptoms if abruptly stopped. - We will continue to follow patient's case and offer recommendations as indicated - please reach out to our service with any additional questions or updates. Helpful Delirium Interventions - Regular review of potential physiological contributors (routine labs, medication review, ensure nutrition/hydration) - as a reminder, elements of delirium can continue for weeks or even months after the "cause" has been treated - Maintain healthy sleep/wake cycles - offer ear plugs, limit daytime napping, ample light during daytime hours, keep room dark and quiet at night - Address sensory impairments and pain - ensure access to hearing aids/glasses, active pain monitoring - Facilitate mobility and physical activity during the day - out of bed daily or as often as possible - Provide cognitive and environmental stimulation - update orientation board, encourage use of familiar personal items, stable daily routine -regular MSE at various times during day - Routine education about delirium - provide education to family/[place] staff Article Reference: Alexis HERBERT, María GORDON, Jacoby A, Ej O, Rain BARNETT. Responding to Ten Common Delirium Misconceptions With Best Evidence: An Educational Review for Clinicians. J Neuropsychiatry Clin Neurosci. 2018;30(1):51-57. doi:10 [email or web address]
[2020-06-10] MEDS ORDERED: POTASSIUM CHLORIDE CRTAB 20 MEQ TABCR PO STA (17:22)
--- NOTE | 2020-06-10 17:27 | Hospitalist Progress Note ---
Date of Service June 10, 2020 Assessment & Plan (1) Hypoxia: (2) Altered mental status: Admitted with lethargy, possible metabolic encephalopathy-medication induced On multiple antipsychiatric medication, Awake and alert able to answer questions Mental status improved to baseline, CT head does not show any acute abnormality likely due to medication effect based on history. Work-up so far does not suggest infection and CT head does not show any acute abnormalities No evidence of infection Discussed with psychiatry, will continue to hold chlorpromazine which can contribute to sedation, lethargy Ativan will be continued with low-dose with as to hold if patient is appears to be sedated History of present COVID-19 infection. Completed treatment Hypoxia: Chest x-rayshows within normal limit, bibasilar atelectasis Patient possibly has underlying obstructive sleep apnea given body habitus Continue oxygen support, 2-4 L via nasal cannula to keep saturation above 92% (3) Hypokalemia: Replete potassium and monitor electrolytes -Diabetes mellitus type 2 Hold home glipizide. Monitor blood glucose and manage with insulin sliding scale Aspiration precautions -Schizophrenia -Parkinson's disease Continue carbidopa levodopa Continue home medication except those held as above -Thrombocytopenia Chronic Platelet is 94 today DVT ppx - lovenox sq Disposition , lives at [facility] personal care Plan to return back to personal correction when medically stable Admission and Anticipated Discharge Date Admission Date: June 10, 2020 Subjective Follow-up visit for lethargy/altered mental status/recently diagnosed with COVID-19 infection Patient sitting up in chair, awake and alert, slow to answer question of which possibly patient's baseline Has nonproductive cough, no fever or chills Offers no complaint, wants to be discharged home Vitals are stable Review of Systems Review of Systems: All systems reviewed & are unremarkable except as noted in HPI & below Physical Exam Constitutional: WD/WN, vitals as above Eyes: PERRL, conjunctivae normal, anicteric sclerae ENMT: external ear and nose normal, oropharynx normal Neck: trachea midline, no thyromegaly Respiratory: + cough Auscultation: + diminished lung sounds; no wheezes Cardiovascular: RRR, no murmur, no edema Gastrointestinal (Abdomen): Percussion/Palpation: abdomen soft; abdomen nontender Skin: no rashes, warm and dry Neurologic: PERRL, EOMI, accommodation nl, no face palsy, no dysarthria Psychiatric: Orientation: alert and oriented to place (Baseline intellectual deficit.) Results & Data Results & Data ([facility]) Vital Signs (Past 12 Hours) Vital Signs Temp Pulse Pulse Resp BP BP Pulse Ox 06/10/20 14:39 36.4 C L 103 H 18 114/75 98 06/10/20 13:02 36.6 C 115 H 22 113/74 96 06/10/20 11:14 37.1 C 106 H 14 104/70 99 06/10/20 07:04 37.4 C 99 H 18 145/76 H 96
--- NOTE | 2020-06-10 19:03 | Communication Note ---
Date of Service: June 10, 2020 Notified by nursing : pt is having coughing spell during meals , worse with thin liquid aspiration precaution on minced /moist diet , ordered for [place] thick liquid speech eval requested Jolene Estrella MD
[2020-06-10] MEDS: ENOXAPARIN INJ 40 MG/0.4 ML SYR SQ SCH (20:49)
[2020-06-10] MEDS ORDERED: LORazepam 0.5 MG TAB PO SCH (21:00)
[2020-06-11] MEDS: DOCUSATE SODIUM 100 MG CAP PO SCH ×2 (08:57→20:57)
[2020-06-11] MEDS: GABAPENTIN 300 MG CAP PO SCH ×2 (08:57→13:00)
[2020-06-11] MEDS: BENZTROPINE MESYLATE 0.5 MG TAB PO SCH ×2 (08:58→20:46)
[2020-06-11] MEDS: FUROSEMIDE 20 MG TAB PO SCH (08:59)
[2020-06-11] MEDS: FLUoxetine HCL 10 MG CAP PO SCH (08:59)
[2020-06-11] MEDS: PANTOprazole 40 MG TAB PO SCH (09:00)
[2020-06-11] MEDS: cloZAPine 25 MG TAB PO SCH ×2 (09:00→20:47)
[2020-06-11] MEDS: MULTIVITAMIN TAB PO SCH (09:01)
[2020-06-11] MEDS: FLUoxetine HCL 20 MG CAP PO SCH (09:01)
[2020-06-11] MEDS: ATORVASTATIN 20 MG TAB PO SCH (09:01)
[2020-06-11] MEDS: CALCIUM 600MG + VIT D 400 IU TAB PO SCH (09:01)
[2020-06-11] MEDS: OMEGA-3 (PURIFIED FISH OIL) 1 GM CAP PO SCH ×2 (09:04→20:51)
[2020-06-11] MEDS: INSULIN ASPART 100 UNITS/ML 3 ML PEN SC SCH ×4 (09:15→20:50)
[2020-06-11] MEDS ORDERED: FLUMAZENIL 0.1 MG/1 ML 10 ML VIAL IV STA (14:16)
[2020-06-11 15:23] LABS: Allen Test Pos (Pos); Base Excess ABG 4.9 mEq/L (-9-1.8); HCO3 ABG 30 mmol/L (19-24); Oxygen Saturation ABG 96.3 % (90-95); PCO2 ABG 45 mmHg (35-46); PO2 ABG 83 mmHg (80-95); pH ABG 7.44 (7.35-7.45)
--- NOTE | 2020-06-11 17:50 | Hospitalist Progress Note ---
Date of Service June 11, 2020 Assessment & Plan (1) Hypoxia: (2) Altered mental status: Admitted with lethargy, possible metabolic encephalopathy-medication induced On multiple antipsychiatric medication, Mental status has been waxing and waning Discussed with psychiatry, has multiple admissions in the past with similar presentation, Definitely has a component of metabolic encephalopathy secondary to acute illness COVID-19 pneumonia,, severe deconditioning chlorpromazine discontinued as it could be possible culprit for obtundation, sedation. Ativan kept on hold as well, so far no sign of withdrawal History of present COVID-19 infection. Completed treatment Hypoxia: Possible underlying/undiagnosed chronic hypoxemic respiratory failures/obesity hypoventilation room Chest x-rayshows within normal limit, bibasilar atelectasis Patient possibly has underlying obstructive sleep apnea given body habitus Continue oxygen support, 2-4 L 02 via nasal cannula to keep saturation above 92% (3) Hypokalemia: Replete potassium and monitor electrolytes -Diabetes mellitus type 2 Hold home glipizide. Monitor blood glucose and manage with insulin sliding scale Aspiration precautions Severe dysphagia Coughing spell while eating especially with thin liquids. Possible secondary to deconditioning, tardive dyskinesia of tongue, mouth. Ap preciate input from speech, patient will continue with minced and moist diet nectar thick, aspiration precaution, patient should be assisted in each meal -Schizophrenia -Parkinson's disease Nephric and decline in cognitive status noted over time. Continue carbidopa levodopa On multiple antipsychotic meds which has been continued except for Ativan/chlorpromazine discontinued for sedative effect - DVT ppx - lovenox sq Disposition , lives at custodial at [facility] personal care Plan to return back to personal [facility] when medically stable PT OT evaluation, social service consult for discharge planning Admission and Anticipated Discharge Date Admission Date: June 10, 2020 Subjective Follow-up visit for lethargy/altered mental status/recently diagnosed with COVID-19 infection Remains significantly confused, constant movement of limbs and times, in both hands noted, tardive dyskinesia Patient has noted to have coughing spell with liquid on thickener Not aware of surroundings. Repeats multiple times"want to get out of here , want to go home " 2 L oxygen via nasal cannula SPO2 97%, nonproductive cough, patient has been afebrile Review of Systems Review of Systems: Unobtainable due to cognitive status Physical Exam Constitutional: WD/WN, vitals as above Eyes: PERRL, conjunctivae normal, anicteric sclerae ENMT: external ear and nose normal, oropharynx normal Neck: trachea midline, no thyromegaly Respiratory: + cough Auscultation: + diminished lung sounds; no wheezes Cardiovascular: RRR, no murmur, no edema Gastrointestinal (Abdomen): Percussion/Palpation: abdomen soft; abdomen nontender Skin: no rashes, warm and dry Neurologic: awake and + confused Motor/Sensory: + abnormal movement (Tardive dyskinesia of mouth, tongue, both hands noted) Psychiatric: Orientation: alert Affect: + flat affect Results & Data Results & Data ([facility]) Vital Signs (Past 12 Hours) Vital Signs Temp Pulse Resp BP Pulse Ox 06/11/20 15:47 36.7 C 92 H 17 120/81 100 06/11/20 07:16 36.6 C 91 H 18 108/71 98
[2020-06-11] MEDS: ENOXAPARIN INJ 40 MG/0.4 ML SYR SQ SCH (20:48)
[2020-06-12] MEDS: guaiFENesin 600 MG TABCR PO PRN (08:26)
[2020-06-12] MEDS: FLUoxetine HCL 20 MG CAP PO SCH (08:27)
[2020-06-12] MEDS: FLUoxetine HCL 10 MG CAP PO SCH (08:27)
[2020-06-12] MEDS: CALCIUM 600MG + VIT D 400 IU TAB PO SCH (08:27)
[2020-06-12] MEDS: FUROSEMIDE 20 MG TAB PO SCH (08:28)
[2020-06-12] MEDS: MULTIVITAMIN TAB PO SCH (08:28)
[2020-06-12] MEDS: BENZTROPINE MESYLATE 0.5 MG TAB PO SCH ×2 (08:28→20:57)
[2020-06-12] MEDS: ATORVASTATIN 20 MG TAB PO SCH (08:29)
[2020-06-12] MEDS: cloZAPine 25 MG TAB PO SCH ×2 (08:30→20:57)
[2020-06-12] MEDS: OMEGA-3 (PURIFIED FISH OIL) 1 GM CAP PO SCH ×2 (08:30→20:57)
[2020-06-12] MEDS: PANTOprazole 40 MG TAB PO SCH (08:34)
[2020-06-12] MEDS: DOCUSATE SODIUM 100 MG CAP PO SCH ×2 (08:34→20:56)
[2020-06-12] MEDS: INSULIN ASPART 100 UNITS/ML 3 ML PEN SC SCH ×4 (08:55→21:03)
[2020-06-12] MEDS ORDERED: bisacodyL 5 MG TABEC PO SCH (11:30)
[2020-06-12] MEDS: ENOXAPARIN INJ 40 MG/0.4 ML SYR SQ SCH (20:56)
[2020-06-12] MEDS: DOCUSATE SODIUM/SENNA 50/8.6MG TAB PO SCH (20:59)
[2020-06-13] MEDS: CALCIUM 600MG + VIT D 400 IU TAB PO SCH (08:38)
[2020-06-13] MEDS: ATORVASTATIN 20 MG TAB PO SCH (08:38)
[2020-06-13] MEDS: BENZTROPINE MESYLATE 0.5 MG TAB PO SCH ×2 (08:38→19:56)
[2020-06-13] MEDS: PANTOprazole 40 MG TAB PO SCH (08:38)
[2020-06-13] MEDS: FLUoxetine HCL 20 MG CAP PO SCH (08:38)
[2020-06-13] MEDS: FUROSEMIDE 20 MG TAB PO SCH (08:38)
[2020-06-13] MEDS: cloZAPine 25 MG TAB PO SCH ×2 (08:39→19:57)
[2020-06-13] MEDS: MULTIVITAMIN TAB PO SCH (08:39)
[2020-06-13] MEDS: guaiFENesin 600 MG TABCR PO PRN (08:40)
[2020-06-13] MEDS: OMEGA-3 (PURIFIED FISH OIL) 1 GM CAP PO SCH ×2 (08:41→19:56)
[2020-06-13] MEDS: DOCUSATE SODIUM 100 MG CAP PO SCH ×2 (08:41→19:58)
[2020-06-13] MEDS: FLUoxetine HCL 10 MG CAP PO SCH (08:41)
[2020-06-13] MEDS: INSULIN ASPART 100 UNITS/ML 3 ML PEN SC SCH ×4 (09:34→21:14)
--- NOTE | 2020-06-13 17:20 | Hospitalist Progress Note ---
Date of Service June 13, 2020 Assessment & Plan (1) Hypoxia: (2) Altered mental status: Admitted with lethargy, possible metabolic encephalopathy-medication induced On multiple antipsychiatric medication, Mental status has been waxing and waning Discussed with psychiatry, has multiple admissions in the past with similar presentation, Definitely has a component of metabolic encephalopathy secondary to acute illness COVID-19 pneumonia,, severe deconditioning chlorpromazine discontinued as it could be possible culprit for obtundation, sedation. Ativan kept on hold as well, so far no sign of withdrawal History of present COVID-19 infection. Completed treatment Hypoxia: Possible underlying/undiagnosed chronic hypoxemic respiratory failures/obesity hypoventilation room Chest x-rayshows within normal limit, bibasilar atelectasis Patient possibly has underlying obstructive sleep apnea given body habitus Continue oxygen support, 2-4 L 02 via nasal cannula to keep saturation above 92% Tardive dyskinesia. patient has been on long-term antipsychotic medication -leading to custodial severe side effect there is no effective treatment of the symptoms d/w Psych team ,pts antidepressants dose been reduced adjusted in past which caused severe outburst of symptoms of bipolar mood disorder /schizophrenia as pt has remains symptomatically well controlled with current regimen -will be continued supportive care with aspiration precaution n patient's long-term prognosis remains poor (3) Hypokalemia: Replete potassium and monitor electrolytes -Diabetes mellitus type 2 Hold home glipizide. Monitor blood glucose and manage with insulin sliding scale Aspiration precautions Severe dysphagia Coughing spell while eating especially with thin liquids. Possible secondary to deconditioning, tardive dyskinesia of tongue, mouth. Appreciate input from speech, patient will continue with minced and moist diet nectar thick, aspiration precaution, patient should be assisted in each meal -Schizophrenia -Parkinson's disease Nephric and decline in cognitive status noted over time. Continue carbidopa levodopa On multiple antipsychotic meds which has been continued except for Ativan/chlorpromazine discontinued for sedative effect - DVT ppx - lovenox sq Disposition , lives at correction at [facility] personal care Plan to return back to personal fdc when medically stable PT OT evaluation, social service consult for discharge planning Admission and Anticipated Discharge Date Admission Date: June 10, 2020 Subjective Follow-up visit for lethargy/altered mental status/recently diagnosed with COVID-19 infection Patient has been episode of lethargy/sedation, waxing and waning, This morning was hard to arouse, unable to have breakfast. As the day progressed patient was more arousable, not on any hypnotic sedative expected for her chronic antipsychotic drugs. No evidence of ongoing infection or febrile Suggest patient possible metabolic encephalopathy delirium secondary to multiple comorbidities acute illness with COVID-19, hypoxia Review of Systems Review of Systems: Unobtainable due to cognitive status Physical Exam Constitutional: WD/WN, vitals as above Eyes: PERRL, conjunctivae normal, anicteric sclerae ENMT: external ear and nose normal, oropharynx normal Neck: trachea midline, no thyromegaly Respiratory: + cough Auscultation: + diminished lung sounds; no wheezes Cardiovascular: RRR, no murmur, no edema Gastrointestinal (Abdomen): Percussion/Palpation: abdomen soft; abdomen nontender Skin: no rashes, warm and dry Neurologic: PERRL, EOMI, accommodation nl, no face palsy, no dysarthria awake and + confused Motor/Sensory: + abnormal movement (Tardive dyskinesia of mouth, tongue, both hands noted) Psychiatric: Orientation: alert Affect: + flat affect Results & Data Results & Data ([facility]) Vital Signs (Past 12 Hours) Vital Signs Temp Pulse Resp BP Pulse Ox 06/13/20 15:32 36.8 C 99 H 18 128/72 97 06/13/20 07:54 36.7 C 99 H 18 103/70 97
[2020-06-13] MEDS: ENOXAPARIN INJ 40 MG/0.4 ML SYR SQ SCH (19:55)
[2020-06-13] MEDS: DOCUSATE SODIUM/SENNA 50/8.6MG TAB PO SCH (19:58)
[2020-06-14] MEDS: cloZAPine 25 MG TAB PO SCH (08:14)
[2020-06-14] MEDS: FLUoxetine HCL 10 MG CAP PO SCH (08:16)
[2020-06-14] MEDS: MULTIVITAMIN TAB PO SCH (08:16)
[2020-06-14] MEDS: BENZTROPINE MESYLATE 0.5 MG TAB PO SCH (08:16)
[2020-06-14] MEDS: CALCIUM 600MG + VIT D 400 IU TAB PO SCH (08:16)
[2020-06-14] MEDS: FLUoxetine HCL 20 MG CAP PO SCH (08:16)
[2020-06-14] MEDS: PANTOprazole 40 MG TAB PO SCH (08:16)
[2020-06-14] MEDS: ATORVASTATIN 20 MG TAB PO SCH (08:17)
[2020-06-14] MEDS: FUROSEMIDE 20 MG TAB PO SCH (08:17)
[2020-06-14] MEDS: DOCUSATE SODIUM 100 MG CAP PO SCH (08:19)
[2020-06-14] MEDS: OMEGA-3 (PURIFIED FISH OIL) 1 GM CAP PO SCH (08:21)
[2020-06-14] MEDS: INSULIN ASPART 100 UNITS/ML 3 ML PEN SC SCH ×3 (08:34→18:09)
--- NOTE | 2020-06-14 16:45 | Discharge Summary ---
Date of Service June 14, 2020 Admission HPI Per Admitting Provider 69-year-old woman, resident of [facility] with past medical history of atypical psychosis, moderate intellectual disability, paranoid schizophrenia, Parkinson's disease, DM type II, thrombocytopenia and others as listed below who was brought in from [facility] for altered mental status. History obtained from Terese at [facility]. Patient is a very poor historian, likely from intellectual disability +/- altered mental status. Staff reported that patient was her usual self yesterday evening and early this morning, used her oxygen overnight as prescribed after recent admission. Received assistant medication between 8 and 9 AM which included chlorpromazine, clozapine, benztropine, fluoxetine and others. She also received ativan 0.5mg chlorpromazine 50 mg around 11:40 AM. Staff reported that patient usually sleeps for some time after receiving usual medications. However, patient was found to be more lethargic, not responding, blood pressure was reported to be 98/56, with inconsistent pulse ox reading some in the 70s. She was put on oxygen via nasal cannula and by the time EMS arrived oxygen was in the 90s. During my evaluation, patient was drowsy but arousable, had garbled speech [not new per staff especially when she is ill] but was able to tell me her name and that she was in the hospital. She was asking for food but otherwise limited review of system Primary Care Provider: [facility] Principal Diagnosis ACUTE CONFUSION /LETHARGY /METABOLIC ENCEPHALOPATHY COVID 19 PNEUMONIA HX OF BIPOLAR MOOD DISORDER SCHIZOPHRENIA CHRONIC HYPOXEMIC RESPIRATORY FAILURE SEVERE DYSPHAGIA Discharge Exam Constitutional WD/WN, vitals as above no acute distress Eyes PERRL, conjunctivae normal, anicteric sclerae ENMT external ear and nose normal, oropharynx normal Neck trachea midline, no thyromegaly Respiratory normal respiratory effort, lungs clear to auscultation + cough Auscultation: + diminished lung sounds; no wheezes Cardiovascular RRR, no murmur, no edema Rate/Rhythm: regular rate and regular rhythm Gastrointestinal (Abdomen) normal bowel sounds, soft, nontender, no hepatosplenomegaly Percussion/Palpation: abdomen soft; abdomen nontender Skin no rashes, warm and dry Neurologic PERRL, EOMI, accommodation nl, no face palsy, no dysarthria awake and + confused Motor/Sensory: + abnormal movement (Tardive dyskinesia of mouth, tongue, both hands noted) Psychiatric Orientation: alert Affect: + flat affect Discharge Data Allergies Allergy/AdvReac Type Severity Reaction Status Date / Time Bactrim Allergy Unknown unknown Verified 07/04/16 07:35 risperidone Allergy Unknown Verified 06/02/20 11:57 sulfamethoxazole Allergy Unknown unknown Verified 06/02/20 11:57 trimethoprim Allergy Unknown unknown Verified 06/02/20 11:57 Flu Virus Vaccine Allergy Unknown . Uncoded 06/02/20 11:57 Consultations 06/09/20 15:08 ED Decision to Admit Stat 06/09/20 18:44 Consult Case Management - Discharge Planning Routine Ordered Studies 06/09/20 12:19 CT head/brain wo con Stat Hospital Course (1) Hypoxia: (2) Altered mental status: Admitted with lethargy, possible metabolic encephalopathy-medication induced On multiple antipsychiatric medication, Mental status has been waxing and waning Discussed with psychiatry, has multiple admissions in the past with similar presentation, Definitely has a component of metabolic encephalopathy secondary to acute illness COVID-19 pneumonia,, severe deconditioning chlorpromazine discontinued as it could be possible culprit for obtundation, sedation. Ativan kept on hold as well, so far no sign of withdrawal History of present COVID-19 infection. Completed treatment Hypoxia: Possible underlying/undiagnosed chronic hypoxemic respiratory failures/obesity hypoventilation room Chest x-rayshows within normal limit, bibasilar atelectasis Patient possibly has underlying obstructive sleep apnea given body habitus Continue oxygen support, 2-4 L 02 via nasal cannula to keep saturation above 92% Tardive dyskinesia. patient has been on long-term antipsychotic medication -leading to group [facility] side effect there is no effective treatment of the symptoms d/w Psych team ,pts antidepressants dose been reduced adjusted in past which caused severe outburst of symptoms of bipolar mood disorder /schizophrenia as pt has remains symptomatically well controlled with current regimen -will be continued supportive care with aspiration precaution n patient's long-term prognosis remains poor (3) Hypokalemia: Replete potassium and monitor electrolytes -Diabetes mellitus type 2 Hold home glipizide. Monitor blood glucose and manage with insulin sliding scale Aspiration precautions Severe dysphagia Coughing spell while eating especially with thin liquids. Possible secondary to deconditioning, tardive dyskinesia of tongue, mouth. Appreciate input from speech, patient will continue with minced and moist diet nectar thick, aspiration precaution, patient should be assisted in each meal -Schizophrenia -Parkinson's disease Nephric and decline in cognitive status noted over time. Continue carbidopa levodopa On multiple antipsychotic meds which has been continued except for Ativan/chlorpromazine discontinued for sedative effect - DVT ppx - lovenox sq Disposition , lives at custodial at [facility] Plan to return back to personal fdc when medically stable PT OT evaluation, social service consult for discharge planning Total Time Total Time Spent Total Time Spent (In Minutes): 35 mins Total Time Includes: Examination of the Patient, Discharge Planning and Medication Reconciliation Discharge Plan Discharge Items Patient Disposition: [facility] Reason For Visit: AMS, HYPOXIA Discharge Diagnosis: ACUTE CONFUSION /LETHARGY /METABOLIC ENCEPHALOPATHY COVID 19 PNEUMONIA HX OF BIPOLAR MOOD DISORDER SCHIZOPHRENIA CHRONIC HYPOXEMIC RESPIRATORY FAILURE SEVERE DYSPHAGIA Activity: As commented below Activity Comment: TOLERATED Non-emergency contact: Primary Care Provider Call non-emergency contact if: you have any medication questions Follow-up/Referrals: [facility] [Primary Care Provider] - (Date & Time 06/17/2020 11:00 AM Provider Ashlyn Chou, DO Department [facility] PLEASE NOTE THAT THIS IS A TELEPHONE APPOINTMENT. YOUR PHYSICIAN WILL CALL YOU AT THE APPOINTMENT TIME. IF YOU HAVE ANY QUESTIONS, PLEASE CALL ) Diet: Regular Diet Texture: Pureed (blended smooth) Liquid Consistency: [place] thick Addtl Attending Provider Instructions: Please use supplemental oxygen as needed at 2-4 L to keep oxygen saturation above 90% CHLORPROMAZINE AND LORAZEPAM DISCONTINUED ON GABAPENTIN 300 MG THREE TIMES DAILY , DO NOT GIVE THE MEDICATION IF PATIENT APPEARS TO BE SEDATED FEED ONLY WHEN PATIENT IS FULLY AWAKE AND UPRIGHT , NEEDS 100% ASSISTANCE IN EACH MEAL PURRED FOOD /USE THICKENER TO MAKE DRINKS NACTER THICK CONSISTENCY PLEASE CRUSH ALL MEDS AND PUT IN PUDDING OR APPLE SAUCE STRICT ASPIRATION PRECAUTION Pending Studies at Discharge: No Stand-Alone Forms: My [employer] 3D, Smoking Cessation Skilled Items Patient informed of condition?: Yes DNR: No Discharge Level of Care: Other Communicable Disease: Yes Discharge Prognosis: Stable Lines: None Urinary Catheter: No Medications and DC Order Prescriptions: Continued multivitamin [Daily-Pradip] Tablet 1 tab PO QAM RF: 0 fluoxetine 40 mg Capsule 40 mg PO QAM RF: 0 atorvastatin 20 mg Tablet 20 mg PO QAM RF: 0 benztropine 0.5 mg Tablet 0.5 mg PO BID RF: 0 glipizide 2.5 mg Tablet Extended Release 24hr 2.5 mg PO QAM RF: 0 fluoxetine 10 mg Capsule 10 mg PO QAM RF: 0 carbamide peroxide [Ear Wax Drops] 6.5 % Drops 5 drp OTB [id number] RF: 0 docusate sodium [Colace] 100 mg Capsule 100 mg PO BID RF: 0 gabapentin 300 mg Capsule 300 mg PO TID RF: 0 omeprazole 20 mg Capsule,Delayed Release(Dr/Ec) 20 mg PO QAM RF: 0 furosemide 20 mg Tablet 20 mg PO QAM RF: 0 clozapine 25 mg Tablet 87.5 mg PO HS RF: 0 clozapine 25 mg Tablet 25 mg PO QAM RF: 0 calcium citrate-vitamin D3 [Calcium Citrate + D] 315-200 mg-unit Tablet 1 tab PO QAM RF: 0 [place]-3 350 mg-235 mg- 90 mg-597 mg Capsule,Delayed Release(Dr/Ec) 1 cap PO BID RF: 0 naproxen sodium 220 mg Capsule 220 mg PO Q12H PRN (Reason: Pain) RF: 0 guaifenesin [Mucinex] 600 mg Tablet Extended Release 12hr 600 mg PO Q12H PRN (Reason: Congestion) RF: 0 Discontinued chlorpromazine 10 mg Tablet 10 mg PO QAM RF: 0 chlorpromazine 50 mg Tablet 50 mg PO BID RF: 0 lorazepam 0.5 mg Tablet 0.5 mg PO HS Qty: 0 RF: 0 Discharge Orders: Discharge Order (Routine); Ordered 06/14/20 Ordered By: Jolene Estrella Admission Data Admit Date/Time: 06/10/20 15:17 Attending Provider: Jolene Estrella Admit Provider: Zunilda Cárdenas I. Primary Care Provider: Luis Carlos Dunham,[facility] Other Providers: Zunilda Cárdenas I. Other Interventions: Discharge Summary Assessment (RN) Last Done: 06/14/20 18:15
[2020-06-15] MEDS ORDERED: CARBAMIDE PEROXIDE 6.5% 15 ML BTL OTB SCH (20:00)
--- NOTE | 2020-06-28 08:38 | Coding Query ---
CODING QUERY To promote full compliance with coding requirements relating to patient care, provider participation is requested in all cases of deposition operator uncertainty. Please assist us with the question(s) below: Coding Question(s): There is COVID-19 Pneumonia documented on the Discharge Summary Principal Diagnosis area, as well as documentation under the Hospital Course of, "Definitely has a component of metabolic encephalopathy secondary to acute illness COVID-19 pneumonia", and there is documentation of, "History of present COVID-19 infection. Completed treatment". Please specify below, in your clinical opinion. ( x) Component of Metabolic Encephalopathy secondary to Acute Covid-19 Pneumonia was treated during this admission ( ) Component of Metabolic Encephalopathy secondary to History/Sequela of Covid-19 Pneumonia was treated during this admission ( ) Other: Please Specify Physician's Response(s): Thank you Pamela Dempsey Principal Diagnosis: "that condition established after study, to be chiefly responsible for occasioning the admission of the patient to the hospital for care." Co-Existing Principal Diagnosis: "when two or more diagnoses equally meet the criteria for principal diagnosis as determined by the circumstances of admission, diagnostic work up, and/or therapy provided, and the Alphabetic Index, Tabular List, or another coding guideline does not provide sequencing direction, any one of the diagnoses may be sequenced first." "When the physician has documented what appears to be a current diagnosis in the body of the record, but has not included the diagnosis in the final diagnostic statement, the physician should be asked whether the diagnosis should be added." (Source Coding Clinic 2 QTR90. p3-4) ADI
== END 2020-06-14 20:10 | disposition home health service (06) | DRG 91 ==
LOC: ED 12:03 → 2E 12:03 → SUATTDRO 16:03 → 2E 17:47 → 3E 06-10 11:06

== ENCOUNTER 2024-07-09 12:44 | Inpatient (IN) ==
--- NOTE | 2024-07-09 13:00 | Emergency Department Note ---
Impression & Plan LLL pneumonia, UTI (urinary tract infection), Altered mental status ED Provider Note CHIEF COMPLAINT: Fever, blood in urine HISTORY OF PRESENTING ILLNESS: This 73-year-old female patient presents to the emergency department with her caregiver for evaluation of fevers, urinary symptoms, and a productive cough. The patient started with a runny nose, nasal congestion, and cough 4 days ago. Fever 100.5 F max. She is having clear phlegm when she coughs. She was seen by her PCP yesterday for burning with urination and blood in her urine. Her PCP performed a urinalysis that looked like it might be a UTI, but she has not been started on any antibiotics per her caregiver. She was started on Benzonatate for the cough. The patient took Tylenol 1 hour ago. The patient seems to be getting worse and seems a little confused today from the symptoms. No chest pain or SOB. No abdominal pain, nausea, or vomiting. Her stools were looser this morning. The caregiver has not noticed any rashes, cuts, or skin lesions. She is not on any blood thinners. She wears 2L of O2 at night. REVIEW OF SYSTEMS: See HPI for pertinent positives and pertinent negatives. ALLERGIES: Bactrim, Risperidone MEDICATIONS: See below PAST MEDICAL HISTORY: See below PHYSICAL EXAM: Vital Signs: Vitals are noted on the nurse's note and reviewed by myself. GENERAL: Non toxic in appearance and in no acute distress. SKIN: Capillary reflex less than 2 seconds. HEAD: Normocephalic, atraumatic. EARS: Bilateral external auditory canals clear without tragus tenderness. Bilateral tympanic membranes pearly rebolledo without erythema or effusion. No mastoid tenderness bilaterally. EYES: Pupils equal round and reactive to light and accommodation. Conjunctivae without injection, sclerae without icterus. Extraocular movements intact. NOSE: Patent, turbinates inflamed with no discharge. No sinus tenderness. MOUTH: The patient's tongue is dry, but buccal mucosa moist. Airway patent, uvula midline. Pharynx is not erythematous and not edematous pout exudate. Pharynx without postnasal drip. No evidence for peritonsillar abscess. NECK: Supple without nuchal rigidity. No lymphadenopathy. HEART: Regular rate and rhythm without murmurs gallops or rubs. LUNGS: Clear to auscultation bilaterally without wheezes, rales or rhonchi. No accessory muscle use or retractions. ABDOMEN: Positive bowel sounds x 4. Normal tympanic percussion. Soft, nontender to palpation. No masses or hepatosplenomegaly. No guarding, rigidity, or rebound tenderness. No CVA tenderness. No focal RLQ or LLQ tenderness. NEURO: The patient has an intellectual disability and her caregiver states that she is basically at baseline, but slightly more confused than normal. DIFFERENTIAL DIAGNOSIS: Differential diagnosis includes viral syndrome, RSV, Influenza, COVID, strep throat, pharyngitis/tonsillitis, mononucleosis, retropharyngeal abscess, peritonsillar abscess, otitis media, otitis externa, sinusitis, bronchitis, pneumonia, UTI, cellulitis, abscess, OK, sepsis, as well as other pathologies. ED COURSE AND MEDICAL DECISION MAKING: HISTORY FROM INDEPENDENT HISTORIAN: All history obtained from the patient's caregiver due to her intellectual disability MEDICATIONS GIVEN: 500 mL normal saline solution bolus. Rocephin 2 g IV. Doxycycline 100 mg p.o. MONITOR: Continuous pc network technician: Order was placed for continuous pc network technician. Patient was placed on the pc network technician and continuous pulse ox. Patient was noted to be in normal sinus rhythm at an initial rate of 90 bpm per my interpretation. EKG: EKG was interpreted by myself as normal sinus rhythm at 98 bpm with no acute ST or T wave changes and no significant change from her previous EKG. INTERPRETATION OF LABS: I interpreted the labs with full lab results as below in the lab section of this note. Laboratory results pertinent to the emergent complaint are discussed in the MDM section below. The patient was advised to follow up with their PCP and/or specialist(s) for further outpatient monitoring and management of any abnormal results. INTERPRETATION OF IMAGING: Imaging studies were interpreted by myself and read by radiology as per the imaging section of this note. The patient was advised to follow up with their PCP and/or specialist(s) for further outpatient management of any non-emergent abnormal findings. Chest x-ray showed a left basilar infiltrate and/or atelectasis. CHRONIC MEDICAL/SOCIAL CONDITIONS AFFECTING CARE: Intellectual disability CONSULTATIONS: On-call hospitalist. ED pharmacist. MDM SUMMARY: I examined the patient with the patient's caregiver at bedside. The patient has had a cough, fever, and URI symptoms for the past 4 days. She then started with urinary symptoms as well. Outpatient urinalysis was concerning for UTI per her caregiver, but she has not been started on antibiotics yet. The patient seemed to be getting worse today and she was brought to the ER. An IV lock was placed and labs were drawn. The patient was hydrated with 500 mL normal saline solution bolus. Chest x-ray showed a left basilar infiltrate and/or atelectasis. Blood cultures were drawn and are pending. Urinalysis is concerning for UTI with urine culture pending. I spoke with the ED pharmacist in regards to the antibiotic recommendations. Initially we were going to treat with Zithromax, but the patient's QT/QTc is 414/528 so this Zithromax was discontinued. The patient was given Rocephin 2 g IV as well as doxycycline 100 mg p.o. White blood cell count normal at 6.57. Hemoglobin normal at 12. Platelet count low, but stable at 86. Coags were normal. Glucose 143, but CMP otherwise normal. Lipase normal. Magnesium normal. Lactate and procalcitonin normal. High-sensitivity troponin normal. Respiratory BioFire negative. I had a meaningful discussion about this patient with Dr. Sharma who agrees with my assessment and the treatment plan. Due to the patient's pneumonia as well as UTI, her intellectual disability, and change in mental status, we feel the patient would benefit from admission for further IV antibiotics and management. I spoke with the on-call hospitalist who agreed to admit the patient for further evaluation and treatment. Please refer to their dictation for further details. The patient's care was transferred in stable condition. DIAGNOSIS: Left lower lobe pneumonia UTI Change in mental status Past Med/Surg History Problem List (Updated 07/09/24 @ 21:52 by Bridgett Lau PA-C) LLL pneumonia (Acute) UTI (urinary tract infection) (Acute) Pre-op testing Obesity Nocturnal hypoxia Pneumonia due to COVID-19 virus Hypersomnia Hearing loss (Acute) Mental disability (Acute) Routine gynecological examination Mental status, decreased (Acute) COVID-19 (Acute) Hypokalemia (Acute) Altered mental status (Acute) Hypoxia (Acute) Medical History Hydrocephalus Acute dehydration Pancytopenia Pneumonia due to 2019 novel coronavirus Obstructive hydrocephalus Moderate intellectual disability Diabetes mellitus, type II Parkinson disease GERD (gastroesophageal reflux disease) Osteoporosis Anxiety Schizophrenia Surgical History Hx of tonsillectomy Family History Other Family history unknown Social History Smoking Status: Never smoker Second Hand Exposure: No; Do You Dip or Chew Tobacco: No; Hx Alcohol Use: No (unable to answer) Hx Substance Use: No Preferred Language: Senegalese Communication Ability: Impaired Cone Marker Required: No Beliefs That Will Affect Care: None marital status: Single Current Living Situation: Jail How many Children do You have: 0 Feels Safe at Home: Yes Assistive Devices: Oxygen - Continuous Allergies Allergies Allergy/AdvReac Type Severity Reaction Status Date / Time Bactrim Allergy Unknown unknown Verified 07/04/16 07:35 risperidone Allergy Unknown Unknown Verified 07/09/24 15:37 sulfamethoxazole Allergy Unknown unknown Verified 07/09/24 15:37 trimethoprim Allergy Unknown unknown Verified 07/09/24 15:37 Flu Virus Vaccine Allergy Unknown . Uncoded 07/09/24 15:37 Home Meds Home Medications Medication Instructions Recorded Confirmed atorvastatin 20 mg tablet 20 mg PO HS 04/21/19 07/09/24 benztropine 0.5 mg tablet 0.5 mg PO BID 04/21/19 07/09/24 carbamide peroxide 6.5 % ear drops 5 drp OTB [id number]/21/19 07/09/24 (Ear Wax Drops) clozapine 25 mg tablet 25 mg PO QAM 04/21/19 07/09/24 fluoxetine 10 mg capsule 10 mg PO QAM 04/21/19 07/09/24 naproxen sodium 220 mg capsule 220 mg PO Q12H PRN Pain 04/21/19 07/09/24 chlorpromazine 10 mg tablet 10 mg PO AMHS 12/09/20 07/09/24 lorazepam 0.5 mg tablet 0.5 mg PO UD 12/09/20 07/09/24 acetaminophen 500 mg tablet 500 mg PO Q6H PRN Fever Or Pain 07/09/24 07/09/24 aluminum-mag hydroxide-simethicone 15 ml PO ACHS PRN Indigestion 07/09/24 07/09/24 200 mg-200 mg-20 mg/5 mL oral susp benzonatate 100 mg capsule 100 mg PO TID PRN Cough 07/09/24 07/09/24 calcium 315 mg (as 1 tab PO DAILY 07/09/24 07/09/24 citrate)-vitamin D3 6.25 mcg (250 unit) tablet capsaicin 0.075 % topical cream 1 applic topical TID PRN Pain 07/09/24 07/09/24 clozapine 25 mg tablet 87.5 mg PO HS 07/09/24 07/09/24 docusate sodium 100 mg capsule 200 mg PO BID 07/09/24 07/09/24 fluoxetine 40 mg capsule 40 mg PO QAM 07/09/24 07/09/24 gabapentin 100 mg capsule 200 mg PO HS 07/09/24 07/09/24 guaifenesin 600 mg tablet, 600 mg PO Q12H PRN COUGH OR 07/09/24 07/09/24 extended release 12 hr (Mucus CONGESTION Relief ER) loperamide 2 mg capsule 2 mg PO QID PRN Diarrhea 07/09/24 07/09/24 magnesium hydroxide 400 mg/5 mL 30 ml PO DAILY PRN Constipation 07/09/24 07/09/24 oral suspension (Milk of Magnesia) multivitamin (Daily-Pradip tablet) 1 tab PO DAILY 07/09/24 07/09/24 omega-3s 300 zn-boo-cbo-other 1 cap PO BID 07/09/24 07/09/24 [id number] oil 1,000 mg capsule ([place]-3 Fish Oil) omeprazole 40 mg capsule,delayed 40 mg PO DAILY 07/09/24 07/09/24 release peg 400-propylene glycol (PF) 0.4 1 drp OPB QID 07/09/24 07/09/24 %-0.3 % eye drops in a dropperette (Systane (PF)) selenium sulfide 1 % shampoo 1 applic topical UD PRN DANDRUFF 07/09/24 07/09/24 (Selsun Blue) Previous Rx's Medication Instructions Recorded Portable Oxygen #1 ea 12/09/20 Portable Oxygen #1 ea 03/31/21 Results & Data (ED) Vital Signs Vital Signs - 24 hr 07/09/24:52 07/09/24 12:52 07/09/24 13:03 Temperature 37.1 C Temperature Source Oral Pulse Rate 100 H 100 H 100 H Pulse Rate [Finger] Pulse Rate from SpO2 Sensor 100 H Pulse Rhythm Respiratory Rate 19 22 Blood Pressure 125/67 Blood Pressure [Right Arm] Blood Pressure Mean 86 Blood Pressure Mean [Right Arm] Pulse Oximetry 96 97 Oxygen Delivery Method Nasal Cannula Oxygen Flow Rate 2 Sepsis Recent Fever Within 48 Hours Yes Sepsis New/Unexplained Change in Mental Status No Sepsis Action Taken by Nursing No Action Required 07/09/24 13:11 07/09/24 13:27 07/09/24 13:33 Temperature Temperature Source Pulse Rate 102 H 97 H 94 H Pulse Rate [Finger] Pulse Rate from SpO2 Sensor 97 H 94 H Pulse Rhythm Regular Respiratory Rate 22 18 16 Blood Pressure Blood Pressure [Right Arm] Blood Pressure Mean Blood Pressure Mean [Right Arm] Pulse Oximetry 96 98 97 Oxygen Delivery Method Nasal Cannula Oxygen Flow Rate 2 Sepsis Recent Fever Within 48 Hours Sepsis New/Unexplained Change in Mental Status Sepsis Action Taken by Nursing 07/09/24 14:03 07/09/24 14:21 07/09/24 14:33 Temperature Temperature Source Pulse Rate 92 H 91 H 97 H Pulse Rate [Finger] Pulse Rate from SpO2 Sensor 92 H 92 H 97 H Pulse Rhythm Respiratory Rate 16 16 17 Blood Pressure Blood Pressure [Right Arm] Blood Pressure Mean Blood Pressure Mean [Right Arm] Pulse Oximetry 95 94 96 Oxygen Delivery Method Oxygen Flow Rate Sepsis Recent Fever Within 48 Hours Sepsis New/Unexplained Change in Mental Status Sepsis Action Taken by Nursing 07/09/24 15:16 Temperature Temperature Source Pulse Rate Pulse Rate [Finger] 92 H Pulse Rate from SpO2 Sensor Pulse Rhythm Respiratory Rate 16 Blood Pressure Blood Pressure [Right Arm] 113/62 Blood Pressure Mean Blood Pressure Mean [Right Arm] 79 Pulse Oximetry 99 Oxygen Delivery Method Room Air Oxygen Flow Rate Sepsis Recent Fever Within 48 Hours Sepsis New/Unexplained Change in Mental Status Sepsis Action Taken by Nursing Laboratory Data 07/09/24 13:09 07/09/24 13:09 Lab Results 07/09/24 Range/Units 13:09 WBC 6.57 (4.8-10.8) K/ul RBC 3.96 L (4.20-5.40) M/uL Hgb 12.0 (12.0-16.0) g/dl Hct 35.6 L (37.0-47.0) % MCV 89.9 (80.0-100.0) fL MCH 30.3 (25.0-34.0) pg MCHC 33.7 (32.0-36.0) g/dL RDW Std Deviation 43.8 (36.4-46.3) fL RDW Coeff of Ricardo 13.4 (11.5-14.5) % Plt Count 86 L (130-400) K/uL MPV 10.9 (9.4-12.4) fL Immature Gran % (Auto) 0.6 % Neut % (Auto) 74.7 % Lymph % (Auto) 14.8 % [place] % (Auto) 7.9 % Eos % (Auto) 1.8 % Baso % (Auto) 0.2 % Neut # (Auto) 4.91 (1.40-6.50) K/uL Lymph # (Auto) 0.97 L (1.20-3.40) K/uL [place] # (Auto) 0.52 (0.11-0.59) K/uL Eos # (Auto) 0.12 (0.00-0.50) K/uL Baso # (Auto) 0.01 (0.00-0.20) K/uL Immature Gran # (Auto) 0.04 (0.01-0.20) K/uL Platelet Estimate Decreased L (Normal) PT 10.7 (9.0-12.0) Seconds INR 1.0 (0.9-1.1) APTT 27 (21-31) Seconds PTT Ratio 1.0 Sodium 139 (136-145) mmol/L Potassium 4.4 (3.5-5.1) mmol/L Chloride 103 (98-107) mmol/L Carbon Dioxide 31 (21-32) mmol/L Anion Gap 5 (3-11) BUN 13 (6-23) mg/dl Creatinine 1.09 (0.6-1.2) mg/dl Est Cr Clr Drug Dosing 44.3 ml/min eGFR 53.31 BUN/Creatinine Ratio 11.9 (10-20) Glucose 143 H (70-99(Fasting)) mg/dl Lactate 1.4 (0.4-2.0) mmol/L Calcium 9.5 (8.6-10.3) mg/dl Magnesium 2.0 (1.7-2.4) mg/dl Total Bilirubin 0.7 (0.2-1.0) mg/dl AST 28 (13-39) U/L ALT 24 (7-52) U/L Alkaline Phosphatase 85 (34-104) U/L Troponin I High Sens 3.3 (0-14) pg/ml Total Protein 7.3 (6.0-8.3) gm/dl Albumin 4.2 (3.4-5.0) gm/dl Globulin 3.1 (2.5-4.0) gm/dl Albumin/Globulin Ratio 1.4 (0.9-2) Lipase 70 (11-82) U/L Procalcitonin 0.06 (0-0.5) ng/ml Urine Color Yellow Urine Appearance Cloudy A (Clear) Urine pH 5.0 (4.5-7.5) Ur Specific [place] 1.016 (1.000-1.030) Urine Protein Negative (Negative) Urine Glucose (UA) Negative (Negative) Urine Ketones Trace H (Negative) Urine Blood Negative (Negative) Urine Nitrite Positive A (Negative) Urine Bilirubin Negative (Negative) Urine Urobilinogen Negative (Negative) Ur Leukocyte Esterase 3+ H (Negative) Urine WBC (Auto) >50 H (0-5) /hpf Urine RBC (Auto) 3-5 H (0-2) /hpf U Hyaline Cast (Auto) 0-2 (0-2) /lpf U Epithel Cells (Auto) 0-2 (0-2) /hpf Urine Bacteria (Auto) 4+ H (None Seen) Urine Mucus Present A (None Prsent) Adenovirus (PCR) Not Detected (NotDetected) B. pertussis DNA (PCR) Not Detected (NotDetected) B.parapertussis DNA PCR Not Detected (NotDetected) C. pneumoniae DNA (PCR) Not Detected (NotDetected) Coronavirus OC43 (PCR) Not Detected (NotDetected) Coronavirus HKU1 (PCR) Not Detected (NotDetected) Coronavirus 229E (PCR) Not Detected (NotDetected) SARS-CoV-2 (PCR) Not Detected (NotDetected) Coronavirus NL63 (PCR) Not Detected (NotDetected) Human Metapneumovir PCR Not Detected (NotDetected) Influenza Type A (PCR) Not Detected (NotDetected) Influenza Type B (PCR) Not Detected (NotDetected) M. pneumoniae (PCR) Not Detected (NotDetected) Parainfluenza 1 (PCR) Not Detected (NotDetected) Parainfluenza 2 (PCR) Not Detected (NotDetected) Parainfluenza 3 (PCR) Not Detected (NotDetected) Parainfluenza 4 (PCR) Not Detected (NotDetected) RSV (PCR) Not Detected (NotDetected) Entero/Rhino (PCR) Not Detected (NotDetected) Administered Medications Acetaminophen (Acetaminophen 325 Mg Tab) 650 mg PO Q4H PRN PRN Reason: Pain or Fever Stop: 08/08/24 17:05 Last Admin: 07/09/24 20:30 Dose: 650 mg Documented By: MPS Artificial Tears (Artificial Tears) 1 drops OPB QID [facility] Stop: 08/08/24 20:59 Last Admin: 07/09/24 20:21 Dose: 2 units Documented By: MPS Atorvastatin Calcium (Atorvastatin 20 Mg Tab) 20 mg PO HS [facility] Stop: 08/08/24 20:59 Last Admin: 07/09/24 20:22 Dose: 20 mg Documented By: MPS Benztropine Mesylate (Benztropine Mesylate 0.5 Mg Tab) 0.5 mg PO BID [facility] Stop: 08/08/24 20:59 Last Admin: 07/09/24 20:22 Dose: 0.5 mg Documented By: MPS Chlorpromazine HCl (Chlorpromazine Hcl 10 Mg Tab) 10 mg PO BID [facility] Stop: 08/08/24 20:59 Last Admin: 07/09/24 20:22 Dose: 10 mg Documented By: MPS Clozapine (Clozapine 25 Mg Tab) 87.5 mg PO HS [facility]; Protocol Stop: 08/08/24 20:59 Last Admin: 07/09/24 20:22 Dose: 87.5 mg Documented By: MPS Docusate Sodium (Docusate Sodium 100 Mg Cap) 200 mg PO BID [facility] Stop: 08/08/24 20:59 Last Admin: 07/09/24 20:24 Dose: 200 mg Documented By: MPS Doxycycline Hyclate (Doxycycline Hyclate 100 Mg Cap) 100 mg PO BID [facility] Stop: 07/14/24 20:59 Last Admin: 07/09/24 20:23 Dose: 100 mg Documented By: MONALISA Enoxaparin Sodium (Enoxaparin Inj 40 Mg/0.4 Ml Syr) 40 mg SQ HS [facility] Stop: 08/08/24 20:59 Last Admin: 07/09/24 20:23 Dose: 40 mg Documented By: MPS Fish Oil ([place]-3 (Purified Fish Oil) 1 Gm Cap) 1 cap PO BID [facility] Stop: 08/08/24 20:59 Last Admin: 07/09/24 20:22 Dose: 1 cap Documented By: MPS Gabapentin (Gabapentin 100 Mg Cap) 200 mg PO HS [facility] Stop: 08/08/24 20:59 Last Admin: 07/09/24 20: Dose: 200 mg Documented By: MONALISA Sodium Chloride (Nss) 1,000 mls @ 80 mls/hr IV .[id number] [facility] Stop: 07/10/24 04:44 Last Admin: 07/09/24 16:39 Dose: 80 mls/hr Documented By: WALDO Lorazepam (Lorazepam 0.5 Mg Tab) 0.5 mg PO BID@1200,2100 [facility] Stop: 08/08/24 20:59 Last Admin: 07/09/24 20:21 Dose: 0.5 mg Documented By: MONALISA Discontinued Medications Azithromycin (Azithromycin 250 Mg Tab) 500 mg PO NOW ONE Stop: 07/09/24 13:54 Last Admin: 07/09/24 13:57 Dose: Not Given Documented By: CRISTELA Doxycycline Hyclate (Doxycycline Hyclate 100 Mg Cap) 100 mg PO NOW STA Stop: 07/09/24 13:55 Last Admin: 07/09/24 14:26 Dose: 100 mg Documented By: CRISTELA Sodium Chloride (Nss) 500 mls @ 999 mls/hr IV .Q31M ONE Stop: 07/09/24 13:38 Last Infusion: 07/09/24 14:21 Dose: Infused Documented By: Admin: 07/09/24 13:17 Dose: 999 mls/hr Documented By: TINA Ceftriaxone Sodium (Rocephin) 2,000 mg in 50 mls @ 100 mls/hr IV NOW STA Stop: 07/09/24 14:22 Last Infusion: 07/09/24 15:04 Dose: Infused Documented By: Admin: 07/09/24 14:26 Dose: 100 mls/hr Documented By: CRISTELA Sodium Chloride (Nss) 500 mls @ 999 mls/hr IV .Q31M ONE Stop: 07/09/24 15:44 Last Infusion: 07/09/24 16:26 Dose: Infused Documented By: Admin: 07/09/24 15:20 Dose: 999 mls/hr Documented By: WALDO Imaging Data Radiologist's Impression: Chest X-Ray 07/09/24 13:08 XR chest 1V portable CLINICAL HISTORY: Cough, fever COMPARISON STUDY: 06/09/2020 FINDINGS: There is increased retrocardiac density consistent with either left basilar infiltrate and/or a partial left basilar atelectasis. Lung mcelroy are otherwise clear allowing for generalized low lung volumes. There is no pneumothorax. IMPRESSION: Left basilar infiltrate and/or atelectasis. ACT 112: Negative or not required by law. Electronically signed by: Mala Vega M.D. 07/09/2024 1:44 PM Discharge Plan Visit Data Chief Complaint: Urinary Symptoms Stated Complaint: FEVER, LETHARGIC, HEMATURIA ED Provider: Roddy Sharma ED Midlevel Provider: Bridgett Lau Discharge Problem: LLL pneumonia, UTI (urinary tract infection), Altered mental status Patient Disposition: Admitted As Inpatient Condition: Good Discharge Instructions Interventions: ED Discharge Assessment Last Done: 07/09/24 17:05 Discharge Problem: LLL pneumonia Qualifiers: Pneumonia type: due to unspecified organism Qualified Code(s): J18.9 - Pneumonia, unspecified organism UTI (urinary tract infection) Qualifiers: Urinary tract infection type: acute cystitis Hematuria presence: with hematuria Qualified Code(s): N30.01 - Acute cystitis with hematuria
[2024-07-09] MEDS: SODIUM CHLORIDE 0.9% 500 ML IV ONE ×2 (13:17→15:20)
--- NOTE | 2024-07-09 13:45 | XRay Report ---
XR chest 1V portable CLINICAL HISTORY: Cough, fever COMPARISON STUDY: 06/09/2020 FINDINGS: There is increased retrocardiac density consistent with either left basilar infiltrate and/ or a partial left basilar atelectasis. Lung mcelroy are otherwise clear allowing for generalized low l reynold volumes. There is no pneumothorax. IMPRESSION: Left basilar infiltrate and/or atelectasis. ACT 112: Negative or not required by law. Electronically signed by: Mala Vega M.D. 07/09/2024 1:44 PM
[2024-07-09 13:53] LABS: Albumin Globulin Ratio 1.4 (0.9-2); Albumin Level 4.2 gm/dl (3.4-5.0); BUN Creatinine Ratio 11.9 (10-20); Bilirubin,Total 0.7 mg/dl (0.2-1.0); Calcium 9.5 mg/dl (8.6-10.3); Creatinine Clr Calc Pharmacy 44.3 ml/min; Globulin 3.1 gm/dl (2.5-4.0); Potassium 4.4 mmol/L (3.5-5.1); Total Protein 7.3 gm/dl (6.0-8.3)
[2024-07-09 13:56] LABS: Appearance Urine Cloudy (Clear); Bacteria Urine Automated 4+ (None Seen); Bilirubin Urine Negative (Negative); Blood Urine Negative (Negative); Color Urine Yellow; Epithelial Cell Urine Auto 0-2 /hpf (0-2); Glucose Urine UA Negative (Negative); Ketones Urine Trace (Negative); Leukocyte Esterase Urine 3+ (Negative); Mucus Urine Present (None Prsent); Nitrite Urine Positive (Negative); Protein Urine Negative (Negative); Specific Gravity Urine 1.016 (1.000-1.030); Urobilinogen Urine Negative (Negative); WBC Urine Automated >50 /hpf (0-5)
[2024-07-09 13:57] LABS: Cast Urine Automated 0-2 /lpf (0-2)
[2024-07-09] MEDS: AZITHROMYCIN 250 MG TAB PO ONE (13:57)
[2024-07-09 14:00] LABS: Troponin I High Sensitivity 3.3 pg/ml (0-14)
[2024-07-09 14:08] LABS: Basophils # (auto) 0.01 K/uL (0.00-0.20); Basophils % (auto) 0.2 %; Eosinophils # (auto) 0.12 K/uL (0.00-0.50); Eosinophils % (auto) 1.8 %; Hematocrit (blood only) 35.6 % (37.0-47.0); Immature Granulocytes # (auto) 0.04 K/uL (0.01-0.20); Immature Granulocytes % (auto) 0.6 %; Lymphocytes # (auto) 0.97 K/uL (1.20-3.40); Lymphocytes % (auto) 14.8 %; Mean Corpuscular Hemoglobin 30.3 pg (25.0-34.0); Mean Corpuscular Hgb Conc 33.7 g/dL (32.0-36.0); Mean Corpuscular Volume 89.9 fL (80.0-100.0); Mean Platelet Volume 10.9 fL (9.4-12.4); Monocytes # (auto) 0.52 K/uL (0.11-0.59); Monocytes % (auto) 7.9 %; Neutrophils # (auto) 4.91 K/uL (1.40-6.50); Neutrophils % (auto) 74.7 %; Platelet Count 86 K/uL (130-400); Platelet Estimate Decreased (Normal); RDW Coefficient of Variation 13.4 % (11.5-14.5); RDW Standard Deviation 43.8 fL (36.4-46.3); Red Blood Count 3.96 M/uL (4.20-5.40); White Blood Count 6.57 K/ul (4.8-10.8)
[2024-07-09 14:15] LABS: Partial Thromboplastin Time 27 Seconds (21-31); Prothrombin Time 10.7 Seconds (9.0-12.0)
[2024-07-09] MEDS: DOXYCYCLINE HYCLATE 100 MG CAP PO STA (14:26)
[2024-07-09] MEDS: cefTRIAXone SODIUM 2,000 MG/50 ML BAG IV STA (14:26)
[2024-07-09 15:02] LABS: Adenovirus PCR Not Detected (NotDetected); Bordetella parapertussis PCR Not Detected (NotDetected); Bordetella pertussis PCR Not Detected (NotDetected); Chlamydia pneumoniae PCR Not Detected (NotDetected); Coronavirus 229E PCR Not Detected (NotDetected); Coronavirus CoV-2 (COVID19)PCR Not Detected (NotDetected); Coronavirus HKU1 PCR Not Detected (NotDetected); Coronavirus NL63 PCR Not Detected (NotDetected); Coronavirus OC43PCR Not Detected (NotDetected); Human Metapneumovirus PCR Not Detected (NotDetected); Influenza A PCR Not Detected (NotDetected); Influenza B PCR Not Detected (NotDetected); Mycoplasma pneumoniae PCR Not Detected (NotDetected); Parainfluenza Virus 1 PCR Not Detected (NotDetected); Parainfluenza Virus 2 PCR Not Detected (NotDetected); Parainfluenza Virus 3 PCR Not Detected (NotDetected); Parainfluenza Virus 4 PCR Not Detected (NotDetected); Respiratory Syncytial VirusPCR Not Detected (NotDetected); Rhinovirus/Enterovirus PCR Not Detected (NotDetected)
--- NOTE | 2024-07-09 15:31 | History & Physical Report ---
<Statement entered by Carlito Crooks, DO - 07/09/24 16:50> I have seen and examined the patient and have discussed the case with the advance practice provider. I have reviewed the advanced practitioner's documentation, and I agree with, and take responsibility for that plan of care. Patient seen while still in the ED, caregiver at bedside. Patient did not express any significant complaints to me. Caregiver is concerned about urinary tract infection. Further plan of care as outlined below I spent a total of 14 minutes coordinating, documenting, and providing care for this patient excluding time spent by another provider/QHP. Date of Service July 09, 2024 Assessment & Plan (1) Metabolic encephalopathy: (2) UTI (urinary tract infection): (3) LLL pneumonia: (4) Nocturnal hypoxia: (5) Moderate intellectual disability: Plan This is a 73-year-old female who has a significant past medical history of paranoid schizophrenia, moderate intellectual disability, history of Parkinson's disease, congenital hydrocephalus, prediabetes, HLD, GERD, RLS, chronic ITP who currently resides at [facility] presents to ED today secondary to fever, cough for the past few days. #Metabolic Encephalopathy #UTI #Possible LLL PNA admit to medical outpt urine culture growing > 100k E. Coli Empirically tx with IV rocephin and oral doxy to cover UTI/Pulm lactic and procal WNL, doubt true PNA but given cough will empirically tx #Nocturnal Hypoxia pt is currently not hypoxia, was 98% on RA during my eval continue 2L O2 at HS #Chronic ITP: plt count stable #PreDM: last a1c, 5.9, will control with diet and monitor fbs, no indication for ISS at this time #Chronic Medical conditions Moderate Intellectual disability/ paranoid schizophrenia/ Parkinson's disease: continue home meds DVT ppx: Lovenox, monitor plt ct FULL CODE - per caregiver at bedside PCP: Mraicel Aden Dispo: admit I spent a total of 61 minutes coordinating, documenting and providing care for this patient excluding time spent in the performance of separately billed services or time spent by another provider/QHP. Pt was seen and examined in collaboration with Dr. Crooks, please see addendum In [employer] EMR pt is listed under Kate Jacobson, 48 with . Please review urine culture on 07/10 as it should be complete History of Present Illness Chief Complaint: Fever, Cough x few days. Primary Care Provider: Latisha Aden MD This is a 73-year-old female who has a significant past medical history of paranoid schizophrenia, moderate intellectual disability, history of Parkinson's disease, congenital hydrocephalus, prediabetes, HLD, GERD, RLS, chronic ITP who currently resides at [facility] presents to ED today secondary to fever, cough for the past few days. Of significance she was seen in clinic yesterday secondary to a cough that started approximately 3 to 4 days ago. Caregiver also reports dark urine. A urine sample was obtained which per outpatient chart review is already growing greater than 100,000 and E. coli. She was not prescribed anything at that appointment. Chest x-ray was also obtained which showed hazy opacities concerning for atelectasis versus aspiration. Due to worsening symptoms patient was brought to ED today. History obtained from congregational care pastor at bedside, ED provider as well as external chart review. Caregiver states that they noted a cough started on Saturday. Cough is occasionally productive and clear. It would come and go. They also noted that her urine started to become very dark and cloudy. Today she had a fever of 100.5 and they felt she was more confused. Due to worsening they brought her to the ED. She chronically wears 2 L of oxygen at bedtime, but they placed her on oxygen for comfort. She was not hypoxic. According to caregiver patient did not complain of chest pain, nausea or vomiting. She has been otherwise eating well. She had an episode of diarrhea this morning which is not unusual for her. She has been taking her medications regularly. There is no concern for aspiration at this time. In ED patient remained hemodynamically stable. Her CBC and CMP was generally unremarkable. Her platelets were chronically low at 86. Her urine concerning for infection. Respiratory bio fire was negative. Chest x-ray concerning for possible left lower lobe infiltrate versus atelectasis. She received IV Rocephin and doxycycline in the ED as well as a total of 1 L of IV fluid. Pt resides in a trailer at [facility] and has caregivers 10/12. Allergies Allergy/AdvReac Type Severity Reaction Status Date / Time Bactrim Allergy Unknown unknown Verified 07/04/16 07:35 risperidone Allergy Unknown Unknown Verified 07/09/24 15:37 sulfamethoxazole Allergy Unknown unknown Verified 07/09/24 15:37 trimethoprim Allergy Unknown unknown Verified 07/09/24 15:37 Flu Virus Vaccine Allergy Unknown . Uncoded 07/09/24 15:37 Home Medications Medication Instructions Recorded Confirmed Type atorvastatin 20 mg tablet 20 mg PO HS 04/21/19 07/09/24 History benztropine 0.5 mg tablet 0.5 mg PO BID 04/21/19 07/09/24 History carbamide peroxide 6.5 % ear drops 5 drp OTB [id number]/21/19 07/09/24 History (Ear Wax Drops) clozapine 25 mg tablet 25 mg PO QAM 04/21/19 07/09/24 History fluoxetine 10 mg capsule 10 mg PO QAM 04/21/19 07/09/24 History naproxen sodium 220 mg capsule 220 mg PO Q12H PRN Pain 04/21/19 07/09/24 History Portable Oxygen #1 ea 12/09/20 07/09/24 Rx chlorpromazine 10 mg tablet 10 mg PO AMHS 12/09/20 07/09/24 History lorazepam 0.5 mg tablet 0.5 mg PO UD 12/09/20 07/09/24 History Portable Oxygen #1 ea 03/31/21 07/09/24 Rx acetaminophen 500 mg tablet 500 mg PO Q6H PRN Fever Or Pain 07/09/24 07/09/24 History aluminum-mag hydroxide-simethicone 15 ml PO ACHS PRN Indigestion 07/09/24 07/09/24 History 200 mg-200 mg-20 mg/5 mL oral susp benzonatate 100 mg capsule 100 mg PO TID PRN Cough 07/09/24 07/09/24 History calcium 315 mg (as 1 tab PO DAILY 07/09/24 07/09/24 History citrate)-vitamin D3 6.25 mcg (250 unit) tablet capsaicin 0.075 % topical cream 1 applic topical TID PRN Pain 07/09/24 07/09/24 History clozapine 25 mg tablet 87.5 mg PO HS 07/09/24 07/09/24 History docusate sodium 100 mg capsule 200 mg PO BID 07/09/24 07/09/24 History fluoxetine 40 mg capsule 40 mg PO QAM 07/09/24 07/09/24 History gabapentin 100 mg capsule 200 mg PO HS 07/09/24 07/09/24 History guaifenesin 600 mg tablet, 600 mg PO Q12H PRN COUGH OR 07/09/24 07/09/24 History extended release 12 hr (Mucus CONGESTION Relief ER) loperamide 2 mg capsule 2 mg PO QID PRN Diarrhea 07/09/24 07/09/24 History magnesium hydroxide 400 mg/5 mL 30 ml PO DAILY PRN Constipation 07/09/24 07/09/24 History oral suspension (Milk of Magnesia) multivitamin (Daily-Pradip tablet) 1 tab PO DAILY 07/09/24 07/09/24 History omega-3s 300 [id number]-other 1 cap PO BID 07/09/24 07/09/24 History [id number] oil 1,000 mg capsule ([place]-3 Fish Oil) omeprazole 40 mg capsule,delayed 40 mg PO DAILY 07/09/24 07/09/24 History release peg 400-propylene glycol (PF) 0.4 1 drp OPB QID 07/09/24 07/09/24 History %-0.3 % eye drops in a dropperette (Systane (PF)) selenium sulfide 1 % shampoo 1 applic topical UD PRN DANDRUFF 07/09/24 07/09/24 History ([place] Blue) Past Med/Surg History Problem List (Updated 07/09/24 @ 16:18 by Elli Long PA-C) LLL pneumonia UTI (urinary tract infection) Pre-op testing Obesity Nocturnal hypoxia Pneumonia due to COVID-19 virus Hypersomnia Hearing loss (Acute) Mental disability (Acute) Routine gynecological examination Mental status, decreased (Acute) COVID-19 (Acute) Hypokalemia (Acute) Altered mental status Hypoxia (Acute) Medical History Hydrocephalus Acute dehydration Pancytopenia Pneumonia due to 2019 novel coronavirus Obstructive hydrocephalus Moderate intellectual disability Diabetes mellitus, type II Parkinson disease GERD (gastroesophageal reflux disease) Osteoporosis Anxiety Schizophrenia Surgical History Hx of tonsillectomy Family History Other Family history unknown Social History Smoking Status: Never smoker Second Hand Exposure: No; Do You Dip or Chew Tobacco: No; Hx Alcohol Use: No (unable to answer) Hx Substance Use: No Preferred Language: Kiswahili Communication Ability: Impaired Assistant Store Manager Required: No Beliefs That Will Affect Care: None marital status: Single Current Living Situation: Halfway How many Children do You have: 0 Feels Safe at Home: Yes Assistive Devices: Oxygen - Continuous Review of Systems Review of Systems: Unobtainable due to cognitive status Physical Exam Physical Exam: Constitutional: WD/WN, morbidly obese, F, I.D. vitals as above, NAD, sitting up in bed, unable to meaningfully converse Head: Normocephalic, Atraumatic Eyes: PERRL, conjunctivae normal, anicteric sclerae ENMT: external ear and nose normal, oropharynx normal dry membranes Neck: trachea midline, no thyromegaly normal visual inspection Respiratory: normal respiratory effort, lungs clear to auscultation, diminished at bases due to poor insp effort, no wheeze, rales, rhonchi. Cardiovascular: RRR, no murmur, obese lower ext, trace edema Vessels: no JVD or carotid bruit Chest: normal inspection of chest Abdomen: normal bowel sounds, soft, nontender, no hepatosplenomegaly Musculoskeletal: no cyanosis or clubbing, Skin: no rashes, warm and dry normal turgor Neurologic: no face palsy, no dysarthria CN's II-XI intact bilaterally and moves all extremities Results & Data Results & Data Vital Signs (Past 12 Hours) Vital Signs Temp Pulse Pulse Resp BP BP Pulse Ox 07/09/24 15:16 92 H 16 113/62 99 07/09/24 14:33 97 H 17 96 07/09/24 14:21 91 H 16 94 07/09/24 14:03 92 H 16 95 07/09/24 13:33 94 H 16 97 07/09/24 13:27 97 H 18 98 07/09/24 13:11 102 H 22 96 07/09/24 13:03 100 H 22 97 07/09/24 12:52 100 H 07/09/24 12:52 37.1 C 100 H 19 125/67 96 O2 Del Method O2 Flow Rate 07/09/24 15:16 Room Air 07/09/24 14:33 07/09/24 14:21 07/09/24 14:03 07/09/24 13:33 07/09/24 13:27 07/09/24 13:11 Nasal Cannula 2 07/09/24 13:03 07/09/24 12:52 07/09/24 12:52 Nasal Cannula 2 Laboratory Results I have independently reviewed and interpreted patient's admitting labs including CBC, CMP, PTT, PT/INR, lactate, lipase, mag and troponin. Diagnostic Findings Chest X-Ray 07/09/24 13:08 XR chest 1V portable CLINICAL HISTORY: Cough, fever COMPARISON STUDY: 06/09/2020 FINDINGS: There is increased retrocardiac density consistent with either left basilar infiltrate and/or a partial left basilar atelectasis. Lung mcelroy are otherwise clear allowing for generalized low lung volumes. There is no pneumothorax. IMPRESSION: Left basilar infiltrate and/or atelectasis. ACT 112: Negative or not required by law. Electronically signed by: Mala Vega M.D. 07/09/2024 1:44 PM Medications Administered Medication List Sodium Chloride (Nss) 500 mls @ 999 mls/hr IV .Q31M ONE Stop: 07/09/24 15:44 Last Admin: 07/09/24 15:20 Dose: 999 mls/hr Documented By: WALDO Discontinued Medications Azithromycin (Azithromycin 250 Mg Tab) 500 mg PO NOW ONE Stop: 07/09/24 13:54 Last Admin: 07/09/24 13:57 Dose: Not Given Documented By: CRISTELA Doxycycline Hyclate (Doxycycline Hyclate 100 Mg Cap) 100 mg PO NOW STA Stop: 07/09/24 13:55 Last Admin: 07/09/24 14:26 Dose: 100 mg Documented By: CRISTELA Sodium Chloride (Nss) 500 mls @ 999 mls/hr IV .Q31M ONE Stop: 07/09/24 13:38 Last Infusion: 07/09/24 14:21 Dose: Infused Documented By: Admin: 07/09/24 13:17 Dose: 999 mls/hr Documented By: TINA Ceftriaxone Sodium (Rocephin) 2,000 mg in 50 mls @ 100 mls/hr IV NOW STA Stop: 07/09/24 14:22 Last Infusion: 07/09/24 15:04 Dose: Infused Documented By: Admin: 07/09/24 14:26 Dose: 100 mls/hr Documented By: ML ECG Additional Comments: I have independently reviewed and interpreted patient's admitting EKG which revealed: NSR, 98 bpm, qtc 528ms, no st or t wave changes noted COVID-19 Results Results COVID-19 Adm Lab Results: RBC 3.96 M/uL (4.20-5.40) L 07/09/24 WBC 6.57 K/ul (4.8-10.8) 07/09/24 Hgb 12.0 g/dl (12.0-16.0) 07/09/24 Hct 35.6 % (37.0-47.0) L 07/09/24 Plt Count 86 K/uL (130-400) L 07/09/24 Neutrophils (%) (Auto) 74.7 % 07/09/24 Lymphocytes (%) (Auto) 14.8 % 07/09/24 Monocytes # (Auto) 0.52 K/uL (0.11-0.59) 07/09/24 Eosinophils # (Auto) 0.12 K/uL (0.00-0.50) 07/09/24 Immature Granulocyte % (Auto) 0.6 % 07/09/24 Neutrophils # (Auto) 4.91 K/uL (1.40-6.50) 07/09/24 Lymphocytes # (Auto) 0.97 K/uL (1.20-3.40) L 07/09/24 Monocytes # (Auto) 0.52 K/uL (0.11-0.59) 07/09/24 Eosinophils # (Auto) 0.12 K/uL (0.00-0.50) 07/09/24 Basophils # (Auto) 0.01 K/uL (0.00-0.20) 07/09/24 Immature Granulocyte # (Auto) 0.04 K/uL (0.01-0.20) 5 Na 139 mmol/L (136-145) 07/09/24 K 4.4 mmol/L (3.5-5.1) 07/09/24 Cl 103 mmol/L (98-107) 07/09/24 CO2 31 mmol/L (21-32) 07/09/24 Anion Gap 5 (3-11) 07/09/24 BUN 13 mg/dl (6-23) 07/09/24 Creatinine 1.09 mg/dl (0.6-1.2) 07/09/24 BUN/Creatinine Ratio 11.9 (10-20) 07/09/24 Glucose Level 143 mg/dl (70-99(Fasting)) H 07/09/24 Ca 9.5 mg/dl (8.6-10.3) 07/09/24 Total Bilirubin 0.7 mg/dl (0.2-1.0) 07/09/24 AST/SGOT 28 U/L (13-39) 07/09/24 ALT/SGPT 24 U/L (7-52) 07/09/24 Alkaline Phosphatase 85 U/L (34-104) 07/09/24 Total Protein 7.3 gm/dl (6.0-8.3) 07/09/24 Albumin 4.2 gm/dl (3.4-5.0) 07/09/24 Globulin 3.1 gm/dl (2.5-4.0) 07/09/24 Albumin/Globulin Ratio 1.4 (0.9-2) 07/09/24 Procalcitonin 0.06 ng/ml (0-0.5) 07/09/24 PTT 27 Seconds (21-31) 07/09/24 INR 1.0 (0.9-1.1) 07/09/24 Adenovirus (PCR) Not Detected (NotDetected) 07/09/24 B. parapertussis DNA (PCR) Not Detected (NotDetected) 06/21 0 B. pertussis DNA (PCR) Not Detected (NotDetected) 07/09/24 C. pneumoniae DNA (PCR) Not Detected (NotDetected) 5 Coronavirus Type OC43 (PCR) Not Detected (NotDetected) Coronavirus Type HKU1 (PCR) Not Detected (NotDetected) Coronavirus Type 229E (PCR) Not Detected (NotDetected) COVID-19 PCR Not Detected (NotDetected) 07/09/24 Coronavirus Type NL63 (PCR) Not Detected (NotDetected) Human Metapneumovirus (PCR) Not Detected (NotDetected) Influenza Virus Type A (PCR) Not Detected (NotDetected) Influenza Virus Type B (PCR) Not Detected (NotDetected) M. pneumoniae (PCR) Not Detected (NotDetected) 07/09/24 Parainfluenza Type 1 (PCR) Not Detected (NotDetected) 06/21 Parainfluenza Type 2 (PCR) Not Detected (NotDetected) 06/21 Parainfluenza Type 3 (PCR) Not Detected (NotDetected) 06/21 Parainfluenza Type 4 (PCR) Not Detected (NotDetected) 06/21 RSV (PCR) Not Detected (NotDetected) 07/09/24 Enterovirus/Rhinovirus (PCR) Not Detected (NotDetected) Chest X-Ray 07/09/24 Code Status & VTE Plan Code Status FULL CODE
--- NOTE | 2024-07-09 16:11 | Electrocardiogram Report ---
Test Reason : Blood Pressure : */* mmHG Vent. Rate : 98 BPM Atrial Rate : 98 BPM P-R Int : 122 ms QRS Dur : 76 ms QT Int : 414 ms P-R-T Axes : 14 1 31 degrees QTcB Int : 528 ms Normal sinus rhythm Nonspecific T wave abnormality Abnormal ECG When compared with ECG of 09-Jun-2020 12:13, No significant change was found Confirmed by Fernie Cordova ([id number]) on 07/09/2024 4:11:00 PM Referred By: Confirmed By: Fernie Cordova
[2024-07-09] MEDS: SODIUM CHLORIDE 0.9% 1,000 ML IV SCH (16:39)
[2024-07-09] MEDS ORDERED: ONDANSETRON INJ 2 MG/ML 2 ML VIAL IV PRN (17:06)
[2024-07-09] MEDS ORDERED: POLYETHYLENE (MIRALAX) 17 GM PACK PO PRN (17:06)
[2024-07-09] MEDS ORDERED: FAMOTIDINE 20 MG TAB PO PRN (17:06)
[2024-07-09] MEDS: ARTIFICIAL TEARS OPB SCH (20:21)
[2024-07-09] MEDS: LORazepam 0.5 MG TAB PO SCH (20:21)
[2024-07-09] MEDS: ATORVASTATIN 20 MG TAB PO SCH (20:22)
[2024-07-09] MEDS: BENZTROPINE MESYLATE 0.5 MG TAB PO SCH (20:22)
[2024-07-09] MEDS: cloZAPine 25 MG TAB PO SCH (20:22)
[2024-07-09] MEDS: GABAPENTIN 100 MG CAP PO SCH (20:22)
[2024-07-09] MEDS: OMEGA-3 (PURIFIED FISH OIL) 1 GM CAP PO SCH (20:22)
[2024-07-09] MEDS: chlorproMAZINE HCL 10 MG TAB PO SCH (20:22)
[2024-07-09] MEDS: ENOXAPARIN INJ 40 MG/0.4 ML SYR SQ SCH (20:23)
[2024-07-09] MEDS: DOXYCYCLINE HYCLATE 100 MG CAP PO SCH (20:23)
[2024-07-09] MEDS: DOCUSATE SODIUM 100 MG CAP PO SCH (20:24)
[2024-07-09] MEDS: ACETAMINOPHEN 325 MG TAB PO PRN (20:30)
[2024-07-09] MEDS ORDERED: MELATONIN 3 MG TAB PO PRN (21:00)
[2024-07-10] MEDS: cloZAPine 25 MG TAB PO SCH (07:25)
[2024-07-10] MEDS: PANTOprazole 40 MG TAB PO SCH (07:25)
[2024-07-10] MEDS: FLUoxetine HCL 20 MG CAP PO SCH (07:26)
[2024-07-10] MEDS: MULTIVITAMIN TAB PO SCH (07:26)
[2024-07-10] MEDS: ADVANCED PROBIOTIC 625 MG CAPSULE PO SCH (07:27)
[2024-07-10] MEDS: FLUoxetine HCL 10 MG CAP PO SCH (07:28)
[2024-07-10] MEDS: BENZONATATE 100 MG CAPSULE PO PRN (07:31)
[2024-07-10 10:18] LABS: Eosinophils # (auto) 0.09 K/uL (0.00-0.50); Eosinophils % (auto) 1.4 %; Hematocrit (blood only) 30.3 % (37.0-47.0); Hemoglobin 10.3 g/dl (12.0-16.0); Immature Granulocytes # (auto) 0.04 K/uL (0.01-0.20); Immature Granulocytes % (auto) 0.6 %; Lymphocytes # (auto) 0.75 K/uL (1.20-3.40); Lymphocytes % (auto) 11.5 %; Mean Corpuscular Hemoglobin 30.7 pg (25.0-34.0); Mean Corpuscular Volume 90.4 fL (80.0-100.0); Mean Platelet Volume 10.4 fL (9.4-12.4); Monocytes # (auto) 0.43 K/uL (0.11-0.59); Monocytes % (auto) 6.6 %; Neutrophils # (auto) 5.22 K/uL (1.40-6.50); Neutrophils % (auto) 79.9 %; Platelet Count 74 K/uL (130-400); RDW Coefficient of Variation 13.4 % (11.5-14.5); RDW Standard Deviation 43.9 fL (36.4-46.3); Red Blood Count 3.35 M/uL (4.20-5.40); White Blood Count 6.53 K/ul (4.8-10.8)
[2024-07-10 10:29] LABS: Calcium 8.8 mg/dl (8.6-10.3); Creatinine Clr Calc Pharmacy 48.3 ml/min
[2024-07-10] MEDS: CALCIUM 600MG + VIT D 400 IU TAB PO SCH (11:25)
[2024-07-10 13:22] LABS: Estimated Average Glucose 126 mg/dl
[2024-07-10] MEDS: cefTRIAXone SODIUM 2,000 MG/50 ML BAG IV SCH (14:08)
--- NOTE | 2024-07-10 16:10 | Hospitalist Progress Note ---
Date of Service July 10, 2024 Assessment & Plan (1) Metabolic encephalopathy: (2) UTI (urinary tract infection): (3) LLL pneumonia: (4) Nocturnal hypoxia: (5) Moderate intellectual disability: Plan Patient is a 73 yr female who has a significant past medical history of paranoid schizophrenia, moderate intellectual disability, history of Parkinson's disease, congenital hydrocephalus, prediabetes, HLD, GERD, RLS, chronic ITP who currently resides at [facility] presents to ED today secondary to fever, cough for the past few days. Acute Metabolic Encephalopathy UTI Possible LLL PNA --Outpt urine culture growing > 100k E. Coli -CXR: Left basilar infiltrate and/or atelectasis. -Urine culture growing Klebsiella--Sensitivities pending -Blood culture negative to date -BioFire negative -Normal procalcitonin Continue IV Rocephin, doxycycline for now Nocturnal Hypoxia continue 2L O2 at HS May need to step prior to discharge Chronic ITP: No acute bleeding issues Monitor platelets Prediabetes HbA1c 6.0 Chronic Medical conditions: Moderate Intellectual disability/ paranoid schizophrenia/ Parkinson's disease: continue home meds DVT Px: Lovenox SQ Code Status Full Code Admission and Anticipated Discharge Date Admission Date: July 09, 2024 Subjective Patient is seen and examined at bedside States feeling better today Cough much improved Denies any dyspnea, chest pain, nausea, vomiting, abdominal pain Eager to get discharged Discussed with patient's coverage specialist at bedside Review of Systems Review of Systems: All systems reviewed & are unremarkable except as noted in Subjective Physical Exam Physical Exam: Physical Exam: Vitals signs as noted above General Appearance:Moderately built and nourished, no apparent distress, chronic ill appearing Head: normocephalic, Atraumatic Eyes: normal inspection, EOMI Neck: supple, Trachea midline Respiratory/Chest: Decreased breath sounds, CTA, No accessory muscle use Cardiovascular: S1, S2, No murmur Abdomen/GI:Soft, Non tender, Bowel sounds present Extremities/Musculoskeletal:normal inspection, Trace edema Neurologic/Psych:AAO, grossly no focal neurological deficits, mild chronic dysarthria Skin: normal color, warm Results & Data Results & Data Vital Signs (Past 12 Hours) Vital Signs Temp Pulse Resp BP Pulse Ox O2 Del Method O2 Flow Rate 07/10/24 14:34 36.8 C 97 H 16 106/72 95 Nasal Cannula 2 07/10/24 07:47 37.4 C 108 H 16 105/70 96 Nasal Cannula 3 07/10/24 07:30 Nasal Cannula 3 07/10/24 07:16 37.1 C 114 H 20 162/82 H 91 Nasal Cannula 3 07/10/24 06:04 95 H 14 137/82 93 Nasal Cannula 2 Laboratory Results Short CBC 07/10/24 Range/Units 09:43 WBC 6.53 (4.8-10.8) K/ul Hgb 10.3 L (12.0-16.0) g/dl Hct 30.3 L (37.0-47.0) % Plt Count 74 L (130-400) K/uL BMP 07/10/24 09:43 Sodium 140 Potassium 4.0 Chloride 108 H Carbon Dioxide 28 BUN 11 Creatinine 1.00 Glucose 137 H Calcium 8.8 (2) UTI (urinary tract infection) Hematuria presence: with hematuria Urinary tract infection type: acute cystitis Qualified Code(s): N30.01 - Acute cystitis with hematuria (3) LLL pneumonia Pneumonia type: due to unspecified organism Qualified Code(s): J18.9 - Pneumonia, unspecified organism
[2024-07-11 08:02] LABS: BUN Creatinine Ratio 12.7 (10-20); Calcium 8.9 mg/dl (8.6-10.3); Creatinine Clr Calc Pharmacy 61.2 ml/min; Potassium 3.9 mmol/L (3.5-5.1)
[2024-07-11 15:24] VITALS: RESP 16
--- NOTE | 2024-07-11 15:56 | Hospitalist Progress Note ---
Date of Service July 11, 2024 Assessment & Plan (1) Metabolic encephalopathy: (2) UTI (urinary tract infection): (3) LLL pneumonia: (4) Nocturnal hypoxia: (5) Moderate intellectual disability: Plan Patient is a 73 yr female who has a significant past medical history of paranoid schizophrenia, moderate intellectual disability, history of Parkinson's disease, congenital hydrocephalus, prediabetes, HLD, GERD, RLS, chronic ITP who currently resides at [facility] presents to ED today secondary to fever, cough for the past few days. Acute Metabolic Encephalopathy UTI Possible LLL PNA --Outpt urine culture growing > 100k E. Coli -CXR: Left basilar infiltrate and/or atelectasis. -Urine culture growing Klebsiella -Blood culture negative to date -BioFire negative -Normal procalcitonin Continue IV Rocephin, doxycycline Continue IV fluids Saturating well on 2 L supplemental oxygen Likely discharge tomorrow May need 2 step prior to discharge Nocturnal Hypoxia continue 2L O2 at HS May need to step prior to discharge Chronic ITP: No acute bleeding issues Monitor platelets Prediabetes HbA1c 6.0 Chronic Medical conditions: Moderate Intellectual disability/ paranoid schizophrenia/ Parkinson's disease: continue home meds DVT Px: SCDs Re: Thrombocytopenia Code Status Full Code Admission and Anticipated Discharge Date Admission Date: July 09, 2024 Subjective Patient is seen and examined at bedside Reports minimal cough Prefers to be discharged No other complaints today Denies any dyspnea, chest pain, nausea, vomiting, abdominal pain Review of Systems Review of Systems: All systems reviewed & are unremarkable except as noted in Subjective Physical Exam Physical Exam: Physical Exam: Vitals signs as noted above General Appearance:Moderately built and nourished, no apparent distress, chronic ill appearing Head: normocephalic, Atraumatic Eyes: normal inspection, EOMI Neck: supple, Trachea midline Respiratory/Chest: Decreased breath sounds, CTA, No accessory muscle use Cardiovascular: S1, S2, No murmur Abdomen/GI:Soft, Non tender, Bowel sounds present Extremities/Musculoskeletal:normal inspection, Trace edema Neurologic/Psych:AAO, grossly no focal neurological deficits, mild chronic dysarthria Skin: normal color, warm Results & Data Results & Data Vital Signs (Past 12 Hours) Vital Signs Temp Pulse Resp BP Pulse Ox O2 Del Method O2 Flow Rate 07/11/24 15:21 36.9 C 106 H 16 114/72 96 Nasal Cannula 2 07/11/24 09:00 Nasal Cannula 2 07/11/24 07:20 37.4 C 97 H 15 98/62 L 92 Nasal Cannula 2 Laboratory Results [facility] 07/11/24 07:03 Sodium 140 Potassium 3.9 Chloride 106 Carbon Dioxide 29 BUN 10 Creatinine 0.79 Glucose 109 H Calcium 8.9 (2) UTI (urinary tract infection) Hematuria presence: with hematuria Urinary tract infection type: acute cystitis Qualified Code(s): N30.01 - Acute cystitis with hematuria (3) LLL pneumonia Pneumonia type: due to unspecified organism Qualified Code(s): J18.9 - Pneumonia, unspecified organism
[2024-07-11] MEDS: SODIUM CHLORIDE 0.9% 1,000 ML IV ONE (15:57)
[2024-07-12 06:12] LABS: Hematocrit (blood only) 29.4 % (37.0-47.0); Hemoglobin 9.9 g/dl (12.0-16.0); Mean Corpuscular Hemoglobin 30.7 pg (25.0-34.0); Mean Corpuscular Hgb Conc 33.7 g/dL (32.0-36.0); Mean Corpuscular Volume 91.3 fL (80.0-100.0); Mean Platelet Volume 10.3 fL (9.4-12.4); Platelet Count 74 K/uL (130-400); RDW Coefficient of Variation 13.5 % (11.5-14.5); RDW Standard Deviation 45.5 fL (36.4-46.3); Red Blood Count 3.22 M/uL (4.20-5.40); White Blood Count 4.98 K/ul (4.8-10.8)
[2024-07-12 06:28] LABS: BUN Creatinine Ratio 15.5 (10-20); Calcium 8.6 mg/dl (8.6-10.3); Creatinine Clr Calc Pharmacy 57.5 ml/min; Potassium 3.6 mmol/L (3.5-5.1)
[2024-07-12 07:42] VITALS: BP 133/79; PULSE 94; TEMP 98.2
[2024-07-12] MEDS ORDERED: cefTRIAXone SODIUM 2,000 MG/50 ML BAG IV SCH (09:40)
[2024-07-12 11:40] VITALS: O2SAT 91
--- NOTE | 2024-07-12 12:50 | Hospitalist Progress Note ---
Date of Service July 12, 2024 Assessment & Plan (1) Metabolic encephalopathy: (2) UTI (urinary tract infection): (3) LLL pneumonia: (4) Nocturnal hypoxia: (5) Moderate intellectual disability: Plan Patient is a 73 yr female who has a significant past medical history of paranoid schizophrenia, moderate intellectual disability, history of Parkinson's disease, congenital hydrocephalus, prediabetes, HLD, GERD, RLS, chronic ITP who currently resides at [facility] presents to ED today secondary to fever, cough for the past few days. Acute Metabolic Encephalopathy UTI Possible LLL PNA --Outpt urine culture growing > 100k E. Coli -CXR: Left basilar infiltrate and/or atelectasis. -Urine culture growing Klebsiella -Blood culture negative to date -BioFire negative -Elevated procalcitonin Continue IV Rocephin, doxycycline Transition to oral antibiotics on discharge Weaned off of supplemental oxygen Nocturnal Hypoxia continue 2L O2 at HS May need to step prior to discharge Chronic ITP: No acute bleeding issues Monitor platelets Prediabetes HbA1c 6.0 Chronic Medical conditions: Moderate Intellectual disability/ paranoid schizophrenia/ Parkinson's disease: continue home meds DVT Px: SCDs Re: Thrombocytopenia Code Status Full Code Admission and Anticipated Discharge Date Admission Date: July 09, 2024 Subjective Patient is seen and examined at bedside No new complaints cough improved Shipping Helper at bedside Eager to get discharged Denies any dyspnea, chest pain, nausea, vomiting, abdominal pain Saturating low 90s on room air Review of Systems Review of Systems: All systems reviewed & are unremarkable except as noted in Subjective Physical Exam Physical Exam: Physical Exam: Vitals signs as noted above General Appearance:Moderately built and nourished, no apparent distress, chronic ill appearing Head: normocephalic, Atraumatic Eyes: normal inspection, EOMI Neck: supple, Trachea midline Respiratory/Chest: Decreased breath sounds, CTA, No accessory muscle use Cardiovascular: S1, S2, No murmur Abdomen/GI:Soft, Non tender, Bowel sounds present Extremities/Musculoskeletal:normal inspection, Trace edema Neurologic/Psych:AAO, grossly no focal neurological deficits, mild chronic dysarthria Skin: normal color, warm Results & Data Results & Data Vital Signs (Past 12 Hours) Vital Signs Temp Pulse Resp BP Pulse Ox O2 Del Method O2 Flow Rate 07/12/24 11:39 91 Room Air 07/12/24 08:30 Nasal Cannula 2 07/12/24 07:39 36.8 C 94 H 16 133/79 97 Nasal Cannula 2 Laboratory Results Short CBC 07/12/24 Range/Units 05:44 WBC 4.98 (4.8-10.8) K/ul Hgb 9.9 L (12.0-16.0) g/dl Hct 29.4 L (37.0-47.0) % Plt Count 74 L (130-400) K/uL BMP 07/12/24 05:44 Sodium 142 Potassium 3.6 Chloride 108 H Carbon Dioxide 29 BUN 13 Creatinine 0.84 Glucose 108 H Calcium 8.6 (2) UTI (urinary tract infection) Hematuria presence: with hematuria Urinary tract infection type: acute cystitis Qualified Code(s): N30.01 - Acute cystitis with hematuria (3) LLL pneumonia Pneumonia type: due to unspecified organism Qualified Code(s): J18.9 - Pneumonia, unspecified organism
--- NOTE | 2024-07-12 13:01 | Discharge Summary ---
Date of Service July 12, 2024 Admission HPI Per Admitting Provider This is a 73-year-old female who has a significant past medical history of paranoid schizophrenia, moderate intellectual disability, history of Parkinson's disease, congenital hydrocephalus, prediabetes, HLD, GERD, RLS, chronic ITP who currently resides at [facility] presents to ED today secondary to fever, cough for the past few days. Of significance she was seen in clinic yesterday secondary to a cough that started approximately 3 to 4 days ago. Caregiver also reports dark urine. A urine sample was obtained which per outpatient chart review is already growing greater than 100,000 and E. coli. She was not prescribed anything at that appointment. Chest x-ray was also obtained which showed hazy opacities concerning for atelectasis versus aspiration. Due to worsening symptoms patient was brought to ED today. History obtained from caregiver at bedside, ED provider as well as external chart review. Caregiver states that they noted a cough started on Saturday. Cough is occasionally productive and clear. It would come and go. They also noted that her urine started to become very dark and cloudy. Today she had a fever of 100.5 and they felt she was more confused. Due to worsening they brought her to the ED. She chronically wears 2 L of oxygen at bedtime, but they placed her on oxygen for comfort. She was not hypoxic. According to caregiver patient did not complain of chest pain, nausea or vomiting. She has been otherwise eating well. She had an episode of diarrhea this morning which is not unusual for her. She has been taking her medications regularly. There is no concern for aspiration at this time. In ED patient remained hemodynamically stable. Her CBC and CMP was generally unremarkable. Her platelets were chronically low at 86. Her urine concerning for infection. Respiratory bio fire was negative. Chest x-ray concerning for possible left lower lobe infiltrate versus atelectasis. She received IV Rocephin and doxycycline in the ED as well as a total of 1 L of IV fluid. Pt resides in a trailer at [facility] and has caregivers 10/12. Admission Exam Per Admitting Provider Constitutional: WD/WN, morbidly obese, F, I.D. vitals as above, NAD, sitting up in bed, unable to meaningfully converse Head: Normocephalic, Atraumatic Eyes: PERRL, conjunctivae normal, anicteric sclerae ENMT: external ear and nose normal, oropharynx normal dry membranes Neck: trachea midline, no thyromegaly normal visual inspection Respiratory: normal respiratory effort, lungs clear to auscultation, diminished at bases due to poor insp effort, no wheeze, rales, rhonchi. Cardiovascular: RRR, no murmur, obese lower ext, trace edema Vessels: no JVD or carotid bruit Chest: normal inspection of chest Abdomen: normal bowel sounds, soft, nontender, no hepatosplenomegaly Musculoskeletal: no cyanosis or clubbing, Skin: no rashes, warm and dry normal turgor Neurologic: no face palsy, no dysarthria CN's II-XI intact bilaterally and moves all extremities Principal Diagnosis Acute Metabolic Encephalopathy Urinary tract infection Suspected left lower lobe pneumonia Discharge Data Allergies Allergy/AdvReac Type Severity Reaction Status Date / Time Bactrim Allergy Unknown unknown Verified 07/04/16 07:35 risperidone Allergy Unknown Unknown Verified 07/09/24 15:37 sulfamethoxazole Allergy Unknown unknown Verified 07/09/24 15:37 trimethoprim Allergy Unknown unknown Verified 07/09/24 15:37 Flu Virus Vaccine Allergy Unknown . Uncoded 07/09/24 15:37 Consultations 07/09/24 15:12 ED Decision to Admit Stat Procedures Performed Laboratory Results WBC 4.98 K/ul (4.8-10.8) 07/12/24 05:44 RBC 3.22 M/uL (4.20-5.40) L 07/12/24 05:44 Hgb 9.9 g/dl (12.0-16.0) L 07/12/24 05:44 Hct 29.4 % (37.0-47.0) L 07/12/24 05:44 MCV 91.3 fL (80.0-100.0) 07/12/24 05:44 MCH 30.7 pg (25.0-34.0) 07/12/24 05:44 MCHC 33.7 g/dL (32.0-36.0) 07/12/24 05:44 RDW Std Deviation 45.5 fL (36.4-46.3) 07/12/24 05:44 RDW Coeff of Ricardo 13.5 % (11.5-14.5) 07/12/24 05:44 Plt Count 74 K/uL (130-400) L 07/12/24 05:44 MPV 10.3 fL (9.4-12.4) 07/12/24 05:44 Immature Gran % (Auto) 0.6 % 07/10/24 09:43 Neut % (Auto) 79.9 % 07/10/24 09:43 Lymph % (Auto) 11.5 % 07/10/24 09:43 [place] % (Auto) 6.6 % 07/10/24 09:43 Eos % (Auto) 1.4 % 07/10/24 09:43 Baso % (Auto) 0.0 % 07/10/24 09:43 Neut # (Auto) 5.22 K/uL (1.40-6.50) 07/10/24 09:43 Lymph # (Auto) 0.75 K/uL (1.20-3.40) L 07/10/24 09:43 [place] # (Auto) 0.43 K/uL (0.11-0.59) 07/10/24 09:43 Eos # (Auto) 0.09 K/uL (0.00-0.50) 07/10/24 09:43 Baso # (Auto) 0.00 K/uL (0.00-0.20) 07/10/24 09:43 Immature Gran # (Auto) 0.04 K/uL (0.01-0.20) 07/10/24 09:43 Platelet Estimate Decreased (Normal) L 07/09/24 13:09 PT 10.7 Seconds (9.0-12.0) 07/09/24 13:09 INR 1.0 (0.9-1.1) 07/09/24 13:09 APTT 27 Seconds (21-31) 07/09/24 13:09 PTT Ratio 1.0 07/09/24 13:09 Sodium 142 mmol/L (136-145) 07/12/24 05:44 Potassium 3.6 mmol/L (3.5-5.1) 07/12/24 05:44 Chloride 108 mmol/L (98-107) H 07/12/24 05:44 Carbon Dioxide 29 mmol/L (21-32) 07/12/24 05:44 Anion Gap 5 (3-11) 07/12/24 05:44 BUN 13 mg/dl (6-23) 07/12/24 05:44 Creatinine 0.84 mg/dl (0.6-1.2) 07/12/24 05:44 Est Cr Clr Drug Dosing 57.5 ml/min 07/12/24 05:44 eGFR 72.87 07/12/24 05:44 BUN/Creatinine Ratio 15.5 (10-20) 07/12/24 05:44 Glucose 108 mg/dl (70-99(Fasting)) H 07/12/24 05:44 Estimat Average Glucose 126 mg/dl 07/10/24 09:43 Hemoglobin A1c 6.0 % (4.5-5.6) H 07/10/24 09:43 Lactate 1.4 mmol/L (0.4-2.0) 07/09/24 13:09 Calcium 8.6 mg/dl (8.6-10.3) 07/12/24 05:44 Magnesium 2.0 mg/dl (1.7-2.4) 07/09/24 13:09 Total Bilirubin 0.7 mg/dl (0.2-1.0) 07/09/24 13:09 AST 28 U/L (13-39) 07/09/24 13:09 ALT 24 U/L (7-52) 07/09/24 13:09 Alkaline Phosphatase 85 U/L (34-104) 07/09/24 13:09 Troponin I High Sens 3.3 pg/ml (0-14) 07/09/24 13:09 Total Protein 7.3 gm/dl (6.0-8.3) 07/09/24 13:09 Albumin 4.2 gm/dl (3.4-5.0) 07/09/24 13:09 Globulin 3.1 gm/dl (2.5-4.0) 07/09/24 13:09 Albumin/Globulin Ratio 1.4 (0.9-2) 07/09/24 13:09 Lipase 70 U/L (11-82) 07/09/24 13:09 Procalcitonin 9.04 ng/ml (0-0.5) H 07/11/24 07:03 Urine Color Yellow 07/09/24 13:09 Urine Appearance Cloudy (Clear) A 07/09/24 13:09 Urine pH 5.0 (4.5-7.5) 07/09/24 13:09 Ur Specific [place] 1.016 (1.000-1.030) 07/09/24 13:09 Urine Protein Negative (Negative) 07/09/24 13:09 Urine Glucose (UA) Negative (Negative) 07/09/24 13:09 Urine Ketones Trace (Negative) H 07/09/24 13:09 Urine Blood Negative (Negative) 07/09/24 13:09 Urine Nitrite Positive (Negative) A 07/09/24 13:09 Urine Bilirubin Negative (Negative) 07/09/24 13:09 Urine Urobilinogen Negative (Negative) 07/09/24 13:09 Ur Leukocyte Esterase 3+ (Negative) H 07/09/24 13:09 Urine WBC (Auto) >50 /hpf (0-5) H 07/09/24 13:09 Urine RBC (Auto) 3-5 /hpf (0-2) H 07/09/24 13:09 U Hyaline Cast (Auto) 0-2 /lpf (0-2) 07/09/24 13:09 U Epithel Cells (Auto) 0-2 /hpf (0-2) 07/09/24 13:09 Urine Bacteria (Auto) 4+ (None Seen) H 07/09/24 13:09 Urine Mucus Present (None Prsent) A 07/09/24 13:09 Nasal Screen MRSA (PCR) Negative (Negative) 07/10/24 06:15 Adenovirus (PCR) Not Detected (NotDetected) 07/09/24 13:09 B. pertussis DNA (PCR) Not Detected (NotDetected) 07/09/24 13:09 B.parapertussis DNA PCR Not Detected (NotDetected) 07/09/24 13:09 C. pneumoniae DNA (PCR) Not Detected (NotDetected) 07/09/24 13:09 Coronavirus OC43 (PCR) Not Detected (NotDetected) 07/09/24 13:09 Coronavirus HKU1 (PCR) Not Detected (NotDetected) 07/09/24 13:09 Coronavirus 229E (PCR) Not Detected (NotDetected) 07/09/24 13:09 SARS-CoV-2 (PCR) Not Detected (NotDetected) 07/09/24 13:09 Coronavirus NL63 (PCR) Not Detected (NotDetected) 07/09/24 13:09 Human Metapneumovir PCR Not Detected (NotDetected) 07/09/24 13:09 Influenza Type A (PCR) Not Detected (NotDetected) 07/09/24 13:09 Influenza Type B (PCR) Not Detected (NotDetected) 07/09/24 13:09 M. pneumoniae (PCR) Not Detected (NotDetected) 07/09/24 13:09 Parainfluenza 1 (PCR) Not Detected (NotDetected) 07/09/24 13:09 Parainfluenza 2 (PCR) Not Detected (NotDetected) 07/09/24 13:09 Parainfluenza 3 (PCR) Not Detected (NotDetected) 07/09/24 13:09 Parainfluenza 4 (PCR) Not Detected (NotDetected) 07/09/24 13:09 RSV (PCR) Not Detected (NotDetected) 07/09/24 13:09 Entero/Rhino (PCR) Not Detected (NotDetected) 07/09/24 13:09 Impressions Chest X-Ray 07/09/24 13:08 XR chest 1V portable CLINICAL HISTORY: Cough, fever COMPARISON STUDY: 06/09/2020 FINDINGS: There is increased retrocardiac density consistent with either left basilar infiltrate and/or a partial left basilar atelectasis. Lung mcelroy are otherwise clear allowing for generalized low lung volumes. There is no pneumothorax. IMPRESSION: Left basilar infiltrate and/or atelectasis. ACT 112: Negative or not required by law. Electronically signed by: Mala Vega M.D. 07/09/2024 1:44 PM Hospital Course (1) Metabolic encephalopathy: (2) UTI (urinary tract infection): (3) LLL pneumonia: (4) Nocturnal hypoxia: (5) Moderate intellectual disability: Plan Patient is a 73 yr female who has a significant past medical history of paranoid schizophrenia, moderate intellectual disability, history of Parkinson's disease, congenital hydrocephalus, prediabetes, HLD, GERD, RLS, chronic ITP who currently resides at [facility] presents to ED today secondary to fever, cough for the past few days. Acute Metabolic Encephalopathy UTI Possible LLL PNA --Outpt urine culture growing > 100k E. Coli -CXR: Left basilar infiltrate and/or atelectasis. -Urine culture growing Klebsiella -Blood culture negative to date -BioFire negative -Elevated procalcitonin Continue IV Rocephin, doxycycline Transition to oral antibiotics on discharge Weaned off of supplemental oxygen Nocturnal Hypoxia continue 2L O2 at HS May need to step prior to discharge Chronic ITP: No acute bleeding issues Monitor platelets Prediabetes HbA1c 6.0 Chronic Medical conditions: Moderate Intellectual disability/ paranoid schizophrenia/ Parkinson's disease: continue home meds DVT Px: SCDs Re: Thrombocytopenia Code Status Full Code Total Time Total Time Spent Total Time Spent (In Minutes): 49 minutes Discharge Plan Discharge Items Patient Disposition: Personal Jail Reason For Visit: UTI, PNA Discharge Diagnosis: Acute Metabolic Encephalopathy Urinary tract infection Suspected left lower lobe pneumonia Condition on Discharge: Good Activity: Per Instructions section Exercise/Sports: Gradually increase as tolerated Non-emergency contact: Primary Care Provider Call non-emergency contact if: you have any medication questions, your symptoms worsen, your pain is concerning for you and you have a fever Follow-up/Referrals: Latisha Aden MD [Primary Care Provider] - Diet: Carb Consistent or DM2 Diet Texture: Dental soft (bite-sized) Addtl Attending Provider Instructions: Follow-up with your primary care physician in 1 week upon discharge fro rehab facility -- Your final blood cultures are pending at the time of discharge. Follow-up with your physician for results. --Complete the antibiotic cefuroxime, doxycycline course as prescribed. -- Continue to monitor oxygen saturation using pulse oximeter. If saturation less than 90, can use supplemental oxygen during daytime as well. Seek immediate medical attention if your symptoms reoccur or worsen Please take all medications as instructed on discharge list below. Please call if you have any questions or problems. You can reach a [facility] hospitalist on duty at [facility] 24 hours a day by calling [phone] Pending Studies at Discharge: Yes Studies:: Blood culture Stand-Alone Forms: My [facility] Next 1 Interactive, Smoking Cessation Skilled Items Patient informed of condition?: Yes DNR: No Discharge Level of Care: Other Communicable Disease: No Discharge Prognosis: Stable Lines: None Urinary Catheter: No Medications and DC Order Prescriptions: New doxycycline hyclate 100 mg Capsule 100 mg PO BID Qty: 11 0RF Advanced Probiotic 625 mg (10 billion cell) Capsule 1 cap PO DAILY Qty: 14 0RF cefuroxime axetil 500 mg tablet 500 mg PO BID Qty: 10 0RF Rx Instructions: start taking from 07/13/24 Continued ([facility] [place]) Portable Oxygen Misc See Rx Instructions .MEDSUPPLY Qty: 1 0RF Rx Instructions: 2 L oxygen at night and when patient is sleeping. MAXIM 99 lorazepam 0.5 mg tablet 0.5 mg PO UD Rx Instructions: TAKE 0.5MG AT NOON & BEDTIME chlorpromazine 10 mg tablet 10 mg PO [facility] (DME) Portable Oxygen Misc See Rx Instructions .MEDSUPPLY Qty: 1 0RF Rx Instructions: Oxygen 2 to 4 liters at night and when the patient is asleep to keep O2 saturation 90-92%. MAXIM 99 atorvastatin 20 mg Tablet 20 mg PO HS benztropine 0.5 mg Tablet 0.5 mg PO BID fluoxetine 10 mg Capsule 10 mg PO QAM Ear Wax Drops 6.5 % Drops 5 drp OTB WE@2000 clozapine 25 mg Tablet 25 mg PO QAM naproxen sodium 220 mg Capsule 220 mg PO Q12H PRN (Reason: Pain) capsaicin [Capsaicin HP] 0.075 % Cream 1 applic TOPICAL TID PRN (Reason: Pain) Rx Instructions: do not wash area for at least 30 min after application benzonatate 100 mg Capsule 100 mg PO TID PRN (Reason: Cough) Systane (PF) 0.4-0.3 % Dropperette 1 drp OPB QID loperamide 2 mg capsule 2 mg PO QID PRN (Reason: Diarrhea) Rx Instructions: CALL DR IF DIARRHEA LASTS MORE THAN 2 DAYS multivitamin [Daily-Pradip] Tablet 1 tab PO DAILY omeprazole 40 mg capsule,delayed release(DR/EC) 40 mg PO DAILY acetaminophen 500 mg Tablet 500 mg PO Q6H MDD 3G PRN (Reason: Fever Or Pain) docusate sodium 100 mg Capsule 200 mg PO BID [place]-3 Fish Oil 300-1,000 mg Capsule 1 cap PO BID gabapentin 100 mg capsule 200 mg PO HS Rx Instructions: TAKE 1 HOUR BEFORE BEDTIME alum-mag hydroxide-simeth [Antacid with Simethicone] 200-200-20 mg/5 mL Suspension 15 ml PO ACHS PRN (Reason: Indigestion) Rx Instructions: administer between meals and at bedtime fluoxetine 40 mg capsule 40 mg PO QAM clozapine 25 mg tablet 87.5 mg PO HS Selsun Blue 1 % Shampoo 1 applic TOPICAL UD PRN (Reason: DANDRUFF) Rx Instructions: massage into affected area; leave on for 10 mins ; rinse off thoroughly calcium citrate-vitamin D3 315 mg-6.25 mcg (250 unit) Tablet 1 tab PO DAILY guaifenesin [Mucus Relief ER] 600 mg Tablet Extended Release 12hr 600 mg PO Q12H PRN (Reason: COUGH OR CONGESTION) magnesium hydroxide [Milk of Magnesia] 400 mg/5 mL Suspension 30 ml PO DAILY PRN (Reason: Constipation) Discharge Orders: Discharge Order (Routine); Ordered 07/12/24 Ordered By: Brent Escoto/Other Patient Handouts: Prediabetes, 5 Steps for Eating Healthier Admission Data Admit Date/Time: 07/09/24 15:38 Attending Provider: Brent Villagomez Admit Provider: Carlito Crooks Primary Care Provider: Latisha Aden Other Providers: Carlito Crooks
== END 2024-07-12 17:12 | disposition home or self-care (01) | DRG 193 ==
LOC: ED 12:44 → 3W 15:38 → SUATTDRO 15:38 → 3W 17:05